=== PATIENT | female | born 1975 | race African-American/Black ===

== ENCOUNTER → 2019-06-11 | Outpatient (CLI) | payer MEDICARE, MEDICAID ==
--- NOTE | 2019-06-11 13:08 | RADIOLOGY REPORT (SQ) ---
EXAM DESCRIPTION: L SPINE 2 VIEWS COMPLETED DATE/TIME: 06/11/2019 12:59 pm REASON FOR STUDY: M54.31 SCIATICA, RIGHT SIDE COMPARISON: None. NUMBER OF VIEWS: Two views. TECHNIQUE: AP and lateral radiographic images acquired of the lumbar spine. LIMITATIONS: None. FINDINGS: MINERALIZATION: Normal. SEGMENTATION: Normal. No transitional anatomy. ALIGNMENT: Normal. VERTEBRAE: Maintained height. No fracture or worrisome bone lesion. DISCS: Preserved height. No significant osteophytes or end plate irregularity. POSTERIOR ELEMENTS: Pedicles and facets are intact. No pars defect or posterior arch defects. HARDWARE: Peritoneal dialysis catheter in the left pelvis PARASPINAL SOFT TISSUES: Normal. PELVIS: SI joints unremarkable OTHER: No other significant finding. IMPRESSION: NORMAL 2 VIEW LUMBAR SPINE. TECHNICAL DOCUMENTATION: JOB ID: [id number] [employer]- All Rights Reserved Reading location - IP/workstation name: [email or web address]
--- NOTE | 2019-06-11 13:09 | RADIOLOGY REPORT (SQ) ---
EXAM DESCRIPTION: HIP RIGHT AP/LATERAL COMPLETED DATE/TIME: 06/11/2019 12:59 pm REASON FOR STUDY: M25.551 PAIN IN RIGHT HIP COMPARISON: Lumbar spine films same date NUMBER OF VIEWS: Two views. TECHNIQUE: AP pelvis and additional frog-leg view of the right hip. LIMITATIONS: None. FINDINGS: MINERALIZATION: Normal. RIGHT HIP: No fracture or dislocation. No worrisome bone lesions. No significant joint space narrow ing LEFT HIP: No fracture or dislocation. No worrisome bone lesions. No significant joint space narrowi ng PUBIS AND ISCHIUM: No fracture. PELVIS: No fracture. SACRUM: No fracture or dislocation. No worrisome bone lesions. LOWER LUMBAR SPINE: No fracture or dislocation. No worrisome bone lesions. No significant disc disea se. SOFT TISSUES: No findings. OTHER: No other significant finding. IMPRESSION: No plain film findings to explain history of pain TECHNICAL DOCUMENTATION: JOB ID: [id number] [employer]- All Rights Reserved Reading location - IP/workstation name: [email or web address]
== END ==
LOC: RAD 12:17
PROVIDERS: ATTEND Internal Medicine
DX: M54.31 Sciatica, right side (principal); M25.551 Pain in right hip
CPT/HCPCS: 72100

== ENCOUNTER 2019-06-23 08:59 | Emergency (ER) | payer MEDICARE, MEDICAID ==
[2019-06-23] MEDS ORDERED: METHYLPREDNISOLONE INJ 125 MG/2 ML SDV IM ONE (09:50)
--- NOTE | 2019-06-23 09:52 | ER Document Report ---
ED Medical Screen (RME) - General Chief Complaint: General Weakness Stated Complaint: WEAKNESS Time Seen by Provider: 06/23/19 09:47 Primary Care Provider: MARYELLEN SHIRLEY MD [Primary Care Provider] - Follow up as needed TRAVEL OUTSIDE OF THE [place] IN LAST 30 DAYS: Yes - HPI Notes: 06/23/19 09:51 Patient is a 43-year-old female with a history of fibromyalgia and end-stage r enal disease performing peritoneal dialysis daily presents complaining of feeling generalized pain that could be related to her fibromyalgia, but having some generalized weakness as well. She has not had any complications with her dialysis at home. She is able to eat and drink without difficulty. She does still produce urine. She is having normal bowel movements. No fever, chest pain, shortness of breath, abdominal pain, nausea/vomiting/diarrhea. I have treated and performed a rapid initial assessment of this patient. A comprehensive ED assessment and evaluation of the patient, analysis of test results and completion of medical decision making process will be conducted by additional ED providers. PHYSICAL EXAMINATION: GENERAL: Well-appearing, well-nourished and in no acute distress. A&Ox4. Answers questions appropriately. Lungs: CTAB - Related Data Allergies/Adverse Reactions: iodine Allergy (Verified 06/23/19 09:46) seafood Allergy (Uncoded 06/23/19 09:46) Physical Exam - Vital signs Vitals: Temp Pulse Resp BP Pulse Ox 97.7 F 92 20 154/100 H 100 06/23/19 09:04 06/23/19 09:04 06/23/19 09:04 06/23/19 09:04 06/23/19 09:04 Course - Vital Signs Vital signs: Temp Pulse Resp BP Pulse Ox 97.7 F 92 20 154/100 H 100 06/23/19 09:04 06/23/19 09:04 06/23/19 09:04 06/23/19 09:04 06/23/19 09:04 Doctor's Discharge - Discharge Referrals: MARYELLEN SHIRLEY MD [Primary Care Provider] - Follow up as needed
[2019-06-23 10:41] LABS: ALBUMIN 3.8 g/dL (3.5-5.0); ALKALINE PHOSPHATASE 68 U/L (38-126); ANION GAP 17 (5-19); ASPARTATE AMINO TRANSFERASE 38 U/L (14-36); BILIRUBIN,DIRECT 1.2 mg/dL (0.0-0.4); BILIRUBIN,TOTAL 1.2 mg/dL (0.2-1.3); BLOOD UREA NITROGEN 82 mg/dL (7-20); CALCIUM 8.9 mg/dL (8.4-10.2); CARBON DIOXIDE 21 mmol/L (22-30); CHLORIDE 100 mmol/L (98-107); GLUCOSE 81 mg/dL (75-110); POTASSIUM 4.9 mmol/L (3.6-5.0); TOTAL PROTEIN 6.9 g/dL (6.3-8.2)
[2019-06-23 10:46] LABS: ABSOLUTE BASOPHILS # (AUTO) 0.1 10^3/uL (0.0-0.2); ABSOLUTE EOSINOPHILS # (AUTO) 0.4 10^3/uL (0.0-0.6); ABSOLUTE LYMPHOCYTES (AUTO) 1.6 10^3/uL (0.5-4.7); ABSOLUTE MONOCYTES (AUTO) 0.9 10^3/uL (0.1-1.4); ABSOLUTE NEUT (AUTO) 7.3 10^3/uL (1.7-8.2); BASOPHILS % (AUTO) 0.7 % (0-2); EOSINOPHILS % (AUTO) 3.5 % (0-6); HEMATOCRIT 25.9 % (36.0-47.0); HEMOGLOBIN 8.9 g/dL (12.0-15.5); LYMPHOCYTES % (AUTO) 15.4 % (13-45); MEAN CORPUSCULAR HEMOGLOBIN 31.1 pg (27.0-33.4); MEAN CORPUSCULAR HGB CONC 34.4 g/dL (32.0-36.0); MEAN CORPUSCULAR VOLUME 91 fl (80-97); MONOCYTES % (AUTO) 8.8 % (3-13); PLATELET COUNT 303 10^3/uL (150-450); RED BLOOD COUNT 2.86 10^6/uL (3.72-5.28); RED CELL DISTRIBUTION WIDTH 15.6 % (11.5-14.0); SEGMENTED NEUTROPHILS % (AUTO) 71.6 % (42-78); TOTAL CELLS COUNTED % (AUTO) 100 %; WHITE BLOOD COUNT 10.2 10^3/uL (4.0-10.5)
[2019-06-23 11:00] LABS: APPEARANCE,URINE CLEAR; BILIRUBIN,URINE NEGATIVE (NEGATIVE); COLOR,URINE STRAW; GLUCOSE, URINE 50 mg/dL (NEGATIVE); KETONES,URINE NEGATIVE (NEGATIVE); PROTEIN,URINE 100 mg/dL (NEGATIVE); URINE SPECIFIC GRAVITY 1.009; UROBILINOGEN,URINE NEGATIVE mg/dL (<2.0)
[2019-06-23] MEDS ORDERED: MORPHINE SULFATE 10 MG/ML INJ IM ONE ×2 (13:17→15:42)
--- NOTE | 2019-06-23 13:56 | ER Document Report ---
ED General - General Chief Complaint: Pain All Over Stated Complaint: WEAKNESS Time Seen by Provider: 06/23/19 09:47 Primary Care Provider: MARYELLEN SHIRLEY MD [Primary Care Provider] - 06/25/19 Sherie RAYGOZA MD [ACTIVE STAFF] - Follow up in 3-5 days Mode of Arrival: Ambulatory Information source: Patient Notes: Patient presents complaining of generalized pain from her head to her feet. Patient states she feels as though she is having a fibromyalgia flareup. Patient reports weakness but states that this is really only due to the fact that she hurts all over. Patient reports normal strength otherwise. Patient denies any fever cough or cold symptoms. No nausea or vomiting. Patient states this feels typical of flareups that she has with her fibromyalgia. TRAVEL OUTSIDE OF THE [place] IN LAST 30 DAYS: Yes - HPI Onset: This morning Onset/Duration: Gradual Quality of pain: Achy Pain Level: 5 Associated symptoms: Leg swelling. denies: Chest pain, Nonproductive cough, Productive cough, Fever, Headache, Nausea, Vomiting, Weakness Exacerbated by: Denies Relieved by: Denies Similar symptoms previously: Yes Recently seen / treated by doctor: No - Related Data Allergies/Adverse Reactions: iodine Allergy (Verified 06/23/19 09:46) seafood Allergy (Uncoded 06/23/19 09:46) Past Medical History - General Information source: Patient - Social History Smoking Status: Never Smoker Chew tobacco use (# tins/day): No Frequency of alcohol use: None Drug Abuse: None Occupation: None Lives with: Family Family History: Reviewed & Not Pertinent Patient has suicidal ideation: No Patient has homicidal ideation: No - Medical History Medical History: Other - Lupus - Past Medical History Cardiac Medical History: Reports: Hx Hypertension Neurological Medical History: Reports: Hx Migraine. Denies: Hx Seizures Renal/ Medical History: Reports: Hx End Stage Renal Disease, Hx Peritoneal Dialysis. Denies: Hx Kidney Stones GI Medical History: Denies: Hx Gastroesophageal Reflux Disease, Hx Hiatal Hernia, Hx Ulcer Musculoskeletal Medical History: Reports Hx Arthritis, Reports Hx Fibromyalgia Psychiatric Medical History: Reports: Hx Depression Past Surgical History: Reports: Hx Kidney (Renal Surgery) - 2019, Hx T onsillectomy - childhood Review of Systems - Review of Systems Constitutional: No symptoms reported. denies: Fever, Recent illness EENT: No symptoms reported Cardiovascular: No symptoms reported. denies: Chest pain Respiratory: No symptoms reported. denies: Cough, Short of breath Gastrointestinal: No symptoms reported. denies: Abdominal pain, Nausea, Vomiting Genitourinary: No symptoms reported Female Genitourinary: No symptoms reported Musculoskeletal: Muscle pain, Leg swelling Skin: No symptoms reported. denies: Rash Hematologic/Lymphatic: No symptoms reported Neurological/Psychological: No symptoms reported Physical Exam - Vital signs Vitals: Temp Pulse Resp BP Pulse Ox 97.7 F 92 20 154/100 H 100 06/23/19 09:04 06/23/19 09:04 06/23/19 09:04 06/23/19 09:04 06/23/19 09:04 - General General appearance: Appears well, Alert In distress: None - HEENT Head: Normocephalic, Atraumatic Eyes: Normal Conjunctiva: Normal Nasal: Normal Pharynx: Normal. No: Erythema Neck: Normal, Supple. No: Lymphadenopathy - Respiratory Respiratory status: No respiratory distress Chest status: Nontender Breath sounds: Normal. No: Rales, Rhonchi, Stridor, Wheezing Chest palpation: Normal - Cardiovascular Rhythm: Regular Heart sounds: S1 appreciated, S2 appreciated Murmur: No - Abdominal Inspection: Other - Peritoneal dialysis catheter, no erythema drainage or tenderness around site Bowel sounds: Normal Tenderness: Nontender Organomegaly: No organomegaly - Back Back: Tender - Generalized musculoskeletal tenderness. No: Vertebra tenderness - Extremities General upper extremity: Normal inspection, Normal ROM General lower extremity: Edema - 1+ bilateral lower extremities, Normal ROM - Neurological Neuro grossly intact: Yes Cognition: Normal Orientation: AAOx4 [place] Coma Scale Eye Opening: Spontaneous [place] Coma Scale Verbal: Oriented [place] Coma Scale Motor: Obeys Commands Teo Coma Scale Total: 15 - Psychological Associated symptoms: Normal affect, Normal mood - Skin Skin Temperature: Warm Skin Color: Normal Course - Re-evaluation Re-evalutation: 06/23/19 13:[address] Tavares regarding patient presentation and diagnostic evaluation. Patient has known history of renal failure and currently performs daily peritoneal dialysis. Patient with normal potassium at this time although BUN and creatinine both are elevated. We have nothing to compare patient's labs to them patient is uncertain when her baseline renal function test has been running. Dr. tavares advises treating for likely fibromyalgia flare at this time and recommends outpatient follow-up with her primary doctor and nephrology. 06/23/19 15:[address] Gee who is on-call for patient's primary doctor discussed patient's renal function test results and presentation. Recommends outpatient follow-up with nephrology and her primary doctor. Also recommends giving daniela ent steroid Dosepak to help manage her pain symptoms from her fibromyalgia. - Vital Signs Vital signs: Temp Pulse Resp BP Pulse Ox 97.6 F 88 18 121/86 H 95 06/23/19 17:03 06/23/19 17:03 06/23/19 17:03 06/23/19 17:03 06/23/19 17:03 - Laboratory Result Diagrams: 06/23/19 09:54 06/23/19 09:54 Laboratory results interpreted by me: 06/23/19 06/23/19 06/23/19 09:54 09:54 09:54 RBC 2.86 L Hgb 8.9 L Hct 25.9 L RDW 15.6 H Carbon Dioxide 21 L BUN 82 H Creatinine 16.62 H Est GFR ( Amer) 3 L Est GFR (MDRD) Non-Af 2 L Magnesium 2.7 H Direct Bilirubin 1.2 H AST 38 H Urine Protein 100 H Urine Glucose (UA) 50 H Urine Blood SMALL H 06/23/19 15:55 Labs- Entire Visit 06/23/19 06/23/19 06/23/19 09:54 09:54 09:54 WBC 10.2 RBC 2.86 L Hgb 8.9 L Hct 25.9 L MCV 91 MCH 31.1 MCHC 34.4 RDW 15.6 H Plt Count 303 Lymph % (Auto) 15.4 [place] % (Auto) 8.8 Eos % (Auto) 3.5 Baso % (Auto) 0.7 Absolute Neuts (auto) 7.3 Absolute Lymphs (auto) 1.6 Absolute Monos (auto) 0.9 Absolute Eos (auto) 0.4 Absolute Basos (auto) 0.1 Seg Neutrophils % 71.6 Sodium 138.2 Potassium 4.9 Chloride 100 Carbon Dioxide 21 L Anion Gap 17 BUN 82 H Creatinine 16.62 H Est GFR ( Amer) 3 L Est GFR (MDRD) Non-Af 2 L Glucose 81 Calcium 8.9 Magnesium 2.7 H Total Bilirubin 1.2 Direct Bilirubin 1.2 H Neonat Total Bilirubin Not Reportable Neonat Direct Bilirubin Not Reportable Neonat Indirect Bili Not Reportable AST 38 H ALT 54 Alkaline Phosphatase 68 Total Protein 6.9 Albumin 3.8 Urine Color STRAW Urine Appearance CLEAR Urine pH 8.0 Ur Specific [place] 1.009 Urine Protein 100 H Urine Glucose (UA) 50 H Urine Ketones NEGATIVE Urine Blood SMALL H Urine Nitrite (Reflex) NEGATIVE Urine Bilirubin NEGATIVE Urine Urobilinogen NEGATIVE Leukocyte Esterase Rfl NEGATIVE Urine RBC (Auto) 0 Urine WBC (Reflex) 2 Squamous Epi Cells Auto 1 Urine Mucus (Auto) RARE Urine Ascorbic Acid NEGATIVE Discharge - Discharge Clinical Impression: ESRD (end stage renal disease), Fibromyalgia Condition: Stable Disposition: HOME, SELF-CARE Instructions: Fibromyalgia ([facility]), Steroid Medication Additional Instructions: Return immediately for any new or worsening symptoms Followup with your primary care provider, call tomorrow to make a followup appointment Follow-up with [facility], call Tuesday to make a follow-up appointment Prescriptions: Prednisone [Deltasone 10 mg Tablet] 10 mg PO ASDIR PRN #21 tablet PRN Reason: Referrals: Sherie RAYGOZA MD [ACTIVE STAFF] - Follow up in 3-5 days MARYELLEN SHIRLEY MD [Primary Care Provider] - 06/25/19
[2019-06-23 17:04] VITALS: BP 121/86
== END 2019-06-23 17:04 | disposition home or self-care (01) ==
LOC: ER 08:59
DX: I12.0 Hypertensive chronic kidney disease with stage 5 chronic kidney disease or end stage renal disease (principal); N18.6 End stage renal disease; M79.7 Fibromyalgia; R53.1 Weakness
CPT/HCPCS: 99284; 96372; 36415; 83735; 85025; 80053; 81001; J2270

== ENCOUNTER 2019-06-27 13:12 | Inpatient (IN) | payer MEDICARE, MEDICAID ==
--- NOTE | 2019-06-27 14:49 | ER Document Report ---
ED Medical Screen (RME) - General Chief Complaint: Chest Pain Stated Complaint: CHEST PAIN Time Seen by Provider: 06/27/19 14:43 Primary Care Provider: MARYELLEN SHIRLEY MD [Primary Care Provider] - Follow up as needed Mode of Arrival: Wheelchair Information source: Patient Notes: 43-year-old female with history of fibromyalgia and peritoneal dialysis presents emergency department with complaints of back pain and chest pain. Denies fever vomiting diarrhea. Respiratory rate even unlabored speaking in clear sentences. Reports that she has been living with her father who keeps air-conditioning very low even when it is cold out and she is worried that she may be hurting more because when she does her dialysis is cold in the house. Denies history of cardiac disease. She was offered Motrin for pain but declined. Reports she usually receives morphine for her pain. I have greeted and performed a rapid initial assessment of this patient. A comprehensive ED assessment and evaluation of the patient, analysis of test results and completion of the medical decision making process will be conducted by additional ED providers. TRAVEL OUTSIDE OF THE [place] IN LAST 30 DAYS: Yes - Related Data Allergies/Adverse Reactions: iodine Allergy (Verified 06/27/19 14:43) seafood Allergy (Uncoded 06/27/19 14:43) Past Medical History - Past Medical History Cardiac Medical History: Reports: Hx Hypertension Denies: Hx Atrial Fibrillation, Hx Congestive Heart Failure, Hx Heart Attack, Hx Hypercholesterolemia Pulmonary Medical History: Denies: Hx Asthma, Hx Bronchitis, Hx COPD, Hx Pneumonia, Hx Tuberculosis Neurological Medical History: Reports: Hx Migraine. Denies: Hx Seizures Endocrine Medical History: Denies: Hx Diabetes Mellitus Type 1, Hx Diabetes Mellitus Type 2 Renal/ Medical History: Reports: Hx End Stage Renal Disease, Hx Peritoneal Dialysis. Denies: Hx Kidney Stones GI Medical History: Denies: Hx Gastroesophageal Reflux Disease, Hx Hiatal Hernia, Hx Ulcer Musculoskeltal Medical History: Reports Hx Arthritis, Reports Hx Fibromyalgia Psychiatric Medical History: Reports: Hx Depression Denies: Hx Attention Deficit Hyperactivity Disorder, Hx Bipolar Disorder, Hx Schizophrenia Past Surgical History: Reports: Hx Kidney (Renal Surgery) - 2019, Hx Tonsillectomy - childhood Physical Exam - Vital signs Vitals: Temp Pulse Resp BP Pulse Ox 97.6 F 56 L 16 156/105 H 99 06/27/19 13:48 06/27/19 13:48 06/27/19 13:48 06/27/19 13:48 06/27/19 13:48 Course - Vital Signs Vital signs: Temp Pulse Resp BP Pulse Ox 97.6 F 56 L 16 156/105 H 99 06/27/19 13:48 06/27/19 13:48 06/27/19 13:48 06/27/19 13:48 06/27/19 13:48 Doctor's Discharge - Discharge Referrals: MARYELLEN SHIRLEY MD [Primary Care Provider] - Follow up as needed
--- NOTE | 2019-06-27 15:06 | RADIOLOGY REPORT (SQ) ---
EXAM DESCRIPTION: CHEST 2 VIEWS COMPLETED DATE/TIME: 06/27/2019 2:57 pm REASON FOR STUDY: cp COMPARISON: None. EXAM PARAMETERS: NUMBER OF VIEWS: two views TECHNIQUE: PA and lateral views of the chest were obtained. RADIATION DOSE: NA LIMITATIONS: none FINDINGS: LUNGS AND PLEURA: The costophrenic sulci are blunted. The curvilinear opacities in the le ft base could represent atelectasis. There is no pneumothorax or focal consolidation. MEDIASTINUM AND HILAR STRUCTURES: No mediastinal hilar contour abnormality. HEART AND VASCULAR STRUCTURES: The cardiac silhouette is enlarged. BONES: No acute findings. HARDWARE: None in the chest. OTHER: No other finding. IMPRESSION: Cardiomegaly and small bilateral pleural effusions without pulmonary edema. TECHNICAL DOCUMENTATION: JOB ID: [id number] [employer]- All Rights Reserved Reading location - IP/workstation name: [email or web address]
[2019-06-27 16:03] LABS: HEMATOCRIT 26.6 % (36.0-47.0); MEAN CORPUSCULAR HEMOGLOBIN 30.6 pg (27.0-33.4); MEAN CORPUSCULAR VOLUME 90 fl (80-97); PLATELET COUNT 404 10^3/uL (150-450); RED BLOOD COUNT 2.96 10^6/uL (3.72-5.28); RED CELL DISTRIBUTION WIDTH 16.2 % (11.5-14.0); WHITE BLOOD COUNT 16.1 10^3/uL (4.0-10.5)
[2019-06-27 16:16] LABS: ALBUMIN 3.7 g/dL (3.5-5.0); ALKALINE PHOSPHATASE 81 U/L (38-126); ASPARTATE AMINO TRANSFERASE 41 U/L (14-36); BILIRUBIN,DIRECT 1.4 mg/dL (0.0-0.4); BILIRUBIN,TOTAL 1.4 mg/dL (0.2-1.3); BLOOD UREA NITROGEN 92 mg/dL (7-20); CALCIUM 7.8 mg/dL (8.4-10.2); GLUCOSE 164 mg/dL (75-110); POTASSIUM 4.6 mmol/L (3.6-5.0); TOTAL PROTEIN 6.7 g/dL (6.3-8.2)
[2019-06-27 16:23] LABS: CARBON DIOXIDE 21 mmol/L (22-30); CHLORIDE 97 mmol/L (98-107)
[2019-06-27 16:28] LABS: ANION GAP 20 (5-19)
[2019-06-27 16:38] LABS: ABSOLUTE LYMPHOCYTES# (MANUAL) 1.3 10^3/uL (0.5-4.7); ABSOLUTE MONOCYTES # (MANUAL) 1.3 10^3/uL (0.1-1.4); BASOPHILS % (MANUAL) 0 % (0-2); EOSINOPHILS % (MANUAL) 0 % (0-6); LYMPHOCYTES % (MANUAL) 8 % (13-45); MONOCYTES % (MANUAL) 8 % (3-13); SEGMENTED NEUTROPHILS % (MAN) 84 % (42-78); TOTAL CELLS COUNTED 100
[2019-06-27 16:39] LABS: ANISOCYTOSIS 1+
[2019-06-27 16:40] LABS: PLATELET COMMENT ADEQUATE
[2019-06-27] MEDS ORDERED: MORPHINE SULFATE 10 MG/ML INJ IV ONE ×2 (19:23→20:58)
--- NOTE | 2019-06-27 19:30 | ER Document Report ---
ED Cardiac - General Chief Complaint: Chest Pain > 30 Stated Complaint: CHEST PAIN Time Seen by Provider: 06/27/19 14:43 Mode of Arrival: Wheelchair Notes: Patient is a 43-year-old female with a history of fibromyalgia, peritoneal dialysis with chronic kidney failure, lupus who presents emergency department with a chief complaint of chest pain. Patient reports she began to have upper chest pain earlier today. Patient reports she was seen at her primary care physician's office and was sent here for evaluation. Patient reports the pain is also in her upper back. Patient reports that she feels like she is having a fibromyalgia flare but that this is not typical to have chest pain this severe. Patient denies recent fever or cough. Patient reports that she was seen the other day for body pain but was not having chest pain at that time. Patient reports she is having some swelling in her bilateral lower extremities but that this occurs when she sits for long periods of time which she has today. TRAVEL OUTSIDE OF THE [place] IN LAST 30 DAYS: Yes - Related Data Allergies/Adverse Reactions: iodine Allergy (Verified 06/27/19 14:43) seafood Allergy (Uncoded 06/27/19 14:43) Past Medical History - General Information source: Patient - Social History Smoking Status: Former Smoker Lives with: Family, Spouse/Significant other Family History: Reviewed & Not Pertinent Patient has suicidal ideation: No Patient has homicidal ideation: No - Past Medical History Cardiac Medical History: Reports: Hx Hypertension Denies: Hx Atrial Fibrillation, Hx Congestive Heart Failure, Hx Heart Attack, Hx Hypercholesterolemia Pulmonary Medical History: Reports: None Denies: Hx Asthma, Hx Bronchitis, Hx COPD, Hx Pneumonia, Hx Tuberculosis EENT Medical History: Reports: None Neurological Medical History: Reports: Hx Migraine. Denies: Hx Seizures Endocrine Medical History: Reports: None. Denies: Hx Diabetes Mellitus Type 1, Hx Diabetes Mellitus Type 2 Renal/ Medical History: Reports: Hx End Stage Renal Disease, Hx Peritoneal Dialysis. Denies: Hx Kidney Stones Malignancy Medical History: Reports: None GI Medical History: Reports: None. Denies: Hx Gastroesophageal Reflux Disease, Hx Hiatal Hernia, Hx Ulcer Musculoskeletal Medical History: Reports Hx Arthritis, Reports Hx Fibromyalgia, Reports Hx Systemic Lupus Erythematosus Skin Medical History: Reports None Psychiatric Medical History: Reports: Hx Depression Denies: Hx Attention Deficit Hyperactivity Disorder, Hx Bipolar Disorder, Hx Schizophrenia Traumatic Medical History: Reports: None Infectious Medical History: Reports: None Past Surgical History: Reports: Hx Kidney (Renal Surgery) - 2019, Hx Tonsillect elva - childhood Review of Systems - Review of Systems Constitutional: No symptoms reported EENT: No symptoms reported Cardiovascular: See HPI Respiratory: No symptoms reported Gastrointestinal: No symptoms reported Genitourinary: No symptoms reported Female Genitourinary: No symptoms reported Musculoskeletal: No symptoms reported Skin: No symptoms reported Hematologic/Lymphatic: No symptoms reported Neurological/Psychological: No symptoms reported Physical Exam - Vital signs Vitals: Temp Pulse Resp BP Pulse Ox 97.6 F 56 L 16 156/105 H 99 06/27/19 13:48 06/27/19 13:48 06/27/19 13:48 06/27/19 13:48 06/27/19 13:48 Interpretation: Hypertensive - Notes Notes: GENERAL: Well-appearing, well-nourished and in no acute distress. HEAD: Atraumatic, normocephalic. EYES: Pupils equal round and reactive to light, extraocular movements intact, sclera anicteric, conjunctiva are normal. ENT: Nares patent, oropharynx clear without exudates. Moist mucous membranes. NECK: Normal range of motion, supple without lymphadenopathy or JVD. LUNGS: Breath sounds clear to auscultation bilaterally and equal. No wheezes rales or rhonchi. HEART: Tachycardiac rate and rhythm without murmurs, rubs or gallops. ABDOMEN: Soft, nontender, normoactive bowel sounds, peritoneal dialysis site noted with dressing, no drainage. No guarding, no rebound. No masses appreciated. BACK: No cervical, thoracic, lumbar midline tenderness. No saddle anesthesia, normal distal neurovascular exam. GENITOURINARY: Deferred. EXTREMITIES: Normal range of motion, + 2 pitting edema bilaterally. No clubbing or cyanosis. NEUROLOGICAL: Cranial nerves II through XII grossly intact. Normal speech, normal gait. PSYCH: Normal mood, normal affect. SKIN: Warm, Dry, normal turgor, no rashes or lesions noted. Course - Re-evaluation Re-evalutation: 06/27/19 19:29 Upon initial exam patient is resting on her right lateral side and complains of 5 out of 5 chest and back pain. Patient reports that she does have a history of fibromyalgia but she typically does not have chest pain with this or pain that is so severe. Patient has not received anything for her discomfort. We will repeat a troponin and consult with her primary care physician Dr. Kinsey. 06/27/19 22:15 Patient's repeat troponin remains negative but did increase. Patient reports that the morphine is helping with her discomfort. Will contact Dr. Kinsey for consult and possible admission. 06/27/19 22:40 I did speak with Dr. Kinsey who will admit to the hospital. I also consulted with nephrology who will manage her peritoneal dialysis. This was Dr. Magana. She does agree to consult on the patient and put in orders for dialysis. - Vital Signs Vital signs: Temp Pulse Resp BP Pulse Ox 97.6 F 56 L 24 H 154/101 H 99 06/27/19 13:48 06/27/19 13:48 06/27/19 23:00 06/27/19 23:00 06/27/19 13:48 - Laboratory Result Diagrams: 06/27/19 15:11 06/27/19 15:11 Laboratory results interpreted by me: 06/27/19 06/27/19 15:11 15:11 WBC 16.1 H RBC 2.96 L Hgb 9.0 L Hct 26.6 L RDW 16.2 H Seg Neuts % (Manual) 84 H Lymphocytes % (Manual) 8 L Abs Neuts (Manual) 13.5 H Chloride 97 L Carbon Dioxide 21 L Anion Gap 20 H BUN 92 H Creatinine 15.18 H Est GFR ( Amer) 3 L Est GFR (MDRD) Non-Af 3 L Glucose 164 H Calcium 7.8 L Total Bilirubin 1.4 H Direct Bilirubin 1.4 H AST 41 H 06/27/19 19:28 Patient has a leukocytosis of 16.1. Patient does have hemoglobin of 9 with a hematocrit of 26.6. Patient's BUN and creatinine are elevated as to be expected as she is a end-stage renal patient on hemodialysis. - Diagnostic Test Radiology reviewed: Reports reviewed Radiology results interpreted by me: 06/27/19 19:28 Chest X-Ray 06/27/19 14:47 IMPRESSION: Cardiomegaly and small bilateral pleural effusions without pulmonary edema. Discharge - Discharge Clinical Impression: End stage renal disease, Fibromyalgia Chest pain Qualifiers: Chest pain type: unspecified Qualified Code(s): R07.9 - Chest pain, unspecified Condition: Stable Disposition: ADMITTED INPATIENT Admitting Provider: Amelie Unit Admitted: [facility]
[2019-06-27 21:08] LABS: A TYPE INFLUENZA AG NEGATIVE (NEGATIVE); B INFLUENZA AG NEGATIVE (NEGATIVE)
[2019-06-27] MEDS ORDERED: HEPARIN SOD (PORCINE) 5,000 UNIT/ML 1 ML VIAL SUBCUT ONE (23:00)
[2019-06-27] MEDS ORDERED: CEFTRIAXONE 1 GM/D5W RTU 1 GM/50 ML RTUPB IV ONE (23:00)
[2019-06-27 23:37] LABS: PHOSPHORUS 9.8 mg/dL (2.5-4.5)
[2019-06-27 23:52] LABS: INTERNATIONAL RATION (INR) 1.11; PROTHROMBIN TIME 14.4 SEC (11.4-15.4)
[2019-06-27 23:53] LABS: PARTIAL THROMBOPLASTIN TIME 34.5 SEC (23.5-35.8)
[2019-06-27 23:54] LABS: FREE T4 (FREE THYROXINE) 1.45 ng/dL (0.78-2.19)
[2019-06-28 00:08] LABS: THYROID STIMULATING HORMONE 1.11 uIU/mL (0.47-4.68)
[2019-06-28 00:14] LABS: CREATINE KINASE MB 1.94 ng/mL (<4.55); TROPONIN I 0.023 ng/mL
[2019-06-28] MEDS: HYDROMORPHONE HCL INJ/PF 2 MG/ML AMPULE IV PRN ×3 (00:42→19:11)
[2019-06-28] MEDS ORDERED: AMLODIPINE BESYLATE 5 MG TABLET PO ONE (04:30)
[2019-06-28] MEDS ORDERED: CLONIDINE HCL 0.1 MG TABLET PO ONE (04:30)
[2019-06-28 04:33] LABS: ARTERIAL BLOOD BASE EXCESS -3.3 mmol/L; ARTERIAL BLOOD H2CO3 1.11 mmol/L (1.05-1.35); ARTERIAL BLOOD HCO3 21.4 mmol/L (20-24); ARTERIAL BLOOD PCO2 36.8 mmHg (35-45); ARTERIAL BLOOD PH 7.38 (7.35-7.45); ARTERIAL BLOOD TOTAL CO2 22.6 mmol/L (21-25)
[2019-06-28 04:34] LABS: ARTERIAL BLOOD FIO2 ROOM AIR
[2019-06-28] MEDS: HEPARIN SOD (PORCINE) 5,000 UNIT/ML 1 ML VIAL SUBCUT SCH ×3 (06:11→23:14)
[2019-06-28 07:49] LABS: INTERNATIONAL RATION (INR) 1.15; PROTHROMBIN TIME 14.8 SEC (11.4-15.4)
[2019-06-28 07:51] LABS: ABSOLUTE EOSINOPHILS # (AUTO) 0.1 10^3/uL (0.0-0.6); ABSOLUTE LYMPHOCYTES (AUTO) 1.5 10^3/uL (0.5-4.7); ABSOLUTE MONOCYTES (AUTO) 1.1 10^3/uL (0.1-1.4); ABSOLUTE NEUT (AUTO) 8.7 10^3/uL (1.7-8.2); BASOPHILS % (AUTO) 0.4 % (0-2); EOSINOPHILS % (AUTO) 1.1 % (0-6); HEMATOCRIT 19.8 % (36.0-47.0); LYMPHOCYTES % (AUTO) 13.2 % (13-45); MEAN CORPUSCULAR HEMOGLOBIN 30.5 pg (27.0-33.4); MEAN CORPUSCULAR VOLUME 90 fl (80-97); MONOCYTES % (AUTO) 9.7 % (3-13); PLATELET COUNT 304 10^3/uL (150-450); RED BLOOD COUNT 2.21 10^6/uL (3.72-5.28); RED CELL DISTRIBUTION WIDTH 16.1 % (11.5-14.0); SEGMENTED NEUTROPHILS % (AUTO) 75.6 % (42-78); TOTAL CELLS COUNTED % (AUTO) 100 %; WHITE BLOOD COUNT 11.5 10^3/uL (4.0-10.5)
[2019-06-28 07:58] LABS: HEMOGLOBIN 6.7 g/dL (12.0-15.5)
[2019-06-28 08:11] LABS: ALBUMIN 2.7 g/dL (3.5-5.0); ALKALINE PHOSPHATASE 72 U/L (38-126); ASPARTATE AMINO TRANSFERASE 62 U/L (14-36); CREATINE KINASE 146 U/L (30-135); TOTAL PROTEIN 5.1 g/dL (6.3-8.2); TRIGLYCERIDES 50 mg/dL (<150)
[2019-06-28 08:19] LABS: CREATINE KINASE MB 1.43 ng/mL (<4.55); TROPONIN I 0.022 ng/mL
[2019-06-28 08:22] LABS: DIRECT LDL 49 mg/dL (<100)
[2019-06-28 08:50] LABS: ABSOLUTE RETICS # 0.044 10^6/uL (0.028-0.122); RETICULOCYTE COUNT (AUTO) 1.93 % (0.66-2.85)
[2019-06-28 09:00] LABS: IRON(TIBC) 35.4 ug/dL (37-170)
[2019-06-28] MEDS ORDERED: GENTAMICIN SULFATE 0.1% CREAM 15 GM TP SCH (10:00)
[2019-06-28 10:08] LABS: FOLATE 5.44 ng/mL (>2.76)
[2019-06-28 10:49] LABS: HEMATOCRIT 22.1 % (36.0-47.0); MEAN CORPUSCULAR HEMOGLOBIN 29.7 pg (27.0-33.4); MEAN CORPUSCULAR HGB CONC 33.5 g/dL (32.0-36.0); MEAN CORPUSCULAR VOLUME 89 fl (80-97); PLATELET COUNT 336 10^3/uL (150-450); RED CELL DISTRIBUTION WIDTH 16.2 % (11.5-14.0); WHITE BLOOD COUNT 11.5 10^3/uL (4.0-10.5)
[2019-06-28 10:50] LABS: HEMOGLOBIN 7.4 g/dL (12.0-15.5)
[2019-06-28] MEDS ORDERED: EPOETIN ALFA-EPBX 10,000 UNIT/ML VIAL (RENAL) SUBCUT ONE (11:00)
--- NOTE | 2019-06-28 11:00 | PDOC CONSULTATION ---
Consultation Consult Date: 06/28/19 Provider Consulted: DARREL COLE Consult reason:: I was asked to see the patient to supervise peritoneal dialysis in a patient with ESRD while here in the hospital. History of Present Illness Admission Date/PCP: 06/27/19 22:58 MARYELLEN SHIRLEY MD History of Present Illness: CARLOS LEVINE is a 43 year old female with history of end-stage renal disease reportedly secondary to lupus nephritis on peritoneal dialysis, fibromyalgia, and hypertension who presented to the emergency room yesterday because of chest pain. Patient actually went to Dr. Shirley's office complaining of chest pain. She said an EKG was done in the office and then she was sent to the emergency room. Patient states that she is started having pain for the last 3 days felt on her upper back around her neck and a localized part of her upper chest area. She feels like this is 1 of her fibromyalgia flares. Cardiac enzymes with troponin were obtained in the emergency room and so far has been negative. Upon presentation in the emergency room the patient was also found to be very hypertensive with a blood pressure as high as 172/120. Patient admits that she ran out of her clonidine for the past 2 days. Patient just moved from [place] to here in [place] and has been living with her father along with her 6/7 children about 2-1/2 weeks ago. Patient also was presented with leukocytosis of 16.1. Patient was given a dose of ceftriaxone 1 g in the emergency room. Today her white count was 11.5. Her hemoglobin when she came in last night was 9.0 and today surprisingly it is 6.7. She said she has some mild epistaxis prior to going to the emergency room yesterday but nothing massive. She denies any blood in the stool no urine. The patient has end-stage renal disease as mentioned above due to lupus nephritis and was started on peritoneal dialysis 8 to 9 months ago. She was following up with 1 of our nephrology partners in [place] but she could not tell me which one. She does peritoneal dialysis to the cycler at night. She does 1500 mL fill volume with a dwell time of 2 hours using alternating 1.5 and 2.5% solution on the cycler machine. She denies any cloudy bags, abdominal pain or problem with her exit site. She still makes urine. She thinks her dry weight is 118 kg. She is supposed to transfer to [facility] in [place] for her peritoneal dialysis care. She said she has been trying to call here at the [facility] unit here to make an appointment but was not successful. Past Medical History Cardiac Medical History: Reports: Hypertension-primary Neurological Medical History: Reports: Migraine Renal/ Medical History: Reports: 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, Hyperphosphatemia, Renal Osteodystropy Musculoskeltal Medical History: Reports: Arthritis, Fibromyalgia, Systemic Lupus Erythematosus Psychiatric Medical History: Reports: Depression Hematology Medical History: Reports Anemia of Chronic Kidney Disease Past Surgical History Past Surgical History: Reports: Dialysis Access Surgery PD, Tonsillectomy - childhood Social History Information Source: Patient Lives with: Family - Currently lives with father and her 6 children Smoking Status: Current Some Day Smoker - She was smoking 2 packs/day for 14 years and has cut down to just 1 cigarette every 3 days maybe Cigarettes Packs Per Day: 0.2 Electronic Cigarette use?: No Number of Years Smokin Last Time Smoked: 06/27/2019 Frequency of Alcohol Use: None Hx Recreational Drug Use: No Drugs: None Hx Prescription Drug Abuse: No Past Social History Note: She uses CBD for anxiety. - Advance Directive Resuscitation Status: Full Code Family History Family History: Chronic Kidney Disease - On her cousin with SLE as well, Hypertension - On her mother side., Other - Asthma on her father Parental Family History Reviewed: Yes Children Family History Reviewed: Yes Sibling(s) Family History Reviewed.: Yes Medication/Allergy Home Medications: Amlodipine Besylate [Norvasc 5 mg Tablet] 5 mg PO DAILY 06/23/19 Clonidine HCl [Catapres 0.3 mg Tablet] 0.3 mg PO DAILY 06/23/19 Prednisone [Deltasone 10 mg Tablet] 10 mg PO ASDIR PRN #21 tablet 06/23/19 Allergies/Adverse Reactions: iodine Allergy (Verified 06/27/19 14:43) seafood Allergy (Uncoded 06/27/19 14:43) Review of Systems All systems: reviewed and no additional remarkable complaints except as stated Review of Systems: Constitutional: ABSENT: chills, fatigue, fever(s), headache(s), weight gain, weight loss Eyes: ABSENT: visual disturbances Ears: ABSENT: hearing changes Cardiovascular: ABSENT: Dyspnea on exertion, orthropnea, palpitations; reports upper chest pain and edema Respiratory: ABSENT: cough, dyspnea, hemoptysis Gastrointestinal: ABSENT: abdominal pain, constipation, diarrhea, hematemesis, hematochezia, nausea, vomiting Genitourinary: ABSENT: dysuria, hematuria Musculoskeletal: ABSENT: joint swelling; reports upper back pain Integumentary: ABSENT: rash, wounds Neurological: ABSENT: abnormal gait, abnormal speech, confusion, dizziness, focal weakness, numbness, syncope Psychiatric: ABSENT: anxiety, depression Endocrine: ABSENT: cold intolerance, heat intolerance, polydipsia, polyuria Hematologic/Lymphatic: ABSENT: easy bleeding, easy bruising, lymphadenopathy Physical Exam Vital Signs: Temp Pulse Resp BP Pulse Ox 98.4 F 99 16 118/79 99 06/28/19 08:13 06/28/19 08:13 06/28/19 08:13 06/28/19 08:13 06/28/19 08:13 Intake & Output 06/27/19 06/28/19 06/29/19 06:59 06:59 06:59 Intake Total 1100 Output Total 700 Balance 400 Weight 54 kg Exam: General appearance: No acute distress, cooperative, well-developed, well- nourished Head exam: PRESENT: atraumatic, normocephalic Eye exam: PRESENT: Conjunctiva pale, EOMI, PERRLA. ABSENT: conjunctival injection, scleral icterus Mouth exam: PRESENT: moist, neck supple, tongue midline Neck exam: PRESENT: full ROM. ABSENT: carotid bruit, JVD, lymphadenopathy, thyromegaly Respiratory exam: PRESENT: clear to auscultation bilaterally. ABSENT: rales, rhonchi, stridor, wheezes Cardiovascular exam: PRESENT: RRR, +S1, +S2. Reproducible tenderness on her up per chest on palpation ABSENT: systolic murmur Pulses: PRESENT: normal radial pulses, normal dorsalis pedis pulses GI/Abdominal exam: PRESENT: normal bowel sounds, soft. Slightly distended but she has PD fluid in her. PD catheter in place in the left lower quadrant with excellent exit site without any drainage or erythema. ABSENT: guarding, mass, tenderness Rectal exam: Deferred Extremities exam: PRESENT: full ROM. Positive tenderness in her upper back and around the neck on palpation, grade 1 bilateral pitting edema ABSENT: calf tenderness Musculoskeletal: PRESENT: full ROM. ABSENT: deformity Neurological exam: PRESENT: alert, Awake, Oriented to person, Oriented to place, Oriented to time, reflexes normal, CN II-XII grossly intact. ABSENT: motor sensory deficit Psychiatric exam: PRESENT: appropriate affect, normal mood. ABSENT: homicidal ideation, suicidal ideation Skin exam: PRESENT: intact, dry, warm. ABSENT: rash Results Laboratory Results: 06/28/19 06:20 06/27/19 15:11 06/27/19 06/27/19 06/27/19 15:11 15:11 15:11 WBC 16.1 H RBC 2.96 L Hgb 9.0 L Hct 26.6 L MCV 90 MCH 30.6 MCHC 34.0 RDW 16.2 H Plt Count 404 Seg Neutrophils % Not Reportable Retic Count (auto) Carbonic Acid HCO3/H2CO3 Ratio ABG pH ABG pCO2 ABG pO2 ABG HCO3 ABG O2 Saturation ABG Base Excess FiO2 Sodium 138.1 Cancelled Potassium 4.6 Cancelled Chloride 97 L Cancelled Carbon Dioxide 21 L Cancelled Anion Gap 20 H Cancelled BUN 92 H Cancelled Creatinine 15.18 H Cancelled Est GFR ( Amer) 3 L Cancelled Est GFR (Non-Af Amer) Cancelled Glucose 164 H Cancelled Calcium 7.8 L Cancelled Phosphorus 9.8 H Magnesium 2.4 H Total Bilirubin 1.4 H AST 41 H Alkaline Phosphatase 81 Ammonia Total Protein 6.7 Albumin 3.7 Triglycerides Cholesterol LDL Cholesterol Direct VLDL Cholesterol HDL Cholesterol Amylase 152 H Lipase 295.9 TSH Free T4 06/27/19 06/27/19 06/28/19 15:11 23:33 04:00 WBC RBC Hgb Hct MCV MCH MCHC RDW Plt Count Seg Neutrophils % Retic Count (auto) Carbonic Acid 1.11 HCO3/H2CO3 Ratio 19:1 ABG pH 7.38 ABG pCO2 36.8 ABG pO2 70.0 L ABG HCO3 21.4 ABG O2 Saturation 94.0 ABG Base Excess -3.3 FiO2 ROOM AIR Sodium Potassium Chloride Carbon Dioxide Anion Gap BUN Creatinine Est GFR ( Amer) Est GFR (Non-Af Amer) Glucose Calcium Phosphorus Magnesium Total Bilirubin AST Alkaline Phosphatase Ammonia < 8.7 L Total Protein Albumin Triglycerides Cholesterol LDL Cholesterol Direct VLDL Cholesterol HDL Cholesterol Amylase Lipase TSH 1.11 Free T4 1.45 06/28/19 06/28/19 06/28/19 06:20 06:20 06:20 WBC 11.5 H RBC 2.21 L Hgb 6.7 L D Hct 19.8 L MCV 90 MCH 30.5 MCHC 34.0 RDW 16.1 H Plt Count 304 Seg Neutrophils % 75.6 Retic Count (auto) 1.93 Carbonic Acid HCO3/H2CO3 Ratio ABG pH ABG pCO2 ABG pO2 ABG HCO3 ABG O2 Saturation ABG Base Excess FiO2 Sodium Potassium Chloride Carbon Dioxide Anion Gap BUN Creatinine Est GFR ( Amer) Est GFR (Non-Af Amer) Glucose Calcium Phosphorus Magnesium Total Bilirubin 1.0 AST 62 H Alkaline Phosphatase 72 Ammonia Total Protein 5.1 L Albumin 2.7 L Triglycerides 50 Cholesterol 159.70 LDL Cholesterol Direct 49 VLDL Cholesterol 10.0 HDL Cholesterol 62 Amylase Lipase TSH Free T4 06/27/19 06/27/19 06/27/19 15:11 15:11 21:17 Creatine Kinase 277 H CK-MB (CK-2) Troponin I 0.017 0.020 06/27/19 06/28/19 06/28/19 23:33 06:20 06:20 Creatine Kinase 146 H CK-MB (CK-2) 1.94 1.43 Troponin I 0.023 0.022 Impressions: Chest X-Ray 06/27/19 14:47 IMPRESSION: Cardiomegaly and small bilateral pleural effusions without pulmonary edema. Assessment & Plan - Diagnosis (1) Chest pain Qualifiers: Chest pain type: unspecified Qualified Code(s): R07.9 - Chest pain, unspecified Is this a current diagnosis for this admission?: Yes Plan: Patient has no reported history of coronary artery disease. Her troponin so far has been negative. I think the patient is right and assuming that this could be part of her fibromyalgia flare. (2) Fibromyalgia Is this a current diagnosis for this admission?: Yes (3) ESRD (end stage renal disease) Is this a current diagnosis for this admission?: Yes Plan: Secondary to lupus nephritis per patient. Patient on CCPD at home. We will continue peritoneal dialysis here but since we do not have the cycler in the hospital we will do the manual exchanges. We will continue her on 4 exchanges every 6 hours using 1500 mL fill volume with alternating 1.5% and 2.5% dialysis solution. We will do daily exercise care with gentamicin cream. Discussed PD orders with her treating nurse today. I called [facility] PD unit at [place] and spoke to our PD nurse, Kenzie and she states that they have been trying to get up with the patient for the last 3 weeks and was unable to. If the patient gets discharged the patient is to go there on Tuesday at 9 AM. I communicated this to the patient today. (4) Leukocytosis Is this a current diagnosis for this admission?: Yes Plan: Her white count went down from 16 to 11 today. Clinically she does not appear to have acute peritonitis. Her PD effluent fluid is clear. However to be on the safe side we will send fluid cell count and culture as ordered initially by Dr. Shirley last night. (5) Anemia in chronic kidney disease, on chronic dialysis Is this a current diagnosis for this admission?: Yes Plan: Patient's last Procrit shot apparently was 3 weeks ago. There was no obvious signs of acute bleeding. Will check for occult blood. Will give Retacrit 20,000 units subcutaneously today. If blood count goes on any further below 7 or if she has any evidence of any bleeding then she might need blood transfusion or any other work-up. Her iron studies are pending. (6) Hypertension Is this a current diagnosis for this admission?: Yes Plan: Initially uncontrolled but that is because she ran out of her clonidine couple of days ago prior to admission. Resume all her blood pressure medications. (7) Chronic kidney disease-mineral and bone disorder Is this a current diagnosis for this admission?: Yes Plan: She has elevated phosphorus of 9.8 with mildly low calcium of 7.8. We will check her PTH. Patient admits that she has run out of calcium acetate 3 weeks ago when she moved down here in [place]. We will restart calcium acetate 667 mg 3 capsules with meals . (8) Hypermagnesemia Is this a current diagnosis for this admission?: Yes Plan: Due to ESRD. No magnesium supplements in this patient. (9) History of systemic lupus erythematosus (SLE) Is this a current diagnosis for this admission?: Yes Plan: Patient was previously given treatment at [place], [place] presumably at [place]. She said she follows up with a material inspector in [place]. - Notes Notes: Thank you very much for this consultation. We will follow the patient with you. - Time Time Spent: Greater than 70 Minutes
[2019-06-28] MEDS: GENTAMICIN SULFATE 0.1% OINTMENT 15 GM TP SCH (11:43)
[2019-06-28] MEDS: CALCIUM ACETATE 667 MG CAPSULE PO SCH ×2 (11:43→17:51)
[2019-06-28 12:14] LABS: FLUID APPEARANCE CLEAR; FLUID COLOR STRAW; FLUID SOURCE ABDOMEN; FLUID TYPE PERITONEAL; FLUID VISCOSITY LIQUID
[2019-06-28] MEDS ORDERED: EPOETIN ALFA-EPBX 20,000 UNITS (NON-ESRD) in SYRINGE SUBCUT ONE (12:15)
--- NOTE | 2019-06-28 14:17 | RADIOLOGY REPORT (SQ) ---
EXAM DESCRIPTION: U/S ABDOMEN LIMITED W/O DOP COMPLETED DATE/TIME: 06/28/2019 1:56 pm REASON FOR STUDY: ? spontaneous bacteria peritonitis N18.6 END STAGE RENAL DISEASE D50.0 IRON DEF ICIENCY ANEMIA SECONDARY TO BLOOD LOSS (CHRONI D63.1 ANEMIA IN CHRONIC KIDNEY DISEASE COMPARISON: None. TECHNIQUE: Limited Static and real time paiz scale imaging performed of the 4 abdominal quadrants an d the midline. LIMITATIONS: None. FINDINGS: ASCITES: Small amount of ascites. Insufficient volume for safe paracentesis. OTHER: No other significant finding. IMPRESSION: Small amount of ascites. TECHNICAL DOCUMENTATION: JOB ID: [id number] [employer]- All Rights Reserved Reading location - IP/workstation name: [email or web address]
--- NOTE | 2019-06-28 14:22 | RADIOLOGY REPORT (SQ) ---
EXAM DESCRIPTION: CT CHEST WITHOUT COMPLETED DATE/TIME: 06/28/2019 1:19 pm REASON FOR STUDY: copd ,chest pain N18.6 END STAGE RENAL DISEASE D50.0 IRON DEFICIENCY ANEMIA SEC ONDARY TO BLOOD LOSS (CHRONI D63.1 ANEMIA IN CHRONIC KIDNEY DISEASE COMPARISON: None. TECHNIQUE: CT scan performed of the chest without intravenous contrast. Images reviewed with lung, soft tissue and bone windows. Reconstructed coronal and sagittal MPR images reviewed. All images st ored on PACS. All CT scanners at this facility use dose modulation, iterative reconstruction, and/or weight based d osing when appropriate to reduce radiation dose to as low as reasonably achievable (ALARA). [facility]: Dose Right [facility]: CareDose [facility]: Dose Right [facility]: Teradose 4D [facility]: Smart Fannect RADIATION DOSE: CT Rad equipment meets quality standard of care and radiation dose reduction techniq ues were employed. CTDIvol: 3.2 mGy. DLP: 133 mGy-cm. mGy. LIMITATIONS: No technical limitations. FINDINGS: LUNGS AND PLEURA: Bilateral pleural effusions, left slightly more than right. Associated airspace disease in each lower lobe. No mass is appreciated. HILAR AND MEDIASTINAL STRUCTURES: No identified masses or abnormal nodes. No obvious aneurysm. HEART AND VASCULAR STRUCTURES: No aneurysm. There is a pericardial effusion with a maximum anterior depth of 15 mm on image 42. UPPER ABDOMEN: There is some ascites. There appears to be a 3 cm cystic lesion in the spleen. THYROID AND OTHER SOFT TISSUES: No masses. No adenopathy. BONES: No significant finding. HARDWARE: None in the chest. OTHER: Subcutaneous edema. IMPRESSION: Bilateral pleural effusions with associated airspace disease in the lower lobes, atelect asis versus pneumonia. Pericardial effusion. Ascites. Mild subcutaneous edema. 3 cm cystic lesion in the spleen. TECHNICAL DOCUMENTATION: JOB ID: [id number] Quality ID # [id number]: Final reports with documentation of one or more dose reduction techniques (e.g., Au tomated exposure control, adjustment of the mA and/or kV according to patient size, use of iterative reconstruction technique) 2010 [employer]- All Rights Reserved Reading location - IP/workstation name: [email or web address]
[2019-06-28 15:05] LABS: CREATINE KINASE MB 1.37 ng/mL (<4.55); TROPONIN I 0.022 ng/mL
[2019-06-28 18:32] LABS: CREATINE KINASE MB 1.24 ng/mL (<4.55); TROPONIN I 0.025 ng/mL
--- NOTE | 2019-06-28 20:14 | PDOC H&P ---
History of Present Illness Admission Date/PCP: 06/27/19 22:58 MARYELLEN SHIRLEY MD History of Present Illness: CARLOS LEVINE is a 43 year old female, She has history of systemic lupus erythe matosus complicated with end-stage renal disease on maintenance peritoneal dialysis. She came to the office for evaluation of chest pain, abdominal pain, she said the chest pain radiated to the shoulders. A 12-lead EKG was done in the office, It showed normal sinus rhythm, there was no acute ST-T wave deviation but because she has end-stage renal disease which increases risk of ischemic heart disease I felt patient needed to be further evaluated, she was referred to the emergency room for further evaluation. In the emergency room she was evaluated she was found to have severely elevated blood pressure, the initial serum troponin was indeterminate she was also found to have leukocytosis with white cell count of 16,000 with a left shift there was no definite source of infection that was identified but because she is on peritoneal dialysis I suspected that patient could have spontaneous bacterial peritonitis also suspect that she could have pneumonia because she is a smoker and she has some cough and a little bit of fever.The initial chest x-ray that was done in the emergency room did not demonstrate focal pneumonia, patient unfortunately continues to smoke cigarettes. The chest x-ray showed cardiomegaly and small bilateral pleural effusion without pulmonary edema. I continue to suspect pneumonia, CT chest without contrast was obtained, it demonstrated bilateral pleural effusion left slightly more than right there was associated airspace disease initial lower lobe there was no mass appreciated. Also found incidentally was a 3 cm cystic lesion in the spleen.She also underwent abdominal paracentesis, the peritoneal fluid analysis showed polymorphonuclear cell count of 23, less than 250 essentially rule out but peritonitis. The arterial blood gas demonstrated pH 7.38 PO2 70 PCO2 36.8, bicarbonate 21.4.. 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 Malignancy Medical History: Reports: None GI Medical History: Reports: None Musculoskeltal Medical History: Reports: Arthritis, Fibromyalgia Skin Medical History: Reports: None Psychiatric Medical History: Reports: Depression Traumatic Medical History: Reports: None Hematology: Reports: Anemia Infectious Medical History: Reports: None Past Surgical History Past Surgical History: Reports: Tonsillectomy - childhood Social History Lives with: Family - Currently lives with father and her 6 children Smoking Status: Current Every Day Smoker - She was smoking 2 packs/day for 14 years and has cut down to just 1 cigarette every 3 days maybe Cigarettes Packs Per Day: 0.2 Electronic Cigarette use?: No Number of Years Smokin Last Time Smoked: 06/27/2019 Frequency of Alcohol Use: None Hx Recreational Drug Use: No Drugs: None Hx Prescription Drug Abuse: No - Advance Directive Resuscitation Status: Full Code Family History Family History: Reviewed & Not Pertinent Parental Family History Reviewed: Yes Children Family History Reviewed: Yes Sibling(s) Family History Reviewed.: Yes Medication/Allergy Home Medications: Amlodipine Besylate [Norvasc 5 mg Tablet] 5 mg PO DAILY 06/23/19 Clonidine HCl [Catapres 0.3 mg Tablet] 0.3 mg PO DAILY 06/23/19 Prednisone [Deltasone 10 mg Tablet] 10 mg PO ASDIR PRN #21 tablet 06/23/19 Allergies/Adverse Reactions: iodine Allergy (Verified 06/27/19 14:43) seafood Allergy (Uncoded 06/27/19 14:43) Review of Systems Constitutional: PRESENT: chills, fatigue, headache(s) Eyes: ABSENT: visual disturbances Ears: ABSENT: hearing changes Cardiovascular: PRESENT: chest pain. ABSENT: dyspnea on exertion, edema, orthropnea, palpitations Respiratory: PRESENT: cough, sputum Gastrointestinal: PRESENT: abdominal pain Musculoskeletal: ABSENT: joint swelling Integumentary: ABSENT: rash, wounds Neurological: PRESENT: abnormal gait Psychiatric: ABSENT: anxiety, depression, homidical ideation, suicidal ideation Endocrine: PRESENT: flushing Physical Exam Vital Signs: Temp Pulse Resp BP Pulse Ox 97.8 F 87 16 151/101 H 96 06/28/19 17:07 06/28/19 14:53 06/28/19 17:07 06/28/19 17:07 06/28/19 12:40 Intake & Output 06/27/19 06/28/19 06/29/19 06:59 06:59 06:59 Intake Total 1100 4050 Output Total 700 2650 Balance 400 1400 Weight 54 kg 56.1 kg General appearance: PRESENT: no acute distress Eye exam: PRESENT: conjunctiva pink, EOMI, PERRLA Ear exam: PRESENT: normal external ear exam Mouth exam: PRESENT: moist, tongue midline Neck exam: PRESENT: full ROM Respiratory exam: PRESENT: rhonchi Cardiovascular exam: PRESENT: RRR, +S1, +S2 Pulses: PRESENT: normal dorsalis pedis pul, +2 pedal pulses bilateral Vascular exam: PRESENT: normal capillary refill GI/Abdominal exam: PRESENT: normal bowel sounds, soft Rectal exam: PRESENT: deferred Neurological exam: PRESENT: alert, CN II-XII grossly intact Psychiatric exam: PRESENT: appropriate affect, normal mood Skin exam: PRESENT: dry, intact, warm Results Laboratory Results: 06/28/19 10:34 06/27/19 15:11 06/27/19 06/27/19 06/27/19 15:11 15:11 23:33 WBC RBC Hgb Hct MCV MCH MCHC RDW Plt Count Seg Neutrophils % Retic Count (auto) Carbonic Acid HCO3/H2CO3 Ratio ABG pH ABG pCO2 ABG pO2 ABG HCO3 ABG O2 Saturation ABG Base Excess FiO2 Sodium Cancelled Potassium Cancelled Chloride Cancelled Carbon Dioxide Cancelled Anion Gap Cancelled BUN Cancelled Creatinine Cancelled Est GFR ( Amer) Cancelled Est GFR (Non-Af Amer) Cancelled Glucose Cancelled Calcium Cancelled Phosphorus 9.8 H Magnesium 2.4 H Iron TIBC % Saturation Ferritin Total Bilirubin AST Alkaline Phosphatase Ammonia < 8.7 L Total Protein Albumin Triglycerides Cholesterol LDL Cholesterol Direct VLDL Cholesterol HDL Cholesterol Amylase 152 H Lipase 295.9 Vitamin B12 Folate TSH 1.11 Free T4 1.45 PTH Intact Fluid Type Fluid Source Fluid Color Fluid Appearance Fluid Viscosity Fluid WBC Fluid RBC 06/28/19 06/28/19 06/28/19 04:00 06:20 06:20 WBC 11.5 H RBC 2.21 L Hgb 6.7 L D Hct 19.8 L MCV 90 MCH 30.5 MCHC 34.0 RDW 16.1 H Plt Count 304 Seg Neutrophils % 75.6 Retic Count (auto) Carbonic Acid 1.11 HCO3/H2CO3 Ratio 19:1 ABG pH 7.38 ABG pCO2 36.8 ABG pO2 70.0 L ABG HCO3 21.4 ABG O2 Saturation 94.0 ABG Base Excess -3.3 FiO2 ROOM AIR Sodium Potassium Chloride Carbon Dioxide Anion Gap BUN Creatinine Est GFR ( Amer) Est GFR (Non-Af Amer) Glucose Calcium Phosphorus Magnesium Iron TIBC % Saturation Ferritin Total Bilirubin 1.0 AST 62 H Alkaline Phosphatase 72 Ammonia Total Protein 5.1 L Albumin 2.7 L Triglycerides 50 Cholesterol 159.70 LDL Cholesterol Direct 49 VLDL Cholesterol 10.0 HDL Cholesterol 62 Amylase Lipase Vitamin B12 Folate TSH Free T4 PTH Intact Fluid Type Fluid Source Fluid Color Fluid Appearance Fluid Viscosity Fluid WBC Fluid RBC 06/28/19 06/28/19 06/28/19 06:20 06:20 10:20 WBC RBC Hgb Hct MCV MCH MCHC RDW Plt Count Seg Neutrophils % Retic Count (auto) 1.93 Carbonic Acid HCO3/H2CO3 Ratio ABG pH ABG pCO2 ABG pO2 ABG HCO3 ABG O2 Saturation ABG Base Excess FiO2 Sodium Potassium Chloride Carbon Dioxide Anion Gap BUN Creatinine Est GFR ( Amer) Est GFR (Non-Af Amer) Glucose Calcium Phosphorus Magnesium Iron 35.4 L TIBC 213 L % Saturation 17 Ferritin 455.00 H Total Bilirubin AST Alkaline Phosphatase Ammonia Total Protein Albumin Triglycerides Cholesterol LDL Cholesterol Direct VLDL Cholesterol HDL Cholesterol Amylase Lipase Vitamin B12 687.0 Folate 5.44 TSH Free T4 PTH Intact Fluid Type PERITONEAL Fluid Source ABDOMEN Fluid Color STRAW Fluid Appearance CLEAR Fluid Viscosity LIQUID Fluid WBC 18 Fluid RBC 8 06/28/19 06/28/19 10:34 10:34 WBC 11.5 H RBC 2.50 L Hgb 7.4 L Hct 22.1 L MCV 89 MCH 29.7 MCHC 33.5 RDW 16.2 H Plt Count 336 Seg Neutrophils % Retic Count (auto) Carbonic Acid HCO3/H2CO3 Ratio ABG pH ABG pCO2 ABG pO2 ABG HCO3 ABG O2 Saturation ABG Base Excess FiO2 Sodium Potassium Chloride Carbon Dioxide Anion Gap BUN Creatinine Est GFR ( Amer) Est GFR (Non-Af Amer) Glucose Calcium Phosphorus Magnesium Iron TIBC % Saturation Ferritin Total Bilirubin AST Alkaline Phosphatase Ammonia Total Protein Albumin Triglycerides Cholesterol LDL Cholesterol Direct VLDL Cholesterol HDL Cholesterol Amylase Lipase Vitamin B12 Folate TSH Free T4 PTH Intact 1118.0 H Fluid Type Fluid Source Fluid Color Fluid Appearance Fluid Viscosity Fluid WBC Fluid RBC 06/27/19 06/27/19 06/27/19 15:11 15:11 21:17 Creatine Kinase 277 H CK-MB (CK-2) Troponin I 0.017 0.020 06/27/19 06/28/19 06/28/19 23:33 06:20 06:20 Creatine Kinase 146 H CK-MB (CK-2) 1.94 1.43 Troponin I 0.023 0.022 06/28/19 06/28/19 06/28/19 13:46 13:46 17:25 Creatine Kinase 136 H CK-MB (CK-2) 1.37 1.24 Troponin I 0.022 0.025 06/28/19 17:25 Creatine Kinase 132 CK-MB (CK-2) Troponin I Impressions: Chest X-Ray 06/27/19 14:47 IMPRESSION: Cardiomegaly and small bilateral pleural effusions without pulmonary edema. Chest CT 06/28/19 13:15 IMPRESSION: Bilateral pleural effusions with associated airspace disease in the lower lobes, atelectasis versus pneumonia. Pericardial effusion. Ascites. Mild subcutaneous edema. 3 cm cystic lesion in the spleen. Abdomen Ultrasound 06/28/19 22:51 IMPRESSION: Small amount of ascites. 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
[2019-06-28] MEDS: ONDANSETRON HCL INJ/PF 4 MG/2 ML SDV IV PRN (20:23)
[2019-06-28] MEDS: LEVOFLOXACIN 500 MG/D5W RTU 500 MG/100 ML RTUPB IV SCH (21:32)
[2019-06-28] MEDS: CEFTRIAXONE 1 GM/D5W RTU 1 GM/50 ML RTUPB IV SCH (21:33)
--- NOTE | 2019-06-28 22:04 | EKG REPORT ---
SEVERITY:- BORDERLINE ECG - SINUS RHYTHM BORDERLINE T ABNORMALITIES, LATERAL LEADS BORDERLINE PROLONGED QT INTERVAL : Confirmed by: Karin vAilez 28-Jun-2019 22:02:56
--- NOTE | 2019-06-28 22:04 | EKG REPORT ---
SEVERITY:- ABNORMAL ECG - SINUS RHYTHM PROBABLE LEFT ATRIAL ABNORMALITY NONSPECIFIC T ABNORMALITIES, LATERAL LEADS BORDERLINE PROLONGED QT INTERVAL : Confirmed by: Karin Avilez 28-Jun-2019 22:02:51
[2019-06-29] MEDS: HYDROMORPHONE HCL INJ/PF 2 MG/ML AMPULE IV PRN ×2 (02:04→21:30)
[2019-06-29 06:03] LABS: ABSOLUTE EOSINOPHILS # (AUTO) 0.3 10^3/uL (0.0-0.6); ABSOLUTE LYMPHOCYTES (AUTO) 1.3 10^3/uL (0.5-4.7); ABSOLUTE NEUT (AUTO) 7.6 10^3/uL (1.7-8.2); BASOPHILS % (AUTO) 0.4 % (0-2); EOSINOPHILS % (AUTO) 2.7 % (0-6); HEMOGLOBIN 8.2 g/dL (12.0-15.5); LYMPHOCYTES % (AUTO) 12.7 % (13-45); MEAN CORPUSCULAR HEMOGLOBIN 30.4 pg (27.0-33.4); MEAN CORPUSCULAR HGB CONC 34.3 g/dL (32.0-36.0); MEAN CORPUSCULAR VOLUME 88 fl (80-97); MONOCYTES % (AUTO) 10.1 % (3-13); PLATELET COUNT 350 10^3/uL (150-450); RED BLOOD COUNT 2.72 10^6/uL (3.72-5.28); RED CELL DISTRIBUTION WIDTH 16.2 % (11.5-14.0); SEGMENTED NEUTROPHILS % (AUTO) 74.1 % (42-78); TOTAL CELLS COUNTED % (AUTO) 100 %; WHITE BLOOD COUNT 10.3 10^3/uL (4.0-10.5)
[2019-06-29] MEDS ORDERED: POLYETHYLENE GLYCOL 3350 POWDER 17 GM/1 PACKET PO ONE (06:30)
[2019-06-29 06:32] LABS: ALBUMIN 3.2 g/dL (3.5-5.0); ALKALINE PHOSPHATASE 89 U/L (38-126); ASPARTATE AMINO TRANSFERASE 42 U/L (14-36)
[2019-06-29] MEDS: HEPARIN SOD (PORCINE) 5,000 UNIT/ML 1 ML VIAL SUBCUT SCH ×3 (06:35→21:12)
--- NOTE | 2019-06-29 08:33 | RADIOLOGY REPORT (SQ) ---
EXAM DESCRIPTION: KUB/ABDOMEN (SINGLE VIEW) COMPLETED DATE/TIME: 06/29/2019 8:13 am REASON FOR STUDY: PD Not draining Properly N18.6 END STAGE RENAL DISEASE D50.0 IRON DEFICIENCY ANE LA SECONDARY TO BLOOD LOSS (CHRONI D63.1 ANEMIA IN CHRONIC KIDNEY DISEASE COMPARISON: None. NUMBER OF VIEWS: One view. TECHNIQUE: Supine radiographic image of the abdomen acquired. LIMITATIONS: None. FINDINGS: BOWEL GAS PATTERN: Evaluation for differential air-fluid levels is limited due to supine t echnique. There are no dilated loops of bowel. CALCIFICATIONS: Pelvic phleboliths. SOFT TISSUES: No abnormality. HARDWARE: Left lower quadrant peritoneal dialysis catheter. BONES: No acute abnormality. OTHER: No other finding. IMPRESSION: Nonobstructive bowel gas pattern. TECHNICAL DOCUMENTATION: JOB ID: [id number] [employer]- All Rights Reserved Reading location - IP/workstation name: [email or web address]
[2019-06-29] MEDS: CALCIUM ACETATE 667 MG CAPSULE PO SCH ×3 (08:46→17:34)
[2019-06-29] MEDS ORDERED: AMLODIPINE BESYLATE 5 MG TABLET PO SCH ×2 (10:00→16:00)
[2019-06-29] MEDS ORDERED: CLONIDINE HCL 0.1 MG TABLET PO SCH ×2 (10:00→17:00)
[2019-06-29] MEDS ORDERED: HEPARIN SOD (PORCINE) 1,000 UNIT/ML 1 ML VIAL IV PRN (10:15)
[2019-06-29] MEDS: LEVOFLOXACIN 500 MG/D5W RTU 500 MG/100 ML RTUPB IV SCH (10:28)
[2019-06-29] MEDS: GENTAMICIN SULFATE 0.1% OINTMENT 15 GM TP SCH (10:30)
[2019-06-29] MEDS: ONDANSETRON HCL INJ/PF 4 MG/2 ML SDV IV PRN ×2 (10:33→21:12)
[2019-06-29] MEDS: LACTULOSE SYRUP 20 GM/30 ML UDCUP PO PRN ×2 (10:50→19:57)
[2019-06-29 13:49] LABS: BLOOD UREA NITROGEN 91 mg/dL (7-20); CALCIUM 9.2 mg/dL (8.4-10.2); GLUCOSE 85 mg/dL (75-110); POTASSIUM 4.1 mmol/L (3.6-5.0)
[2019-06-29 13:55] LABS: CARBON DIOXIDE 18 mmol/L (22-30); CHLORIDE 94 mmol/L (98-107)
[2019-06-29 13:56] LABS: ANION GAP 23 (5-19)
[2019-06-29] MEDS ORDERED: BISACODYL 10 MG SUPP.RECT PR ONE (15:00)
--- NOTE | 2019-06-29 15:40 | PDOC PROGRESS REPORT ---
Subjective Progress Note for:: 06/29/19 Subjective:: Patient feels fine. Her pain seems to be subsiding. She states that her pain is only around the left side of her neck but her chest pain and the rest of the right side of her neck and upper back seems to have resolved. Her peritoneal dialysis went fine yesterday however joint special operations today she started not being able to drain her PD fluid. Her KUB showed that some still distended but there is no obstructive pattern, the deep of her peritoneal dialysis catheter is still in the pelvis but more on the left upper pelvis. There is no kinks along the catheter. Patient has not had a bowel movement since she came in here. She states that her last bowel movement was 2 days ago. Patient continues to make some urine output. She denies any shortness of breath and actually feeling fine otherwise. Her blood pressure is also elevated today. Reason For Visit: CHEST PAIN,LEUKOCYTOSIS ? CAUSE ESRD ON PD Physical Exam Vital Signs: Temp Pulse Resp BP Pulse Ox 97.7 F 100 18 166/119 H 99 06/29/19 11:29 06/29/19 12:00 06/29/19 11:29 06/29/19 12:00 06/29/19 11:29 Intake & Output 06/28/19 06/29/19 06/30/19 06:59 06:59 06:59 Intake Total 1100 5700 1600 Output Total 700 4550 250 Balance 400 1150 1350 Weight 54 kg 55.8 kg Exam: General appearance: PRESENT: no acute distress, cooperative, well-developed, well-nourished Head exam: PRESENT: atraumatic, normocephalic Eye exam: PRESENT: conjunctiva slightly pale, PERRLA. ABSENT: scleral icterus Neck exam: ABSENT: JVD Respiratory exam: PRESENT: Normal breath sounds. ABSENT: crackles, rales, rhonchi, unlabored, wheezes Cardiovascular exam: PRESENT: Regular rate rhythm -+S1, +S2. ABSENT: diastolic murmur, systolic murmur GI/Abdominal exam: PRESENT: normal bowel sounds, soft. PD catheter in place ABSENT: guarding, mass, tenderness Extremities exam: ABSENT: No edema Neurological exam: PRESENT: alert, awake, oriented to person, place and time. Skin exam: PRESENT: dry, warm, Results Laboratory Results: 06/29/19 05:53 06/29/19 05:53 06/29/19 06/29/19 06/29/19 05:53 05:53 05:53 WBC 10.3 RBC 2.72 L Hgb 8.2 L Hct 24.0 L MCV 88 MCH 30.4 MCHC 34.3 RDW 16.2 H Plt Count 350 Seg Neutrophils % 74.1 Sodium 135.4 L Potassium 4.1 Chloride 94 L Carbon Dioxide 18 L Anion Gap 23 H BUN 91 H Creatinine 14.64 H Est GFR ( Amer) 3 L Glucose 85 Calcium 9.2 Total Bilirubin 1.0 AST 42 H Alkaline Phosphatase 89 Total Protein 6.0 L Albumin 3.2 L 06/27/19 06/27/19 06/27/19 15:11 15:11 21:17 Creatine Kinase 277 H CK-MB (CK-2) Troponin I 0.017 0.020 06/27/19 06/28/19 06/28/19 23:33 06:20 06:20 Creatine Kinase 146 H CK-MB (CK-2) 1.94 1.43 Troponin I 0.023 0.022 06/28/19 06/28/19 06/28/19 13:46 13:46 17:25 Creatine Kinase 136 H CK-MB (CK-2) 1.37 1.24 Troponin I 0.022 0.025 06/28/19 17:25 Creatine Kinase 132 CK-MB (CK-2) Troponin I Impressions: Chest X-Ray 06/27/19 14:47 IMPRESSION: Cardiomegaly and small bilateral pleural effusions without pulmonary edema. Chest CT 06/28/19 13:15 IMPRESSION: Bilateral pleural effusions with associated airspace disease in the lower lobes, atelectasis versus pneumonia. Pericardial effusion. Ascites. Mild subcutaneous edema. 3 cm cystic lesion in the spleen. Abdomen Ultrasound 06/28/19 22:51 IMPRESSION: Small amount of ascites. KUB X-Ray 06/29/19 00:00 IMPRESSION: Nonobstructive bowel gas pattern. Assessment & Plan - Diagnosis (1) Chest pain Qualifiers: Chest pain type: unspecified Qualified Code(s): R07.9 - Chest pain, unspecified Is this a current diagnosis for this admission?: Yes Plan: Her cardiac enzymes and troponin has been negative. Most likely noncardiac secondary to fibromyalgia flare. Currently pain is almost resolved completely. (2) Fibromyalgia Is this a current diagnosis for this admission?: Yes Plan: Overall her pain on her chest upper back and around the neck has improved with the remaining left neck pain. (3) ESRD (end stage renal disease) Is this a current diagnosis for this admission?: Yes Plan: Patient has issue with a draining to her PD catheter. I did a KUB as indicated above. Patient might be partly constipated. We have given her MiraLAX and lactulose and so far has not no bowel movement. I will give her a Dulcolax suppository and will give other medication if it does not work. Today I flushed her PD catheter using a 50 cc syringe with 10 units of heparin. I was able to aspirate some fibrin tissue. Otherwise so was able to flush the catheter and again aspirate without any problems. We are going to try and see if she will drain. For the next bag we are going to institute heparin 500 units/L of dialysate solution. I am also consulting Dr. Johnson her vascular surgeon to take a look at her PD catheter. Continue the same PD orders otherwise (4) Leukocytosis Is this a current diagnosis for this admission?: Yes Plan: White count is now within normal limits. No evidence of acute peritonitis. (5) Anemia in chronic kidney disease, on chronic dialysis Is this a current diagnosis for this admission?: Yes Plan: Retacrit was given yesterday. Her T sat is low at 17. I will give her a dose of IV Injectafer. (6) Hypertension Is this a current diagnosis for this admission?: Yes Plan: Uncontrolled. Increase amlodipine to 10 mg q. at bedtime. Increase clonidine to 0.3 mg every 12 hours. (7) Chronic kidney disease-mineral and bone disorder Is this a current diagnosis for this admission?: Yes Plan: Her phosphorus is 9.8 and PTH is 1118. Calcium acetate was started yesterday. I would not start her on calcitriol 0.25 mcg daily. (8) Hypermagnesemia Is this a current diagnosis for this admission?: Yes (9) History of systemic lupus erythematosus (SLE) Is this a current diagnosis for this admission?: Yes - Notes Notes: There is nobody flooring salesperson for nephrology over the weekend but I can be contacted for this patient for peritoneal dialysis issues. - Time Time with patient: 15-25 minutes
[2019-06-29] MEDS ORDERED: FERRIC CARBOXYMALTOSE 750 MG in NORMAL SALINE 100 ML IV ONE (17:00)
[2019-06-29] MEDS: CALCITRIOL 0.25 MCG CAPSULE PO SCH (17:34)
--- NOTE | 2019-06-29 20:51 | PDOC PROGRESS REPORT ---
Subjective Progress Note for:: 06/29/19 Subjective:: She was seen by the bedside, she has problem with the peritoneal dialysis catheter, nephrology is following patient, she has some improvement she has less pain today Reason For Visit: CHEST PAIN,LEUKOCYTOSIS ? CAUSE ESRD ON PD Physical Exam Vital Signs: Temp Pulse Resp BP Pulse Ox 97.7 F 82 18 128/84 H 100 06/29/19 15:45 06/29/19 15:45 06/29/19 15:45 06/29/19 15:45 06/29/19 15:45 Intake & Output 06/28/19 06/29/19 06/30/19 06:59 06:59 06:59 Intake Total 1100 5700 2280 Output Total 700 4550 350 Balance 400 1150 1930 Weight 54 kg 55.8 kg General appearance: PRESENT: no acute distress Eye exam: PRESENT: PERRLA Respiratory exam: PRESENT: crackles Cardiovascular exam: PRESENT: +S1, +S2 GI/Abdominal exam: PRESENT: soft Neurological exam: PRESENT: alert Results Laboratory Results: 06/29/19 05:53 06/29/19 05:53 06/29/19 06/29/19 06/29/19 05:53 05:53 05:53 WBC 10.3 RBC 2.72 L Hgb 8.2 L Hct 24.0 L MCV 88 MCH 30.4 MCHC 34.3 RDW 16.2 H Plt Count 350 Seg Neutrophils % 74.1 Sodium 135.4 L Potassium 4.1 Chloride 94 L Carbon Dioxide 18 L Anion Gap 23 H BUN 91 H Creatinine 14.64 H Est GFR ( Amer) 3 L Glucose 85 Calcium 9.2 Total Bilirubin 1.0 AST 42 H Alkaline Phosphatase 89 Total Protein 6.0 L Albumin 3.2 L 06/27/19 06/27/19 06/27/19 15:11 15:11 21:17 Creatine Kinase 277 H CK-MB (CK-2) Troponin I 0.017 0.020 06/27/19 06/28/19 06/28/19 23:33 06:20 06:20 Creatine Kinase 146 H CK-MB (CK-2) 1.94 1.43 Troponin I 0.023 0.022 06/28/19 06/28/19 06/28/19 13:46 13:46 17:25 Creatine Kinase 136 H CK-MB (CK-2) 1.37 1.24 Troponin I 0.022 0.025 06/28/19 17:25 Creatine Kinase 132 CK-MB (CK-2) Troponin I Impressions: Chest X-Ray 06/27/19 14:47 IMPRESSION: Cardiomegaly and small bilateral pleural effusions without pulmonary edema. Chest CT 06/28/19 13:15 IMPRESSION: Bilateral pleural effusions with associated airspace disease in the lower lobes, atelectasis versus pneumonia. Pericardial effusion. Ascites. Mild subcutaneous edema. 3 cm cystic lesion in the spleen. Abdomen Ultrasound 06/28/19 22:51 IMPRESSION: Small amount of ascites. KUB X-Ray 06/29/19 00:00 IMPRESSION: Nonobstructive bowel gas pattern. 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
[2019-06-29] MEDS: CLONIDINE HCL 0.1 MG TABLET PO SCH (21:12)
[2019-06-29] MEDS: CEFTRIAXONE 1 GM/D5W RTU 1 GM/50 ML RTUPB IV SCH (21:12)
[2019-06-30] MEDS: ONDANSETRON HCL INJ/PF 4 MG/2 ML SDV IV PRN ×2 (03:58→22:18)
[2019-06-30] MEDS: HYDROMORPHONE HCL INJ/PF 2 MG/ML AMPULE IV PRN ×4 (04:03→23:42)
[2019-06-30] MEDS: HEPARIN SOD (PORCINE) 5,000 UNIT/ML 1 ML VIAL SUBCUT SCH ×3 (05:47→22:07)
[2019-06-30 06:01] LABS: HEMATOCRIT 20.2 % (36.0-47.0); MEAN CORPUSCULAR HEMOGLOBIN 30.7 pg (27.0-33.4); MEAN CORPUSCULAR HGB CONC 34.9 g/dL (32.0-36.0); MEAN CORPUSCULAR VOLUME 88 fl (80-97); PLATELET COUNT 331 10^3/uL (150-450); RED CELL DISTRIBUTION WIDTH 15.5 % (11.5-14.0); WHITE BLOOD COUNT 8.8 10^3/uL (4.0-10.5)
[2019-06-30 06:29] LABS: ALBUMIN 2.8 g/dL (3.5-5.0); ALKALINE PHOSPHATASE 75 U/L (38-126); ASPARTATE AMINO TRANSFERASE 22 U/L (14-36); TOTAL PROTEIN 5.2 g/dL (6.3-8.2)
[2019-06-30 06:46] LABS: ABSOLUTE LYMPHOCYTES# (MANUAL) 1.5 10^3/uL (0.5-4.7); ABSOLUTE MONOCYTES # (MANUAL) 0.5 10^3/uL (0.1-1.4); BASOPHILS % (MANUAL) 0 % (0-2); EOSINOPHILS % (MANUAL) 4 % (0-6); LYMPHOCYTES % (MANUAL) 17 % (13-45); MONOCYTES % (MANUAL) 6 % (3-13); SEGMENTED NEUTROPHILS % (MAN) 73 % (42-78); TOTAL CELLS COUNTED 100
[2019-06-30 06:48] LABS: ANISOCYTOSIS SLIGHT; BURR CELLS SLIGHT; OVALOCYTES SLIGHT; PLATELET COMMENT ADEQUATE; POIKILOCYTOSIS SLIGHT; SCHISTOCYTES SLIGHT; TOXIC GRANULATION SLIGHT
[2019-06-30 06:50] LABS: HEMOGLOBIN 7.1 g/dL (12.0-15.5)
[2019-06-30] MEDS: AMLODIPINE BESYLATE 5 MG TABLET PO SCH ×2 (09:24→11:50)
[2019-06-30] MEDS: CALCIUM ACETATE 667 MG CAPSULE PO SCH ×3 (09:24→17:15)
[2019-06-30] MEDS: CALCITRIOL 0.25 MCG CAPSULE PO SCH ×2 (09:46→11:50)
[2019-06-30 10:57] LABS: BLOOD UREA NITROGEN 90 mg/dL (7-20); CARBON DIOXIDE 21 mmol/L (22-30); CHLORIDE 92 mmol/L (98-107); GLUCOSE 83 mg/dL (75-110)
[2019-06-30 11:10] LABS: ANION GAP 20 (5-19)
[2019-06-30] MEDS: GENTAMICIN SULFATE 0.1% OINTMENT 15 GM TP SCH (11:53)
[2019-06-30] MEDS ORDERED: EPOETIN ALFA-EPBX 20,000 UNITS (NON-ESRD) in SYRINGE SUBCUT ONE (12:00)
[2019-06-30 14:19] LABS: APPEARANCE,URINE SLIGHTLY-CLOUDY; BILIRUBIN,URINE NEGATIVE (NEGATIVE); COLOR,URINE STRAW; GLUCOSE, URINE NEGATIVE (NEGATIVE); KETONES,URINE NEGATIVE (NEGATIVE); PROTEIN,URINE 100 mg/dL (NEGATIVE); URINE SPECIFIC GRAVITY 1.009; UROBILINOGEN,URINE NEGATIVE mg/dL (<2.0)
--- NOTE | 2019-06-30 14:43 | PDOC PROGRESS REPORT ---
Subjective Progress Note for:: 06/30/19 Subjective:: Patient had episode of vomiting earlier today she was given Zofran, the PD is now working effectively Reason For Visit: CHEST PAIN,LEUKOCYTOSIS ? CAUSE ESRD ON PD Physical Exam Vital Signs: Temp Pulse Resp BP Pulse Ox 97.6 F 94 16 174/111 H 93 06/30/19 11:51 06/30/19 11:51 06/30/19 11:51 06/30/19 11:51 06/30/19 11:51 Intake & Output 06/29/19 06/30/19 07/01/19 06:59 06:59 06:59 Intake Total 5700 2430 Output Total 4550 550 Balance 1150 1880 Weight 55.8 kg 55.2 kg General appearance: PRESENT: no acute distress Eye exam: PRESENT: PERRLA Respiratory exam: PRESENT: clear to auscultation coco Cardiovascular exam: PRESENT: +S1, +S2 GI/Abdominal exam: PRESENT: soft Neurological exam: PRESENT: alert Results Laboratory Results: 06/30/19 04:48 06/30/19 04:48 06/30/19 06/30/19 06/30/19 04:05 04:48 04:48 WBC 8.8 RBC 2.30 L Hgb 7.1 L Hct 20.2 L MCV 88 MCH 30.7 MCHC 34.9 RDW 15.5 H Plt Count 331 Seg Neutrophils % Not Reportable Sodium Potassium Chloride Carbon Dioxide Anion Gap BUN Creatinine Est GFR ( Amer) Glucose Calcium Total Bilirubin 1.0 AST 22 Alkaline Phosphatase 75 Total Protein 5.2 L Albumin 2.8 L Urine Color Urine Appearance Urine pH Ur Specific [place] Urine Protein Urine Glucose (UA) Urine Ketones Urine Blood Urine RBC (Auto) Stool Occult Blood NEGATIVE 06/30/19 06/30/19 04:48 12:50 WBC RBC Hgb Hct MCV MCH MCHC RDW Plt Count Seg Neutrophils % Sodium 132.9 L Potassium 5.0 Chloride 92 L Carbon Dioxide 21 L Anion Gap 20 H BUN 90 H Creatinine 14.92 H Est GFR ( Amer) 3 L Glucose 83 Calcium 9.0 Total Bilirubin AST Alkaline Phosphatase Total Protein Albumin Urine Color STRAW Urine Appearance SLIGHTLY-CLOUDY Urine pH 7.0 Ur Specific [place] 1.009 Urine Protein 100 H Urine Glucose (UA) NEGATIVE Urine Ketones NEGATIVE Urine Blood NEGATIVE Urine RBC (Auto) 0 Stool Occult Blood 06/27/19 06/27/19 06/27/19 15:11 15:11 21:17 Creatine Kinase 277 H CK-MB (CK-2) Troponin I 0.017 0.020 06/27/19 06/28/19 06/28/19 23:33 06:20 06:20 Creatine Kinase 146 H CK-MB (CK-2) 1.94 1.43 Troponin I 0.023 0.022 06/28/19 06/28/19 06/28/19 13:46 13:46 17:25 Creatine Kinase 136 H CK-MB (CK-2) 1.37 1.24 Troponin I 0.022 0.025 06/28/19 17:25 Creatine Kinase 132 CK-MB (CK-2) Troponin I Impressions: Chest X-Ray 06/27/19 14:47 IMPRESSION: Cardiomegaly and small bilateral pleural effusions without pulmonary edema. Chest CT 06/28/19 13:15 IMPRESSION: Bilateral pleural effusions with associated airspace disease in the lower lobes, atelectasis versus pneumonia. Pericardial effusion. Ascites. Mild subcutaneous edema. 3 cm cystic lesion in the spleen. Abdomen Ultrasound 06/28/19 22:51 IMPRESSION: Small amount of ascites. KUB X-Ray 06/29/19 00:00 IMPRESSION: Nonobstructive bowel gas pattern. 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
[2019-06-30] MEDS: CLONIDINE HCL 0.1 MG TABLET PO SCH (22:15)
[2019-06-30] MEDS: CEFTRIAXONE 1 GM/D5W RTU 1 GM/50 ML RTUPB IV SCH (22:16)
[2019-07-01] MEDS: HEPARIN SOD (PORCINE) 5,000 UNIT/ML 1 ML VIAL SUBCUT SCH ×3 (05:20→21:55)
[2019-07-01] MEDS: CALCIUM ACETATE 667 MG CAPSULE PO SCH ×3 (08:46→17:06)
[2019-07-01] MEDS: AMLODIPINE BESYLATE 5 MG TABLET PO SCH (11:05)
[2019-07-01] MEDS: CALCITRIOL 0.25 MCG CAPSULE PO SCH (11:06)
[2019-07-01] MEDS: ENALAPRILAT DIHYDRATE INJ/PF 2.5 MG/2 ML SDV IV SCH ×2 (11:16→18:06)
[2019-07-01] MEDS: ONDANSETRON HCL INJ/PF 4 MG/2 ML SDV IV PRN (11:19)
[2019-07-01] MEDS: GENTAMICIN SULFATE 0.1% OINTMENT 15 GM TP SCH (11:22)
--- NOTE | 2019-07-01 11:57 | RADIOLOGY REPORT (SQ) ---
EXAM DESCRIPTION: KUB/ABDOMEN (SINGLE VIEW) COMPLETED DATE/TIME: 07/01/2019 11:38 am REASON FOR STUDY: Vomiting N18.6 END STAGE RENAL DISEASE D50.0 IRON DEFICIENCY ANEMIA SECONDARY TO BLOOD LOSS (CHRONI D63.1 ANEMIA IN CHRONIC KIDNEY DISEASE COMPARISON: None. NUMBER OF VIEWS: One view. TECHNIQUE: Supine radiographic image of the abdomen acquired. LIMITATIONS: None. FINDINGS: BOWEL GAS PATTERN: Normal bowel gas pattern. No dilated loops. CALCIFICATIONS: Phleboliths in the left hemipelvis suspected. SOFT TISSUES: No gross mass or suggestion of organomegaly. HARDWARE: Peritoneal dialysis catheter in the left pelvis. External monitor lead artifacts otherwise . BONES: No acute fracture. No worrisome bone lesions. OTHER: No other significant finding. IMPRESSION: NO RADIOGRAPHIC EVIDENCE FOR ACUTE ABDOMINAL DISEASE. TECHNICAL DOCUMENTATION: JOB ID: [id number] [employer]- All Rights Reserved Reading location - IP/workstation name: [email or web address]
[2019-07-01 13:05] LABS: HEMATOCRIT 21.7 % (36.0-47.0); MEAN CORPUSCULAR HEMOGLOBIN 30.9 pg (27.0-33.4); MEAN CORPUSCULAR HGB CONC 35.4 g/dL (32.0-36.0); MEAN CORPUSCULAR VOLUME 87 fl (80-97); PLATELET COUNT 379 10^3/uL (150-450); RED BLOOD COUNT 2.48 10^6/uL (3.72-5.28); RED CELL DISTRIBUTION WIDTH 15.9 % (11.5-14.0); WHITE BLOOD COUNT 9.7 10^3/uL (4.0-10.5)
[2019-07-01 13:18] LABS: ALBUMIN 2.8 g/dL (3.5-5.0); ALKALINE PHOSPHATASE 75 U/L (38-126); ANION GAP 15 (5-19); ASPARTATE AMINO TRANSFERASE 17 U/L (14-36); BILIRUBIN,DIRECT 0.8 mg/dL (0.0-0.4); BILIRUBIN,TOTAL 0.8 mg/dL (0.2-1.3); BLOOD UREA NITROGEN 73 mg/dL (7-20); CALCIUM 8.3 mg/dL (8.4-10.2); CARBON DIOXIDE 23 mmol/L (22-30); CHLORIDE 96 mmol/L (98-107); GLUCOSE 81 mg/dL (75-110); POTASSIUM 4.5 mmol/L (3.6-5.0); TOTAL PROTEIN 5.4 g/dL (6.3-8.2)
[2019-07-01 13:37] LABS: ABSOLUTE MONOCYTES # (MANUAL) 0.8 10^3/uL (0.1-1.4); BAND NEUTROPHILS % (MANUAL) 1 % (3-5); BASOPHILS % (MANUAL) 0 % (0-2); EOSINOPHILS % (MANUAL) 3 % (0-6); LYMPHOCYTES % (MANUAL) 10 % (13-45); MONOCYTES % (MANUAL) 8 % (3-13); SEGMENTED NEUTROPHILS % (MAN) 78 % (42-78); TOTAL CELLS COUNTED 100
[2019-07-01 13:38] LABS: ANISOCYTOSIS SLIGHT; PLATELET COMMENT ADEQUATE
[2019-07-01 13:39] LABS: HEMOGLOBIN 7.7 g/dL (12.0-15.5)
[2019-07-01] MEDS ORDERED: HYDROCORTISONE SOD SUCCINATE INJ/PF 100 MG/2 ML SDV IV PRN (13:45)
[2019-07-01] MEDS ORDERED: DIPHENHYDRAMINE HCL 50 MG/ML VIAL IV PRN (13:46)
[2019-07-01] MEDS ORDERED: FAMOTIDINE INJ/PF 20 MG/2 ML SDV IV PRN (13:46)
[2019-07-01] MEDS ORDERED: METHYLPREDNISOLONE INJ 125 MG/2 ML SDV IV PRN (14:20)
--- NOTE | 2019-07-01 15:13 | PDOC PROGRESS REPORT ---
Subjective Progress Note for:: 07/01/19 Subjective:: Patient was supposed to be discharged home today, she continues to vomit with or without nausea, CT scan of the abdomen and pelvis with contrast was obtained it demonstrated bibasilar infiltrate there was no acute intra-abdominal pathology demonstrated on the CAT scan. She stated that she feels something in her throat, on inspection of the pharynx there was nothing that ago appreciated she may need EGD Reason For Visit: CHEST PAIN,LEUKOCYTOSIS ? CAUSE ESRD ON PD Physical Exam Vital Signs: Temp Pulse Resp BP Pulse Ox 98.4 F 111 H 16 134/91 H 100 07/01/19 12:27 07/01/19 12:27 07/01/19 12:27 07/01/19 12:27 07/01/19 12:27 Intake & Output 06/30/19 07/01/19 07/02/19 06:59 06:59 06:59 Intake Total 2430 490 Output Total 550 560 Balance 1880 -70 Weight 55.2 kg 54.9 kg General appearance: PRESENT: no acute distress Head exam: PRESENT: atraumatic, normocephalic Eye exam: PRESENT: PERRLA Ear exam: PRESENT: normal external ear exam Mouth exam: PRESENT: moist, tongue midline Neck exam: PRESENT: full ROM Cardiovascular exam: PRESENT: +S1, +S2 Pulses: PRESENT: normal dorsalis pedis pul, +2 pedal pulses bilateral Vascular exam: PRESENT: normal capillary refill GI/Abdominal exam: PRESENT: normal bowel sounds, soft Rectal exam: PRESENT: deferred Neurological exam: PRESENT: alert, awake, oriented to person, oriented to place, oriented to time, oriented to situation, CN II-XII grossly intact Psychiatric exam: PRESENT: appropriate affect, normal mood Skin exam: PRESENT: dry, intact, warm. ABSENT: cyanosis, rash Results Laboratory Results: 07/01/19 12:50 07/01/19 12:50 07/01/19 07/01/19 12:50 12:50 WBC 9.7 RBC 2.48 L Hgb 7.7 L Hct 21.7 L MCV 87 MCH 30.9 MCHC 35.4 RDW 15.9 H Plt Count 379 Seg Neutrophils % Not Reportable Sodium 134.3 L Potassium 4.5 Chloride 96 L Carbon Dioxide 23 Anion Gap 15 BUN 73 H Creatinine 14.87 H Est GFR ( Amer) 3 L Glucose 81 Calcium 8.3 L Total Bilirubin 0.8 AST 17 Alkaline Phosphatase 75 Total Protein 5.4 L Albumin 2.8 L 06/27/19 06/27/19 06/27/19 15:11 15:11 21:17 Creatine Kinase 277 H CK-MB (CK-2) Troponin I 0.017 0.020 06/27/19 06/28/19 06/28/19 23:33 06:20 06:20 Creatine Kinase 146 H CK-MB (CK-2) 1.94 1.43 Troponin I 0.023 0.022 06/28/19 06/28/19 06/28/19 13:46 13:46 17:25 Creatine Kinase 136 H CK-MB (CK-2) 1.37 1.24 Troponin I 0.022 0.025 06/28/19 17:25 Creatine Kinase 132 CK-MB (CK-2) Troponin I Impressions: Chest X-Ray 06/27/19 14:47 IMPRESSION: Cardiomegaly and small bilateral pleural effusions without pulmonary edema. Chest CT 06/28/19 13:15 IMPRESSION: Bilateral pleural effusions with associated airspace disease in the lower lobes, atelectasis versus pneumonia. Pericardial effusion. Ascites. Mild subcutaneous edema. 3 cm cystic lesion in the spleen. Abdomen Ultrasound 06/28/19 22:51 IMPRESSION: Small amount of ascites. KUB X-Ray 07/01/19 00:00 IMPRESSION: NO RADIOGRAPHIC EVIDENCE FOR ACUTE ABDOMINAL DISEASE. 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 Is this a current diagnosis for this admission?: Yes (4) ESRD (end stage renal disease) Is this a current diagnosis for this admission?: Yes (5) Anemia in chronic kidney disease, on chronic dialysis Is this a current diagnosis for this admission?: Yes (6) Fibromyalgia Is this a current diagnosis for this admission?: Yes (7) Vomiting Qualifiers: Vomiting type: unspecified Vomiting Intractability: non-intractable Nausea presence: without nausea Qualified Code(s): R11.11 - Vomiting without nausea Is this a current diagnosis for this admission?: Yes Plan: Consult GI for EGD - Time Time Spent with patient: 25-34 minutes
--- NOTE | 2019-07-01 15:46 | RADIOLOGY REPORT (SQ) ---
EXAM DESCRIPTION: CT ABD/PELVIS WITH IV ONLY COMPLETED DATE/TIME: 07/01/2019 3:15 pm REASON FOR STUDY: small bowel obstruction N18.6 END STAGE RENAL DISEASE D50.0 IRON DEFICIENCY ANEM IA SECONDARY TO BLOOD LOSS (CHRONI D63.1 ANEMIA IN CHRONIC KIDNEY DISEASE COMPARISON: Radiographs from earlier. CT chest from 06/28/2019 TECHNIQUE: CT scan of the abdomen and pelvis performed using helical scanning technique with dynamic intravenous contrast injection. No oral contrast. Images reviewed with lung, soft tissue, and bone windows. Reconstructed coronal and sagittal MPR images reviewed. Delayed images for evaluation of the urinary system also acquired. All images stored on PACS. All CT scanners at this facility use dose modulation, iterative reconstruction, and/or weight based d osing when appropriate to reduce radiation dose to as low as reasonably achievable (ALARA). [facility]: Dose Right [facility]: CareDose [facility]: Dose Right [facility]: Teradose 4D [facility]: Playsino CONTRAST TYPE AND DOSE: contrast/concentration: Isovue 300.00 mg/ml; Total Contrast Delivered: 73.0 ml; Total Saline Delivered: 66.0 ml RENAL FUNCTION: Creatinine 14.9, end stage renal disease. RADIATION DOSE: CT Rad equipment meets quality standard of care and radiation dose reduction techniq ues were employed. CTDIvol: 4.8 mGy. DLP: 543 mGy-cm.. LIMITATIONS: None. FINDINGS: LOWER CHEST: Basilar changes as before. Bilateral lower lobe consolidation and volume los s with small effusions. Cardiomegaly with pericardial effusion. LIVER: Normal size. No masses. No dilated ducts. SPLEEN: 3 cm inferior splenic cyst. PANCREAS: No masses. No significant calcifications. No adjacent inflammation or peripancreatic fluid collections. Pancreatic duct not dilated. GALLBLADDER: No identified stones by CT criteria. No inflammatory changes to suggest cholecystitis. ADRENAL GLANDS: No significant masses or asymmetry. RIGHT KIDNEY AND URETER: No solid masses. No significant calcification. No hydronephrosis or hydroure ter. LEFT KIDNEY AND URETER: Enhancement without excretion. No stones or mass. AORTA AND VESSELS: Similar findings to the right kidney. RETROPERITONEUM: No retroperitoneal adenopathy, hemorrhage or masses. BOWEL AND PERITONEAL CAVITY: Mild ascites. Peritoneal dialysis catheter to the left hemipelvis. No abnormal gas collections. No evidence of mechanical bowel obstruction. APPENDIX: Normal. PELVIS: No mass. No free fluid. Normal bladder. ABDOMINAL WALL: No masses. No hernias. BONES: No significant or acute findings. OTHER: No other significant finding. IMPRESSION: 1. Basilar lung changes are similar. There is bilateral lower lobe volume loss and consolidation wit h effusions. There is also cardiomegaly with pericardial effusion. 2. Abdominal findings as described. Mild ascites is likely related to peritoneal dialysis. Incident al splenic cyst. No acute findings. TECHNICAL DOCUMENTATION: JOB ID: [id number] Quality ID # [id number]: Final reports with documentation of one or more dose reduction techniques (e.g., Au tomated exposure control, adjustment of the mA and/or kV according to patient size, use of iterative reconstruction technique) 2010 [employer]- All Rights Reserved Reading location - IP/workstation name: [email or web address]
[2019-07-01] MEDS: LEVOFLOXACIN 250 MG TABLET PO SCH (18:06)
[2019-07-01] MEDS: BENZOCAINE/MENTHOL SORE THROAT LOZENGE BUCCAL PRN ×2 (18:12→22:17)
--- NOTE | 2019-07-01 18:12 | PDOC CONSULTATION ---
Consultation Consult Date: 07/01/19 Attending physician:: MAREYLLEN SHIRLEY Provider Consulted: JUANIS MAI Consult reason:: odynophagia History of Present Illness Admission Date/PCP: 06/27/19 22:58 MARYELLEN SHIRLEY MD History of Present Illness: CARLOS LEVINE is a 43 year old female Presented to hospital with lupus nephritis who is on peritoneal dialysis was admitted to the hospital approximately 4 days ago with pneumonia. In addition to that because she has had some malfunction with her peritoneal dialysis she has been unable to undergo peritoneal dialysis for the last 4 days. She has become more nauseated and has had multiple episodes of vomiting a CT scan today was obtained by Dr. Shirley did not show any intra-abdominal pathology. Subsequent to her nausea and vomiting she has developed increasing odynophagia and feels that there is something lodged in the back of her throat. However she is able to tolerate soft foods and liquids and feels that there might be something caught when she swallows causing some mild amount of pain. She states she also feels some swelling in the back of her throat. A oral pharyngeal exam done externally did not reveal any type of foreign body or pathology. Surgical consult was obtained for upper endoscopy. Past Medical History Cardiac Medical History: Reports: Hypertension Denies: Atrial Fibrillation, Congestive Heart Failure, Myocardial Infarction, Hyperlipidema Pulmonary Medical History: Reports: None Denies: Asthma, Bronchitis, Chronic Obstructive Pulmonary Disease (COPD), Pneumonia, Tuberculosis EENT Medical History: Reports: None Neurological Medical History: Reports: Migraine Denies: Seizures Endocrine Medical History: Reports: None Denies: Diabetes Mellitus Type 1, Diabetes Mellitus Type 2 Renal/ Medical History: Reports: 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 Malignancy Medical History: Reports: None GI Medical History: Reports: None Denies: Gastroesophageal Reflux Disease, Hiatal Hernia Musculoskeltal Medical History: Reports: Arthritis, Fibromyalgia Skin Medical History: Reports: None Psychiatric Medical History: Reports: Depression Denies: Attention Deficit Hyperactivity Disorder, Bipolar Disorder Traumatic Medical History: Reports: None Hematology: Reports: Anemia Denies: Sickle Cell Disease Infectious Medical History: Reports: None Past Surgical History Past Surgical History: Reports: Tonsillectomy - childhood Social History Lives with: Family - Currently lives with father and her 6 children Smoking Status: Current Every Day Smoker - She was smoking 2 packs/day for 14 years and has cut down to just 1 cigarette every 3 days maybe Cigarettes Packs Per Day: 0.2 Electronic Cigarette use?: No Number of Years Smokin Last Time Smoked: 06/27/2019 Frequency of Alcohol Use: None Hx Recreational Drug Use: No Drugs: None Hx Prescription Drug Abuse: No - Advance Directive Resuscitation Status: Full Code Family History Family History: Reviewed & Not Pertinent Parental Family History Reviewed: No Children Family History Reviewed: NA Sibling(s) Family History Reviewed.: NA Medication/Allergy Home Medications: Amlodipine Besylate [Norvasc 5 mg Tablet] 5 mg PO DAILY 06/23/19 Clonidine HCl [Catapres 0.3 mg Tablet] 0.3 mg PO DAILY 06/23/19 Prednisone [Deltasone 10 mg Tablet] 10 mg PO ASDIR PRN #21 tablet 06/23/19 Allergies/Adverse Reactions: iodine Allergy (Verified 06/27/19 14:43) seafood Allergy (Uncoded 06/27/19 14:43) Review of Systems Constitutional: PRESENT: as per HPI Eyes: ABSENT: as per HPI, visual disturbances, other Ears: ABSENT: as per HPI, hearing changes, other Nose, Mouth, and Throat: PRESENT: as per HPI Breasts: ABSENT: as per HPI, other Cardiovascular: ABSENT: as per HPI, chest pain, dyspnea on exertion, edema, orthropnea, palpitations, other Respiratory: ABSENT: as per HPI, cough, dyspnea, hemoptysis, sputum, other Gastrointestinal: ABSENT: as per HPI, abdominal pain, bloating, coffee ground emesis, constipation, diarrhea, dysphagia, heartburn, hematemesis, hematochezia, melena, nausea, vomiting, other Musculoskeletal: ABSENT: as per HPI, back pain, deformity, joint swelling, muscle weakness, other Integumentary: ABSENT: as per HPI, diaphoresis, erythema, lesions, pruritus, rash, wounds, other Neurological: ABSENT: as per HPI, abnormal gait, abnormal movements, abnormal speech, confusion, convulsions, dizziness, focal weakness, frequent falls, lack of coordination, memory loss, numbness, paresthesias, restless legs, syncope, tingling, tremor(s), vertigo, weakness, other Endocrine: ABSENT: cold intolerance, heat intolerance, polydipsia, polyuria Hematologic/Lymphatic: ABSENT: easy bleeding, easy bruising Physical Exam Vital Signs: Temp Pulse Resp BP Pulse Ox 98.5 F 84 16 125/79 95 07/01/19 16:28 07/01/19 16:28 07/01/19 16:28 07/01/19 16:28 07/01/19 16:28 Intake & Output 06/30/19 07/01/19 07/02/19 06:59 06:59 06:59 Intake Total 2430 490 Output Total 550 560 Balance 1880 -70 Weight 55.2 kg 54.9 kg General appearance: PRESENT: no acute distress Head exam: PRESENT: normocephalic Eye exam: PRESENT: EOMI Ear exam: PRESENT: normal external ear exam Mouth exam: PRESENT: moist, neck supple, tongue midline, other - No masses in the neck nontender Neck exam: PRESENT: full ROM Respiratory exam: PRESENT: clear to auscultation coco Cardiovascular exam: PRESENT: RRR Pulses: PRESENT: normal radial pulses, normal femoral pulses Breast: PRESENT: Normal GI/Abdominal exam: PRESENT: soft Rectal exam: PRESENT: deferred Extremities exam: PRESENT: full ROM Musculoskeletal exam: PRESENT: full ROM Neurological exam: PRESENT: alert, awake, oriented to person, oriented to place Psychiatric exam: PRESENT: appropriate affect Skin exam: PRESENT: dry Results Laboratory Results: 07/01/19 12:50 07/01/19 12:50 07/01/19 07/01/19 12:50 12:50 WBC 9.7 RBC 2.48 L Hgb 7.7 L Hct 21.7 L MCV 87 MCH 30.9 MCHC 35.4 RDW 15.9 H Plt Count 379 Seg Neutrophils % Not Reportable Sodium 134.3 L Potassium 4.5 Chloride 96 L Carbon Dioxide 23 Anion Gap 15 BUN 73 H Creatinine 14.87 H Est GFR ( Amer) 3 L Glucose 81 Calcium 8.3 L Total Bilirubin 0.8 AST 17 Alkaline Phosphatase 75 Total Protein 5.4 L Albumin 2.8 L 06/27/19 06/27/19 06/27/19 15:11 15:11 21:17 Creatine Kinase 277 H CK-MB (CK-2) Troponin I 0.017 0.020 06/27/19 06/28/19 06/28/19 23:33 06:20 06:20 Creatine Kinase 146 H CK-MB (CK-2) 1.94 1.43 Troponin I 0.023 0.022 06/28/19 06/28/19 06/28/19 13:46 13:46 17:25 Creatine Kinase 136 H CK-MB (CK-2) 1.37 1.24 Troponin I 0.022 0.025 06/28/19 17:25 Creatine Kinase 132 CK-MB (CK-2) Troponin I Impressions: Chest X-Ray 06/27/19 14:47 IMPRESSION: Cardiomegaly and small bilateral pleural effusions without pulmonary edema. Chest CT 06/28/19 13:15 IMPRESSION: Bilateral pleural effusions with associated airspace disease in the lower lobes, atelectasis versus pneumonia. Pericardial effusion. Ascites. Mil d subcutaneous edema. 3 cm cystic lesion in the spleen. Abdomen Ultrasound 06/28/19 22:51 IMPRESSION: Small amount of ascites. Abdomen/Pelvis CT 07/01/19 00:00 IMPRESSION: 1. Basilar lung changes are similar. There is bilateral lower lobe volume loss and consolidation with effusions. There is also cardiomegaly with pericardial effusion. 2. Abdominal findings as described. Mild ascites is likely related to peritoneal dialysis. Incidental splenic cyst. No acute findings. KUB X-Ray 07/01/19 00:00 IMPRESSION: NO RADIOGRAPHIC EVIDENCE FOR ACUTE ABDOMINAL DISEASE. Assessment & Plan - Plan Summary Plan Summary: Impression odynophagia. This occurred after subsequent vomiting because of nausea secondary to inability to undergo her peritoneal dialysis. On resting the patient in physical examination feels that when she swallows may be something catching in the back of her throat which could be a result of foreign body versus irritation from the chronic vomiting. Currently she is able to eat soft foods. Recommendation is the upper GI. Also start her on some Cepacol throat lozenges recommend proton pump inhibitors for her chronic reflux The upper GI suggest any kind of obstruction or foreign body then will consider upper endoscopy
[2019-07-01] MEDS: CLONIDINE HCL 0.1 MG TABLET PO SCH (22:15)
[2019-07-01] MEDS: CEFTRIAXONE 1 GM/D5W RTU 1 GM/50 ML RTUPB IV SCH (22:17)
[2019-07-01] MEDS: HYDROMORPHONE HCL INJ/PF 2 MG/ML AMPULE IV PRN (22:17)
[2019-07-02] MEDS: ENALAPRILAT DIHYDRATE INJ/PF 2.5 MG/2 ML SDV IV SCH ×4 (00:15→17:42)
[2019-07-02] MEDS: HEPARIN SOD (PORCINE) 5,000 UNIT/ML 1 ML VIAL SUBCUT SCH ×3 (05:37→22:02)
[2019-07-02] MEDS: ONDANSETRON HCL INJ/PF 4 MG/2 ML SDV IV PRN (05:49)
[2019-07-02] MEDS: BENZOCAINE/MENTHOL SORE THROAT LOZENGE BUCCAL PRN ×2 (05:49→20:06)
[2019-07-02] MEDS: HYDROMORPHONE HCL INJ/PF 2 MG/ML AMPULE IV PRN ×3 (05:49→22:53)
[2019-07-02] MEDS: CALCITRIOL 0.25 MCG CAPSULE PO SCH (11:40)
[2019-07-02] MEDS: AMLODIPINE BESYLATE 5 MG TABLET PO SCH (11:40)
--- NOTE | 2019-07-02 11:40 | PDOC PROGRESS REPORT ---
Subjective Progress Note for:: 07/02/19 Subjective:: Patient says she feels better sucking on lozenges and having regular groceries this morning. Reason For Visit: CHEST PAIN,LEUKOCYTOSIS ? CAUSE ESRD ON PD Physical Exam Vital Signs: Temp Pulse Resp BP Pulse Ox 98.2 F 101 H 16 129/104 H 100 07/02/19 08:23 07/02/19 08:23 07/02/19 08:23 07/02/19 08:23 07/02/19 08:23 Intake & Output 07/01/19 07/02/19 07/03/19 06:59 06:59 06:59 Intake Total 490 550 Output Total 560 450 Balance -70 100 Weight 54.9 kg 54.7 kg General appearance: PRESENT: no acute distress GI/Abdominal exam: PRESENT: other - Abdomen benign. Results Laboratory Results: 07/01/19 12:50 07/01/19 12:50 07/01/19 07/01/19 12:50 12:50 WBC 9.7 RBC 2.48 L Hgb 7.7 L Hct 21.7 L MCV 87 MCH 30.9 MCHC 35.4 RDW 15.9 H Plt Count 379 Seg Neutrophils % Not Reportable Sodium 134.3 L Potassium 4.5 Chloride 96 L Carbon Dioxide 23 Anion Gap 15 BUN 73 H Creatinine 14.87 H Est GFR ( Amer) 3 L Glucose 81 Calcium 8.3 L Total Bilirubin 0.8 AST 17 Alkaline Phosphatase 75 Total Protein 5.4 L Albumin 2.8 L 06/28/19 10:20 Pleural Fluid Gram Stain - Final 06/28/19 10:20 Pleural Fluid Body Fluid Culture - Final NO AEROBIC OR ANAEROBIC ORGANISMS RECOVERED 06/28/19 11:29 Pleural Fluid AFB Smear Concentration - Final 06/28/19 11:29 Pleural Fluid Acid Fast Bacilli Smear - Final 06/28/19 10:20 Pleural Fluid Fungal Smear - Final 06/28/19 10:20 Pleural Fluid Fungal Smear - Final 06/27/19 06/27/19 06/27/19 15:11 15:11 21:17 Creatine Kinase 277 H CK-MB (CK-2) Troponin I 0.017 0.020 06/27/19 06/28/19 06/28/19 23:33 06:20 06:20 Creatine Kinase 146 H CK-MB (CK-2) 1.94 1.43 Troponin I 0.023 0.022 06/28/19 06/28/19 06/28/19 13:46 13:46 17:25 Creatine Kinase 136 H CK-MB (CK-2) 1.37 1.24 Troponin I 0.022 0.025 06/28/19 17:25 Creatine Kinase 132 CK-MB (CK-2) Troponin I Impressions: Chest X-Ray 06/27/19 14:47 IMPRESSION: Cardiomegaly and small bilateral pleural effusions without pulmonary edema. Chest CT 06/28/19 13:15 IMPRESSION: Bilateral pleural effusions with associated airspace disease in the lower lobes, atelectasis versus pneumonia. Pericardial effusion. Ascites. Mild subcutaneous edema. 3 cm cystic lesion in the spleen. Abdomen Ultrasound 06/28/19 22:51 IMPRESSION: Small amount of ascites. Abdomen/Pelvis CT 07/01/19 00:00 IMPRESSION: 1. Basilar lung changes are similar. There is bilateral lower lobe volume loss and consolidation with effusions. There is also cardiomegaly with pericardial effusion. 2. Abdominal findings as described. Mild ascites is likely related to peritoneal dialysis. Incidental splenic cyst. No acute findings. KUB X-Ray 07/01/19 00:00 IMPRESSION: NO RADIOGRAPHIC EVIDENCE FOR ACUTE ABDOMINAL DISEASE. Assessment & Plan - Diagnosis (1) Throat pain Is this a current diagnosis for this admission?: Yes Plan: Impression: Clinically improved throat pain; tolerating p.o. well. Recommendations: 1. Patient had upper GI swallow today. Formal interpretation not on record; no obvious pathology 2. Will sign off from a surgical standpoint; reconsult if clinically indicated. - Time Time Spent with patient: 15-24 minutes Medications reviewed and adjusted accordingly: Yes Anticipated discharge: Home
--- NOTE | 2019-07-02 11:46 | PDOC PROGRESS REPORT ---
Subjective Progress Note for:: 07/02/19 Reason For Visit: Patient seen today. Chart review was done. She is an ESRD patient in the background of lupus nephritis/hypertension. She just moved from [place] to [place]. She has got issues with compliance during the transfer. She looks much comfortable. Her nausea vomiting is improved. She still has some lower left chest pain with pain also of around left shoulder. It is pleuritic in nature. Overall she feels a whole lot better. She denies any history of fever or chills. She is undergoing PD on the cycler without any issues. Labs and medications were reviewed. Hemoglobin is improving after having given IV iron as well as started on erythropoietin. She has been noncompliant during her move from [place] to [place] and therefore her renal osteodystrophy numbers are off tomorrow. She has not been taking all her medications faithfully inclu ding her binders as well as antihypertensives. Physical Exam Vital Signs: Temp Pulse Resp BP Pulse Ox 98.2 F 101 H 16 129/104 H 100 07/02/19 08:23 07/02/19 08:23 07/02/19 08:23 07/02/19 08:23 07/02/19 08:23 Intake & Output 07/01/19 07/02/19 07/03/19 06:59 06:59 06:59 Intake Total 490 550 Output Total 560 450 Balance -70 100 Weight 54.9 kg 54.7 kg General appearance: PRESENT: no acute distress Respiratory exam: PRESENT: clear to auscultation coco, decreased breath sounds, rhonchi - Scattered rhonchi especially in the left lower lung base. Cardiovascular exam: PRESENT: +S1, +S2 GI/Abdominal exam: PRESENT: normal bowel sounds, soft. ABSENT: organomegaly, tenderness Extremities exam: ABSENT: pedal edema Neurological exam: PRESENT: alert, awake, oriented to person, oriented to place Psychiatric exam: PRESENT: appropriate affect Results Laboratory Results: 07/01/19 12:50 07/01/19 12:50 07/01/19 07/01/19 12:50 12:50 WBC 9.7 RBC 2.48 L Hgb 7.7 L Hct 21.7 L MCV 87 MCH 30.9 MCHC 35.4 RDW 15.9 H Plt Count 379 Seg Neutrophils % Not Reportable Sodium 134.3 L Potassium 4.5 Chloride 96 L Carbon Dioxide 23 Anion Gap 15 BUN 73 H Creatinine 14.87 H Est GFR ( Amer) 3 L Glucose 81 Calcium 8.3 L Total Bilirubin 0.8 AST 17 Alkaline Phosphatase 75 Total Protein 5.4 L Albumin 2.8 L 06/28/19 10:20 Pleural Fluid Gram Stain - Final 06/28/19 10:20 Pleural Fluid Body Fluid Culture - Final NO AEROBIC OR ANAEROBIC ORGANISMS RECOVERED 06/28/19 11:29 Pleural Fluid AFB Smear Concentration - Final 06/28/19 11:29 Pleural Fluid Acid Fast Bacilli Smear - Final 06/28/19 10:20 Pleural Fluid Fungal Smear - Final 06/28/19 10:20 Pleural Fluid Fungal Smear - Final 06/27/19 06/27/19 06/27/19 15:11 15:11 21:17 Creatine Kinase 277 H CK-MB (CK-2) Troponin I 0.017 0.020 06/27/19 06/28/19 06/28/19 23:33 06:20 06:20 Creatine Kinase 146 H CK-MB (CK-2) 1.94 1.43 Troponin I 0.023 0.022 06/28/19 06/28/19 06/28/19 13:46 13:46 17:25 Creatine Kinase 136 H CK-MB (CK-2) 1.37 1.24 Troponin I 0.022 0.025 06/28/19 17:25 Creatine Kinase 132 CK-MB (CK-2) Troponin I Impressions: Chest X-Ray 06/27/19 14:47 IMPRESSION: Cardiomegaly and small bilateral pleural effusions without pulmonar y edema. Chest CT 06/28/19 13:15 IMPRESSION: Bilateral pleural effusions with associated airspace disease in the lower lobes, atelectasis versus pneumonia. Pericardial effusion. Ascites. Mild subcutaneous edema. 3 cm cystic lesion in the spleen. Abdomen Ultrasound 06/28/19 22:51 IMPRESSION: Small amount of ascites. Abdomen/Pelvis CT 07/01/19 00:00 IMPRESSION: 1. Basilar lung changes are similar. There is bilateral lower lobe volume loss and consolidation with effusions. There is also cardiomegaly with pericardial effusion. 2. Abdominal findings as described. Mild ascites is likely related to pe ritoneal dialysis. Incidental splenic cyst. No acute findings. KUB X-Ray 07/01/19 00:00 IMPRESSION: NO RADIOGRAPHIC EVIDENCE FOR ACUTE ABDOMINAL DISEASE. Assessment & Plan - Diagnosis (1) Bilateral pneumonia Qualifiers: Pneumonia type: due to unspecified organism Lung location: lower lobe of lung Qualified Code(s): J18.9 - Pneumonia, unspecified organism Is this a current diagnosis for this admission?: Yes Plan: On IV antibiotics and improving. Her left-sided pleuritic chest pain is also much better. Further management as per Dr. Kinsey. (2) ESRD (end stage renal disease) Is this a current diagnosis for this admission?: Yes Plan: Currently on cycler peritoneal dialysis. Had some issues with CAPD and once she was converted to the cycler she is doing very well. Continue on current re gimen. (3) Anemia in chronic kidney disease, on chronic dialysis Is this a current diagnosis for this admission?: Yes Plan: Improving hemoglobin with administration of IV iron/erythropoietin. She has been missing her erythropoietin because she has been moving from [place] to [place]. She has to get established with [facility] here in [place] so that she can get back on track with anemia management as well as other labs which are not doing well especially renal osteodystrophy numbers. Advised on compliance. (4) Hypertension Is this a current diagnosis for this admission?: Yes Plan: Much better controlled since being on appropriate medications which she has not been taking during this move from [place] to [place]. (5) Renal osteodystrophy Plan: She is on appropriate medications and I advised on compliance with these medications lest she has major issues because of those.
[2019-07-02] MEDS: GENTAMICIN SULFATE 0.1% OINTMENT 15 GM TP SCH (11:47)
[2019-07-02] MEDS: CALCIUM ACETATE 667 MG CAPSULE PO SCH ×3 (11:47→17:43)
--- NOTE | 2019-07-02 15:31 | RADIOLOGY REPORT (SQ) ---
EXAM DESCRIPTION: BARIUM SWALLOW ESOPHAGUS COMPLETED DATE/TIME: 07/02/2019 10:38 am REASON FOR STUDY: Vomiting N18.6 END STAGE RENAL DISEASE D50.0 IRON DEFICIENCY ANEMIA SECONDARY TO BLOOD LOSS (CHRONI D63.1 ANEMIA IN CHRONIC KIDNEY DISEASE COMPARISON: None. TECHNIQUE: Under fluoroscopic guidance, patient ingested effervescent granules followed by thick and thin barium. Fluoroscopic spot images and routine radiographic images acquired and stored on PACS. 12 MM BARIUM TABLET GIVEN: Barium tablet initially stuck in the upper esophagus about the level of th e clavicles for approximately 8 minutes before passing to the distal esophagus. The tablet then stuc k in the distal esophagus for approximately 35 minutes before passing into the stomach. LIMITATIONS: None. FLUOROSCOPY TIME: FLUORO TIME: 7.07 minutes 11 images saved to PACS. FINDINGS: NEUROMUSCULAR COORDINATION OF SWALLOW: Normal. No aspiration. ESOPHAGEAL MOTILITY: Normal peristalsis. No esophageal spasm. ESOPHAGEAL MUCOSA: Normal mucosa without masses or ulceration. GASTRO-ESOPHAGEAL JUNCTION: No hiatal hernia or reflux. Mild smooth tapered narrowing of the distal esophagus which impeded passage of 12 mm tablet. NON-GI TRACT STRUCTURES: No significant finding. OTHER: No other significant finding. IMPRESSION: MILD NARROWING OF THE DISTAL ESOPHAGUS WHICH IMPEDED PASSAGE OF 12 MM BARIUM TABLET FOR APPROXIMATELY 35 MINUTES. TABLET ALSO STUCK IN UPPER ESOPHAGUS FOR APPROXIMATELY 8 MINUTES. NO FOCA L STRICTURES IDENTIFIED IN EITHER AREA. OTHERWISE UNREMARKABLE STUDY. RECOMMENDATION: NONE COMMENT: None Quality ID [id number]: Final reports for procedures using fluoroscopy that document radiation exposure william frederick, or exposure time and number of fluorographic images (if radiation exposure indices are not avail able) TECHNICAL DOCUMENTATION: JOB ID: [id number] [employer]- All Rights Reserved Reading location - IP/workstation name: [email or web address] [id number]
--- NOTE | 2019-07-02 20:17 | PDOC PROGRESS REPORT ---
Subjective Progress Note for:: 07/02/19 Subjective:: Patient was seen by the bedside, she had a barium swallow, barium swallow demonstrated narrowing at the distal end of the esophagus with delayed passage of the tablet that was used for the study. I discussed the findings with the surgeon Dr. [place] the patient may need EGD he is agreeable for the patient to have EGD in the morning. Reason For Visit: CHEST PAIN,LEUKOCYTOSIS ? CAUSE ESRD ON PD Physical Exam Vital Signs: Temp Pulse Resp BP Pulse Ox 98.1 F 101 H 16 132/87 H 99 07/02/19 15:55 07/02/19 15:55 07/02/19 15:55 07/02/19 15:55 07/02/19 15:55 Intake & Output 07/01/19 07/02/19 07/03/19 06:59 06:59 06:59 Intake Total 490 550 462 Output Total 560 450 100 Balance -70 100 362 Weight 54.9 kg 54.7 kg General appearance: PRESENT: no acute distress Eye exam: PRESENT: PERRLA Respiratory exam: PRESENT: clear to auscultation coco Cardiovascular exam: PRESENT: +S1, +S2 GI/Abdominal exam: PRESENT: soft Neurological exam: PRESENT: alert Results Laboratory Results: 07/01/19 12:50 07/01/19 12:50 06/28/19 10:20 Pleural Fluid Gram Stain - Final 06/28/19 10:20 Pleural Fluid Body Fluid Culture - Final NO AEROBIC OR ANAEROBIC ORGANISMS RECOVERED 06/28/19 11:29 Pleural Fluid AFB Smear Concentration - Final 06/28/19 11:29 Pleural Fluid Acid Fast Bacilli Smear - Final 06/28/19 10:20 Pleural Fluid Fungal Smear - Final 06/28/19 10:20 Pleural Fluid Fungal Smear - Final 06/27/19 06/27/19 06/27/19 15:11 15:11 21:17 Creatine Kinase 277 H CK-MB (CK-2) Troponin I 0.017 0.020 06/27/19 06/28/19 06/28/19 23:33 06:20 06:20 Creatine Kinase 146 H CK-MB (CK-2) 1.94 1.43 Troponin I 0.023 0.022 06/28/19 06/28/19 06/28/19 13:46 13:46 17:25 Creatine Kinase 136 H CK-MB (CK-2) 1.37 1.24 Troponin I 0.022 0.025 06/28/19 17:25 Creatine Kinase 132 CK-MB (CK-2) Troponin I Impressions: Chest X-Ray 06/27/19 14:47 IMPRESSION: Cardiomegaly and small bilateral pleural effusions without pulmonary edema. Chest CT 06/28/19 13:15 IMPRESSION: Bilateral pleural effusions with associated airspace disease in the lower lobes, atelectasis versus pneumonia. Pericardial effusion. Ascites. Mild subcutaneous edema. 3 cm cystic lesion in the spleen. Abdomen Ultrasound 06/28/19 22:51 IMPRESSION: Small amount of ascites. Abdomen/Pelvis CT 07/01/19 00:00 IMPRESSION: 1. Basilar lung changes are similar. There is bilateral lower lobe volume loss and consolidation with effusions. There is also cardiomegaly with pericardial effusion. 2. Abdominal findings as described. Mild ascites is likely related to peritoneal dialysis. Incidental splenic cyst. No acute findings. KUB X-Ray 07/01/19 00:00 IMPRESSION: NO RADIOGRAPHIC EVIDENCE FOR ACUTE ABDOMINAL DISEASE. Esophagus X-Ray 07/02/19 00:00 IMPRESSION: MILD NARROWING OF THE DISTAL ESOPHAGUS WHICH IMPEDED PASSAGE OF 12 MM BARIUM TABLET FOR APPROXIMATELY 35 MINUTES. TABLET ALSO STUCK IN UPPER ESOPHAGUS FOR APPROXIMATELY 8 MINUTES. NO FOCAL STRICTURES IDENTIFIED IN EITHER AREA. OTHERWISE UNREMARKABLE STUDY. 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
[2019-07-02] MEDS ORDERED: AMLODIPINE BESYLATE 5 MG TABLET PO SCH (20:45)
[2019-07-02] MEDS ORDERED: (PENDING PHARMACY ID) (Clonidine Hcl [Catapres 0.3 Mg Tablet] 0.3 MG) PO SCH (20:45)
[2019-07-02] MEDS: CLONIDINE HCL 0.1 MG TABLET PO SCH (22:02)
[2019-07-02] MEDS: CEFTRIAXONE 1 GM/D5W RTU 1 GM/50 ML RTUPB IV SCH (22:04)
[2019-07-03] MEDS: ONDANSETRON HCL INJ/PF 4 MG/2 ML SDV IV PRN ×3 (01:06→21:22)
[2019-07-03] MEDS: HEPARIN SOD (PORCINE) 5,000 UNIT/ML 1 ML VIAL SUBCUT SCH ×3 (05:26→21:43)
[2019-07-03] MEDS: HYDROMORPHONE HCL INJ/PF 2 MG/ML AMPULE IV PRN ×2 (06:08→22:03)
--- NOTE | 2019-07-03 12:36 | PDOC PROGRESS REPORT ---
Subjective Progress Note for:: 07/03/19 Subjective:: This is a 43-year-old female with complaints of nausea, vomiting, reflux, and dysphagia. The patient underwent esophagram yesterday, showing delayed passage of a barium tablet. This could represent esophageal dysmotility, severe reflux, or less likely stricture. The patient had several episodes of vomiting this morning. She denies chest pain, shortness of breath, fevers, chills, orthostasis, blurry vision. She does report abdominal pain, malaise, and fatigue. Reason For Visit: CHEST PAIN,LEUKOCYTOSIS ? CAUSE ESRD ON PD Physical Exam Vital Signs: Temp Pulse Resp BP Pulse Ox 98.3 F 72 16 129/75 H 99 07/03/19 11:56 07/03/19 11:56 07/03/19 11:56 07/03/19 11:56 07/03/19 04:00 Intake & Output 07/02/19 07/03/19 07/04/19 06:59 06:59 06:59 Intake Total 550 512 Output Total 450 100 Balance 100 412 Weight 54.7 kg 53.4 kg General appearance: PRESENT: no acute distress, cooperative Head exam: PRESENT: atraumatic, normocephalic Eye exam: PRESENT: EOMI, PERRLA. ABSENT: scleral icterus Mouth exam: PRESENT: moist, neck supple Neck exam: ABSENT: meningismus, tenderness, thyromegaly, tracheal deviation Respiratory exam: PRESENT: clear to auscultation coco. ABSENT: chest wall tenderness Cardiovascular exam: PRESENT: RRR Pulses: PRESENT: normal radial pulses Vascular exam: PRESENT: normal capillary refill GI/Abdominal exam: PRESENT: soft. ABSENT: firm, guarding, rebound, tenderness Rectal exam: PRESENT: deferred Extremities exam: ABSENT: clubbing Musculoskeletal exam: ABSENT: deformity Neurological exam: PRESENT: alert, awake, oriented to person, oriented to place, oriented to time, oriented to situation. ABSENT: CN II-XII grossly intact Psychiatric exam: ABSENT: agitated, anxious, depressed Focused psych exam: ABSENT: delusional Skin exam: ABSENT: cyanosis, erythema, jaundice Results Laboratory Results: 07/01/19 12:50 07/01/19 12:50 06/28/19 00:42 Blood Blood Culture - Final NO GROWTH IN 5 DAYS 06/27/19 23:33 Blood Blood Culture - Final NO GROWTH IN 5 DAYS 06/28/19 10:20 Pleural Fluid Gram Stain - Final 06/28/19 10:20 Pleural Fluid Body Fluid Culture - Final NO AEROBIC OR ANAEROBIC ORGANISMS RECOVERED 06/27/19 06/27/19 06/27/19 15:11 15:11 21:17 Creatine Kinase 277 H CK-MB (CK-2) Troponin I 0.017 0.020 06/27/19 06/28/19 06/28/19 23:33 06:20 06:20 Creatine Kinase 146 H CK-MB (CK-2) 1.94 1.43 Troponin I 0.023 0.022 06/28/19 06/28/19 06/28/19 13:46 13:46 17:25 Creatine Kinase 136 H CK-MB (CK-2) 1.37 1.24 Troponin I 0.022 0.025 06/28/19 17:25 Creatine Kinase 132 CK-MB (CK-2) Troponin I Impressions: Chest X-Ray 06/27/19 14:47 IMPRESSION: Cardiomegaly and small bilateral pleural effusions without pulmonary edema. Chest CT 06/28/19 13:15 IMPRESSION: Bilateral pleural effusions with associated airspace disease in the lower lobes, atelectasis versus pneumonia. Pericardial effusion. Ascites. Mild subcutaneous edema. 3 cm cystic lesion in the spleen. Abdomen Ultrasound 06/28/19 22:51 IMPRESSION: Small amount of ascites. Abdomen/Pelvis CT 07/01/19 00:00 IMPRESSION: 1. Basilar lung changes are similar. There is bilateral lower lobe volume loss and consolidation with effusions. There is also cardiomegaly with pericardial effusion. 2. Abdominal findings as described. Mild ascites is likely related to peritoneal dialysis. Incidental splenic cyst. No acute findings. KUB X-Ray 07/01/19 00:00 IMPRESSION: NO RADIOGRAPHIC EVIDENCE FOR ACUTE ABDOMINAL DISEASE. Esophagus X-Ray 07/02/19 00:00 IMPRESSION: MILD NARROWING OF THE DISTAL ESOPHAGUS WHICH IMPEDED PASSAGE OF 12 MM BARIUM TABLET FOR APPROXIMATELY 35 MINUTES. TABLET ALSO STUCK IN UPPER ESOPH HIRO FOR APPROXIMATELY 8 MINUTES. NO FOCAL STRICTURES IDENTIFIED IN EITHER AREA. OTHERWISE UNREMARKABLE STUDY. Assessment & Plan - Diagnosis (1) Nausea and vomiting Qualifiers: Vomiting type: bilious vomiting Qualified Code(s): R11.14 - Bilious vomiting Is this a current diagnosis for this admission?: Yes (2) Dysphagia Qualifiers: Dysphagia type: unspecified Qualified Code(s): R13.10 - Dysphagia, unspecified Is this a current diagnosis for this admission?: Yes (3) Gastroesophageal reflux Qualifiers: Esophagitis presence: esophagitis presence not specified Qualified Code(s): K21.9 - Gastro-esophageal reflux disease without esophagitis Is this a current diagnosis for this admission?: Yes - Time Time Spent with patient: Less than 15 minutes - Plan Summary Plan Summary: This is a 43-year-old female with complaints of abdominal pain, reflux, nausea and vomiting, and dysphasia. I will investigate her complaints with a EGD later today. This has been discussed with the patient, and she is in agreement. Risks/benefits discussed, informed consent obtained, and all questions answered.
[2019-07-03] MEDS ORDERED: PROPOFOL INJ 200 MG/20 ML VIAL IV ONE (13:24)
[2019-07-03] MEDS ORDERED: MIDAZOLAM 2 MG/2 ML INJ ONE (13:24)
--- NOTE | 2019-07-03 14:29 | Operative Report ---
Nonrecallable Operative Report DATE OF SURGERY: 07/03/19 PREOPERATIVE DIAGNOSIS: 1. Dysphasia. 2. Nausea and vomiting. 3. Abnormal esophagram. POSTOPERATIVE DIAGNOSIS: 1. Gastritis, mild. 2. Muscular narrowing of the distal esophagus, which may be consistent with achalasia. 3. No mucosal lesions, masses, or areas of scarring/stricture in the esophagus. OPERATION: EGD with biopsy. SURGEON: ISMAEL WEINER ANESTHESIA: LMAC TISSUE REMOVED OR ALTERED: Antrum COMPLICATIONS: None apparent ESTIMATED BLOOD LOSS: Minimal PROCEDURE: Procedure in detail: After informed consent was obtained, the patient was brought to the operating room and laid in the left lateral decubitus position. The endoscope was passed down the oropharynx, down the esophagus, to the distal esophagus/GE junction. There was what appeared to be a muscular narrowing of the distal esophagus. With some manipulation, the scope passed through the GE junction easily. The scope was withdrawn back into the distal esophagus, and the distal esophagus was examined. There was no evidence of reflux or mucosal stricturing. The narrowing appeared to be muscular in origin, possibly consistent with achalasia. I recommend an outpatient manometry to evaluate this. The scope was passed into the stomach. The stomach was insufflated with air. There was found to be small amount of old blood and petechiae within the body and antrum of the stomach. A biopsy was taken in the antrum to rule out H. pylori. The scope was passed through the pylorus, and into the first and second portions of the duodenum. The duodenum appeared normal. The scope was withdrawn back into the gastric body. A retroflexion maneuver was performed noting a small, sliding-type hiatal hernia. The scope was then withdrawn up the remainder of the esophagus. The remainder of the esophagus was smooth in contour without masses, lesions, or other significant abnormalities. Once the scope was removed, the procedure was concluded. All sponge, instrument, and needle counts were correct. Condition: Stable. Recommendation: 1. soft mechanical diet. 2. Outpatient esophageal manometry to evaluate for hypertrophic muscular contractions of the esophagus and/or achalasia.
[2019-07-03] MEDS: CALCIUM ACETATE 667 MG CAPSULE PO SCH (18:46)
[2019-07-03] MEDS: AMLODIPINE BESYLATE 10 MG TABLET PO SCH (18:46)
[2019-07-03] MEDS: CALCITRIOL 0.25 MCG CAPSULE PO SCH (18:47)
[2019-07-03] MEDS: GENTAMICIN SULFATE 0.1% OINTMENT 15 GM TP SCH (18:47)
--- NOTE | 2019-07-03 19:01 | Progress Note ---
Provider Note Provider Note: Patient with mild gastritis. Continue Carafate and Pepcid. The patient will require outpatient esophageal manometry. Follow-up with surgery clinic after discharge. Surgery will sign off at this time. Please renotify with any questions or concerns.
[2019-07-03] MEDS: LEVOFLOXACIN 250 MG TABLET PO SCH (19:56)
[2019-07-03] MEDS: BENZOCAINE/MENTHOL SORE THROAT LOZENGE BUCCAL PRN (21:15)
--- NOTE | 2019-07-03 21:38 | PDOC PROGRESS REPORT ---
Subjective Progress Note for:: 07/03/19 Subjective:: Patient had EGD done today, was found to have narrowing of the distal esophagus, achalasia suspected Reason For Visit: CHEST PAIN,LEUKOCYTOSIS ? CAUSE ESRD ON PD Physical Exam Vital Signs: Temp Pulse Resp BP Pulse Ox 97.4 F 86 17 139/86 H 87 L 07/03/19 16:05 07/03/19 19:00 07/03/19 16:05 07/03/19 16:05 07/03/19 16:05 Intake & Output 07/02/19 07/03/19 07/04/19 06:59 06:59 06:59 Intake Total 550 512 200 Output Total 450 100 0 Balance 100 412 200 Weight 54.7 kg 53.4 kg 53.4 kg General appearance: PRESENT: no acute distress Eye exam: PRESENT: PERRLA Respiratory exam: PRESENT: clear to auscultation coco Cardiovascular exam: PRESENT: +S1, +S2 GI/Abdominal exam: PRESENT: soft Results Laboratory Results: 07/01/19 12:50 07/01/19 12:50 06/28/19 00:42 Blood Blood Culture - Final NO GROWTH IN 5 DAYS 06/27/19 23:33 Blood Blood Culture - Final NO GROWTH IN 5 DAYS 06/27/19 06/27/19 06/27/19 15:11 15:11 21:17 Creatine Kinase 277 H CK-MB (CK-2) Troponin I 0.017 0.020 06/27/19 06/28/19 06/28/19 23:33 06:20 06:20 Creatine Kinase 146 H CK-MB (CK-2) 1.94 1.43 Troponin I 0.023 0.022 06/28/19 06/28/19 06/28/19 13:46 13:46 17:25 Creatine Kinase 136 H CK-MB (CK-2) 1.37 1.24 Troponin I 0.022 0.025 06/28/19 17:25 Creatine Kinase 132 CK-MB (CK-2) Troponin I Impressions: Chest X-Ray 06/27/19 14:47 IMPRESSION: Cardiomegaly and small bilateral pleural effusions without pulmonary edema. Chest CT 06/28/19 13:15 IMPRESSION: Bilateral pleural effusions with associated airspace disease in the lower lobes, atelectasis versus pneumonia. Pericardial effusion. Ascites. Mild subcutaneous edema. 3 cm cystic lesion in the spleen. Abdomen Ultrasound 06/28/19 22:51 IMPRESSION: Small amount of ascites. Abdomen/Pelvis CT 07/01/19 00:00 IMPRESSION: 1. Basilar lung changes are similar. There is bilateral lower lobe volume loss and consolidation with effusions. There is also cardiomegaly with pericardial effusion. 2. Abdominal findings as described. Mild ascites is likely related to peritoneal dialysis. Incidental splenic cyst. No acute findings. KUB X-Ray 07/01/19 00:00 IMPRESSION: NO RADIOGRAPHIC EVIDENCE FOR ACUTE ABDOMINAL DISEASE. Esophagus X-Ray 07/02/19 00:00 IMPRESSION: MILD NARROWING OF THE DISTAL ESOPHAGUS WHICH IMPEDED PASSAGE OF 12 MM BARIUM TABLET FOR APPROXIMATELY 35 MINUTES. TABLET ALSO STUCK IN UPPER ESOPHAGUS FOR APPROXIMATELY 8 MINUTES. NO FOCAL STRICTURES IDENTIFIED IN EITHER AREA. OTHERWISE UNREMARKABLE STUDY. 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
[2019-07-03] MEDS: CEFTRIAXONE 1 GM/D5W RTU 1 GM/50 ML RTUPB IV SCH (21:44)
[2019-07-03] MEDS: CLONIDINE HCL 0.1 MG TABLET PO SCH (21:44)
[2019-07-03] MEDS: FAMOTIDINE 20 MG TABLET PO SCH (21:44)
[2019-07-03] MEDS: SUCRALFATE 1 GM TABLET PO SCH (21:44)
[2019-07-04] MEDS: HEPARIN SOD (PORCINE) 5,000 UNIT/ML 1 ML VIAL SUBCUT SCH ×2 (05:35→13:44)
[2019-07-04] MEDS: ONDANSETRON HCL INJ/PF 4 MG/2 ML SDV IV PRN (06:37)
[2019-07-04] MEDS: AMLODIPINE BESYLATE 10 MG TABLET PO SCH (08:29)
[2019-07-04] MEDS: SUCRALFATE 1 GM TABLET PO SCH ×3 (08:29→17:26)
[2019-07-04] MEDS: CALCIUM ACETATE 667 MG CAPSULE PO SCH ×3 (08:31→17:23)
[2019-07-04] MEDS: GENTAMICIN SULFATE 0.1% OINTMENT 15 GM TP SCH (10:47)
[2019-07-04] MEDS: CALCITRIOL 0.25 MCG CAPSULE PO SCH (10:48)
[2019-07-04] MEDS: FAMOTIDINE 20 MG TABLET PO SCH (10:49)
--- NOTE | 2019-07-04 16:01 | PDOC DISCHARGE SUMMARY ---
Impression - Admit/DC Date/PCP Admission Date/Primary Care Provider: 06/27/19 22:58 MARYELLEN SHIRLEY MD Discharge Date: 07/04/19 - Discharge Diagnosis (1) Bilateral pneumonia Is this a current diagnosis for this admission?: Yes (2) Acute hypoxemic respiratory failure Is this a current diagnosis for this admission?: Yes (3) Systemic lupus Is this a current diagnosis for this admission?: Yes (4) ESRD (end stage renal disease) Is this a current diagnosis for this admission?: Yes (5) Anemia in chronic kidney disease, on chronic dialysis Is this a current diagnosis for this admission?: Yes (6) Fibromyalgia Is this a current diagnosis for this admission?: Yes (7) Vomiting Is this a current diagnosis for this admission?: Yes (8) Esophageal abnormality Is this a current diagnosis for this admission?: Yes (9) History of systemic lupus erythematosus (SLE) Is this a current diagnosis for this admission?: Yes - Additional Information Resuscitation Status: Full Code Referrals: MARYELLEN SHIRLEY MD [Primary Care Provider] - 07/12/19 10:15 am Prescriptions: Clonidine HCl [Catapres 0.1 mg Tablet] 0.3 mg PO QHS #90 tablet Clonidine HCl [Catapres 0.3 mg Tablet] 0.3 mg PO QHS #90 Amlodipine Besylate [Norvasc 10 mg Tablet] 10 mg PO QAM #90 tablet Calcium Acetate [Phoslo 667 mg Capsule] 2,668 mg PO AC #360 capsule Hydroxychloroquine Sulfate [Plaquenil 200 mg Tablet] 200 mg PO DAILY #30 tab Calcitriol [Rocaltrol 0.25 mcg Capsule] 0.25 mcg PO DAILY #90 capsule Home Medications: Amlodipine Besylate [Norvasc 5 mg Tablet] 5 mg PO DAILY 06/23/19 Amlodipine Besylate [Norvasc 10 mg Tablet] 10 mg PO QAM #90 tablet 07/04/19 Calcitriol [Rocaltrol 0.25 mcg Capsule] 0.25 mcg PO DAILY #90 capsule 07/04/19 Calcium Acetate [Phoslo 667 mg Capsule] 2,668 mg PO AC #360 capsule 07/04/19 Clonidine HCl [Catapres 0.1 mg Tablet] 0.3 mg PO QHS #90 tablet 07/04/19 Clonidine HCl [Catapres 0.3 mg Tablet] 0.3 mg PO QHS #90 07/04/19 Hydroxychloroquine Sulfate [Plaquenil 200 mg Tablet] 200 mg PO DAILY #30 tab 07/04/19 History of Present Illiness History of Present Illness: CARLOS LEVINE is a 43 year old female, She has history of systemic lupus erythematosus complicated with end-stage renal disease on maintenance peritoneal dialysis. She came to the office for evaluation of chest pain, abdominal pain, she said the chest pain radiated to the shoulders. A 12-lead EKG was done in the office, It showed normal sinus rhythm, there was no acute ST-T wave deviation but because she has end-stage renal disease which increases risk of ischemic heart disease I felt patient needed to be further evaluated, she was referred to the emergency room for further evaluation. In the emergency room she was evaluated she was found to have severely elevated blood pressure, the initial serum troponin was indeterminate she was also found to have leukocytosis with white cell count of 16,000 with a left shift there was no definite source of infection that was identified but because she is on peritoneal dialysis I suspected that patient could have spontaneous bacterial peritonitis also suspect that she could have pneumonia because she is a smoker and she has some cough and a little bit of fever.The initial chest x-ray that was done in the emergency room did not demonstrate focal pneumonia, patient unfortunately continues to smoke cigarettes. The chest x-ray showed cardiomegaly and small bilateral pleural effusion without pulmonary edema. I continue to suspect pneumonia, CT chest without contrast was obtained, it demonstrated bilateral pleural effusion left slightly more than right there was associated airspace disease initial lower lobe there was no mass appreciated. Also found incidentally was a 3 cm cystic lesion in the spleen.She also underwent abdominal paracentesis, the peritoneal fluid analysis showed polymorphonuclear cell count of 23, less than 250 essentially rule out but peritonitis. The arterial blood gas demonstrated pH 7.38 PO2 70 PCO2 36.8, bicarbonate 21.4.. Patient just moved from [facility] to [facility] she told me that she has a history of lupus erythematosus, fibromyalgia, Hospital Course Hospital Course: Patient was admitted for the management of pneumonia, vomiting, end-stage renal disease on peritoneal dialysis. She was treated with IV antibiotic Levaquin and ceftriaxone she was seen in consultation by nephrology because she has end-stage renal disease on peritoneal dialysis, the dialysis was supervised by the sales ledger clerk. She just relocated from [place], [place] to [place]. She had protracted episode of vomiting, a CAT scan of the abdomen and pelvis with IV contrast was obtained, there was no intra-abdominal pathology demonstrated on the CAT scan, consultation was requested from surgery for upper endoscopy, the surgeon requested a barium swallow which was done. The barium swallow showed narrowing of the distal esophagus there was no proximal dilatation of esophagus that would suggest achalasia, the surgeons were reconsulted for EGD. She underwent upper endoscopy yesterday the upper endoscopy showed a muscular narrowing of the distal esophagus, there was no evidence of reflux or mucosal stricturing, the narrowing appeared to be muscular in origin said to be consistent with achalasia outpatient manometry recommended. She also had anemia, she was not transfused with red blood cells she was given Procrit. Prednisone was listed as one of the outpatient medication she uses, she stated that she uses the prednisone for maintenance therapy for lupus which is not typically the standard of care for lupus management, the standard of care follow-up as management for maintenance therapy is Plaquenil unless if contraindicated, patient did not indicate to me of any contraindication for the use of Plaquenil so patient is discharged home on Plaquenil for maintenance therapy 20 mg p.o. daily and she is taken of the prednisone. Physical Exam Vital Signs: Temp Pulse Resp BP Pulse Ox 98.6 F 77 18 121/80 100 07/04/19 07:24 07/04/19 07:24 07/04/19 07:24 07/04/19 07:24 07/04/19 07:24 Intake & Output 07/03/19 07/04/19 07/05/19 06:59 06:59 06:59 Intake Total 512 250 Output Total 100 0 Balance 412 250 Weight 53.4 kg 51.4 kg General appearance: PRESENT: no acute distress Eye exam: PRESENT: PERRLA Cardiovascular exam: PRESENT: +S1, +S2 GI/Abdominal exam: PRESENT: soft Neurological exam: PRESENT: alert Results Laboratory Results: WBC 9.7 10^3/uL (4.0-10.5) 07/01/19 12:50 RBC 2.48 10^6/uL (3.72-5.28) L 07/01/19 12:50 Hgb 7.7 g/dL (12.0-15.5) L 07/01/19 12:50 Hct 21.7 % (36.0-47.0) L 07/01/19 12:50 MCV 87 fl (80-97) 07/01/19 12:50 MCH 30.9 pg (27.0-33.4) 07/01/19 12:50 MCHC 35.4 g/dL (32.0-36.0) 07/01/19 12:50 RDW 15.9 % (11.5-14.0) H 07/01/19 12:50 Plt Count 379 10^3/uL (150-450) 07/01/19 12:50 Lymph % (Auto) Not Reportable 07/01/19 12:50 [place] % (Auto) Not Reportable 07/01/19 12:50 Eos % (Auto) Not Reportable 07/01/19 12:50 Baso % (Auto) Not Reportable 07/01/19 12:50 Reticulocyte # 0.044 10^6/uL (0.028-0.122) 06/28/19 06:20 Absolute Neuts (auto) Not Reportable 07/01/19 12:50 Absolute Lymphs (auto) Not Reportable 07/01/19 12:50 Absolute Monos (auto) Not Reportable 07/01/19 12:50 Absolute Eos (auto) Not Reportable 07/01/19 12:50 Absolute Basos (auto) Not Reportable 07/01/19 12:50 Total Counted 100 07/01/19 12:50 Seg Neutrophils % Not Reportable 07/01/19 12:50 Seg Neuts % (Manual) 78 % (42-78) 07/01/19 12:50 Band Neutrophils % 1 % (3-5) L 07/01/19 12:50 Lymphocytes % (Manual) 10 % (13-45) L 07/01/19 12:50 Monocytes % (Manual) 8 % (3-13) 07/01/19 12:50 Eosinophils % (Manual) 3 % (0-6) 07/01/19 12:50 Basophils % (Manual) 0 % (0-2) 07/01/19 12:50 Abs Neuts (Manual) 7.7 10^3/uL (1.7-8.2) 07/01/19 12:50 Abs Lymphs (Manual) 1.0 10^3/uL (0.5-4.7) 07/01/19 12:50 Abs Monocytes (Manual) 0.8 10^3/uL (0.1-1.4) 07/01/19 12:50 Absolute Eos (Manual) 0.3 10^3/uL (0.0-0.6) 07/01/19 12:50 Abs Basophils (Manual) 0.0 10^3/uL (0.0-0.2) 07/01/19 12:50 Toxic Granulation SLIGHT 06/30/19 04:48 Platelet Comment ADEQUATE 07/01/19 12:50 Poikilocytosis SLIGHT 06/30/19 04:48 Anisocytosis SLIGHT 07/01/19 12:50 Ovalocytes SLIGHT 06/30/19 04:48 [place] Cells SLIGHT 06/30/19 04:48 Schistocytes SLIGHT 06/30/19 04:48 Retic Count (auto) 1.93 % (0.66-2.85) 06/28/19 06:20 PT 14.8 SEC (11.4-15.4) 06/28/19 06:20 INR 1.15 06/28/19 06:20 APTT 34.5 SEC (23.5-35.8) 06/27/19 23:33 Carbonic Acid 1.11 mmol/L (1.05-1.35) 06/28/19 04:00 HCO3/H2CO3 Ratio 19:1 06/28/19 04:00 ABG pH 7.38 (7.35-7.45) 06/28/19 04:00 ABG pCO2 36.8 mmHg (35-45) 06/28/19 04:00 ABG pO2 70.0 mmHg (80-100) L 06/28/19 04:00 ABG HCO3 21.4 mmol/L (20-24) 06/28/19 04:00 ABG Total CO2 22.6 mmol/L (21-25) 06/28/19 04:00 ABG O2 Saturation 94.0 % (94-98) 06/28/19 04:00 ABG Base Excess -3.3 mmol/L 06/28/19 04:00 FiO2 ROOM AIR 06/28/19 04:00 Sodium 134.3 mmol/L (137-145) L 07/01/19 12:50 Potassium 4.5 mmol/L (3.6-5.0) 07/01/19 12:50 Chloride 96 mmol/L (98-107) L 07/01/19 12:50 Carbon Dioxide 23 mmol/L (22-30) 07/01/19 12:50 Anion Gap 15 (5-19) 07/01/19 12:50 BUN 73 mg/dL (7-20) H 07/01/19 12:50 Creatinine 14.87 mg/dL (0.52-1.25) H 07/01/19 12:50 Est GFR ( Amer) 3 (>60) L 07/01/19 12:50 Est GFR (Non-Af Amer) Cancelled 06/27/19 15:11 Est GFR (MDRD) Non-Af 3 (>60) L 07/01/19 12:50 Glucose 81 mg/dL (75-110) 07/01/19 12:50 Hemoglobin A1c % 5.6 % (4.7-6.0) 06/28/19 06:20 Calcium 8.3 mg/dL (8.4-10.2) L 07/01/19 12:50 Phosphorus 9.8 mg/dL (2.5-4.5) H 06/27/19 15:11 Magnesium 2.4 mg/dL (1.6-2.3) H 06/27/19 15:11 Iron 35.4 ug/dL (37-170) L 06/28/19 06:20 TIBC 213 ug/dL (250-450) L 06/28/19 06:20 % Saturation 17 % 06/28/19 06:20 Ferritin 455.00 ng/mL (6.2-137.0) H 06/28/19 06:20 Total Bilirubin 0.8 mg/dL (0.2-1.3) 07/01/19 12:50 Direct Bilirubin 0.8 mg/dL (0.0-0.4) H 07/01/19 12:50 Neonat Total Bilirubin Not Reportable 07/01/19 12:50 Neonat Direct Bilirubin Not Reportable 07/01/19 12:50 Neonat Indirect Bili Not Reportable 07/01/19 12:50 AST 17 U/L (14-36) 07/01/19 12:50 ALT 46 U/L (<35) 07/01/19 12:50 Alkaline Phosphatase 75 U/L (38-126) 07/01/19 12:50 Ammonia < 8.7 umol/L (9-33) L 06/27/19 23:33 Creatine Kinase 132 U/L (30-135) 06/28/19 17:25 CK-MB (CK-2) 1.24 ng/mL (<4.55) 06/28/19 17:25 Troponin I 0.025 ng/mL 06/28/19 17:25 Total Protein 5.4 g/dL (6.3-8.2) L 07/01/19 12:50 Albumin 2.8 g/dL (3.5-5.0) L 07/01/19 12:50 Triglycerides 50 mg/dL (<150) 06/28/19 06:20 Cholesterol 159.70 mg/dL (0-200) 06/28/19 06:20 LDL Cholesterol Direct 49 mg/dL (<100) 06/28/19 06:20 VLDL Cholesterol 10.0 mg/dL (10-31) 06/28/19 06:20 HDL Cholesterol 62 mg/dL (>40) 06/28/19 06:20 Amylase 152 U/L (30-110) H 06/27/19 15:11 Lipase 295.9 U/L (23-300) 06/27/19 15:11 EGFR Cancelled 06/27/19 15:11 Vitamin B12 687.0 pg/mL (239-931) 06/28/19 06:20 Folate 5.44 ng/mL (>2.76) 06/28/19 06:20 TSH 1.11 uIU/mL (0.47-4.68) 06/27/19 15:11 Free T4 1.45 ng/dL (0.78-2.19) 06/27/19 15:11 PTH Intact 1118.0 pg/mL (10.0-65.0) H 06/28/19 10:34 Urine Color STRAW 06/30/19 12:50 Urine Appearance SLIGHTLY-CLOUDY 06/30/19 12:50 Urine pH 7.0 (5.0-9.0) 06/30/19 12:50 Ur Specific [place]lin 1.009 06/30/19 12:50 Urine Protein 100 mg/dL (NEGATIVE) H 06/30/19 12:50 Urine Glucose (UA) NEGATIVE mg/dL (NEGATIVE) 06/30/19 12:50 Urine Ketones NEGATIVE mg/dL (NEGATIVE) 06/30/19 12:50 Urine Blood NEGATIVE (NEGATIVE) 06/30/19 12:50 Urine Nitrite (Reflex) NEGATIVE (NEGATIVE) 06/30/19 12:50 Urine Bilirubin NEGATIVE (NEGATIVE) 06/30/19 12:50 Urine Urobilinogen NEGATIVE mg/dL (<2.0) 06/30/19 12:50 Leukocyte Esterase Rfl NEGATIVE (NEGATIVE) 06/30/19 12:50 Urine RBC (Auto) 0 /HPF 06/30/19 12:50 Urine Bacteria (Auto) TRACE /HPF 06/30/19 12:50 Urine WBC (Reflex) < 1 /HPF 06/30/19 12:50 Squamous Epi Cells Auto 8 /HPF 06/30/19 12:50 Urine Mucus (Auto) RARE /LPF 06/30/19 12:50 Urine Ascorbic Acid NEGATIVE (NEGATIVE) 06/30/19 12:50 Fluid Type PERITONEAL 06/28/19 10:20 Fluid Source ABDOMEN 06/28/19 10:20 Fluid Color STRAW 06/28/19 10:20 Fluid Appearance CLEAR 06/28/19 10:20 Fluid Viscosity LIQUID 06/28/19 10:20 Fluid WBC 18 /uL 06/28/19 10:20 Fluid RBC 8 /uL 06/28/19 10:20 Fluid Seg Neutrophils 23 % 06/28/19 10:20 Fluid Lymphocytes 68 % 06/28/19 10:20 Fluid Monocytes 9 % 06/28/19 10:20 Fluid Eosinophils 0 % 06/28/19 10:20 Fluid Basophils 0 % 06/28/19 10:20 Stool Occult Blood NEGATIVE (NEGATIVE) 06/30/19 04:05 JONG (Multiplex) Positive (Negative) H 06/28/19 19:22 Influenza A (Rapid) NEGATIVE (NEGATIVE) 06/27/19 20:12 Influenza B (Rapid) NEGATIVE (NEGATIVE) 06/27/19 20:12 AFB Smear NO ACID FAST BACILLI (NO AFB SEEN) 06/28/19 10:20 06/27/19 06/27/19 06/27/19 15:11 21:17 23:33 CK-MB (CK-2) 1.94 Troponin I 0.017 0.020 0.023 06/28/19 06/28/19 06/28/19 06:20 13:46 17:25 CK-MB (CK-2) 1.43 1.37 1.24 Troponin I 0.022 0.022 0.025 Impressions: Chest X-Ray 06/27/19 14:47 IMPRESSION: Cardiomegaly and small bilateral pleural effusions without pulmonary edema. Chest CT 06/28/19 13:15 IMPRESSION: Bilateral pleural effusions with associated airspace disease in the lower lobes, atelectasis versus pneumonia. Pericardial effusion. Ascites. Mild subcutaneous edema. 3 cm cystic lesion in the spleen. Abdomen Ultrasound 06/28/19 22:51 IMPRESSION: Small amount of ascites. KUB X-Ray 06/29/19 00:00 IMPRESSION: Nonobstructive bowel gas pattern. Abdomen/Pelvis CT 07/01/19 00:00 IMPRESSION: 1. Basilar lung changes are similar. There is bilateral lower lobe volume loss and consolidation with effusions. There is also cardiomegaly with pericardial effusion. 2. Abdominal findings as described. Mild ascites is likely related to peritoneal dialysis. Incidental splenic cyst. No acute findings. KUB X-Ray 07/01/19 00:00 IMPRESSION: NO RADIOGRAPHIC EVIDENCE FOR ACUTE ABDOMINAL DISEASE. Esophagus X-Ray 07/02/19 00:00 IMPRESSION: MILD NARROWING OF THE DISTAL ESOPHAGUS WHICH IMPEDED PASSAGE OF 12 MM BARIUM TABLET FOR APPROXIMATELY 35 MINUTES. TABLET ALSO STUCK IN UPPER ESOPHAGUS FOR APPROXIMATELY 8 MINUTES. NO FOCAL STRICTURES IDENTIFIED IN EITHER AREA. OTHERWISE UNREMARKABLE STUDY. Stroke Is this a Stroke Patient?: No Acute Heart Failure - Is this a Heart Failure Patient?: No
[2019-07-04 17:29] VITALS: BP 156/105
[2019-07-04] MEDS ORDERED: FAMOTIDINE 20 MG TABLET PO SCH (22:00)
== END 2019-07-04 18:31 | disposition home or self-care (01) | DRG 193 ==
LOC: ER 13:12 → EH 22:58 → OBSVTOIN 22:58 → EH 23:24 → 3N 06-28 04:35
PROVIDERS: ADMIT Internal Medicine; ATTEND Internal Medicine
PROC: 0DB78ZX Excision of Stomach, Pylorus, Via Natural or Artificial Opening Endoscopic, Diagnostic (ICD-10-PCS; principal; 2019-07-03 13:45)
DX: J18.9 Pneumonia, unspecified organism (principal); N18.6 End stage renal disease; J96.01 Acute respiratory failure with hypoxia; I12.0 Hypertensive chronic kidney disease with stage 5 chronic kidney disease or end stage renal disease; D63.1 Anemia in chronic kidney disease; M79.7 Fibromyalgia; F17.210 Nicotine dependence, cigarettes, uncomplicated; D73.4 Cyst of spleen; F32.9 Major depressive disorder, single episode, unspecified; E83.41 Hypermagnesemia; K29.70 Gastritis, unspecified, without bleeding; K22.0 Achalasia of cardia; K44.9 Diaphragmatic hernia without obstruction or gangrene; R07.89 Other chest pain; M32.15 Tubulo-interstitial nephropathy in systemic lupus erythematosus; N25.0 Renal osteodystrophy; R11.14 Bilious vomiting; K21.9 Gastro-esophageal reflux disease without esophagitis; Z99.2 Dependence on renal dialysis; Z79.899 Other long term (current) drug therapy; Z88.8 Allergy status to other drugs, medicaments and biological substances; Z91.013 Allergy to seafood
CPT/HCPCS: 36415; 43239; 71046; 71250; 731; 74018; 74177; 74220; 76705; 80048; 80053; 80061; 80076; 81001; 82140; 82150; 82272; 82550; 82553; 82607; 82728; 82746; 82803; 83036; 83540; 83550; 83690; 83735; 83970; 84100; 84439; 84443; 84484; 85025; 85045; 85610; 85730; 86038; 87015; 87040; 87070; 87075; 87101; 87116; 87205; 87206; 87252; 87804; 88305; 88342; 89050; 90945; 90947; 93005; 93010; 96365; 96366; 96372; 96375; 96376; 99285; J0696; J1170; J1200; J1439; J1642; J1644; J1956; J2250; J2270; J2405; J2704; J2930; J3490; J7050; Q5106; S0028

== ENCOUNTER 2020-02-18 14:59 | Observation (INO) | payer MEDICARE, MEDICAID ==
[2020-02-18] MEDS ORDERED: NORMAL SALINE 1000 ML 1,000 ML IV PRN (15:42)
[2020-02-18 16:57] LABS: ABSOLUTE BASOPHILS # (AUTO) 0.1 10^3/uL (0.0-0.2); ABSOLUTE EOSINOPHILS # (AUTO) 0.2 10^3/uL (0.0-0.6); ABSOLUTE LYMPHOCYTES (AUTO) 1.7 10^3/uL (0.5-4.7); ABSOLUTE MONOCYTES (AUTO) 0.8 10^3/uL (0.1-1.4); ABSOLUTE NEUT (AUTO) 2.9 10^3/uL (1.7-8.2); BASOPHILS % (AUTO) 1.3 % (0-2); EOSINOPHILS % (AUTO) 3.2 % (0-6); HEMATOCRIT 36.6 % (36.0-47.0); HEMOGLOBIN 12.3 g/dL (12.0-15.5); LYMPHOCYTES % (AUTO) 30.8 % (13-45); MEAN CORPUSCULAR HEMOGLOBIN 29.3 pg (27.0-33.4); MEAN CORPUSCULAR HGB CONC 33.6 g/dL (32.0-36.0); MEAN CORPUSCULAR VOLUME 87 fl (80-97); MONOCYTES % (AUTO) 13.3 % (3-13); PLATELET COUNT 221 10^3/uL (150-450); RED BLOOD COUNT 4.19 10^6/uL (3.72-5.28); RED CELL DISTRIBUTION WIDTH 16.8 % (11.5-14.0); SEGMENTED NEUTROPHILS % (AUTO) 51.4 % (42-78); TOTAL CELLS COUNTED % (AUTO) 100 %; WHITE BLOOD COUNT 5.6 10^3/uL (4.0-10.5)
[2020-02-18 17:27] LABS: ALBUMIN 3.6 g/dL (3.5-5.0); ALKALINE PHOSPHATASE 54 U/L (38-126); ANION GAP 13 (5-19); ASPARTATE AMINO TRANSFERASE 14 U/L (14-36); BILIRUBIN,DIRECT 0.6 mg/dL (0.0-0.4); BILIRUBIN,TOTAL 0.6 mg/dL (0.2-1.3); BLOOD UREA NITROGEN 58 mg/dL (7-20); CALCIUM 10.1 mg/dL (8.4-10.2); CARBON DIOXIDE 28 mmol/L (22-30); CHLORIDE 98 mmol/L (98-107); GLUCOSE 80 mg/dL (75-110); POTASSIUM 3.8 mmol/L (3.6-5.0); TOTAL PROTEIN 6.2 g/dL (6.3-8.2)
[2020-02-18] MEDS ORDERED: MUPIROCIN CALCIUM 2% CREAM 15 GM TP PRN (17:29)
[2020-02-18 17:41] LABS: FREE T4 (FREE THYROXINE) 0.82 ng/dL (0.78-2.19)
[2020-02-18 17:45] LABS: ERYTHROCYTE SEDIMENTATION RATE 31 mm/hr (0-20)
[2020-02-18 17:55] LABS: THYROID STIMULATING HORMONE 2.79 uIU/mL (0.47-4.68)
[2020-02-18 18:10] LABS: C-REACTIVE PROTEIN < 5.0 mg/L (<10.0)
--- NOTE | 2020-02-18 18:23 | EKG REPORT ---
SEVERITY:- ABNORMAL ECG - SINUS RHYTHM LEFT ATRIAL ABNORMALITY NONSPECIFIC T ABNORMALITIES, LATERAL LEADS BORDERLINE PROLONGED QT INTERVAL : Confirmed by: Sam Rosado MD 18-Feb-2020 18:22:29
--- NOTE | 2020-02-18 19:53 | RADIOLOGY REPORT (SQ) ---
EXAM DESCRIPTION: CT ABD/PELVIS ORAL ONLY IMAGES COMPLETED DATE/TIME: 02/18/2020 7:28 pm REASON FOR STUDY: unexplained weight loss, Hypotension COMPARISON: None. TECHNIQUE: CT scan of the abdomen and pelvis performed without intravenous contrast. Oral contrast was given. Images reviewed with lung, soft tissue, and bone windows. Reconstructed coronal and sagitt al MPR images reviewed. All images stored on PACS. All CT scanners at this facility use dose modulation, iterative reconstruction, and/or weight based d osing when appropriate to reduce radiation dose to as low as reasonably achievable (ALARA). [facility]: Dose Right [facility]: CareDose [facility]: Dose Right [facility]: Teradose 4D [facility]: Pink Rebel Shoes RADIATION DOSE: CT Rad equipment meets quality standard of care and radiation dose reduction techniq ues were employed. CTDIvol: 4.8 mGy. DLP: 248 mGy-cm.mGy. LIMITATIONS: None. FINDINGS: LOWER CHEST: No significant findings. No nodules or infiltrates. LIVER, SPLEEN, AND ADRENALS. The liver is normal. There is a 4 cm splenic cyst. There is thickenin g of the adrenal glands. PANCREAS: No masses. No peripancreatic inflammatory changes. GALLBLADDER: Contracted. No stones. RIGHT KIDNEY AND URETER: No suspicious masses. Assessment limited by lack of IV contrast. No signif icant calcifications. No hydronephrosis or hydroureter. LEFT KIDNEY AND URETER: No suspicious masses. Assessment limited by lack of IV contrast. Small laina l vascular calcifications. No hydronephrosis or hydroureter. AORTA AND RETROPERITONEUM: No aneurysm. No retroperitoneal masses or adenopathy. BOWEL AND PERITONEAL CAVITY: No obvious masses or inflammatory changes. No free fluid. APPENDIX: Normal. PELVIS, BLADDER, AND ABDOMINAL WALL:No abnormal masses. No free fluid. Bladder normal. BONES: No significant findings. OTHER: No other significant finding. IMPRESSION: Splenic cyst. Thickening of the adrenal glands. Small renal vascular calcifications on the left. No acute findings in the abdomen or pelvis. COMMENT: Quality ID # [id number]: Final reports with documentation of one or more dose reduction techniques (e.g., Automated exposure control, adjustment of the mA and/or kV according to patient size, use of iterative reconstruction technique) TECHNICAL DOCUMENTATION: JOB ID: [id number] 2010 [employer]- All Rights Reserved Reading location - IP/workstation name: [email or web address]
--- NOTE | 2020-02-18 20:00 | PDOC H&P ---
History of Present Illness Admission Date/PCP: 02/18/20 14:59 MARYELLEN SHIRLEY MD History of Present Illness: CARLOS LEVINE is a 44 year old female, She has a history of end-stage renal disease on peritoneal dialysis, systemic lupus dermatosis hypertension, fibromyalgia, she came to the office for evaluation of "lupus flare", she was asking for prednisone, in the office she was evaluated she has lost 20 pounds since last evaluation in the office which was roughly about 6 to 8 weeks ago, she has good appetite, the blood pressure recorded was also 70/40. I was very concerned about her condition I felt patient needed to be admitted For further evaluation.CAT scan of the abdomen pelvis and chest did not demonstrate any mass lesion, there is no findings on the CT scan that would explain the severe weight loss she may need to have GI endoscopy, EGD and colonoscopy to rule out any l esion that could cause profound weight loss in a very short period of time.The blood pressure is usually very elevated, the blood pressure recorded today in the office was extremely low that got very concerned there was no evidence of sepsis clinically she is awake she is alert she is oriented she is ambulatory Past Medical History Cardiac Medical History: Reports: Hypertension Neurological Medical History: Reports: Migraine Renal/ Medical History: Reports: End Stage Renal Disease - Reportedly due to l upus nephritis. Musculoskeltal Medical History: Reports: Arthritis, Fibromyalgia Psychiatric Medical History: Reports: Depression Hematology: Reports: Anemia Past Surgical History Past Surgical History: Reports: Tonsillectomy - childhood Social History Smoking Status: Former Smoker Last Time Smoked: 2014 Frequency of Alcohol Use: Rare Hx Recreational Drug Use: No Drugs: None Hx Prescription Drug Abuse: No Family History Family History: Reviewed & Not Pertinent Parental Family History Reviewed: Yes Children Family History Reviewed: Yes Sibling(s) Family History Reviewed.: Yes Medication/Allergy Home Medications: Amlodipine Besylate [Norvasc 5 mg Tablet] 5 mg PO DAILY 06/23/19 Clonidine HCl [Catapres 0.1 mg Tablet] 0.3 mg PO QHS #90 tablet 07/04/19 Hydroxychloroquine Sulfate [Plaquenil 200 mg Tablet] 200 mg PO DAILY #30 tab 07/04/19 Ferric Citrate [Auryxia] 420 mg PO TID 02/18/20 Metoprolol Tartrate [Lopressor 50 mg Tablet] 50 mg PO Q12H 02/18/20 Ondansetron HCl 4 mg PO TIDP PRN 02/18/20 Allergies/Adverse Reactions: iodine Allergy (Verified 06/27/19 14:43) seafood Allergy (Uncoded 06/27/19 14:43) Review of Systems Constitutional: PRESENT: weight loss. ABSENT: chills, fever(s), headache(s), weight gain Eyes: ABSENT: visual disturbances Ears: ABSENT: hearing changes Cardiovascular: ABSENT: chest pain, dyspnea on exertion, edema, orthropnea, palpitations Respiratory: ABSENT: cough, hemoptysis Gastrointestinal: ABSENT: abdominal pain, constipation, diarrhea, hematemesis, hematochezia, nausea, vomiting Genitourinary: ABSENT: dysuria, hematuria Musculoskeletal: PRESENT: back pain. ABSENT: joint swelling Integumentary: ABSENT: rash, wounds Neurological: ABSENT: abnormal gait, abnormal speech, confusion, dizziness, focal weakness, syncope Psychiatric: ABSENT: anxiety, depression, homidical ideation, suicidal ideation Endocrine: ABSENT: cold intolerance, heat intolerance, menstrual abnormalities, polydipsia, polyuria Hematologic/Lymphatic: ABSENT: easy bleeding, easy bruising, lymphadenopathy Physical Exam Vital Signs: Temp Pulse Resp BP Pulse Ox 97.9 F 68 13 80/64 L 100 02/18/20 15:14 02/18/20 17:55 02/18/20 15:32 02/18/20 15:14 02/18/20 15:32 Intake & Output 02/17/20 02/18/20 02/19/20 06:59 06:59 06:59 Weight 39.916 kg General appearance: PRESENT: thin Head exam: PRESENT: atraumatic, normocephalic Eye exam: PRESENT: PERRLA Neck exam: PRESENT: full ROM Respiratory exam: PRESENT: clear to auscultation coco Cardiovascular exam: PRESENT: RRR, +S1, +S2 Pulses: PRESENT: normal dorsalis pedis pul, +2 pedal pulses bilateral Vascular exam: PRESENT: normal capillary refill GI/Abdominal exam: PRESENT: normal bowel sounds, soft Rectal exam: PRESENT: deferred Neurological exam: PRESENT: alert, CN II-XII grossly intact Psychiatric exam: PRESENT: appropriate affect, normal mood Skin exam: PRESENT: dry, intact, warm Results Laboratory Results: 02/18/20 16:40 02/18/20 16:40 02/18/20 02/18/20 02/18/20 16:40 16:40 16:40 WBC 5.6 RBC 4.19 Hgb 12.3 Hct 36.6 MCV 87 MCH 29.3 MCHC 33.6 RDW 16.8 H Plt Count 221 Seg Neutrophils % 51.4 Sodium 139.4 Potassium 3.8 Chloride 98 Carbon Dioxide 28 Anion Gap 13 BUN 58 H Creatinine 16.04 H Est GFR ( Amer) 3 L Glucose 80 Calcium 10.1 Total Bilirubin 0.6 AST 14 Alkaline Phosphatase 54 C-Reactive Protein < 5.0 Total Protein 6.2 L Albumin 3.6 TSH 2.79 Free T4 0.82 Impressions: Abdomen/Pelvis CT 02/18/20 15:57 IMPRESSION: Splenic cyst. Thickening of the adrenal glands. Small renal vascular calcifications on the left. No acute findings in the abdomen or pelvis. Assessment & Plan - Diagnosis (1) Weight loss, abnormal Is this a current diagnosis for this admission?: Yes Plan: The etiology of the weight loss is not clear, consultation will be requested from surgery for colonoscopy and EGD (2) Undernutrition Is this a current diagnosis for this admission?: Yes (3) ESRD (end-stage renal disease) due to SLE Is this a current diagnosis for this admission?: Yes Plan: Patient on peritoneal dialysis (4) Hypotension Qualifiers: Hypotension type: unspecified hypotension type Qualified Code(s): I95.9 - Hypotension, unspecified Is this a current diagnosis for this admission?: Yes Plan: The etiology of the blood pressure is not clear, this could be related to medication - Time Time Spent: Greater than 70 Minutes Medications reviewed and adjusted accordingly: Yes Anticipated Discharge Disposition: Home, Self Care Anticipated Discharge Timeframe: within 72 hours
--- NOTE | 2020-02-18 22:31 | PDOC CONSULTATION ---
Consultation Consult Date: 02/18/20 Provider Consulted: DARREL COLE Consult reason:: ESRD on PD History of Present Illness Admission Date/PCP: 02/18/20 14:59 MARYELLEN SHIRLEY MD History of Present Illness: CARLOS LEVINE is a 44 year old -Spanish lady known to me with history of end-stage renal disease on peritoneal dialysis secondary to lupus nephritis, hypertension and fibromyalgia who was directly admitted by Dr. Shirley from his office due to profound unexplained weight loss recently. Patient states that she has lost about 20 pounds for the past 3 weeks but claims that she has good appetite and has been eating. She however describe that her appetite has been variable depending on her lupus activity. She denies any other symptoms including nausea, vomiting, diarrhea, cough, fever, shortness of breath nor dizziness. Her blood pressure upon admission was very low at 80/60. She is usually moderately hypertensive.Dr. Shirley admitted her for work-up of the unexplained weight loss. She denies any problems with her peritoneal dialysis regimen. She relates that her blood pressure has been low since yesterday at home around 70/40. She said her usual blood pressures around 128/90. Past Medical History Cardiac Medical History: Reports: Hypertension-primary Neurological Medical History: Reports: Migraine Renal/ Medical History: Reports: 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, Hyperphosphatemia, Other - History of lupus nephritis Musculoskeltal Medical History: Reports: Arthritis, Fibromyalgia, Systemic Lupus Erythematosus Psychiatric Medical History: Reports: Depression Hematology Medical History: Reports Anemia of Chronic Kidney Disease Past Surgical History Past Surgical History: Reports: Dialysis Access Surgery PD, Tonsillectomy - childhood Social History Information Source: Patient Lives with: Family Smoking Status: Former Smoker Last Time Smoked: 2014 Frequency of Alcohol Use: Rare Hx Recreational Drug Use: No Drugs: None Hx Prescription Drug Abuse: No Family History Family History: Reviewed & Not Pertinent Parental Family History Reviewed: Yes Children Family History Reviewed: Yes Sibling(s) Family History Reviewed.: Yes Medication/Allergy Home Medications: Amlodipine Besylate [Norvasc 5 mg Tablet] 5 mg PO DAILY 06/23/19 Clonidine HCl [Catapres 0.1 mg Tablet] 0.3 mg PO QHS #90 tablet 07/04/19 Hydroxychloroquine Sulfate [Plaquenil 200 mg Tablet] 200 mg PO DAILY #30 tab 07/04/19 Ferric Citrate [Auryxia] 420 mg PO TID 02/18/20 Metoprolol Tartrate [Lopressor 50 mg Tablet] 50 mg PO Q12H 02/18/20 Ondansetron HCl 4 mg PO TIDP PRN 02/18/20 Allergies/Adverse Reactions: iodine Allergy (Verified 06/27/19 14:43) seafood Allergy (Uncoded 06/27/19 14:43) Review of Systems All systems: reviewed and no additional remarkable complaints except as stated Review of Systems: Constitutional: ABSENT: chills, fatigue, fever(s), headache(s), weight gain; admits weight loss Eyes: ABSENT: visual disturbances Ears: ABSENT: hearing changes Cardiovascular: ABSENT: chest pain, dyspnea on exertion, edema, orthropnea, palpitations Respiratory: ABSENT: cough, dyspnea, hemoptysis Gastrointestinal: ABSENT: abdominal pain, constipation, diarrhea, hematemesis, hematochezia, nausea, vomiting Genitourinary: ABSENT: dysuria, hematuria Musculoskeletal: ABSENT: joint swelling Integumentary: ABSENT: rash, wounds Neurological: ABSENT: abnormal gait, abnormal speech, confusion, dizziness, focal weakness, numbness, syncope Psychiatric: ABSENT: anxiety, depression Endocrine: ABSENT: cold intolerance, heat intolerance, polydipsia, polyuria Hematologic/Lymphatic: ABSENT: easy bleeding, easy bruising, lymphadenopathy Physical Exam Vital Signs: Temp Pulse Resp BP Pulse Ox 13 100 02/18/20 15:32 02/18/20 15:32 Intake & Output 02/17/20 02/18/20 02/19/20 06:59 06:59 06:59 Weight 39.916 kg Exam: General appearance: No acute distress, cooperative, small frame and very thin Head exam: PRESENT: atraumatic, normocephalic Eye exam: PRESENT: Conjunctiva Loop, EOMI, PERRLA. ABSENT: conjunctival injection, scleral icterus Mouth exam: PRESENT: moist, neck supple, tongue midline Neck exam: PRESENT: full ROM. ABSENT: carotid bruit, JVD, lymphadenopathy, thyromegaly Respiratory exam: PRESENT: clear to auscultation bilaterally. ABSENT: rales, rhonchi, stridor, wheezes Cardiovascular exam: PRESENT: RRR, +S1, +S2. ABSENT: systolic murmur Pulses: PRESENT: normal radial pulses, normal dorsalis pedis pulses GI/Abdominal exam: PRESENT: normal bowel sounds, soft. PD catheter in place in the left lower quadrant area with good exit site without any drainage ABSENT: guarding, mass, tenderness Rectal exam: Deferred Extremities exam: PRESENT: full ROM. ABSENT: calf tenderness, pedal edema Musculoskeletal: PRESENT: full ROM. ABSENT: deformity Neurological exam: PRESENT: alert, Awake, Oriented to person, Oriented to place, Oriented to time, reflexes normal, CN II-XII grossly intact. ABSENT: motor sensory deficit Psychiatric exam: PRESENT: appropriate affect, normal mood. ABSENT: homicidal ideation, suicidal ideation Skin exam: PRESENT: intact, dry, warm. ABSENT: rash Results Laboratory Results: 02/18/20 16:40 02/18/20 16:40 WBC 5.6 RBC 4.19 Hgb 12.3 Hct 36.6 MCV 87 MCH 29.3 MCHC 33.6 RDW 16.8 H Plt Count 221 Seg Neutrophils % 51.4 Assessment & Plan - Diagnosis (1) Weight loss, abnormal Is this a current diagnosis for this admission?: Yes Plan: Work-up per Dr. Shirley (2) ESRD (end stage renal disease) Is this a current diagnosis for this admission?: Yes Plan: Since we do not have a cycler machine available in the hospital we will switch her to CAPD doing manual exchanges. She will have 4 exchanges every 6 hours with 1500 mL fill volume using 1.5% dianeal solution in view of her hypotension. Daily weights. Daily exercise care using Bactroban. (3) Hypertension Is this a current diagnosis for this admission?: Yes Plan: Patient is currently hypotensive. Hold blood pressure medications. - Notes Notes: Thank you very much for this consultation.
[2020-02-19] MEDS: OXYCODONE-ACETAMINOPHEN 5-325 MG TABLET PO PRN ×3 (00:11→22:12)
[2020-02-19] MEDS ORDERED: (PENDING PHARMACY ID) (Ondansetron Hcl [Ondansetron Hcl] 4 MG) PO PRN (08:00)
[2020-02-19] MEDS ORDERED: ONDANSETRON 4 MG TAB.RAPDIS PO PRN (08:21)
--- NOTE | 2020-02-19 09:38 | PDOC PROGRESS REPORT ---
Subjective Progress Note for:: 02/19/20 Subjective:: Patient feels better. Although she still has some joint pains due to her lupus. Her blood pressure is improved. She is undergoing her peritoneal dialysis manually and just had her second exchange this morning. No ultrafiltration using 1.5% as expected in her goal due to her hypotension. So far her work-up for the weight loss showed normal thyroid functions, negative HIV and abdominal CT does not show any findings explaining the weight loss. She has no other new complaints. Reason For Visit: PERITANEL DIALYSIS,ESRP,HYPOTENSIO,UNEXPLAINED Physical Exam Vital Signs: Temp Pulse Resp BP Pulse Ox 98.2 F 59 L 18 119/89 H 100 02/19/20 03:42 02/19/20 07:00 02/19/20 03:42 02/19/20 03:42 02/19/20 03:42 Intake & Output 02/18/20 02/19/20 02/20/20 06:59 06:59 06:59 Intake Total 2222 Output Total 200 Balance 2021 Weight 44 kg Exam: General appearance: PRESENT: no acute distress, cooperative, well-developed, well-nourished Head exam: PRESENT: atraumatic, normocephalic Eye exam: PRESENT: conjunctiva pink, PERRLA. ABSENT: scleral icterus Neck exam: ABSENT: JVD Respiratory exam: PRESENT: Normal breath sounds. ABSENT: crackles, rales, rhonchi, unlabored, wheezes Cardiovascular exam: PRESENT: Regular rate rhythm -+S1, +S2. ABSENT: diastolic murmur, systolic murmur GI/Abdominal exam: PRESENT: normal bowel sounds, soft. PD catheter in the left lower quadrant with good exit site. ABSENT: guarding, mass, tenderness Extremities exam: ABSENT: No edema Neurological exam: PRESENT: alert, awake, oriented to person, place and time. Skin exam: PRESENT: dry, warm, Results Laboratory Results: 02/18/20 16:40 02/18/20 16:40 02/18/20 02/18/20 02/18/20 16:40 16:40 16:40 WBC 5.6 RBC 4.19 Hgb 12.3 Hct 36.6 MCV 87 MCH 29.3 MCHC 33.6 RDW 16.8 H Plt Count 221 Seg Neutrophils % 51.4 Sodium 139.4 Potassium 3.8 Chloride 98 Carbon Dioxide 28 Anion Gap 13 BUN 58 H Creatinine 16.04 H Est GFR ( Amer) 3 L Glucose 80 Calcium 10.1 Total Bilirubin 0.6 AST 14 Alkaline Phosphatase 54 C-Reactive Protein < 5.0 Total Protein 6.2 L Albumin 3.6 TSH 2.79 Free T4 0.82 Impressions: Abdomen/Pelvis CT 02/18/20 15:57 IMPRESSION: Splenic cyst. Thickening of the adrenal glands. Small renal vascular calcifications on the left. No acute findings in the abdomen or pel vis. Assessment & Plan - Diagnosis (1) Weight loss, abnormal Is this a current diagnosis for this admission?: Yes Plan: Work-up per Dr. Kinsey. So far thyroid function is normal and HIV is negative. Abdominal CT is also negative for any findings that would explain weight loss. Her JONG is pending. Blood cultures pending. Daughter possibility of this weight loss could be due to excessive ultrafiltration so I explained to the patient that if he noticed that her blood pressure is getting lower than usual that she should use only the 1.5% solution because this can dehydrate her if she has over ultrafiltration. (2) ESRD (end stage renal disease) Is this a current diagnosis for this admission?: Yes Plan: Continue the same regimen with 4 exchanges, fill volume of 1500 mL every 6 hours using 1.5% dianeal solution. (3) Hypertension Is this a current diagnosis for this admission?: Yes Plan: Improved blood pressure currently within acceptable normal limits. - Time Time with patient: 15-25 minutes
[2020-02-19] MEDS: HYDROXYCHLOROQUINE SULFATE 200 MG TABLET PO SCH (10:10)
--- NOTE | 2020-02-19 11:14 | RADIOLOGY REPORT (SQ) ---
EXAM DESCRIPTION: CT CHEST WITHOUT IMAGES COMPLETED DATE/TIME: 02/19/2020 10:53 am REASON FOR STUDY: copd /weight loss COMPARISON: 06/28/2019. TECHNIQUE: CT scan performed of the chest without intravenous contrast. Images reviewed with lung, soft tissue and bone windows. Reconstructed coronal and sagittal MPR images reviewed. All images st ored on PACS. All CT scanners at this facility use dose modulation, iterative reconstruction, and/or weight based d osing when appropriate to reduce radiation dose to as low as reasonably achievable (ALARA). [facility]: Dose Right [facility]: CareDose [facility]: Dose Right [facility]: Teradose 4D [facility]: Cramster RADIATION DOSE: CT Rad equipment meets quality standard of care and radiation dose reduction techniq ues were employed. CTDIvol: 2.8 mGy. DLP: 100 mGy-cm. mGy. LIMITATIONS: No technical limitations. FINDINGS: LUNGS AND PLEURA: No masses, infiltrates, or pneumothorax. No pleural effusions or pleura l calcifications. HILAR AND MEDIASTINAL STRUCTURES: No identified masses or abnormal nodes. No obvious aneurysm. HEART AND VASCULAR STRUCTURES: No aneurysm. No pericardial effusion. UPPER ABDOMEN: Free fluid and scattered free air in the upper abdomen. THYROID AND OTHER SOFT TISSUES: No masses. No adenopathy. BONES: No significant finding. HARDWARE: None in the chest. OTHER: No other significant findings. IMPRESSION: 1. NO SIGNIFICANT FINDING ON NON-CONTRASTED CHEST CT. 2. FREE FLUID AND SCATTERED FREE AIR IN THE UPPER ABDOMEN. PRESUMABLY THIS IS DUE TO PERITONEAL DIAL YSIS. CORRELATE WITH ANY ABDOMINAL SYMPTOMS. TECHNICAL DOCUMENTATION: JOB ID: [id number] Quality ID # [id number]: Final reports with documentation of one or more dose reduction techniques (e.g., Au tomated exposure control, adjustment of the mA and/or kV according to patient size, use of iterative reconstruction technique) 2010 [employer]- All Rights Reserved Reading location - IP/workstation name: [email or web address]
--- NOTE | 2020-02-19 18:07 | PDOC CONSULTATION ---
Consultation Consult Date: 02/19/20 Provider Consulted: RACHNA OGDEN Consult reason:: For upper and lower endoscopy History of Present Illness Admission Date/PCP: 02/18/20 14:59 MARYELLEN SHIRLEY MD History of Present Illness: CARLOS LEVINE is a 44 year old female with known history of lupus on PD dialysis for the past 9months and noted to have dramatic weight loss of about 20 pounds in the past 2months. Dr. Shirley requests upper and lower endoscopy to rule out malignancy. Past Medical History Cardiac Medical History: Reports: Hypertension Denies: Atrial Fibrillation, Congestive Heart Failure, Myocardial Infarction, Hyperlipidema Pulmonary Medical History: Denies: Asthma, Bronchitis, Chronic Obstructive Pulmonary Disease (COPD), Pneumonia, Tuberculosis Neurological Medical History: Reports: Migraine Denies: Seizures Endocrine Medical History: Denies: Diabetes Mellitus Type 1, Diabetes Mellitus Type 2 Renal/ Medical History: Reports: 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, Other - History of lupus nephritis GI Medical History: Denies: Gastroesophageal Reflux Disease, Hiatal Hernia Musculoskeltal Medical History: Reports: Arthritis, Fibromyalgia Psychiatric Medical History: Reports: Depression Denies: Attention Deficit Hyperactivity Disorder, Bipolar Disorder Hematology: Reports: Anemia Denies: Sickle Cell Disease Past Surgical History Past Surgical History: Reports: Tonsillectomy - childhood Social History Lives with: Family Smoking Status: Former Smoker Last Time Smoked: 2014 Frequency of Alcohol Use: Rare Hx Recreational Drug Use: No Drugs: None Hx Prescription Drug Abuse: No Family History Family History: Reviewed & Not Pertinent Parental Family History Reviewed: Yes Children Family History Reviewed: No Sibling(s) Family History Reviewed.: No Medication/Allergy Home Medications: Amlodipine Besylate [Norvasc 5 mg Tablet] 5 mg PO DAILY 06/23/19 Clonidine HCl [Catapres 0.1 mg Tablet] 0.3 mg PO QHS #90 tablet 07/04/19 Hydroxychloroquine Sulfate [Plaquenil 200 mg Tablet] 200 mg PO DAILY #30 tab 07/04/19 Ferric Citrate [Auryxia] 420 mg PO TID 02/18/20 Metoprolol Tartrate [Lopressor 50 mg Tablet] 50 mg PO Q12H 02/18/20 Ondansetron HCl 4 mg PO TIDP PRN 02/18/20 Allergies/Adverse Reactions: iodine Allergy (Verified 06/27/19 14:43) seafood Allergy (Uncoded 06/27/19 14:43) Review of Systems Constitutional: PRESENT: weight loss Cardiovascular: PRESENT: other - No chest pains nor cough Gastrointestinal: PRESENT: other - Abdominal pain Physical Exam Vital Signs: Temp Pulse Resp BP Pulse Ox 98.0 F 81 16 152/97 H 100 02/19/20 12:43 02/19/20 15:38 02/19/20 12:43 02/19/20 15:38 02/19/20 12:43 Intake & Output 02/18/20 02/19/20 02/20/20 06:59 06:59 06:59 Intake Total 2222 3000 Output Total 200 3000 Balance 2021 0 Weight 44 kg 4302 kg General appearance: PRESENT: cooperative Head exam: PRESENT: atraumatic Eye exam: PRESENT: conjunctiva pink Mouth exam: PRESENT: moist Neck exam: PRESENT: full ROM Respiratory exam: PRESENT: clear to auscultation coco Cardiovascular exam: PRESENT: RRR Pulses: PRESENT: normal radial pulses Vascular exam: PRESENT: normal capillary refill GI/Abdominal exam: PRESENT: soft Rectal exam: PRESENT: deferred Neurological exam: PRESENT: alert, oriented to person, oriented to place, oriented to time, oriented to situation Psychiatric exam: PRESENT: appropriate affect Skin exam: PRESENT: normal color, warm Results Laboratory Results: 02/18/20 16:40 02/18/20 16:40 02/18/20 02/18/20 16:40 16:40 Sodium 139.4 Potassium 3.8 Chloride 98 Carbon Dioxide 28 Anion Gap 13 BUN 58 H Creatinine 16.04 H Est GFR ( Amer) 3 L Glucose 80 Calcium 10.1 Total Bilirubin 0.6 AST 14 Alkaline Phosphatase 54 C-Reactive Protein < 5.0 Total Protein 6.2 L Albumin 3.6 TSH 2.79 Free T4 0.82 Impressions: Abdomen/Pelvis CT 02/18/20 15:57 IMPRESSION: Splenic cyst. Thickening of the adrenal glands. Small renal vascular calcifications on the left. No acute findings in the abdomen or pelvis. Chest CT 02/19/20 09:45 IMPRESSION: 1. NO SIGNIFICANT FINDING ON NON-CONTRASTED CHEST CT. 2. FREE FLUID AND SCATTERED FREE AIR IN THE UPPER ABDOMEN. PRESUMABLY THIS IS DUE TO PERITONEAL DIALYSIS. CORRELATE WITH ANY ABDOMINAL SYMPTOMS. Assessment & Plan - Diagnosis (1) Weight loss, abnormal Is this a current diagnosis for this admission?: Yes (2) ESRD (end stage renal disease) Is this a current diagnosis for this admission?: Yes (3) History of systemic lupus erythematosus (SLE) Is this a current diagnosis for this admission?: Yes - Time Time Spent: 30 to 50 Minutes - Inpatient Certification Medical Necessity: Need Close Monitoring Due to Risk of Patient Decompensation - Plan Summary Plan Summary: 44-year-old female with no lupus on steroids and antihypertensive medication and end-stage renal disease on PD dialysis noted to have a rapid weight loss about 20 pounds in the past 2 months. Patient denies any dieting. Surgery is being requested by Dr. Shirley for upper and lower endoscopy to rule out malignancy. Place patient on GoLYTELY bowel prep Scheduled for upper and lower endoscopy tomorrow by Dr. Paul.
[2020-02-19] MEDS ORDERED: PEG 3350/NA SULF,BICARB,CL/KCL 4000 ML PO ONE (19:00)
[2020-02-20] MEDS ORDERED: METOPROLOL TARTRATE 50 MG TABLET PO SCH (09:00)
[2020-02-20] MEDS: OXYCODONE-ACETAMINOPHEN 5-325 MG TABLET PO PRN (09:07)
[2020-02-20] MEDS: HYDROXYCHLOROQUINE SULFATE 200 MG TABLET PO SCH (09:07)
--- NOTE | 2020-02-20 09:42 | PDOC PROGRESS REPORT ---
Subjective Progress Note for:: 02/20/20 Subjective:: 44-year-old female with unexplained weight loss. She has no complaints today, aside from unexplained weight loss and weakness. She denies chest pain, shortness of breath, fevers, chills, nausea, vomiting. She is currently receiving peritoneal dialysis. Reason For Visit: PERITONEAL DIALYSIS, HYPOTENSION Physical Exam Vital Signs: Temp Pulse Resp BP Pulse Ox 98.7 F 75 17 164/100 H 99 02/20/20 08:34 02/20/20 08:34 02/20/20 08:34 02/20/20 08:34 02/20/20 08:34 Intake & Output 02/19/20 02/20/20 02/21/20 06:59 06:59 06:59 Intake Total 1722 6680 Output Total 200 6050 Balance 1522 630 Weight 44 kg 42.7 kg General appearance: PRESENT: no acute distress, cooperative Head exam: PRESENT: atraumatic, normocephalic Eye exam: PRESENT: EOMI, PERRLA. ABSENT: scleral icterus Neck exam: ABSENT: meningismus, tenderness, thyromegaly Respiratory exam: PRESENT: unlabored. ABSENT: tachypnea, wheezes Cardiovascular exam: ABSENT: tachycardia GI/Abdominal exam: PRESENT: soft. ABSENT: rigid, tenderness Rectal exam: PRESENT: deferred Extremities exam: ABSENT: clubbing Musculoskeletal exam: ABSENT: deformity Neurological exam: PRESENT: alert, awake, oriented to person, oriented to place, oriented to time, oriented to situation Psychiatric exam: ABSENT: agitated, anxious, depressed Focused psych exam: ABSENT: delusional Skin exam: ABSENT: cyanosis, erythema, jaundice Results Laboratory Results: 02/18/20 16:40 02/18/20 16:40 Impressions: Abdomen/Pelvis CT 02/18/20 15:57 IMPRESSION: Splenic cyst. Thickening of the adrenal glands. Small renal vascular calcifications on the left. No acute findings in the abdomen or pelvis. Chest CT 02/19/20 09:45 IMPRESSION: 1. NO SIGNIFICANT FINDING ON NON-CONTRASTED CHEST CT. 2. FREE FLUID AND SCATTERED FREE AIR IN THE UPPER ABDOMEN. PRESUMABLY THIS IS DUE TO PERITONEAL DIALYSIS. CORRELATE WITH ANY ABDOMINAL SYMPTOMS. Assessment & Plan - Diagnosis (1) Weight loss, abnormal Is this a current diagnosis for this admission?: Yes - Time Anticipated Discharge Disposition: Unknown Anticipated Discharge Timeframe: Unknown - Plan Summary Plan Summary: 44-year-old male with unexplained weight loss, of a large degree. Consultation has been requested for endoscopy, in order to exclude malignancy. Plan for EGD and colonoscopy today. Patient has finished her bowel prep.
[2020-02-20] MEDS ORDERED: PROPOFOL INJ 200 MG/20 ML VIAL IV ONE (10:32)
[2020-02-20] MEDS ORDERED: LIDOCAINE 2% INJ-PF (20 MG/ML) 10 ML AMPUL ONE (10:33)
[2020-02-20] MEDS ORDERED: PHENYLEPHRINE HCL INJ/PF 10 MG/1 ML SDV ONE (10:53)
[2020-02-20] MEDS ORDERED: EPHEDRINE SULFATE INJ 50 MG/1 ML AMPULE ONE (10:53)
--- NOTE | 2020-02-20 11:35 | Operative Report ---
Nonrecallable Operative Report DATE OF SURGERY: 02/20/20 PREOPERATIVE DIAGNOSIS: Abnormal weight loss POSTOPERATIVE DIAGNOSIS: 1. Very mild gastritis. 2. Inadequate bowel prep, however no sign of constricting lesion, lower GI bleeding, ulceration, or large colon mass OPERATION: 1. EGD with biopsy. 2. Colonoscopy to the cecum (inadequate bowel prep) SURGEON: ISMAEL WEINER ANESTHESIA: LMAC TISSUE REMOVED OR ALTERED: Antral biopsy to rule out H. pylori COMPLICATIONS: Inadequate bowel prep, obscuring visualization of a large portion of the colonic mucosa ESTIMATED BLOOD LOSS: Minimal PROCEDURE: Procedure in detail: After informed consent was obtained, the patient was brought into the endoscopy suite and laid in the left lateral decubitus position. The endoscope was passed down the oropharynx, down the esophagus, and into the stomach. The stomach was insufflated with air. Immediately there was noted to be a small amount of gastritis throughout the cardia, body, and antrum of the stomach. There were scattered petechiae throughout. Biopsy was taken in the antrum to rule out H. pylori infection. The scope was pushed through the pylorus, and into the first and second portions of the duodenum. The duodenum appeared normal. The scope was withdrawn into the gastric body. A retroflexion maneuver was performed. There is no evidence of large hiatal hernia. The scope was withdrawn into the distal esophagus. No ulcerations consistent with reflux esophagitis could be identified. The scope was then withdrawn up the remainder of the esophagus. The remainder the esophagus appeared smooth in contour without masses, lesions, or other abnormalities. The scope was then removed from the oropharynx, and this portion of the procedure was concluded. Attention was then turned to the colonoscopic examination. The scope was inserted into the rectum. It was passed up the rectum, sigmoid colon, descending colon, across the transverse colon, down the ascending colon, and into the cecum. The ileocecal valve and appendiceal orifice were identified. The scope was then withdrawn. The prep was very poor. There was inadequate clearance of stool, obscuring approximately 50 to 60% of the colonic mucosa. This examination is not adequate for screening purposes. It is very likely that small masses or lesions could have been missed (if they are present). The scope was withdrawn past the ascending colon, transverse colon, down the descending colon, sigmoid colon, and into the rectum. No large colonic masses could be identified, no concentric lesions were seen, no bleeding or ulcerations were identified throughout the examination. At this time, there was no evidence for continued weight loss within her stomach or colon. If concern remains, repeat colonoscopy can be performed after an adequate bowel prep has been administered. Recommendation: Repeat colonoscopy at age 46 for screening purposes. May need colonoscopy sooner, if symptoms persist. Condition: Stable.
--- NOTE | 2020-02-20 11:36 | Progress Note ---
Provider Note Provider Note: No obvious evidence for continued weight loss was found in this patient. Bowel prep was inadequate. There is no indication for further surgical intervention at this time. Surgery will sign off. Please renotify with any questions or concerns.
--- NOTE | 2020-02-20 12:50 | PDOC PROGRESS REPORT ---
Subjective Progress Note for:: 02/20/20 Subjective:: Patient just got back from the EGD by Dr. Paul. Findings include mild gastritis but no other significant lesions that can explain weight loss. Her blood pressure started to go up yesterday and now it is 196/108. However she feels fine when I saw her and has no new complaints. She obviously has a good appetite when I am seeing her. She is also being prepared to have her peritoneal dialysis exchange to be filled with 2.5% dianeal solution today. She went to her EGD without any fluid in. Reason For Visit: PERITONEAL DIALYSIS, HYPOTENSION Physical Exam Vital Signs: Temp Pulse Resp BP Pulse Ox 97.4 F 68 18 196/108 H 100 02/20/20 12:19 02/20/20 12:19 02/20/20 12:19 02/20/20 12:19 02/20/20 12:19 Intake & Output 02/19/20 02/20/20 02/21/20 06:59 06:59 06:59 Intake Total 1722 6680 100 Output Total 200 6050 1000 Balance 1522 630 -900 Weight 44 kg 42.7 kg Exam: General appearance: PRESENT: no acute distress, cooperative, well-developed, well-nourished Head exam: PRESENT: atraumatic, normocephalic Eye exam: PRESENT: conjunctiva pink, PERRLA. ABSENT: scleral icterus Neck exam: ABSENT: JVD Respiratory exam: PRESENT: Normal breath sounds. ABSENT: crackles, rales, rhonchi, unlabored, wheezes Cardiovascular exam: PRESENT: Regular rate rhythm -+S1, +S2. ABSENT: diastolic murmur, systolic murmur GI/Abdominal exam: PRESENT: normal bowel sounds, soft. PD catheter exit site without any drainage and looks good. ABSENT: guarding, mass, tenderness Extremities exam: ABSENT: No edema Neurological exam: PRESENT: alert, awake, oriented to person, place and time. Skin exam: PRESENT: dry, warm, Results Laboratory Results: 02/18/20 16:40 02/18/20 16:40 Impressions: Abdomen/Pelvis CT 02/18/20 15:57 IMPRESSION: Splenic cyst. Thickening of the adrenal glands. Small renal vascular calcifications on the left. No acute findings in the abdomen or pelvis. Chest CT 02/19/20 09:45 IMPRESSION: 1. NO SIGNIFICANT FINDING ON NON-CONTRASTED CHEST CT. 2. FREE FLUID AND SCATTERED FREE AIR IN THE UPPER ABDOMEN. PRESUMABLY THIS IS DUE TO PERITONEAL DIALYSIS. CORRELATE WITH ANY ABDOMINAL SYMPTOMS. Assessment & Plan - Diagnosis (1) Weight loss, abnormal Is this a current diagnosis for this admission?: Yes Plan: Work-up per Dr. Kinsey. So far thyroid function is normal, HIV is negative, and COVID negative. Abdominal CT is also negative for any findings that would explain weight loss. Her JONG is pending. Blood cultures negative. Consider possibility of this weight loss due to excessive ultrafiltration so I explained to the patient that if she noticed that her blood pressure is getting lower than usual that she should use only the 1.5% solution because this can dehydrate her if she has over ultrafiltration. (2) ESRD (end stage renal disease) Is this a current diagnosis for this admission?: Yes Plan: Change CAPD regimen with 4 exchanges, fill volume of 1500 mL every 6 hours using alternating 2.5% and 1.5% solution today. Discussed with her nurse today. (3) Hypertension Is this a current diagnosis for this admission?: Yes Plan: Continue metoprolol. Resume her amlodipine and clonidine 0.2 mg twice daily. - Notes Notes: From nephrology standpoint patient can be discharged home anytime after work-up. - Time Time with patient: 15-25 minutes
[2020-02-20] MEDS ORDERED: CLONIDINE HCL 0.2 MG TABLET PO SCH (13:00)
[2020-02-20] MEDS ORDERED: AMLODIPINE BESYLATE 5 MG TABLET PO SCH (13:00)
--- NOTE | 2020-02-20 15:54 | PDOC DISCHARGE SUMMARY ---
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 Is this a current diagnosis for this admission?: Yes (4) Hypotension Is this a current diagnosis for this admission?: Yes - Additional Information Resuscitation Status: Full Code Discharge Diet: Other (Comments) Discharge Activity: Activity As Tolerated Referrals: MARYELLEN SHIRLEY MD [Primary Care Provider] - 02/28/20 10:15 am Home Medications: Amlodipine Besylate [Norvasc 5 mg Tablet] 5 mg PO DAILY 06/23/19 Clonidine HCl [Catapres 0.1 mg Tablet] 0.3 mg PO QHS #90 tablet 07/04/19 Hydroxychloroquine Sulfate [Plaquenil 200 mg Tablet] 200 mg PO DAILY #30 tab 07/04/19 Ferric Citrate [Auryxia] 420 mg PO TID 02/18/20 Metoprolol Tartrate [Lopressor 50 mg Tablet] 50 mg PO Q12H 02/18/20 Ondansetron HCl 4 mg PO TIDP PRN 02/18/20 History of Present Illiness History of Present Illness: CARLOS LEVINE is a 44 year old female, She has a history of end-stage renal disease on peritoneal dialysis, systemic lupus dermatosis hypertension, fibromyalgia, she came to the office for evaluation of "lupus flare", she was asking for prednisone, in the office she was evaluated she has lost 20 pounds since last evaluation in the office which was roughly about 6 to 8 weeks ago, she has good appetite, the blood pressure recorded was also 70/40. I was very concerned about her condition I felt patient needed to be admitted For further evaluation.CAT scan of the abdomen pelvis and chest did not demonstrate any mass lesion, there is no findings on the CT scan that would explain the severe weight loss she may need to have GI endoscopy, EGD and colonoscopy to rule out any lesion that could cause profound weight loss in a very short period of time.The blood pressure is usually very elevated, the blood pressure recorded today in the office was extremely low that got very concerned there was no evidence of sepsis clinically she is awake she is alert she is oriented she is ambulatory Hospital Course Hospital Course: Patient was admitted for the management of hypotension, unexplained weight loss, in the setting of 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 The low blood pressure was treated with saline infusion, she has a history of hypertension,the blood pressure medications was held and blood pressure recovered.. The weight loss was profound ,felt to be due to multiple factors including end-stage renal disease, systemic lupus, inadequate intake.she is on peritoneal dialysis ,she was seen by nephrology Physical Exam Vital Signs: Temp Pulse Resp BP Pulse Ox 97.4 F 68 18 204/121 H 100 02/20/20 13:27 02/20/20 13:27 02/20/20 13:27 02/20/20 13:27 02/20/20 13:27 Intake & Output 02/19/20 02/20/20 02/21/20 06:59 06:59 06:59 Intake Total 1722 6680 372 Output Total 200 6050 1000 Balance 1522 630 -628 Weight 44 kg 42.7 kg 42.7 kg General appearance: PRESENT: no acute distress Eye exam: PRESENT: PERRLA Respiratory exam: PRESENT: clear to auscultation coco Cardiovascular exam: PRESENT: +S1, +S2 GI/Abdominal exam: PRESENT: soft Neurological exam: PRESENT: alert Results Laboratory Results: WBC 5.6 10^3/uL (4.0-10.5) 02/18/20 16:40 RBC 4.19 10^6/uL (3.72-5.28) 02/18/20 16:40 Hgb 12.3 g/dL (12.0-15.5) 02/18/20 16:40 Hct 36.6 % (36.0-47.0) 02/18/20 16:40 MCV 87 fl (80-97) 02/18/20 16:40 MCH 29.3 pg (27.0-33.4) 02/18/20 16:40 MCHC 33.6 g/dL (32.0-36.0) 02/18/20 16:40 RDW 16.8 % (11.5-14.0) H 02/18/20 16:40 Plt Count 221 10^3/uL (150-450) 02/18/20 16:40 Lymph % (Auto) 30.8 % (13-45) 02/18/20 16:40 [place] % (Auto) 13.3 % (3-13) H 02/18/20 16:40 Eos % (Auto) 3.2 % (0-6) 02/18/20 16:40 Baso % (Auto) 1.3 % (0-2) 02/18/20 16:40 Absolute Neuts (auto) 2.9 10^3/uL (1.7-8.2) 02/18/20 16:40 Absolute Lymphs (auto) 1.7 10^3/uL (0.5-4.7) 02/18/20 16:40 Absolute Monos (auto) 0.8 10^3/uL (0.1-1.4) 02/18/20 16:40 Absolute Eos (auto) 0.2 10^3/uL (0.0-0.6) 02/18/20 16:40 Absolute Basos (auto) 0.1 10^3/uL (0.0-0.2) 02/18/20 16:40 Seg Neutrophils % 51.4 % (42-78) 02/18/20 16:40 ESR 31 mm/hr (0-20) H 02/18/20 16:40 Sodium 139.4 mmol/L (137-145) 02/18/20 16:40 Potassium 3.8 mmol/L (3.6-5.0) 02/18/20 16:40 Chloride 98 mmol/L (98-107) 02/18/20 16:40 Carbon Dioxide 28 mmol/L (22-30) 02/18/20 16:40 Anion Gap 13 (5-19) 02/18/20 16:40 BUN 58 mg/dL (7-20) H 02/18/20 16:40 Creatinine 16.04 mg/dL (0.52-1.25) H 02/18/20 16:40 Est GFR ( Amer) 3 (>60) L 02/18/20 16:40 Est GFR (MDRD) Non-Af 2 (>60) L 02/18/20 16:40 Glucose 80 mg/dL (75-110) 02/18/20 16:40 Calcium 10.1 mg/dL (8.4-10.2) 02/18/20 16:40 Total Bilirubin 0.6 mg/dL (0.2-1.3) 02/18/20 16:40 Direct Bilirubin 0.6 mg/dL (0.0-0.4) H 02/18/20 16:40 Neonat Total Bilirubin Not Reportable 02/18/20 16:40 Neonat Direct Bilirubin Not Reportable 02/18/20 16:40 Neonat Indirect Bili Not Reportable 02/18/20 16:40 AST 14 U/L (14-36) 02/18/20 16:40 ALT 10 U/L (<35) 02/18/20 16:40 Alkaline Phosphatase 54 U/L (38-126) 02/18/20 16:40 C-Reactive Protein < 5.0 mg/L (<10.0) 02/18/20 16:40 Total Protein 6.2 g/dL (6.3-8.2) L 02/18/20 16:40 Albumin 3.6 g/dL (3.5-5.0) 02/18/20 16:40 TSH 2.79 uIU/mL (0.47-4.68) 02/18/20 16:40 Free T4 0.82 ng/dL (0.78-2.19) 02/18/20 16:40 JONG (Multiplex) Positive (Negative) A 02/18/20 16:40 HIV 1&2 Antibody NEGATIVE (NEGATIVE) 02/18/20 16:40 SARS-CoV-2 (PCR) NEGATIVE (NEGATIVE) 02/19/20 19:20 Impressions: Abdomen/Pelvis CT 02/18/20 15:57 IMPRESSION: Splenic cyst. Thickening of the adrenal glands. Small renal vascular calcifications on the left. No acute findings in the abdomen or pelvis. Chest CT 02/19/20 09:45 IMPRESSION: 1. NO SIGNIFICANT FINDING ON NON-CONTRASTED CHEST CT. 2. FREE FLUID AND SCATTERED FREE AIR IN THE UPPER ABDOMEN. PRESUMABLY THIS IS DUE TO PERITONEAL DIALYSIS. CORRELATE WITH ANY ABDOMINAL SYMPTOMS. Stroke Is this a Stroke Patient?: No Acute Heart Failure - Is this a Heart Failure Patient?: No
[2020-02-20 16:21] VITALS: BP 201/134
== END 2020-02-20 16:28 | disposition home or self-care (01) ==
LOC: 3W 14:59 → INTOOBSV 14:59
PROVIDERS: ADMIT Internal Medicine; ATTEND Internal Medicine
DX: R63.4 Abnormal weight loss (principal); E46 Unspecified protein-calorie malnutrition; K29.50 Unspecified chronic gastritis without bleeding; I95.9 Hypotension, unspecified; M32.14 Glomerular disease in systemic lupus erythematosus; I12.0 Hypertensive chronic kidney disease with stage 5 chronic kidney disease or end stage renal disease; N18.6 End stage renal disease; R10.9 Unspecified abdominal pain; M54.9 Dorsalgia, unspecified; M19.90 Unspecified osteoarthritis, unspecified site; Z99.2 Dependence on renal dialysis; Z79.899 Other long term (current) drug therapy; Z87.891 Personal history of nicotine dependence; Z82.49 Family history of ischemic heart disease and other diseases of the circulatory system; Z03.818 Encounter for observation for suspected exposure to other biological agents ruled out
CPT/HCPCS: 43239; 45378; 36415; 87040; 84439; 84443; 85025; 85652; 86038; 86140; 80076; 80048; 86701; 88305 ×2; 71250; 74176; 93005; 93010; 00813; 90945 ×3; G0378 ×2; U0003; A9270 ×9; J3490 ×2; J2370; J7030; J2704; C9803; 813; 87635

== ENCOUNTER 2020-04-03 23:31 | Emergency (ER) | payer MEDICARE, MEDICAID ==
[2020-04-04] MEDS ORDERED: CLONIDINE HCL 0.2 MG TABLET PO ONE (01:15)
--- NOTE | 2020-04-04 01:22 | ER Document Report ---
ED General - General Chief Complaint: Abdominal Pain Stated Complaint: BLOOD IN DIALYSIS BAG/PAIN FROM LUPUS Time Seen by Provider: 04/04/20 00:56 Primary Care Provider: MARYELLEN SHIRLEY MD [Primary Care Provider] - Follow up as needed TRAVEL OUTSIDE OF THE [place] IN LAST 30 DAYS: No - HPI Notes: Patient is a 44-year-old female with a history of lupus nephritis, SLE, on perit nevarez dialysis, who presents the emergency department for evaluation of pain all over, abdominal pain, blood in her dialysate, and elevated blood pressure. The patient states she feels like she is having a lupus flare. She states it feels "like the flu without a fever." She complains of pain all over. She was in pain management in [place], she is waiting for referral to pain management here. Patient states also that when she went to dialyze on Tuesday night, she drained her dialysate and it seemed bloody. She states when she was hooked up to the dialysis machine it was painful. She states that she continued to dialyze as normal until 6 AM. She states that the dialysate appeared to be less bloody. She denies any trauma to the area. Normal bowel movements. She denies any associated abdominal pain at this time. Patient also notes that she has run out of her clonidine and her blood pressure has become more elevated. She denies any headache. No difficulty speaking or swallowing. Moving her arms and legs without difficulty. - Related Data Allergies/Adverse Reactions: iodine Allergy (Verified 06/27/19 14:43) seafood Allergy (Uncoded 06/27/19 14:43) Home Medications: List reviewed with patient Past Medical History - General Information source: Patient - Social History Smoking Status: Never Smoker Family History: Reviewed & Not Pertinent - Past Medical History Cardiac Medical History: Reports: Hx Hypertension Denies: Hx Atrial Fibrillation, Hx Congestive Heart Failure, Hx Heart Attack, Hx Hypercholesterolemia Pulmonary Medical History: Denies: Hx Asthma, Hx Bronchitis, Hx COPD, Hx Pneumonia, Hx Tuberculosis Neurological Medical History: Reports: Hx Migraine. Denies: Hx Seizures Endocrine Medical History: Denies: Hx Diabetes Mellitus Type 1, Hx Diabetes Mellitus Type 2 Renal/ Medical History: Reports: Hx 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, Hx Peritoneal Dialysis. Denies: Hx Kidney Stones GI Medical History: Denies: Hx Gastroesophageal Reflux Disease, Hx Hiatal Hernia, Hx Ulcer Musculoskeletal Medical History: Reports Hx Arthritis, Reports Hx Fibromyalgia, Reports Hx Systemic Lupus Erythematosus Psychiatric Medical History: Reports: Hx Depression Denies: Hx Attention Deficit Hyperactivity Disorder, Hx Bipolar Disorder, Hx Schizophrenia Past Surgical History: Reports: Hx Kidney (Renal Surgery) - 2019, Hx Tonsillectomy - childhood Review of Systems - Review of Systems Constitutional: See HPI EENT: No symptoms reported Cardiovascular: No symptoms reported Respiratory: No symptoms reported Gastrointestinal: See HPI Genitourinary: No symptoms reported Musculoskeletal: See HPI Skin: No symptoms reported Neurological/Psychological: No symptoms reported Physical Exam - Vital signs Vitals: BP Pulse Ox 190/125 H 100 04/04/20 00:30 04/04/20 00:30 - Notes Notes: This is a frail-appearing 44-year-old female who appears her stated age, no acute distress. Vital signs reviewed, please refer to chart. Head is normocephalic, atraumatic. Pupils equal round, reactive to light. Neck is supple without meningismus. Heart is regular rate and rhythm. Lungs are clear to auscultation bilaterally. Abdomen is soft, diffusely tender without rebound or guarding, normoactive bowel sounds throughout. There is a peritoneal dialysis catheter in place in the left side of the abdomen. No surrounding erythema. I do not appreciate any blood in the tubing. Extremities without cyanosis, clubbing. Posterior calves are nontender. Peripheral pulses are equal. Skin is warm and dry. Patient is awake, alert, neurological exam is nonfocal. Course - Re-evaluation Re-evalutation: 04/04/20 01:21 Patient presents emergency department for evaluation. Laboratory investigations and medication are ordered. I did order her to have her dose of clonidine, as her blood pressure is currently 177 or 120. I do not see any evidence that her peritoneal dialysis catheter is out of place, and currently her abdomen is distended her but not surgical. I did order a noncontrast CT scan of her abdomen to be ordered to evaluate for PD catheter placement. Checking basic blood work. She is currently stable, we will continue to monitor. 04/04/20 05:27 Patient is feeling significantly improved. Her serial abdominal exams are unremarkable. Her hemoglobin is 10, her electrolytes are fine. I will contact nephrology to discuss this abnormally colored dialysate. Otherwise I do not see any acute findings and she remains stable. 04/04/20 05:41 Patient's case was discussed with Dr. Magana, on-call knife machine operator. She states sometimes traumatic issues can cause this, sometimes ruptured ovarian cyst, ruptured ectopic, or retrograde menstruation can cause this. I went back in and evaluated the patient. She had no abdominal tenderness. She states that she has had retrograde menstruation in the past. I did see that a test had not been ordered earlier, this was added. If test is negative, it is discussed that the patient should also have cell count, culture, and Gram stain stain of dialysate at [facility]. The patient is notified of this. She is to have this done today. 04/04/20 06:04 is negative, patient is discharged. - Vital Signs Vital signs: Temp Pulse Resp BP Pulse Ox 15 141/104 H 100 04/04/20 04:54 04/04/20 04:54 04/04/20 04:54 - Laboratory Result Diagrams: 04/04/20 01:30 04/04/20 01:30 Laboratory results interpreted by me: 04/04/20 04/04/20 01:30 01:30 RBC 3.52 L Hgb 10.2 L Hct 29.6 L RDW 15.9 H Sodium 136.2 L BUN 74 H Creatinine 13.18 H Est GFR ( Amer) 4 L Est GFR (MDRD) Non-Af 3 L Glucose 74 L Direct Bilirubin 0.5 H Total Protein 5.5 L Albumin 3.0 L - Diagnostic Test Radiology reviewed: Image reviewed, Reports reviewed Radiology results interpreted by me: 04/04/20 05:43 Abdomen/Pelvis CT 04/04/20 01:14 IMPRESSION: 1. Small amount of free fluid in the abdomen and pelvis not unexpected with the patient's peritoneal dialysis catheter with no definite complication noted or evidence of hemoperitoneum. 2. Otherwise essentially unremarkable unenhanced exam. Discharge - Discharge Clinical Impression: Systemic lupus, Bloody dialysate Condition: Stable Disposition: HOME, SELF-CARE Additional Instructions: Given the abnormal look of your dialysate, you should have a Gram stain, cell count, and culture performed of your dialysate. Please do that at [facility] today. Cliff as needed for severe pain. Follow-up with primary care and nephrology next week. If you develop fevers, increased pain, or any other new or concerning symptoms, please return immediately to the emergency department for evaluation. Referrals: MARYELLEN SHIRLEY MD [Primary Care Provider] - Follow up as needed
[2020-04-04 01:49] LABS: PROTHROMBIN TIME 12.4 SEC (11.4-15.4)
[2020-04-04 01:50] LABS: PARTIAL THROMBOPLASTIN TIME 31.5 SEC (23.5-35.8)
[2020-04-04 01:51] LABS: ABSOLUTE BASOPHILS # (AUTO) 0.1 10^3/uL (0.0-0.2); ABSOLUTE EOSINOPHILS # (AUTO) 0.3 10^3/uL (0.0-0.6); ABSOLUTE LYMPHOCYTES (AUTO) 1.8 10^3/uL (0.5-4.7); ABSOLUTE MONOCYTES (AUTO) 1.1 10^3/uL (0.1-1.4); ABSOLUTE NEUT (AUTO) 5.6 10^3/uL (1.7-8.2); EOSINOPHILS % (AUTO) 3.1 % (0-6); HEMATOCRIT 29.6 % (36.0-47.0); HEMOGLOBIN 10.2 g/dL (12.0-15.5); LYMPHOCYTES % (AUTO) 20.5 % (13-45); MEAN CORPUSCULAR HGB CONC 34.4 g/dL (32.0-36.0); MEAN CORPUSCULAR VOLUME 84 fl (80-97); MONOCYTES % (AUTO) 12.7 % (3-13); PLATELET COUNT 411 10^3/uL (150-450); RED BLOOD COUNT 3.52 10^6/uL (3.72-5.28); RED CELL DISTRIBUTION WIDTH 15.9 % (11.5-14.0); SEGMENTED NEUTROPHILS % (AUTO) 62.7 % (42-78); TOTAL CELLS COUNTED % (AUTO) 100 %; WHITE BLOOD COUNT 8.9 10^3/uL (4.0-10.5)
[2020-04-04 02:00] LABS: ALKALINE PHOSPHATASE 82 U/L (38-126); ANION GAP 13 (5-19); ASPARTATE AMINO TRANSFERASE 21 U/L (14-36); BILIRUBIN,DIRECT 0.5 mg/dL (0.0-0.4); BILIRUBIN,TOTAL 0.5 mg/dL (0.2-1.3); BLOOD UREA NITROGEN 74 mg/dL (7-20); CARBON DIOXIDE 25 mmol/L (22-30); CHLORIDE 98 mmol/L (98-107); GLUCOSE 74 mg/dL (75-110); TOTAL PROTEIN 5.5 g/dL (6.3-8.2)
[2020-04-04] MEDS: HYDROMORPHONE HCL INJ/PF 2 MG/ML AMPULE IV PRN ×2 (02:05→05:25)
--- NOTE | 2020-04-04 05:01 | RADIOLOGY REPORT (SQ) ---
CT abdomen and pelvis without contrast on 04/04/2020 at 4:30 AM CLINICAL INDICATION: Generalized abdominal pain, blood in peritoneal dialysis catheter TECHNIQUE: Multiple axial images are obtained throughout the abdomen and pelvis without the administration of contrast. This exam was performed according to our departmental dose-optimization program, which includes automated exposure control, adjustment of the mA and/or kV according to patient size and/or use of iterative reconstruction technique. Total DLP is 238.14 mGy*cm. COMPARISON: 02/18/2020 FINDINGS: Abdomen: There is minimal right basilar atelectasis or scarring. Stable low-density splenic lesion likely represents a cyst, hemangioma or hamartoma. Bilateral renal atrophy is again noted. The unenhanced solid abdominal organs are otherwise unremarkable. There is no abdominal adenopathy. There is no free air in the abdomen. Small amount of free fluid is noted in the abdomen. The abdominal portion of the GI tract is unremarkable. Pelvis: Peritoneal dialysis catheter is noted in the left pelvis. Small amount of free fluid is noted in the pelvis. Pelvic organs appear unremarkable by CT. There is no pelvic adenopathy. Pelvic portion of the GI tract including the appendix is unremarkable. The free fluid in the pelvis including adjacent to the peritoneal dialysis catheter appears simple and low-density without evidence of hemoperitoneum. No acute bony abnormality is noted. IMPRESSION: 1. Small amount of free fluid in the abdomen and pelvis not unexpected with the patient's peritoneal dialysis catheter with no definite complication noted or evidence of hemoperitoneum. 2. Otherwise essentially unremarkable unenhanced exam.
[2020-04-04] MEDS ORDERED: HYDROCODONE/ACETAMINOPHEN 5-325 MG (6 TAB/ER DISP) PO PRN (05:43)
[2020-04-04 06:14] VITALS: BP 128/86
== END 2020-04-04 08:14 | disposition home or self-care (01) ==
LOC: ER 23:31
DX: M32.14 Glomerular disease in systemic lupus erythematosus (principal); N18.6 End stage renal disease; Z99.2 Dependence on renal dialysis; R18.8 Other ascites; R10.9 Unspecified abdominal pain; R10.817 Generalized abdominal tenderness; I10 Essential (primary) hypertension; Z91.013 Allergy to seafood
CPT/HCPCS: 99285; 96374; 36415; 84703; 85025; 85610; 85730; 80053; 74176; A9270 ×2; J1170

== ENCOUNTER 2020-04-17 22:51 | Emergency (ER) | payer MEDICARE, MEDICAID ==
[2020-04-17 23:30] LABS: ABSOLUTE BASOPHILS # (AUTO) 0.1 10^3/uL (0.0-0.2); ABSOLUTE EOSINOPHILS # (AUTO) 0.2 10^3/uL (0.0-0.6); ABSOLUTE LYMPHOCYTES (AUTO) 1.5 10^3/uL (0.5-4.7); ABSOLUTE MONOCYTES (AUTO) 0.7 10^3/uL (0.1-1.4); ABSOLUTE NEUT (AUTO) 3.3 10^3/uL (1.7-8.2); BASOPHILS % (AUTO) 1.5 % (0-2); EOSINOPHILS % (AUTO) 3.2 % (0-6); HEMATOCRIT 30.3 % (36.0-47.0); HEMOGLOBIN 10.1 g/dL (12.0-15.5); LYMPHOCYTES % (AUTO) 25.8 % (13-45); MEAN CORPUSCULAR HEMOGLOBIN 28.4 pg (27.0-33.4); MEAN CORPUSCULAR HGB CONC 33.4 g/dL (32.0-36.0); MEAN CORPUSCULAR VOLUME 85 fl (80-97); MONOCYTES % (AUTO) 12.1 % (3-13); PLATELET COUNT 332 10^3/uL (150-450); RED BLOOD COUNT 3.56 10^6/uL (3.72-5.28); RED CELL DISTRIBUTION WIDTH 15.9 % (11.5-14.0); SEGMENTED NEUTROPHILS % (AUTO) 57.4 % (42-78); TOTAL CELLS COUNTED % (AUTO) 100 %; WHITE BLOOD COUNT 5.7 10^3/uL (4.0-10.5)
[2020-04-17 23:34] LABS: VENOUS BLOOD BASE EXCESS 5.4 mmol/L; VENOUS BLOOD HCO3 31.1 mmol/L (20-32); VENOUS BLOOD PCO2 48.9 mmHg (35-63); VENOUS BLOOD PH 7.42 (7.30-7.42)
[2020-04-17 23:39] LABS: PROTHROMBIN TIME 12.4 SEC (11.4-15.4)
[2020-04-17 23:46] LABS: ALKALINE PHOSPHATASE 47 U/L (38-126); ANION GAP 9 (5-19); ASPARTATE AMINO TRANSFERASE 19 U/L (14-36); BILIRUBIN,DIRECT 0.4 mg/dL (0.0-0.4); BILIRUBIN,TOTAL 0.5 mg/dL (0.2-1.3); BLOOD UREA NITROGEN 51 mg/dL (7-20); CALCIUM 9.4 mg/dL (8.4-10.2); CARBON DIOXIDE 29 mmol/L (22-30); CHLORIDE 97 mmol/L (98-107); GLUCOSE 78 mg/dL (75-110); POTASSIUM 3.2 mmol/L (3.6-5.0); TOTAL PROTEIN 5.5 g/dL (6.3-8.2)
--- NOTE | 2020-04-18 | ER Document Report ---
ED General - General Chief Complaint: Pain All Over Stated Complaint: WEAKNESS Time Seen by Provider: 04/17/20 23:49 Primary Care Provider: MARYELLEN SHIRLEY MD [Primary Care Provider] - Follow up as needed Notes: Patient is a 44-year-old female that comes emergency department for chief complaint of feeling body aches and generally drained since last night, today she developed vomiting, she vomited 6-7 times, she had a couple of loose stools (nonbloody). She denies fever, shortness of breath, chest pain, or particular abdominal pain. She does report that she developed a bad headache at the top and back of her head. She states that she vomited up her blood pressure medications today as well. Past medical history includes lupus nephritis, SLE, hypertension, and she is on peritoneal dialysis last session was earlier today. TRAVEL OUTSIDE OF THE [place] IN LAST 30 DAYS: No - Related Data Allergies/Adverse Reactions: iodine Allergy (Verified 06/27/19 14:43) seafood Allergy (Uncoded 06/27/19 14:43) Past Medical History - General Information source: Patient - Social History Smoking Status: Never Smoker Frequency of alcohol use: None Drug Abuse: None Lives with: Family Family History: Reviewed & Not Pertinent Patient has homicidal ideation: No - Past Medical History Cardiac Medical History: Reports: Hx Hypertension Denies: Hx Atrial Fibrillation, Hx Congestive Heart Failure, Hx Heart Attack, Hx Hypercholesterolemia Pulmonary Medical History: Denies: Hx Asthma, Hx Bronchitis, Hx COPD, Hx Pneumonia, Hx Tuberculosis Neurological Medical History: Reports: Hx Migraine. Denies: Hx Seizures Endocrine Medical History: Denies: Hx Diabetes Mellitus Type 1, Hx Diabetes Mellitus Type 2 Renal/ Medical History: Reports: Hx 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, Hx Peritoneal Dialysis. Denies: Hx Kidney Stones GI Medical History: Denies: Hx Gastroesophageal Reflux Disease, Hx Hiatal Hernia, Hx Ulcer Musculoskeletal Medical History: Reports Hx Arthritis, Reports Hx Fibromyalgia, Reports Hx Systemic Lupus Erythematosus Psychiatric Medical History: Reports: Hx Depression Denies: Hx Attention Deficit Hyperactivity Disorder, Hx Bipolar Disorder, Hx Schizophrenia Past Surgical History: Reports: Hx Kidney (Renal Surgery) - 2019, Hx Tonsillectomy - childhood Review of Systems - Review of Systems Constitutional: No symptoms reported EENT: No symptoms reported Cardiovascular: No symptoms reported Respiratory: No symptoms reported Gastrointestinal: No symptoms reported Genitourinary: No symptoms reported Female Genitourinary: No symptoms reported Musculoskeletal: No symptoms reported Skin: No symptoms reported Hematologic/Lymphatic: No symptoms reported Neurological/Psychological: No symptoms reported Physical Exam - Vital signs Vitals: Pulse Ox 96 04/17/20 22:51 - Notes Notes: GENERAL: Alert, interacts well. No acute distress. HEAD: Normocephalic, atraumatic. EYES: Pupils equal, round, and reactive to light. Extraocular movements intact. ENT: Oral mucosa moist, tongue midline. Oropharynx unremarkable. Airway patent. NECK: Full range of motion. Supple. Trachea midline. No lymphadenopathy. LUNGS: Clear to auscultation bilaterally, no wheezes, rales, or rhonchi. No respiratory distress. Non-tender chest wall. HEART: Regular rate and rhythm. No murmur ABDOMEN: Soft and nontender, no rigidity or distention. Patient has peritoneal dialysis port which is unremarkable. GENITOURINARY: Deferred EXTREMITIES: Moves all 4 extremities spontaneously. No edema, normal radial and dorsalis pedis pulses bilaterally. No cyanosis. BACK: no cervical, thoracic, lumbar midline tenderness. No saddle anesthesia, normal distal neurovascular exam. Moves all extremities in full range of motion. NEUROLOGICAL: Alert and oriented x3. Normal speech. Cranial nerves II through XII grossly intact. Strength 5/5 in all extremities. PSYCH: Normal affect, normal mood. SKIN: Warm, dry, normal turgor. No rashes or lesions noted. Course - Re-evaluation Re-evalutation: On initial exam patient is very hypertensive, she was unable to take her medications because she vomited them up, however her abdomen is actually quite benign. She has no chest pain. Lungs clear. Patient was medicated, we will perform a CAT scan of the head because of her headache, hypertension, vomiting. CAT scan of the head unremarkable. CBC shows anemia but this is unchanged from prior, no leukocytosis. No fever. No tachycardia. Patient does not really make urine reportedly. Chemistry nonspecific with borderline potassium, no significant changes from prior. After medications patient then took her blood pressure medications and tolerated p.o. On my reevaluation patient is sitting on the side of the bed, smiling, states she feels great. She has clear looking peritoneal fluid, no leukocytosis, no fever, I do not suspect a concerning abdominal infection. Low suspicion of acute abdomen. Patient is asking to be tested for COVID-19, she states she has not been tested in a long time and she is immunocompromised, she is requesting specifically. This was provided. However she has no additional complaints and is requesting discharge nausea medication, this was also provided. Discussed return precautions, follow-up, quarantine. Patient states appreciation and agreement. Blood pressure significantly improved, headache resolved, stable and well-appearing at time of discharge. - Vital Signs Vital signs: Temp Pulse Resp BP Pulse Ox 99.1 F 18 163/111 H 99 04/17/20 22:53 04/18/20 02:20 04/18/20 02:20 04/18/20 02:20 - Laboratory Result Diagrams: 04/17/20 23:10 04/17/20 23:10 Laboratory results interpreted by me: 04/17/20 04/17/20 04/18/20 23:10 23:10 02:30 RBC 3.56 L Hgb 10.1 L Hct 30.3 L RDW 15.9 H Sodium 135.4 L Potassium 3.2 L Chloride 97 L BUN 51 H Creatinine 13.59 H Est GFR ( Amer) 4 L Est GFR (MDRD) Non-Af 3 L Lactic Acid 0.6 L Total Protein 5.5 L Albumin 3.0 L Discharge - Discharge Clinical Impression: Body aches, Myalgia, Person under investigation for COVID-19 Headache Qualifiers: Headache type: unspecified Headache chronicity pattern: acute headache Intractability: not intractable Qualified Code(s): R51.9 - Headache, unspecified Vomiting Qualifiers: Vomiting type: unspecified Vomiting Intractability: non-intractable Nausea presence: with nausea Qualified Code(s): R11.2 - Nausea with vomiting, unspecified Condition: Stable Disposition: HOME, SELF-CARE Additional Instructions: Your evaluation does not show any new or concerning findings at this time. Take Phenergan for nausea, rest. You have been tested for COVID-19, please quarantine, we will contact you with the results. See additional instructions below. Return if you worsen including abdominal pain, returned/uncontrolled vomiting, fever, difficulty breathing, severe headache, or any other concerning or worsening symptoms. As a person under investigation for COVID-19, the [place] Department of Health and Human Services (division on public health) advises you to adhere to the following guidance until your test results are reported to you. If your test result is positive, you will receive additional information from your provider and your local health department at that time. Remain at home until you are cleared by the health provider or public health authorities. Keep a log of visitors to your home, notify any visitors to your home of your isolation status. If you plan to move to a new address or leave the [facility], notify the local health department in your County. Call your Doctor or seek care if you have an urgent medical need. Before seeking medical care, call him to get instructions from the provider before arriving at the medical office, clinic, or hospital. Notify them that you are being tested for the virus (COVID-19) so that arrangements can be made, as necessary, to prevent transmission to others in the healthcare setting. Next, notify the local health department in your county. If a medical emergency arises and you need to call 911, inform the first responders that you are being tested for the virus that causes COVID-19. Next, notify the local health department in your county. Prescriptions: Promethazine HCl [Phenergan 25 mg Tablet] 25 mg PO Q6H PRN #20 tablet PRN Reason: Referrals: MARYELLEN SHIRLEY MD [Primary Care Provider] - Follow up as needed
[2020-04-18] MEDS ORDERED: MORPHINE SULFATE 10 MG/ML INJ IV ONE (00:03)
[2020-04-18] MEDS ORDERED: ONDANSETRON HCL INJ/PF 4 MG/2 ML SDV IV ONE (00:04)
[2020-04-18] MEDS ORDERED: CLONIDINE HCL 0.2 MG TABLET PO ONE (00:07)
[2020-04-18] MEDS ORDERED: AMLODIPINE BESYLATE 5 MG TABLET PO ONE (00:07)
[2020-04-18] MEDS ORDERED: METOPROLOL TARTRATE 50 MG TABLET PO ONE (00:08)
--- NOTE | 2020-04-18 00:58 | RADIOLOGY REPORT (SQ) ---
EXAM DESCRIPTION: CT HEAD WITHOUT IV CONTRAST COMPLETED DATE/TME: 04/18/2020 00:01 CLINICAL HISTORY: headache, vomiting, hypertension COMPARISON: None available TECHNIQUE: Axial CT of the head obtained from the skull apex to the skull base without contrast. FINDINGS: No acute intracranial hemorrhage identified. No mass, mass effect, shift of the midline, abnormal extra-axial fluid collection or CT evidence of acute ischemic change identified. The ventricular system and sulcal spaces are nonenlarged. Scattered areas of hypodensity throughout the supratentorial white matter are nonspecific and may be related to chronic small vessel ischemic change. 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 The visualized paranasal sinuses and mastoid air cells are well aerated. No skull fracture identified. Visualized orbits and globes are unremarkable. Atherosclerotic calcification of the intracranial internal carotid arteries. IMPRESSION: 1. No acute intracranial abnormality by CT criteria. This exam was performed according to our departmental dose-optimization program, which includes automated exposure control, adjustment of the mA and/or kV according to patient size and/or use of iterative reconstruction technique.
[2020-04-18 03:41] VITALS: BP 163/111
--- NOTE | 2020-04-18 12:45 | EKG REPORT ---
SEVERITY:- ABNORMAL ECG - SINUS RHYTHM LEFT ATRIAL ABNORMALITY PROLONGED QT INTERVAL : Confirmed by: Sam Rosado MD 18-Apr-2020 12:44:07
== END 2020-04-18 03:41 | disposition home or self-care (01) ==
LOC: ER 22:51
DX: R53.1 Weakness (principal); M79.10 Myalgia, unspecified site; R51.9 Headache, unspecified; R11.2 Nausea with vomiting, unspecified; Z20.828 Contact with and (suspected) exposure to other viral communicable diseases
CPT/HCPCS: 93005; 99285; 96374; 96375; 36415; 87040; 83605; 85025; 85610; 87077; 80053; 87186; 82803; 87150 ×26; 70450; 93010; U0003; A9270 ×3; J2270; J2405; C9803; 87635

== ENCOUNTER 2020-05-05 06:39 | Inpatient (IN) | payer MEDICARE, MEDICAID ==
[2020-05-05] MEDS ORDERED: CLONIDINE HCL 0.2 MG TABLET PO ONE (09:22)
[2020-05-05 10:10] LABS: ABSOLUTE BASOPHILS # (AUTO) 0.1 10^3/uL (0.0-0.2); ABSOLUTE EOSINOPHILS # (AUTO) 0.2 10^3/uL (0.0-0.6); ABSOLUTE LYMPHOCYTES (AUTO) 1.4 10^3/uL (0.5-4.7); ABSOLUTE NEUT (AUTO) 5.9 10^3/uL (1.7-8.2); BASOPHILS % (AUTO) 1.2 % (0-2); EOSINOPHILS % (AUTO) 2.3 % (0-6); HEMATOCRIT 23.9 % (36.0-47.0); HEMOGLOBIN 8.1 g/dL (12.0-15.5); LYMPHOCYTES % (AUTO) 16.2 % (13-45); MEAN CORPUSCULAR HEMOGLOBIN 29.6 pg (27.0-33.4); MEAN CORPUSCULAR HGB CONC 33.9 g/dL (32.0-36.0); MEAN CORPUSCULAR VOLUME 87 fl (80-97); MONOCYTES % (AUTO) 11.8 % (3-13); PLATELET COUNT 288 10^3/uL (150-450); RED BLOOD COUNT 2.73 10^6/uL (3.72-5.28); RED CELL DISTRIBUTION WIDTH 18.2 % (11.5-14.0); SEGMENTED NEUTROPHILS % (AUTO) 68.5 % (42-78); TOTAL CELLS COUNTED % (AUTO) 100 %; WHITE BLOOD COUNT 8.7 10^3/uL (4.0-10.5)
[2020-05-05 10:30] LABS: ALKALINE PHOSPHATASE 60 U/L (38-126); ANION GAP 12 (5-19); ASPARTATE AMINO TRANSFERASE 21 U/L (14-36); BILIRUBIN,DIRECT 0.3 mg/dL (0.0-0.4); BILIRUBIN,TOTAL 0.5 mg/dL (0.2-1.3); BLOOD UREA NITROGEN 86 mg/dL (7-20); CALCIUM 9.2 mg/dL (8.4-10.2); CARBON DIOXIDE 22 mmol/L (22-30); CHLORIDE 100 mmol/L (98-107); POTASSIUM 5.9 mmol/L (3.6-5.0); TOTAL PROTEIN 5.4 g/dL (6.3-8.2)
[2020-05-05 10:41] LABS: GLUCOSE 59 mg/dL (75-110)
--- NOTE | 2020-05-05 10:43 | RADIOLOGY REPORT (SQ) ---
EXAM DESCRIPTION: ACUTE ABDOMEN SERIES IMAGES COMPLETED DATE/TIME: 05/05/2020 10:19 am REASON FOR STUDY: diarrhea/abd pain/peritoneal dialysis COMPARISON: None. NUMBER OF VIEWS: Three views. TECHNIQUE: AP view of the chest and AP supine and upright views of the abdomen were obtained LIMITATIONS: None. FINDINGS: CHEST: The cardiac silhouette is enlarged. The costophrenic sulci are blunted. The inter stitium is prominent. There is no consolidation or pneumothorax. FREE AIR: None. BOWEL GAS PATTERN: No dilated loops of bowel or differential air-fluid levels. CALCIFICATIONS: Pelvic phleboliths. HARDWARE: Peritoneal hemodialysis catheter in the left lower quadrant. SOFT TISSUES: No acute gross abnormality. BONES: No acute fracture. OTHER: No other findings. IMPRESSION: 1. Cardiomegaly, small bilateral pleural effusions and prominence of the interstitium. Correlation with clinical findings for signs and symptoms of volume overload is recommended. 2. Nonobstructive bowel gas pattern. 3. Peritoneal dialysis catheter in the left lower quadrant. TECHNICAL DOCUMENTATION: JOB ID: [id number] 2010 [employer]- All Rights Reserved Reading location - IP/workstation name: [email or web address]
[2020-05-05] MEDS ORDERED: DEXTROSE 50%-WATER 25 GM/50 ML DISP.SYRIN IV ONE ×2 (10:45→10:51)
[2020-05-05] MEDS ORDERED: INSULIN REG, HUMAN 100 UNIT/ML 3 ML VIAL (PYX) IV ONE (10:51)
[2020-05-05] MEDS ORDERED: CALCIUM GLUCONATE 1000 MG/10 ML INJ IV ONE (10:53)
[2020-05-05] MEDS ORDERED: SODIUM POLYSTYRENE SULFONATE 15 GM/60 ML NG ONE (10:53)
[2020-05-05] MEDS ORDERED: SODIUM BICARBONATE 8.4% INJ 50 MEQ/50 ML DISP.SYRIN IV ONE (11:58)
--- NOTE | 2020-05-05 15:53 | EKG REPORT ---
SEVERITY:- ABNORMAL ECG - SINUS RHYTHM PROBABLE LEFT ATRIAL ABNORMALITY PROLONGED QT INTERVAL : Confirmed by: Ana Alvarez MD 05-May-2020 15:52:51
[2020-05-05 16:27] LABS: ANION GAP 12 (5-19); BLOOD UREA NITROGEN 91 mg/dL (7-20); CALCIUM 9.3 mg/dL (8.4-10.2); CARBON DIOXIDE 25 mmol/L (22-30); CHLORIDE 100 mmol/L (98-107)
[2020-05-05] MEDS ORDERED: MORPHINE SULFATE 10 MG/ML INJ IV ONE (16:34)
[2020-05-05] MEDS ORDERED: ONDANSETRON HCL INJ/PF 4 MG/2 ML SDV IV ONE (16:35)
[2020-05-05 16:53] LABS: GLUCOSE 55 mg/dL (75-110)
--- NOTE | 2020-05-05 17:14 | ER Document Report ---
Entered by RONY CARBALLO SCRIBE 05/05/20 0924 Acting as scribe for:JOHN PERSON MD ED General - General Chief Complaint: Flu Symptoms Stated Complaint: COUGH,BODY ACHES,DIARRHEA Primary Care Provider: MARYELLEN SHIRLEY MD [Primary Care Provider] - Follow up as needed Information source: Patient Notes: This 44 year old female patient presents to the emergency department today with complaints of diarrhea, abdominal pain, and body aches. Patient states her diarrhea is yellow and denies blood in her stool. Patient states she ran out of clonidine for her HTN and has a headache from her high blood pressure. Patient reports history of lupus and ESRD with PD, her last dialysis this morning. Denies any fever or history of infection with her PD. TRAVEL OUTSIDE OF THE [place] IN LAST 30 DAYS: No - Related Data Allergies/Adverse Reactions: iodine Allergy (Verified 05/05/20 13:35) seafood Allergy (Uncoded 05/05/20 13:35) Past Medical History - General Information source: Patient - Social History Smoking Status: Never Smoker Cigarette use (# per day): No Chew tobacco use (# tins/day): No Frequency of alcohol use: None Drug Abuse: None Family History: Reviewed & Not Pertinent Patient has homicidal ideation: No - Past Medical History Cardiac Medical History: Reports: Hx Hypertension Neurological Medical History: Reports: Hx Migraine Renal/ Medical History: Reports: Hx 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, Hx Peritoneal Dialysis Musculoskeletal Medical History: Reports Hx Arthritis, Reports Hx Fibromyalgia, Reports Hx Systemic Lupus Erythematosus Psychiatric Medical History: Reports: Hx Depression Past Surgical History: Reports: Hx Kidney (Renal Surgery) - 2019, Hx Tonsillectomy - childhood Review of Systems - Review of Systems Constitutional: See HPI. denies: Fever EENT: No symptoms reported Cardiovascular: No symptoms reported Respiratory: No symptoms reported Gastrointestinal: See HPI, Abdominal pain, Diarrhea. denies: Blood streaked bowels Genitourinary: No symptoms reported Female Genitourinary: No symptoms reported Musculoskeletal: See HPI Skin: No symptoms reported Hematologic/Lymphatic: No symptoms reported Neurological/Psychological: See HPI, Headaches -: Yes All other systems reviewed and negative Physical Exam - Vital signs Vitals: Temp Pulse Resp BP Pulse Ox 98.2 F 108 H 16 187/124 H 100 05/05/20 06:48 05/05/20 06:48 05/05/20 06:48 05/05/20 06:48 05/05/20 06:48 - General General appearance: Alert - HEENT Head: Normocephalic, Atraumatic Eyes: Normal Pupils: PERRL - Respiratory Respiratory status: No respiratory distress Chest status: Nontender Breath sounds: Normal Chest palpation: Normal - Cardiovascular Rhythm: Tachycardia - mild Heart sounds: Normal auscultation, S1 appreciated, S2 appreciated Murmur: No - Abdominal Distension: No distension Bowel sounds: Normal Tenderness: Nontender Notes: Peritoneal dialysis port in the LLQ. - Extremities General upper extremity: Normal inspection, Normal ROM General lower extremity: Normal inspection, Normal ROM. No: Edema - Neurological Neuro grossly intact: Yes Cognition: Normal Orientation: AAOx4 Teo Coma Scale Eye Opening: Spontaneous Teo Coma Scale Verbal: Oriented Teo Coma Scale Motor: Obeys Commands Teo Coma Scale Total: 15 Speech: Normal Motor strength normal: LUE, RUE, LLE, RLE Sensory: Normal - Psychological Associated symptoms: Normal affect, Normal mood - Skin Skin Temperature: Warm Skin Moisture: Dry Skin Color: Normal Course - Re-evaluation Re-evalutation: 05/05/20 15:47 Patient states she feels better at this time. Patient has eaten food today as well as had treatment for her hyperkalemia despite her daily 12 of peritoneal dialysate on a nightly basis. Patient reports that she has been manipulating her concentrations and responded to her and indicated that her potassium is too elevated for her to be manipulate and then changing her concentrations schedule. Patient is aware and plans to go back to the stronger concentration in order to avoid problems of hyperkalemia. - Vital Signs Vital signs: Temp Pulse Resp BP Pulse Ox 98.2 F 108 H 14 140/101 H 96 05/05/20 06:52 05/05/20 06:48 05/05/20 15:01 05/05/20 15:01 05/05/20 15:01 05/05/20 15:48 Vital signs stable except for pulse of 108 and blood pressure 140/101 both of these parameters are improved over earlier vital signs. - Laboratory Result Diagrams: 05/05/20 09:47 05/05/20 15:08 Laboratory results interpreted by me: 05/05/20 05/05/20 05/05/20 09:47 09:47 13:02 RBC 2.73 L Hgb 8.1 L Hct 23.9 L RDW 18.2 H Sodium 134.1 L Potassium 5.9 H BUN 86 H Creatinine 14.54 H Est GFR ( Amer) 3 L Est GFR (MDRD) Non-Af 3 L Glucose 59 L POC Glucose 178 H Total Protein 5.4 L Albumin 3.0 L 05/05/20 15:08 RBC Hgb Hct RDW Sodium 136.5 L Potassium BUN 91 H Creatinine 14.19 H Est GFR ( Amer) 3 L Est GFR (MDRD) Non-Af 3 L Glucose 55 L POC Glucose Total Protein Albumin No significant is patient has potassium of 5.9 she has a hemoglobin 8 and hematocrit 24. Patient has lupus and hypertension and chronic renal failure on peritoneal dialysis. Patient was treated today for her hyperkalemia with the u sual medications of calcium by sodium bicarb D50 and insulin regular and calcium gluconate. Also was added Kayexalate. 05/05/20 15:50 Pending basic metabolic panel at this time to determine if patient is potassium has lowered. - EKG Interpretation by Me Additional EKG results interpreted by me: 05/05/20 15:51 Twelve-lead EKG shows normal sinus rhythm rate of 81 probable left atrial abnormality with a prolonged QT interval. Patient has a normal axis, and normal intervals of MT interval QRS. Patient has a prolonged QT interval as stated. No evidence for an acute STEMI. Discharge - Discharge Clinical Impression: Chronic renal failure, Hyperkalemia, Hypoglycemia, ESRD (end stage renal disease), Fibromyalgia, Anemia in chronic kidney disease, on chronic dialysis, History of systemic lupus erythematosus (SLE), Hypertension Condition: Fair Disposition: ADMITTED INPATIENT Admitting Provider: Amelie Unit Admitted: [facility] Referrals: MARYELLEN SHIRLEY MD [Primary Care Provider] - Follow up as needed I personally performed the services described in the documentation, reviewed and edited the documentation which was dictated to the scribe in my presence, and it accurately records my words and actions.
--- NOTE | 2020-05-05 21:39 | PDOC H&P ---
History of Present Illness Admission Date/PCP: 05/05/20 17:56 MARYELLEN SHIRLEY MD History of Present Illness: CARLOS LEVINE is a 44 year old female, She has systemic lupus erythematosus com plicated with end-stage renal disease on maintenance hemodialysis, she came to the emergency room for evaluation of myriad of symptoms Including severe fatigue, Diarrhea, abdominal pain ,generalized body aches and pain, she was evaluated in the emergency room, the initial comprehensive metabolic profile demonstrated serum glucose 55. The diarrhea was yellow and loose, the blood pressure recorded was elevated.Patient symptoms was suspicious for SARS-CoV-2 infection, she will be admitted to the hospital as a PUI for SARS-CoV-2 infection, she will be treated empirically with intravenous dexamethasone until final results is obtained Past Medical History Cardiac Medical History: Reports: Hypertension Neurological Medical History: Reports: Migraine Renal/ Medical History: Reports: 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 Musculoskeltal Medical History: Reports: Arthritis, Fibromyalgia Psychiatric Medical History: Reports: Depression Denies: Attention Deficit Hyperactivity Disorder, Bipolar Disorder Hematology: Reports: Anemia Past Surgical History Past Surgical History: Reports: Tonsillectomy - childhood Social History Smoking Status: Never Smoker Electronic Cigarette use?: No Frequency of Alcohol Use: Rare Hx Recreational Drug Use: No Drugs: None Hx Prescription Drug Abuse: No Family History Family History: Reviewed & Not Pertinent Parental Family History Reviewed: Yes Children Family History Reviewed: Yes Sibling(s) Family History Reviewed.: Yes Medication/Allergy Home Medications: Amlodipine Besylate [Norvasc 5 mg Tablet] 5 mg PO DAILY 06/23/19 Hydroxychloroquine Sulfate [Plaquenil 200 mg Tablet] 200 mg PO DAILY #30 tab 07/04/19 Metoprolol Tartrate [Lopressor 50 mg Tablet] 50 mg PO Q12 02/18/20 Clonidine HCl [Catapres 0.1 mg Tablet] 0.3 mg PO BID 05/05/20 Allergies/Adverse Reactions: iodine Allergy (Verified 05/05/20 13:35) seafood Allergy (Uncoded 05/05/20 13:35) Review of Systems Constitutional: PRESENT: fatigue, headache(s). ABSENT: chills, fever(s), weight gain, weight loss Eyes: ABSENT: visual disturbances Ears: ABSENT: hearing changes Cardiovascular: PRESENT: palpitations. ABSENT: chest pain, dyspnea on exertion, edema, orthropnea Respiratory: PRESENT: cough. ABSENT: hemoptysis Gastrointestinal: PRESENT: diarrhea. ABSENT: abdominal pain, constipation, hematemesis, hematochezia, nausea, vomiting Genitourinary: ABSENT: dysuria, hematuria Musculoskeletal: PRESENT: back pain. ABSENT: joint swelling Integumentary: ABSENT: rash, wounds Neurological: ABSENT: abnormal gait, abnormal speech, confusion, dizziness, focal weakness, syncope Psychiatric: ABSENT: anxiety, depression, homidical ideation, suicidal ideation Endocrine: ABSENT: cold intolerance, heat intolerance, menstrual abnormalities, polydipsia, polyuria Hematologic/Lymphatic: ABSENT: easy bleeding, easy bruising, lymphadenopathy Physical Exam Vital Signs: Temp Pulse Resp BP Pulse Ox 98.2 F 82 16 147/100 H 98 05/05/20 06:52 05/05/20 19:13 05/05/20 21:01 05/05/20 21:00 05/05/20 19:13 Intake & Output 05/04/20 05/05/20 05/06/20 06:59 06:59 06:59 Weight 46.221 kg General appearance: PRESENT: thin Head exam: PRESENT: atraumatic, normocephalic Eye exam: PRESENT: conjunctiva pink, EOMI, PERRLA Ear exam: PRESENT: normal external ear exam Mouth exam: PRESENT: moist, tongue midline Neck exam: PRESENT: full ROM Respiratory exam: PRESENT: clear to auscultation coco Cardiovascular exam: PRESENT: RRR Pulses: PRESENT: normal dorsalis pedis pul, +2 pedal pulses bilateral Vascular exam: PRESENT: normal capillary refill GI/Abdominal exam: PRESENT: normal bowel sounds, soft Rectal exam: PRESENT: deferred Neurological exam: PRESENT: alert, awake, oriented to person, oriented to place, oriented to time, oriented to situation, CN II-XII grossly intact Psychiatric exam: PRESENT: appropriate affect, normal mood Skin exam: PRESENT: dry, intact, warm. ABSENT: cyanosis, rash Results Laboratory Results: 05/05/20 09:47 05/05/20 15:08 05/05/20 05/05/20 05/05/20 09:47 09:47 15:08 WBC 8.7 RBC 2.73 L Hgb 8.1 L Hct 23.9 L MCV 87 MCH 29.6 MCHC 33.9 RDW 18.2 H Plt Count 288 Seg Neutrophils % 68.5 Sodium 134.1 L 136.5 L Potassium 5.9 H 5.0 Chloride 100 100 Carbon Dioxide 22 25 Anion Gap 12 12 BUN 86 H 91 H Creatinine 14.54 H 14.19 H Est GFR ( Amer) 3 L 3 L Glucose 59 L 55 L Calcium 9.2 9.3 Total Bilirubin 0.5 AST 21 Alkaline Phosphatase 60 Total Protein 5.4 L Albumin 3.0 L Impressions: Acute Abdomen Series 05/05/20 09:20 IMPRESSION: 1. Cardiomegaly, small bilateral pleural effusions and prominence of the interstitium. Correlation with clinical findings for signs and symptoms of volume overload is recommended. 2. Nonobstructive bowel gas pattern. 3. Peritoneal dialysis catheter in the left lower quadrant. Assessment & Plan - Diagnosis (1) Hypoglycemia Is this a current diagnosis for this admission?: Yes Plan: She has hypoglycemia, she has no history of diabetes corrected multiple times in the ER without success (2) Person under investigation for COVID-19 Is this a current diagnosis for this admission?: Yes Plan: Cannot completely rule out SARS-CoV-2 infection, treat with empirically IV dexamethasone, await final results of nasal swab (3) Systemic lupus Qualifiers: Systemic lupus erythematosus type: unspecified Systemic lupus erythematosus organ involvement: unspecified Qualified Code(s): M32.9 - Systemic lupus erythematosus, unspecified Is this a current diagnosis for this admission?: Yes Plan: Continue Plaquenil (4) ESRD (end-stage renal disease) due to SLE Is this a current diagnosis for this admission?: Yes Plan: Patient is on peritoneal dialysis, consult nephrology for guidance - Time Time Spent: Greater than 70 Minutes Anticipated Discharge Disposition: Home, Self Care Anticipated Discharge Timeframe: within 72 hours
[2020-05-05 22:18] LABS: A TYPE INFLUENZA AG NEGATIVE (NEGATIVE); B INFLUENZA AG NEGATIVE (NEGATIVE)
[2020-05-05] MEDS ORDERED: ACETAMINOPHEN 325 MG TABLET PO ONE (22:32)
[2020-05-05 22:46] LABS: ABSOLUTE BASOPHILS # (AUTO) 0.1 10^3/uL (0.0-0.2); ABSOLUTE EOSINOPHILS # (AUTO) 0.4 10^3/uL (0.0-0.6); ABSOLUTE LYMPHOCYTES (AUTO) 1.5 10^3/uL (0.5-4.7); ABSOLUTE MONOCYTES (AUTO) 0.9 10^3/uL (0.1-1.4); ABSOLUTE NEUT (AUTO) 4.5 10^3/uL (1.7-8.2); BASOPHILS % (AUTO) 0.9 % (0-2); EOSINOPHILS % (AUTO) 4.8 % (0-6); FIBRINOGEN 698 mg/dL (209-497); HEMATOCRIT 22.6 % (36.0-47.0); INTERNATIONAL RATION (INR) 0.91; LYMPHOCYTES % (AUTO) 20.4 % (13-45); MEAN CORPUSCULAR HEMOGLOBIN 29.4 pg (27.0-33.4); MEAN CORPUSCULAR HGB CONC 33.4 g/dL (32.0-36.0); MEAN CORPUSCULAR VOLUME 88 fl (80-97); MONOCYTES % (AUTO) 11.9 % (3-13); PLATELET COUNT 300 10^3/uL (150-450); PROTHROMBIN TIME 12.5 SEC (11.4-15.4); RED BLOOD COUNT 2.57 10^6/uL (3.72-5.28); RED CELL DISTRIBUTION WIDTH 18.3 % (11.5-14.0); TOTAL CELLS COUNTED % (AUTO) 100 %; WHITE BLOOD COUNT 7.2 10^3/uL (4.0-10.5)
[2020-05-05 22:48] LABS: HEMOGLOBIN 7.6 g/dL (12.0-15.5)
[2020-05-05 22:49] LABS: D-DIMER 2.01 ug/mL (0.00-0.50)
[2020-05-05] MEDS: CLONIDINE HCL 0.1 MG TABLET PO SCH (22:55)
[2020-05-05] MEDS: METOPROLOL TARTRATE 50 MG TABLET PO SCH (22:56)
[2020-05-05] MEDS: AMLODIPINE BESYLATE 5 MG TABLET PO SCH (22:56)
[2020-05-05] MEDS: DEXAMETHASONE SOD PHOSPHATE INJ 4 MG/1 ML VIAL IV SCH (22:57)
[2020-05-05] MEDS: HEPARIN SOD (PORCINE) 5,000 UNIT/ML 1 ML VIAL SUBCUT SCH (22:58)
[2020-05-05] MEDS: AZITHROMYCIN 250 MG TABLET PO SCH (22:58)
[2020-05-05] MEDS ORDERED: HYDROXYCHLOROQUINE SULFATE 200 MG TABLET ONE (23:01)
[2020-05-05 23:04] LABS: ALBUMIN 2.8 g/dL (3.5-5.0); ALKALINE PHOSPHATASE 57 U/L (38-126); ANION GAP 10 (5-19); ASPARTATE AMINO TRANSFERASE 23 U/L (14-36); BILIRUBIN,DIRECT 0.3 mg/dL (0.0-0.4); BILIRUBIN,TOTAL 0.4 mg/dL (0.2-1.3); BLOOD UREA NITROGEN 88 mg/dL (7-20); C-REACTIVE PROTEIN 52.1 mg/L (<10.0); CARBON DIOXIDE 28 mmol/L (22-30); CHLORIDE 96 mmol/L (98-107); CREATINE KINASE 124 U/L (30-135); GLUCOSE 92 mg/dL (75-110); POTASSIUM 5.4 mmol/L (3.6-5.0); TOTAL PROTEIN 5.1 g/dL (6.3-8.2)
[2020-05-05] MEDS: HYDROXYCHLOROQUINE SULFATE 200 MG TABLET PO SCH (23:08)
[2020-05-06] MEDS ORDERED: ACETAMINOPHEN 325 MG TABLET ONE (07:03)
[2020-05-06] MEDS: HEPARIN SOD (PORCINE) 5,000 UNIT/ML 1 ML VIAL SUBCUT SCH ×3 (07:07→23:55)
[2020-05-06] MEDS: CLONIDINE HCL 0.1 MG TABLET PO SCH ×2 (11:17→18:30)
[2020-05-06] MEDS: HYDROXYCHLOROQUINE SULFATE 200 MG TABLET PO SCH (11:17)
[2020-05-06] MEDS: AZITHROMYCIN 250 MG TABLET PO SCH (11:18)
[2020-05-06] MEDS: METOPROLOL TARTRATE 50 MG TABLET PO SCH ×2 (11:18→22:59)
[2020-05-06] MEDS: AMLODIPINE BESYLATE 5 MG TABLET PO SCH (11:18)
--- NOTE | 2020-05-06 21:59 | PDOC PROGRESS REPORT ---
Subjective Date:: 05/06/20 Subjective:: Patient was admitted yesterday, she said she feels better today, not completely out of the cruz yet Reason For Visit: CHRONIC RENAL FAILURE, HYPERKALEMIA,HYPOGLYCEMIA, Physical Exam Vital Signs: Temp Pulse Resp BP Pulse Ox 97.9 F 84 43 H 130/95 H 95 05/06/20 18:00 05/06/20 10:38 05/06/20 16:00 05/06/20 19:00 05/06/20 19:01 Intake & Output 05/05/20 05/06/20 05/07/20 06:59 06:59 06:59 Intake Total 1500 1500 Output Total 900 3500 Balance 600 -2000 Weight 46.221 kg General appearance: PRESENT: no acute distress Eye exam: PRESENT: PERRLA Respiratory exam: PRESENT: clear to auscultation coco Cardiovascular exam: PRESENT: +S1, +S2 GI/Abdominal exam: PRESENT: soft Extremities exam: PRESENT: other Neurological exam: PRESENT: alert Results Laboratory Results: 05/05/20 22:20 05/05/20 22:20 05/05/20 05/05/20 22:20 22:20 WBC 7.2 RBC 2.57 L Hgb 7.6 L Hct 22.6 L MCV 88 MCH 29.4 MCHC 33.4 RDW 18.3 H Plt Count 300 Seg Neutrophils % 62.0 Sodium 134.3 L Potassium 5.4 H Chloride 96 L Carbon Dioxide 28 Anion Gap 10 BUN 88 H Creatinine 14.64 H Est GFR ( Amer) 3 L Glucose 92 Calcium 9.0 Ferritin 780.00 H Total Bilirubin 0.4 AST 23 Alkaline Phosphatase 57 C-Reactive Protein 52.1 H Total Protein 5.1 L Albumin 2.8 L 05/05/20 05/05/20 22:20 22:20 Creatine Kinase 124 Troponin I 0.037 Impressions: Acute Abdomen Series 05/05/20 09:20 IMPRESSION: 1. Cardiomegaly, small bilateral pleural effusions and prominence of the interstitium. Correlation with clinical findings for signs and symptoms of volume overload is recommended. 2. Nonobstructive bowel gas pattern. 3. Peritoneal dialysis catheter in the left lower quadrant. Assessment & Plan - Diagnosis (1) Hypoglycemia Is this a current diagnosis for this admission?: Yes Plan: This is improved (2) Person under investigation for COVID-19 Is this a current diagnosis for this admission?: Yes Plan: Continue present plan of treatment (3) Systemic lupus Qualifiers: Systemic lupus erythematosus type: unspecified Systemic lupus erythematosus organ involvement: unspecified Qualified Code(s): M32.9 - Systemic lupus erythematosus, unspecified Is this a current diagnosis for this admission?: Yes Plan: Continue Plaquenil (4) ESRD (end-stage renal disease) due to SLE Is this a current diagnosis for this admission?: Yes Plan: Management per nephrology - Time Time Spent with patient: 15-24 minutes Level of Care: IMCU Medications reviewed and adjusted accordingly: Yes Anticipated discharge: Home Anticipated DC Timeframe: within 72 hours
[2020-05-06] MEDS: DEXAMETHASONE SOD PHOSPHATE INJ 4 MG/1 ML VIAL IV SCH (22:59)
[2020-05-06 23:26] LABS: ABSOLUTE EOSINOPHILS # (AUTO) 0.2 10^3/uL (0.0-0.6); ABSOLUTE LYMPHOCYTES (AUTO) 1.6 10^3/uL (0.5-4.7); ABSOLUTE NEUT (AUTO) 4.2 10^3/uL (1.7-8.2); BASOPHILS % (AUTO) 0.6 % (0-2); EOSINOPHILS % (AUTO) 2.2 % (0-6); HEMATOCRIT 21.6 % (36.0-47.0); LYMPHOCYTES % (AUTO) 22.6 % (13-45); MEAN CORPUSCULAR HEMOGLOBIN 29.3 pg (27.0-33.4); MEAN CORPUSCULAR HGB CONC 33.7 g/dL (32.0-36.0); MEAN CORPUSCULAR VOLUME 87 fl (80-97); MONOCYTES % (AUTO) 14.2 % (3-13); PLATELET COUNT 277 10^3/uL (150-450); RED BLOOD COUNT 2.48 10^6/uL (3.72-5.28); RED CELL DISTRIBUTION WIDTH 17.9 % (11.5-14.0); SEGMENTED NEUTROPHILS % (AUTO) 60.4 % (42-78); TOTAL CELLS COUNTED % (AUTO) 100 %
[2020-05-06 23:38] LABS: ALBUMIN 2.6 g/dL (3.5-5.0); ALKALINE PHOSPHATASE 52 U/L (38-126); ANION GAP 13 (5-19); ASPARTATE AMINO TRANSFERASE 19 U/L (14-36); BILIRUBIN,DIRECT 0.2 mg/dL (0.0-0.4); BILIRUBIN,TOTAL 0.3 mg/dL (0.2-1.3); BLOOD UREA NITROGEN 82 mg/dL (7-20); CALCIUM 8.4 mg/dL (8.4-10.2); CARBON DIOXIDE 22 mmol/L (22-30); CHLORIDE 93 mmol/L (98-107); GLUCOSE 113 mg/dL (75-110); POTASSIUM 4.9 mmol/L (3.6-5.0); TOTAL PROTEIN 4.9 g/dL (6.3-8.2)
[2020-05-07 00:07] LABS: HEMOGLOBIN 7.3 g/dL (12.0-15.5)
[2020-05-07] MEDS: ACETAMINOPHEN 325 MG TABLET PO PRN ×2 (01:45→07:40)
[2020-05-07] MEDS: HEPARIN SOD (PORCINE) 5,000 UNIT/ML 1 ML VIAL SUBCUT SCH ×3 (05:20→22:06)
--- NOTE | 2020-05-07 10:34 | PDOC CONSULTATION ---
Consultation Consult Date: 05/07/20 Provider Consulted: Sherie RAYGOZA Consult reason:: ESRD on PD. History of Present Illness Admission Date/PCP: 05/05/20 17:56 MARYELLEN SHIRLEY MD History of Present Illness: CARLOS LEVINE is a 44 year old female with end-stage renal disease on maintenance hemodialysis,in the background of SLE came to the emergency room with c/o non productive cough ,generalized body aches and pain, diarrhea, abdominal pains. She denies any history of fever or chills. She recalls that this is similar to the infrequent relapses of her lupus and she goes through this every now and then and she mentions/recalls being put on steroids for relief. She has been admitted as suspicious for Covid and has been begun on intravenous dexamethasone by Dr. Shirley. She says now that since admission her diarrhea is better. Her cough is also much improved. However generalized body aches persist. Labs and medications were reviewed. Her peritoneal dialysis is going well without any complaints of changes in color. Her Covid serology today has come back as negative. 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, Hyperphosphatemia, Secondary Hyperparathyroidism GI Medical History: Denies: Gastroesophageal Reflux Disease, Hiatal Hernia Musculoskeltal Medical History: Reports: Arthritis, Fibromyalgia, Systemic Lupus Erythematosus Psychiatric Medical History: Reports: Depression Denies: Attention Deficit Hyperactivity Disorder, Bipolar Disorder Hematology Medical History: Reports Anemia of Chronic Kidney Disease Past Surgical History Past Surgical History: Reports: Dialysis Access Surgery PD, Tonsillectomy - childhood Social History Smoking Status: Never Smoker Electronic Cigarette use?: No Frequency of Alcohol Use: Rare Hx Recreational Drug Use: No Drugs: None Hx Prescription Drug Abuse: No Family History Parental Family History Reviewed: Yes - Negative for ESRD Children Family History Reviewed: No Sibling(s) Family History Reviewed.: No Medication/Allergy Home Medications: Amlodipine Besylate [Norvasc 5 mg Tablet] 5 mg PO DAILY 01/04/20 Hydroxychloroquine Sulfate [Plaquenil 200 mg Tablet] 200 mg PO DAILY #30 tab 07/04/19 Metoprolol Tartrate [Lopressor 50 mg Tablet] 50 mg PO Q12 02/18/20 Clonidine HCl [Catapres 0.1 mg Tablet] 0.3 mg PO BID 05/05/20 Allergies/Adverse Reactions: iodine Allergy (Verified 05/05/20 13:35) seafood Allergy (Uncoded 05/05/20 13:35) Review of Systems Constitutional: PRESENT: anorexia, fatigue, weakness. ABSENT: chills, fever(s), headache(s), night sweats Nose, Mouth, and Throat: ABSENT: mouth pain, sore throat Cardiovascular: ABSENT: dyspnea on exertion, edema, orthropnea, palpitations Respiratory: PRESENT: cough. ABSENT: dyspnea, hemoptysis Gastrointestinal: PRESENT: abdominal pain, diarrhea. ABSENT: coffee ground emesis, dysphagia, heartburn, hematemesis Genitourinary: ABSENT: dysuria, hematuria Musculoskeletal: PRESENT: back pain. ABSENT: deformity, joint swelling Integumentary: ABSENT: lesions, pruritus, rash Neurological: ABSENT: abnormal speech, confusion, convulsions, focal weakness, frequent falls Hematologic/Lymphatic: ABSENT: easy bleeding, easy bruising, lymphadenopathy Physical Exam Vital Signs: Temp Pulse Resp BP Pulse Ox 97.5 F 65 18 157/91 H 99 05/07/20 08:45 05/07/20 08:45 05/07/20 08:45 05/07/20 08:45 05/07/20 08:45 Intake & Output 05/06/20 05/07/20 05/08/20 06:59 06:59 06:59 Intake Total 1500 3000 1500 Output Total 900 5500 Balance 600 -2500 1500 Weight 52.1 kg 51.1 kg General appearance: PRESENT: no acute distress Eye exam: PRESENT: EOMI, PERRLA. ABSENT: scleral icterus Ear exam: PRESENT: normal external ear exam Mouth exam: PRESENT: moist Neck exam: ABSENT: lymphadenopathy, meningismus, tenderness, thyromegaly, tracheal deviation Respiratory exam: PRESENT: clear to auscultation coco, decreased breath sounds. ABSENT: crackles Cardiovascular exam: PRESENT: +S1, +S2 GI/Abdominal exam: PRESENT: ascites - From her PD fluid., normal bowel sounds, soft. ABSENT: organomegaly, tenderness Extremities exam: ABSENT: pedal edema Neurological exam: PRESENT: alert, awake, oriented to person, oriented to place Psychiatric exam: PRESENT: appropriate affect Skin exam: ABSENT: erythema, mottled, rash Results Laboratory Results: 05/06/20 22:55 05/06/20 22:55 05/06/20 05/06/20 22:55 22:55 WBC 7.0 RBC 2.48 L Hgb 7.3 L Hct 21.6 L MCV 87 MCH 29.3 MCHC 33.7 RDW 17.9 H Plt Count 277 Seg Neutrophils % 60.4 Sodium 128.3 L Potassium 4.9 Chloride 93 L Carbon Dioxide 22 Anion Gap 13 BUN 82 H Creatinine 12.85 H Est GFR ( Amer) 4 L Glucose 113 H Calcium 8.4 Total Bilirubin 0.3 AST 19 Alkaline Phosphatase 52 Total Protein 4.9 L Albumin 2.6 L 05/05/20 21:55 Throat Throat Culture - Final NORMAL SHITAL 05/05/20 05/05/20 22:20 22:20 Creatine Kinase 124 Troponin I 0.037 Impressions: Acute Abdomen Series 05/05/20 09:20 IMPRESSION: 1. Cardiomegaly, small bilateral pleural effusions and prominence of the interstitium. Correlation with clinical findings for signs and symptoms of volume overload is recommended. 2. Nonobstructive bowel gas pattern. 3. Peritoneal dialysis catheter in the left lower quadrant. Assessment & Plan - Diagnosis (1) Person under investigation for COVID-19 Is this a current diagnosis for this admission?: Yes Plan: Serologies negative for Covid. Being managed currently by Dr. Shirley. (2) Systemic lupus Qualifiers: Systemic lupus erythematosus type: unspecified Systemic lupus erythematosus organ involvement: unspecified Qualified Code(s): M32.9 - Systemic lupus erythematosus, unspecified Is this a current diagnosis for this admission?: Yes Plan: Looks like she has an acute relapse of her lupus. She is currently on IV dexamethasone which should help. Symptomatic and supportive treatment. (3) ESRD (end stage renal disease) Plan: She is on PD. PD orders have been placed on CAPD is going very well. No evidences to indicate peritonitis. (4) Hypertension Plan: Uncontrolled. Some of this could be from her myalgia. Monitor. (5) Renal osteodystrophy Plan: Will monitor. (6) Anemia in chronic kidney disease, on chronic dialysis Plan: Will put her on erythropoietin while she is here.
[2020-05-07] MEDS: CLONIDINE HCL 0.1 MG TABLET PO SCH ×2 (11:00→17:15)
[2020-05-07] MEDS: HYDROXYCHLOROQUINE SULFATE 200 MG TABLET PO SCH (11:00)
[2020-05-07] MEDS: AMLODIPINE BESYLATE 5 MG TABLET PO SCH (11:01)
[2020-05-07] MEDS: AZITHROMYCIN 250 MG TABLET PO SCH (11:01)
[2020-05-07] MEDS: METOPROLOL TARTRATE 50 MG TABLET PO SCH ×2 (11:01→22:07)
[2020-05-07] MEDS ORDERED: EPOETIN ALFA-EPBX 10,000 UNIT/ML VIAL (RENAL) SUBCUT ONE (11:30)
--- NOTE | 2020-05-07 16:10 | PDOC PROGRESS REPORT ---
Subjective Date:: 05/07/20 Subjective:: Patient seen by the bedside, she is negative for SARS-CoV-2 infection, is possib le this could be lupus flare, she respond to the dexamethasone she feels much better today Reason For Visit: CHRONIC RENAL FAILURE, HYPERKALEMIA,HYPOGLYCEMIA, Physical Exam Vital Signs: Temp Pulse Resp BP Pulse Ox 97.7 F 66 18 150/99 H 100 05/07/20 12:10 05/07/20 14:15 05/07/20 12:10 05/07/20 14:15 05/07/20 12:10 Intake & Output 05/06/20 05/07/20 05/08/20 06:59 06:59 06:59 Intake Total 1500 3000 3260 Output Total 900 5500 1400 Balance 600 -2500 1860 Weight 52.1 kg 51.3 kg General appearance: PRESENT: no acute distress Eye exam: PRESENT: PERRLA Respiratory exam: PRESENT: clear to auscultation coco Cardiovascular exam: PRESENT: +S1, +S2 GI/Abdominal exam: PRESENT: soft Neurological exam: PRESENT: alert Results Laboratory Results: 05/06/20 22:55 05/06/20 22:55 05/06/20 05/06/20 22:55 22:55 WBC 7.0 RBC 2.48 L Hgb 7.3 L Hct 21.6 L MCV 87 MCH 29.3 MCHC 33.7 RDW 17.9 H Plt Count 277 Seg Neutrophils % 60.4 Sodium 128.3 L Potassium 4.9 Chloride 93 L Carbon Dioxide 22 Anion Gap 13 BUN 82 H Creatinine 12.85 H Est GFR ( Amer) 4 L Glucose 113 H Calcium 8.4 Total Bilirubin 0.3 AST 19 Alkaline Phosphatase 52 Total Protein 4.9 L Albumin 2.6 L 05/05/20 21:55 Throat Throat Culture - Final NORMAL SHITAL 05/05/20 05/05/20 22:20 22:20 Creatine Kinase 124 Troponin I 0.037 Impressions: Acute Abdomen Series 05/05/20 09:20 IMPRESSION: 1. Cardiomegaly, small bilateral pleural effusions and prominence of the interstitium. Correlation with clinical findings for signs and symptoms of volume overload is recommended. 2. Nonobstructive bowel gas pattern. 3. Peritoneal dialysis catheter in the left lower quadrant. Assessment & Plan - Diagnosis (1) Hypoglycemia Is this a current diagnosis for this admission?: Yes Plan: This is improved (2) Person under investigation for COVID-19 Is this a current diagnosis for this admission?: Yes (3) Systemic lupus Qualifiers: Systemic lupus erythematosus type: unspecified Systemic lupus erythematosus organ involvement: unspecified Qualified Code(s): M32.9 - Systemic lupus erythematosus, unspecified Is this a current diagnosis for this admission?: Yes Plan: She probably has acute lupus flare, continue IV dexamethasone for few more days (4) ESRD (end-stage renal disease) due to SLE Is this a current diagnosis for this admission?: Yes Plan: Management per nephrology - Time Time Spent with patient: 25-34 minutes Level of Care: IMCU Medications reviewed and adjusted accordingly: Yes Anticipated discharge: Home Anticipated DC Timeframe: within 72 hours - Inpatient Certification Based on my medical assessment, after consideration of the patient's comorbidities, presenting symptoms, or acuity I expect that the services needed warrant INPATIENT care.: Yes I certify that my determination is in accordance with my understanding of Medicare's requirements for reasonable and necessary INPATIENT services [42 CFR 412.3e].: Yes
[2020-05-07] MEDS: DEXAMETHASONE SOD PHOSPHATE INJ 4 MG/1 ML VIAL IV SCH (22:06)
[2020-05-07] MEDS: OXYCODONE-ACETAMINOPHEN 5-325 MG TABLET PO PRN (22:07)
[2020-05-08] MEDS: HEPARIN SOD (PORCINE) 5,000 UNIT/ML 1 ML VIAL SUBCUT SCH ×3 (05:28→21:25)
[2020-05-08] MEDS: HYDROXYCHLOROQUINE SULFATE 200 MG TABLET PO SCH (09:38)
[2020-05-08] MEDS: CLONIDINE HCL 0.1 MG TABLET PO SCH ×2 (09:38→17:24)
[2020-05-08] MEDS: AZITHROMYCIN 250 MG TABLET PO SCH (09:39)
[2020-05-08] MEDS: AMLODIPINE BESYLATE 5 MG TABLET PO SCH (09:39)
[2020-05-08] MEDS: METOPROLOL TARTRATE 50 MG TABLET PO SCH ×2 (09:40→21:26)
[2020-05-08] MEDS: OXYCODONE-ACETAMINOPHEN 5-325 MG TABLET PO PRN ×2 (11:19→18:28)
[2020-05-08] MEDS: GENTAMICIN SULFATE 0.1% OINTMENT 15 GM TP SCH (18:30)
[2020-05-08] MEDS: DEXAMETHASONE SOD PHOSPHATE INJ 4 MG/1 ML VIAL IV SCH (21:25)
--- NOTE | 2020-05-08 21:27 | PDOC PROGRESS REPORT ---
Subjective Date:: 05/08/20 Subjective:: Patient seen by the bedside, she is negative for SARS-CoV-2 infection, is possib le this could be lupus flare, she respond to the dexamethasone she feels much better Reason For Visit: CHRONIC RENAL FAILURE, HYPERKALEMIA,HYPOGLYCEMIA, Physical Exam Vital Signs: Temp Pulse Resp BP Pulse Ox 97.8 F 74 18 145/90 H 100 05/08/20 10:00 05/08/20 19:00 05/08/20 08:36 05/08/20 17:50 05/08/20 08:36 Intake & Output 05/07/20 05/08/20 05/09/20 06:59 06:59 06:59 Intake Total 3000 6640 3862 Output Total 5500 4900 3800 Balance -2500 1740 62 Weight 52.1 kg 54.159 kg 52.4 kg General appearance: PRESENT: no acute distress Eye exam: PRESENT: PERRLA Respiratory exam: PRESENT: clear to auscultation coco Cardiovascular exam: PRESENT: +S1, +S2 GI/Abdominal exam: PRESENT: soft Neurological exam: PRESENT: alert, CN II-XII grossly intact Results Laboratory Results: 05/06/20 22:55 05/06/20 22:55 05/05/20 05/05/20 22:20 22:20 Creatine Kinase 124 Troponin I 0.037 Impressions: Acute Abdomen Series 05/05/20 09:20 IMPRESSION: 1. Cardiomegaly, small bilateral pleural effusions and prominence of the interstitium. Correlation with clinical findings for signs and symptoms of volume overload is recommended. 2. Nonobstructive bowel gas pattern. 3. Peritoneal dialysis catheter in the left lower quadrant. Assessment & Plan - Diagnosis (1) Hypoglycemia Is this a current diagnosis for this admission?: Yes Plan: This is improved (2) Person under investigation for COVID-19 Is this a current diagnosis for this admission?: Yes (3) Systemic lupus Qualifiers: Systemic lupus erythematosus type: unspecified Systemic lupus erythematosus organ involvement: unspecified Qualified Code(s): M32.9 - Systemic lupus erythematosus, unspecified Is this a current diagnosis for this admission?: Yes Plan: She probably has acute lupus flare, continue IV dexamethasone for few more days (4) ESRD (end-stage renal disease) due to SLE Is this a current diagnosis for this admission?: Yes Plan: Management per nephrology - Time Time Spent with patient: 15-24 minutes Level of Care: IMCU Medications reviewed and adjusted accordingly: Yes Anticipated discharge: Home - Inpatient Certification Based on my medical assessment, after consideration of the patient's comorbidities, presenting symptoms, or acuity I expect that the services needed warrant INPATIENT care.: Yes I certify that my determination is in accordance with my understanding of Medicare's requirements for reasonable and necessary INPATIENT services [42 CFR 412.3e].: Yes
--- NOTE | 2020-05-08 21:31 | PDOC DISCHARGE SUMMARY ---
Impression - Admit/DC Date/PCP Admission Date/Primary Care Provider: 05/05/20 17:56 MARYELLEN SHIRLEY MD Discharge Date: 05/09/20 - Discharge Diagnosis (1) Hypoglycemia Is this a current diagnosis for this admission?: Yes (2) Systemic lupus Is this a current diagnosis for this admission?: Yes (3) ESRD (end-stage renal disease) due to SLE Is this a current diagnosis for this admission?: Yes - Additional Information Referrals: MARYELLEN SHIRLEY MD [Primary Care Provider] - 05/20/20 10:15 am Home Medications: Amlodipine Besylate [Norvasc 5 mg Tablet] 5 mg PO DAILY 06/23/19 Hydroxychloroquine Sulfate [Plaquenil 200 mg Tablet] 200 mg PO DAILY #30 tab 07/04/19 Metoprolol Tartrate [Lopressor 50 mg Tablet] 50 mg PO Q12 02/18/20 Clonidine HCl [Catapres 0.1 mg Tablet] 0.3 mg PO BID 05/05/20 History of Present Illiness History of Present Illness: CARLOS LEVINE is a 44 year old female, She has systemic lupus erythematosus complicated with end-stage renal disease on maintenance hemodialysis, she came to the emergency room for evaluation of myriad of symptoms Including severe fatigue, Diarrhea, abdominal pain ,generalized body aches and pain, she was evaluated in the emergency room, the initial comprehensive metabolic profile demonstrated serum glucose 55. The diarrhea was yellow and loose, the blood pressure recorded was elevated.Patient symptoms was suspicious for SARS-CoV-2 infection, she will be admitted to the hospital as a PUI for SARS-CoV-2 infection, she will be treated empirically with intravenous dexamethasone until final results is obtained Hospital Course Hospital Course: Patient was admitted for the management of myriad of Signs and Symptoms of COVID-19 (e.g., fever, dry cough, and/or SOB),She has underlying systemic lupus erythematosus complicated with end-stage renal disease on peritoneal dialysis. She was admitted as Person under investigation for SARS-CoV-2 infection. She was treated empirically with intravenous dexamethasone. She improved 24 hours after initiation of dexamethasone, the SARS-CoV-2 infection test was negative. She also had hypoglycemia when she presented in the emergency room for evaluation of her symptoms. The hypoglycemia could not be corrected in the ER.She was seen in consultation by nephrology, she is on peritoneal dialysis. She also stated that her symptoms that she is manifesting typically represent flare of her lupus,She is probably having exacerbation of her lupus disease, Patient improved significantly with intravenous dexamethasone, She also was continued on hydroxychloroquine Physical Exam Vital Signs: Temp Pulse Resp BP Pulse Ox 97.8 F 74 18 145/90 H 100 05/08/20 10:00 05/08/20 19:00 05/08/20 08:36 05/08/20 17:50 05/08/20 08:36 Intake & Output 05/07/20 05/08/20 05/09/20 06:59 06:59 06:59 Intake Total 3000 6640 3862 Output Total 5500 4900 3800 Balance -2500 1740 62 Weight 52.1 kg 54.159 kg 52.4 kg General appearance: PRESENT: no acute distress Eye exam: PRESENT: PERRLA Respiratory exam: PRESENT: clear to auscultation coco Cardiovascular exam: PRESENT: +S1, +S2 GI/Abdominal exam: PRESENT: soft Neurological exam: PRESENT: alert, CN II-XII grossly intact Results Laboratory Results: WBC 7.0 10^3/uL (4.0-10.5) 05/06/20 22:55 RBC 2.48 10^6/uL (3.72-5.28) L 05/06/20 22:55 Hgb 7.3 g/dL (12.0-15.5) L 05/06/20 22:55 Hct 21.6 % (36.0-47.0) L 05/06/20 22:55 MCV 87 fl (80-97) 05/06/20 22:55 MCH 29.3 pg (27.0-33.4) 05/06/20 22:55 MCHC 33.7 g/dL (32.0-36.0) 05/06/20 22:55 RDW 17.9 % (11.5-14.0) H 05/06/20 22:55 Plt Count 277 10^3/uL (150-450) 05/06/20 22:55 Lymph % (Auto) 22.6 % (13-45) 05/06/20 22:55 [place] % (Auto) 14.2 % (3-13) H 05/06/20 22:55 Eos % (Auto) 2.2 % (0-6) 05/06/20 22:55 Baso % (Auto) 0.6 % (0-2) 05/06/20 22:55 Absolute Neuts (auto) 4.2 10^3/uL (1.7-8.2) 05/06/20 22:55 Absolute Lymphs (auto) 1.6 10^3/uL (0.5-4.7) 05/06/20 22:55 Absolute Monos (auto) 1.0 10^3/uL (0.1-1.4) 05/06/20 22:55 Absolute Eos (auto) 0.2 10^3/uL (0.0-0.6) 05/06/20 22:55 Absolute Basos (auto) 0.0 10^3/uL (0.0-0.2) 05/06/20 22:55 Seg Neutrophils % 60.4 % (42-78) 05/06/20 22:55 PT 12.5 SEC (11.4-15.4) 05/05/20 22:20 INR 0.91 05/05/20 22:20 APTT 40.0 SEC (23.5-35.8) H 05/05/20 22:20 Fibrinogen 698 mg/dL (209-497) H 05/05/20 22:20 D-Dimer 2.01 ug/mL (0.00-0.50) H 05/05/20 22:20 Sodium 128.3 mmol/L (137-145) L 05/06/20 22:55 Potassium 4.9 mmol/L (3.6-5.0) 05/06/20 22:55 Chloride 93 mmol/L (98-107) L 05/06/20 22:55 Carbon Dioxide 22 mmol/L (22-30) 05/06/20 22:55 Anion Gap 13 (5-19) 05/06/20 22:55 BUN 82 mg/dL (7-20) H 05/06/20 22:55 Creatinine 12.85 mg/dL (0.52-1.25) H 05/06/20 22:55 Est GFR ( Amer) 4 (>60) L 05/06/20 22:55 Est GFR (MDRD) Non-Af 3 (>60) L 05/06/20 22:55 Glucose 113 mg/dL (75-110) H 05/06/20 22:55 POC Glucose 188 mg/dL (70-110) H 05/06/20 13:32 Calcium 8.4 mg/dL (8.4-10.2) 05/06/20 22:55 Ferritin 780.00 ng/mL (6.2-137.0) H 05/05/20 22:20 Total Bilirubin 0.3 mg/dL (0.2-1.3) 05/06/20 22:55 Direct Bilirubin 0.2 mg/dL (0.0-0.4) 05/06/20 22:55 Neonat Total Bilirubin Not Reportable 05/06/20 22:55 Neonat Direct Bilirubin Not Reportable 05/06/20 22:55 Neonat Indirect Bili Not Reportable 05/06/20 22:55 AST 19 U/L (14-36) 05/06/20 22:55 ALT 15 U/L (<35) 05/06/20 22:55 Alkaline Phosphatase 52 U/L (38-126) 05/06/20 22:55 Lactate Dehydrogenase 238 U/L (120-246) 05/05/20 22:20 Creatine Kinase 124 U/L (30-135) 05/05/20 22:20 Troponin I 0.037 ng/mL 05/05/20 22:20 C-Reactive Protein 52.1 mg/L (<10.0) H 05/05/20 22:20 Total Protein 4.9 g/dL (6.3-8.2) L 05/06/20 22:55 Albumin 2.6 g/dL (3.5-5.0) L 05/06/20 22:55 COVID-19 Source See comment 05/05/20 18:56 COVID-19 (CARISSA) Not Detected (Not Detect) 05/05/20 18:56 Influenza A (Rapid) NEGATIVE (NEGATIVE) 05/05/20 21:55 Influenza B (Rapid) NEGATIVE (NEGATIVE) 05/05/20 21:55 Group A Strep Rapid NEGATIVE (NEGATIVE) 05/05/20 21:55 05/05/20 22:20 Troponin I 0.037 Impressions: Acute Abdomen Series 05/05/20 09:20 IMPRESSION: 1. Cardiomegaly, small bilateral pleural effusions and prominence of the interstitium. Correlation with clinical findings for signs and symptoms of volume overload is recommended. 2. Nonobstructive bowel gas pattern. 3. Peritoneal dialysis catheter in the left lower quadrant. Stroke Is this a Stroke Patient?: No Acute Heart Failure Is this a Heart Failure Patient?: No
[2020-05-09] MEDS: OXYCODONE-ACETAMINOPHEN 5-325 MG TABLET PO PRN ×2 (01:20→09:33)
[2020-05-09] MEDS: HEPARIN SOD (PORCINE) 5,000 UNIT/ML 1 ML VIAL SUBCUT SCH (05:05)
[2020-05-09] MEDS: METOPROLOL TARTRATE 50 MG TABLET PO SCH (09:32)
[2020-05-09] MEDS: AZITHROMYCIN 250 MG TABLET PO SCH (09:33)
[2020-05-09] MEDS: AMLODIPINE BESYLATE 5 MG TABLET PO SCH (09:33)
[2020-05-09] MEDS: CLONIDINE HCL 0.1 MG TABLET PO SCH (09:33)
[2020-05-09] MEDS: HYDROXYCHLOROQUINE SULFATE 200 MG TABLET PO SCH (09:33)
[2020-05-09] MEDS: GENTAMICIN SULFATE 0.1% OINTMENT 15 GM TP SCH (09:34)
[2020-05-09] MEDS ORDERED: EPOETIN ALFA-EPBX 2,000 UNIT/ML VIAL (RENAL) SUBCUT ONE (10:30)
[2020-05-09 11:39] LABS: HEMATOCRIT 27.7 % (36.0-47.0); HEMOGLOBIN 9.3 g/dL (12.0-15.5); MEAN CORPUSCULAR HEMOGLOBIN 29.2 pg (27.0-33.4); MEAN CORPUSCULAR HGB CONC 33.7 g/dL (32.0-36.0); MEAN CORPUSCULAR VOLUME 87 fl (80-97); PLATELET COUNT 431 10^3/uL (150-450); RED CELL DISTRIBUTION WIDTH 17.5 % (11.5-14.0)
[2020-05-09 12:21] LABS: ABSOLUTE LYMPHOCYTES# (MANUAL) 2.7 10^3/uL (0.5-4.7); ABSOLUTE MONOCYTES # (MANUAL) 0.8 10^3/uL (0.1-1.4); BAND NEUTROPHILS % (MANUAL) 3 % (3-5); BASOPHILS % (MANUAL) 0 % (0-2); EOSINOPHILS % (MANUAL) 1 % (0-6); LYMPHOCYTES % (MANUAL) 30 % (13-45); MONOCYTES % (MANUAL) 9 % (3-13); SEGMENTED NEUTROPHILS % (MAN) 57 % (42-78); TOTAL CELLS COUNTED 100
[2020-05-09 12:24] LABS: ANISOCYTOSIS 1+; PLATELET COMMENT ADEQUATE
[2020-05-09 13:10] VITALS: BP 121/67
== END 2020-05-09 13:50 | disposition home or self-care (01) | DRG 545 ==
LOC: ER 06:39 → EH 17:56 → 3W 05-06 23:09 → 3S 05-07 16:03
PROVIDERS: ADMIT Internal Medicine; ATTEND Internal Medicine
DX: M32.9 Systemic lupus erythematosus, unspecified (principal); N18.6 End stage renal disease; E87.5 Hyperkalemia; M19.90 Unspecified osteoarthritis, unspecified site; M79.7 Fibromyalgia; E16.1 Other hypoglycemia; D63.1 Anemia in chronic kidney disease; I10 Essential (primary) hypertension; Z99.2 Dependence on renal dialysis; Z20.828 Contact with and (suspected) exposure to other viral communicable diseases; Z91.013 Allergy to seafood; Z91.048 Other nonmedicinal substance allergy status; N25.0 Renal osteodystrophy
CPT/HCPCS: 36415; 74022; 80053; 82550; 82728; 82962; 83615; 84484; 85025; 85379; 85384; 85610; 85730; 86140; 87070; 87635; 87804; 87880; 90945; 90947; 93005; 93010; 96374; 96375; 99285; C9803; J0610; J1100; J1644; J1815; J2270; J2405; J3490; Q5105

== ENCOUNTER 2020-06-11 11:29 | Inpatient (IN) | payer MEDICARE, MEDICAID ==
--- NOTE | 2020-06-11 14:12 | RADIOLOGY REPORT (SQ) ---
EXAM DESCRIPTION: CHEST SINGLE VIEW IMAGES COMPLETED DATE/TIME: 06/11/2020 1:57 pm REASON FOR STUDY: CHF COMPARISON: 06/27/2019 EXAM PARAMETERS: NUMBER OF VIEWS: One view. TECHNIQUE: Single frontal radiographic view of the chest acquired. RADIATION DOSE: NA LIMITATIONS: None. FINDINGS: LUNGS AND PLEURA: There are bilateral pleural effusions and bibasilar infiltrates possibly atelectasis or edema. No pneumothorax. MEDIASTINUM AND HILAR STRUCTURES: No masses. Contour normal. HEART AND VASCULAR STRUCTURES: Mild cardiomegaly with central vascular prominence. BONES: No acute findings. HARDWARE: None in the chest. OTHER: No other significant finding. IMPRESSION: Bilateral pleural effusions with basilar airspace disease either atelectasis or edema. Mild cardiomegaly. No pneumothorax. TECHNICAL DOCUMENTATION: JOB ID: [id number] 2010 [employer]- All Rights Reserved Reading location - IP/workstation name: [email or web address]
[2020-06-11 14:59] LABS: ABSOLUTE BASOPHILS # (AUTO) 0.1 10^3/uL (0.0-0.2); ABSOLUTE EOSINOPHILS # (AUTO) 0.5 10^3/uL (0.0-0.6); ABSOLUTE LYMPHOCYTES (AUTO) 1.8 10^3/uL (0.5-4.7); ABSOLUTE MONOCYTES (AUTO) 0.9 10^3/uL (0.1-1.4); ABSOLUTE NEUT (AUTO) 6.6 10^3/uL (1.7-8.2); BASOPHILS % (AUTO) 0.7 % (0-2); EOSINOPHILS % (AUTO) 4.6 % (0-6); HEMATOCRIT 22.3 % (36.0-47.0); LYMPHOCYTES % (AUTO) 18.4 % (13-45); MEAN CORPUSCULAR HEMOGLOBIN 30.5 pg (27.0-33.4); MEAN CORPUSCULAR HGB CONC 33.6 g/dL (32.0-36.0); MEAN CORPUSCULAR VOLUME 91 fl (80-97); MONOCYTES % (AUTO) 9.2 % (3-13); PLATELET COUNT 303 10^3/uL (150-450); RED BLOOD COUNT 2.46 10^6/uL (3.72-5.28); RED CELL DISTRIBUTION WIDTH 15.6 % (11.5-14.0); SEGMENTED NEUTROPHILS % (AUTO) 67.1 % (42-78); TOTAL CELLS COUNTED % (AUTO) 100 %; WHITE BLOOD COUNT 9.9 10^3/uL (4.0-10.5)
[2020-06-11 15:08] LABS: HEMOGLOBIN 7.5 g/dL (12.0-15.5)
--- NOTE | 2020-06-11 15:24 | EKG REPORT ---
SEVERITY:- BORDERLINE ECG - SINUS TACHYCARDIA PROBABLE LEFT ATRIAL ABNORMALITY NONSPECIFIC ST-T CHANGES- INFERIOR LEADS : Confirmed by: Sam Rosado MD 11-Jun-2020 15:24:08
[2020-06-11 15:27] LABS: ALBUMIN 3.5 g/dL (3.5-5.0); ALKALINE PHOSPHATASE 127 U/L (38-126); ANION GAP 16 (5-19); ASPARTATE AMINO TRANSFERASE 85 U/L (14-36); BILIRUBIN,DIRECT 0.5 mg/dL (0.0-0.4); BILIRUBIN,TOTAL 0.5 mg/dL (0.2-1.3); BLOOD UREA NITROGEN 91 mg/dL (7-20); C-REACTIVE PROTEIN 23.6 mg/L (<10.0); CALCIUM 9.4 mg/dL (8.4-10.2); CARBON DIOXIDE 23 mmol/L (22-30); CHLORIDE 99 mmol/L (98-107); GLUCOSE 100 mg/dL (75-110); IRON(TIBC) 33.9 ug/dL (37-170); TOTAL PROTEIN 6.3 g/dL (6.3-8.2)
[2020-06-11 15:41] LABS: FREE T4 (FREE THYROXINE) 1.25 ng/dL (0.78-2.19)
[2020-06-11 15:55] LABS: THYROID STIMULATING HORMONE 2.17 uIU/mL (0.47-4.68)
[2020-06-11] MEDS ORDERED: HYDROXYCHLOROQUINE SULFATE 200 MG TABLET PO SCH ×2 (17:00→20:30)
[2020-06-11] MEDS: CLONIDINE HCL 0.1 MG TABLET PO SCH (17:33)
[2020-06-11] MEDS: AMLODIPINE BESYLATE 5 MG TABLET PO SCH (17:33)
[2020-06-11] MEDS ORDERED: CALCIUM GLUCONATE 1000 MG/10 ML INJ IV ONE (17:40)
[2020-06-11] MEDS ORDERED: DEXTROSE 50%-WATER 25 GM/50 ML DISP.SYRIN IV ONE (17:41)
[2020-06-11] MEDS ORDERED: INSULIN REG, HUMAN 100 UNIT/ML 3 ML VIAL (PYX) IV ONE (17:41)
--- NOTE | 2020-06-11 17:56 | XCELERA REPORT ---
[address] [address] Transthoracic Echocardiogram Report Name: CARLOS LEVINE Age: 44 yrs Gender: Female : 1975 Patient Status: Inpatient Patient Location: [address] [place], [place] [address] Study Date: 06/11/2020 01:23 PM Height: 64 in Weight: 127 lb BSA: 1.6 m2 Procedure: A two-dimensional transthoracic echocardiogram with color flow and Doppler was performed. Images were not obtained from all of the standard acoustic windows due to the limited scope of the study. Study Quality: Fair. Reason For Study: CHF History: CHF. Ordering Physician: MARYELLEN SHIRLEY Performed By: Miroslava Alansi Interpretation Summary The left ventricle is normal in size. There is moderate concentric left ventricular hypertrophy. LV EF is 50% Left ventricular systolic function is mildly reduced. LV diastolic function could not be adequately assessed. There is mild global hypokinesis of the left ventricle. There is no thrombus. Cannot assess ASD,VSD ,or PFO The right ventricle is mildly dilated. The right ventricular systolic function is mildly reduced. The right atrium is mildly dilated. The left atrium is mildly dilated. There is no evidence of mitral valve prolapse. There is no vegetation seen on the mitral valve. There is no mitral valve stenosis. Severe posteriorly directed mitral valve jet. There is no aortic valvular vegetation. There is no aortic valve stenosis There is aortic sclerosis without aortic stenosis. There is no LVOT obstruction. There is a mild amount of aortic regurgitation There is no tricuspid stenosis. There is a moderate to severe amount of tricuspid regurgitation There is servere pulmonary hypertension by echo RVSP is 91 to 96 mm of Hg, with RA mean of 10 to 15. There is no pulmonic valvular stenosis. There is a moderate amount of pulmonic regurgitation The aortic root is normal size. The inferior vena cava appeared normal and decreased < 50% with respiration (RAP 10-15 mmHg) There is no pericardial effusion. MMode/2D Measurements & Calculations RVDd: 2.5 cm LVIDd: 4.5 cm FS: 24.5 % Ao root diam: 2.6 cm IVSd: 1.4 cm LVIDs: 3.4 cm EDV(Teich): Ao root area: LVPWd: 1.5 cm 90.8 ml 5.5 cm2 ESV(Teich): 46.5 ml EF(Teich): 48.8 % EDV(MOD-sp4): SV(MOD-sp4): 96.5 ml 48.4 ml ESV(MOD-sp4): 48.1 ml EF(MOD-sp4): 50.2 % Doppler Measurements & Calculations MV E max krissy: MV dec slope: Ao V2 max: AI max krissy: 192.8 cm/sec 161.2 cm/sec 521.4 cm/sec MV A max krissy: 1466 cm/sec2 Ao max PG: AI max P.0 cm/sec MV dec time: 10.4 mmHg 108.7 mmHg MV E/A: 2.0 0.13 sec AI dec slope: 551.9 cm/sec2 AI P1/2t: 276.7 msec LV V1 max PG: MR max krissy: PA V2 max: PI end-d krissy: 5.0 mmHg 744.5 cm/sec 95.9 cm/sec 169.2 cm/sec LV V1 max: MR max PG: PA max P.0 cm/sec 221.7 mmHg 3.7 mmHg TR max krissy: 447.6 cm/sec TR max P.8 mmHg Left Ventricle The left ventricle is normal in size. There is moderate concentric left ventricular hypertrophy. LV EF is 50%. Left ventricular systolic function is mildly reduced. LV diastolic function could not be adequately assessed. There is mild global hypokinesis of the left ventricle. There is no thrombus. Cannot assess ASD,VSD ,or PFO. Right Ventricle The right ventricle is mildly dilated. The right ventricular systolic function is mildly reduced. Atria The right atrium is mildly dilated. The left atrium is mildly dilated. Mitral Valve There is no evidence of mitral valve prolapse. There is no vegetation seen on the mitral valve. There is no mitral valve stenosis. Severe posteriorly directed mitral valve jet. Aortic Valve There is no aortic valvular vegetation. There is no aortic valve stenosis. There is aortic sclerosis without aortic stenosis. There is no LVOT obstruction. There is a mild amount of aortic regurgitation. Tricuspid Valve There is no tricuspid stenosis. There is a moderate to severe amount of tricuspid regurgitation. There is servere pulmonary hypertension by echo. RVSP is 91 to 96 mm of Hg, with RA mean of 10 to 15. Pulmonic Valve There is no pulmonic valvular stenosis. There is a moderate amount of pulmonic regurgitation. Great Vessels The aortic root is normal size. The inferior vena cava appeared normal and decreased < 50% with respiration (RAP 10-15 mmHg). Effusions There is no pericardial effusion. : MARYELLEN SHIRLEY Lakshmi
[2020-06-11] MEDS ORDERED: SODIUM POLYSTYRENE SULFONATE 15 GM/60 ML PO SCH (18:00)
[2020-06-11] MEDS: OXYCODONE-ACETAMINOPHEN 5-325 MG TABLET PO PRN (18:53)
[2020-06-11] MEDS ORDERED: CLONIDINE HCL 0.1 MG TABLET PO SCH (20:30)
[2020-06-11] MEDS ORDERED: AMLODIPINE BESYLATE 5 MG TABLET PO SCH (20:30)
--- NOTE | 2020-06-11 20:44 | PDOC H&P ---
History of Present Illness Admission Date/PCP: 06/11/20 11:29 MARYELLEN SHIRLEY MD History of Present Illness: CARLOS LEVINE is a 44 year old female, She has a history of systemic lupus eryt hematosus complicated with end-stage renal disease on peritoneal dialysis, she came to the office today for evaluation of bilateral lower extremity edema. In the office she has huge swelling affecting both legs ,on examination in the office there was engorgement of the neck veins, I felt patient needed to be admitted for management,She was admitted directly from the office to the hospital.Transthoracic echocardiogram was done, it demonstrated moderate concentric left ventricular hypertrophy, the estimated ejection fraction of left ventricle is 50% moderate dilatation of the right ventricle right atrium left atrium is severe pulmonary hypertension, severe mitral valve regurgitation Past Medical History Cardiac Medical History: Reports: Congestive Heart Failure, Hypertension Neurological Medical History: Reports: Migraine Renal/ Medical History: Reports: 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 GI Medical History: Denies: Gastroesophageal Reflux Disease, Hiatal Hernia Musculoskeltal Medical History: Reports: Arthritis, Fibromyalgia, Other - Systemic lupus erythematosus Psychiatric Medical History: Reports: Depression Hematology: Reports: Anemia Past Surgical History Past Surgical History: Reports: Tonsillectomy - childhood Social History Smoking Status: Current Some Day Smoker Frequency of Alcohol Use: Rare Hx Recreational Drug Use: No Drugs: None Hx Prescription Drug Abuse: No Family History Family History: Reviewed & Not Pertinent Parental Family History Reviewed: Yes Children Family History Reviewed: Yes Sibling(s) Family History Reviewed.: Yes Medication/Allergy Home Medications: Amlodipine Besylate [Norvasc 5 mg Tablet] 5 mg PO DAILY 06/23/19 Hydroxychloroquine Sulfate [Plaquenil 200 mg Tablet] 200 mg PO DAILY #30 tab 07/04/19 Clonidine HCl [Catapres 0.1 mg Tablet] 0.3 mg PO BID 05/05/20 Allergies/Adverse Reactions: iodine Allergy (Verified 05/05/20 13:35) seafood Allergy (Uncoded 05/05/20 13:35) Review of Systems Constitutional: ABSENT: chills, fever(s), headache(s), weight gain, weight loss Eyes: ABSENT: visual disturbances Ears: ABSENT: hearing changes Cardiovascular: PRESENT: edema Respiratory: ABSENT: cough, hemoptysis Gastrointestinal: ABSENT: abdominal pain, constipation, diarrhea, hematemesis, hematochezia, nausea, vomiting Genitourinary: ABSENT: dysuria, hematuria Musculoskeletal: ABSENT: joint swelling Integumentary: ABSENT: rash, wounds Neurological: ABSENT: abnormal gait, abnormal speech, confusion, dizziness, focal weakness, syncope Psychiatric: ABSENT: anxiety, depression, homidical ideation, suicidal ideation Endocrine: ABSENT: cold intolerance, heat intolerance, menstrual abnormalities, polydipsia, polyuria Hematologic/Lymphatic: ABSENT: easy bleeding, easy bruising, lymphadenopathy Physical Exam Vital Signs: Temp Pulse Resp BP Pulse Ox 97.7 F 104 H 19 180/124 H 100 06/11/20 16:31 06/11/20 16:31 06/11/20 16:31 06/11/20 16:31 06/11/20 16:31 Intake & Output 06/10/20 06/11/20 06/12/20 06:59 06:59 06:59 Weight 57.8 kg General appearance: PRESENT: thin Head exam: PRESENT: atraumatic, normocephalic Eye exam: PRESENT: PERRLA Neck exam: PRESENT: full ROM, JVD Respiratory exam: PRESENT: crackles Cardiovascular exam: PRESENT: RRR, +S1, +S2, systolic murmur Vascular exam: PRESENT: normal capillary refill GI/Abdominal exam: PRESENT: normal bowel sounds, soft Rectal exam: PRESENT: deferred Extremities exam: PRESENT: pedal edema Neurological exam: PRESENT: alert, CN II-XII grossly intact Psychiatric exam: PRESENT: appropriate affect, normal mood Results Laboratory Results: 06/11/20 14:20 06/11/20 14:20 06/11/20 06/11/20 06/11/20 14:20 14:20 14:20 WBC 9.9 RBC 2.46 L Hgb 7.5 L Hct 22.3 L MCV 91 MCH 30.5 MCHC 33.6 RDW 15.6 H Plt Count 303 Seg Neutrophils % 67.1 Sodium 137.8 Potassium 6.0 H* Chloride 99 Carbon Dioxide 23 Anion Gap 16 BUN 91 H Creatinine 13.66 H Est GFR ( Amer) 4 L Glucose 100 Calcium 9.4 Iron 33.9 L TIBC 296 % Saturation 11 Ferritin 732.00 H Total Bilirubin 0.5 AST 85 H Alkaline Phosphatase 127 H C-Reactive Protein 23.6 H Total Protein 6.3 Albumin 3.5 TSH 2.17 Free T4 1.25 06/11/20 14:20 NT-Pro-B Natriuret Pep [id number] H Impressions: Chest X-Ray 06/11/20 00:00 IMPRESSION: Bilateral pleural effusions with basilar airspace disease either atelectasis or edema. Mild cardiomegaly. No pneumothorax. Assessment & Plan - Diagnosis (1) Acute systolic heart failure Is this a current diagnosis for this admission?: Yes Plan: She has mild systolic heart failure, consult Dr. Marte, cardiology (2) Pulmonary hypertension Is this a current diagnosis for this admission?: Yes Plan: She has severe pulmonary hypertension, this could be secondary to severe mitral valve regurgitation/disease (3) Mitral valve regurgitation Qualifiers: Cardiac valve disease etiology: etiology unspecified Qualified Code(s): I34.0 - Nonrheumatic mitral (valve) insufficiency Is this a current diagnosis for this admission?: Yes Plan: She has severe mitral valve regurg, consult cardiology for guidance (4) ESRD (end stage renal disease) Is this a current diagnosis for this admission?: Yes Plan: She is on peritoneal dialysis, consult nephrology (5) Hyperkalemia Is this a current diagnosis for this admission?: Yes Plan: The potassium is 6, administer calcium gluconate 50% dextrose regular insulin Kayexalate (6) Systemic lupus Qualifiers: Systemic lupus erythematosus type: unspecified Systemic lupus erythematosus organ involvement: unspecified Qualified Code(s): M32.9 - Systemic lupus erythematosus, unspecified Is this a current diagnosis for this admission?: Yes Plan: Continue Plaquenil - Time Time Spent: Greater than 70 Minutes Medications reviewed and adjusted accordingly: Yes Anticipated Discharge Disposition: Home, Self Care Anticipated Discharge Timeframe: 7 days
[2020-06-11] MEDS: NORMAL SALINE 250 ML with FUROSEMIDE 250 MG IV PRN ×2 (22:29)
[2020-06-11] MEDS: HYDROXYCHLOROQUINE SULFATE 200 MG TABLET PO SCH (22:30)
[2020-06-11 22:47] LABS: ALBUMIN 2.7 g/dL (3.5-5.0); ALKALINE PHOSPHATASE 113 U/L (38-126); ANION GAP 12 (5-19); ASPARTATE AMINO TRANSFERASE 69 U/L (14-36); BILIRUBIN,DIRECT 0.3 mg/dL (0.0-0.4); BILIRUBIN,TOTAL 0.4 mg/dL (0.2-1.3); BLOOD UREA NITROGEN 94 mg/dL (7-20); CARBON DIOXIDE 24 mmol/L (22-30); CHLORIDE 99 mmol/L (98-107); GLUCOSE 107 mg/dL (75-110); POTASSIUM 5.1 mmol/L (3.6-5.0); TOTAL PROTEIN 5.2 g/dL (6.3-8.2)
--- NOTE | 2020-06-11 23:01 | PDOC CONSULTATION ---
Consultation Consult Date: 06/11/20 Provider Consulted: DARREL COLE Consult reason:: ESRD on PD History of Present Illness Admission Date/PCP: 06/11/20 11:29 MARYELLEN SHIRLEY MD History of Present Illness: CAROLS LEVINE is a 44 year old -[place] lady known to me with history of ESRD on maintenance peritoneal dialysis using cycler secondary to lupus nephritis, hypertension, anemia and fibromyalgia who was admitted directly from Dr. Shirley's office due to significant lower extremity swelling. Patient states that the swelling started about 1 and half weeks ago. She also complains of generalized muscle aches with with significant pain, inability to sleep, and increased anxiety. She also has some dry cough on and off and she reported that she was tested for Covid and was negative about 3 weeks ago at [facility]. She also has some pain on her right little finger with painful skin lesion. She has been having significant weight loss for the last couple of months but states that her appetite is now better. She gets a little nauseated every once in a while. She denies any fever nor diarrhea. She denies any shortness of breath no chest pains. She has been on a PD doing her exchanges using the cycler machine at night. She claims that she has been doing her treatments. Per our PD nurse at [facility], the patient has been having a lot of social issues including a in the family and her boyfriend leaving her. There was a concern that the patient may not be doing her treatments as she is supposed to although she claims that she does. She usually does 4 exchanges at night using 1.5/2.5% PD solutions. She is dry during the day. When she came in today she is also very hypertensive and she admits that she has not been taking her blood pressure medications for at least a couple of days because she ran out of her medications. Past Medical History Cardiac Medical History: Reports: Hypertension-primary Neurological Medical History: Reports: Migraine Renal/ Medical History: Reports: 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, Hyperphosphatemia Musculoskeltal Medical History: Reports: Arthritis, Fibromyalgia, Systemic Lupus Erythematosus Psychiatric Medical History: Reports: Depression Hematology Medical History: Reports Anemia of Chronic Kidney Disease Past Surgical History Past Surgical History: Reports: Dialysis Access Surgery PD, Tonsillectomy - childhood Social History Information Source: Patient, [facility] Records Smoking Status: Unknown if Ever Smoked Electronic Cigarette use?: No Frequency of Alcohol Use: Rare Hx Recreational Drug Use: No Drugs: None Hx Prescription Drug Abuse: No Family History Family History: Reviewed & Not Pertinent Parental Family History Reviewed: Yes Children Family History Reviewed: Yes Sibling(s) Family History Reviewed.: Yes Medication/Allergy Home Medications: Amlodipine Besylate [Norvasc 5 mg Tablet] 5 mg PO DAILY 06/23/19 Hydroxychloroquine Sulfate [Plaquenil 200 mg Tablet] 200 mg PO DAILY #30 tab 07/04/19 Clonidine HCl [Catapres 0.1 mg Tablet] 0.3 mg PO BID 05/05/20 Allergies/Adverse Reactions: iodine Allergy (Verified 05/05/20 13:35) seafood Allergy (Uncoded 05/05/20 13:35) Review of Systems All systems: reviewed and no additional remarkable complaints except as stated Review of Systems: Constitutional: ABSENT: chills, fatigue, fever(s), headache(s), weight gain, weight loss Eyes: ABSENT: visual disturbances Ears: ABSENT: hearing changes Cardiovascular: ABSENT: chest pain, dyspnea on exertion, orthropnea, palpitations; positive lower extremity edema Respiratory: ABSENT: Dyspnea, hemoptysis; positive cough Gastrointestinal: ABSENT: abdominal pain, constipation, diarrhea, hematemesis, hematochezia, vomiting; reports occasional nausea when in pain Genitourinary: ABSENT: dysuria, hematuria Musculoskeletal: ABSENT: joint swelling; admits generalized muscle aches Integumentary: ABSENT: rash, wounds; reports positive painful lesion on her small finger the right hand Neurological: ABSENT: abnormal gait, abnormal speech, confusion, dizziness, focal weakness, numbness, syncope Psychiatric: ABSENT: depression; admits increased anxiety Endocrine: ABSENT: cold intolerance, heat intolerance, polydipsia, polyuria Hematologic/Lymphatic: ABSENT: easy bleeding, easy bruising, lymphadenopathy Physical Exam Vital Signs: Temp Pulse Resp BP Pulse Ox 98 F 19 L 19 179/117 H 95 06/11/20 12:17 06/11/20 12:17 06/11/20 12:17 06/11/20 12:17 06/11/20 12:17 Intake & Output 06/10/20 06/11/20 06/12/20 06:59 06:59 06:59 Weight 57.8 kg Exam: General appearance: No acute distress, cooperative, well-developed, well- nourished Head exam: PRESENT: atraumatic, normocephalic Eye exam: PRESENT: Conjunctiva pale, EOMI, PERRLA. ABSENT: conjunctival injection, scleral icterus Mouth exam: PRESENT: moist, neck supple, tongue midline Neck exam: PRESENT: full ROM. ABSENT: carotid bruit, JVD, lymphadenopathy, thyromegaly Respiratory exam: PRESENT: Diminished to auscultation bilaterally. Bilateral crackles from mid to lower lung pinedo ABSENT: Rhonchi, stridor, wheezes Cardiovascular exam: PRESENT: RRR, +S1, +S2. Grade 2/6 systolic murmur Pulses: PRESENT: normal radial pulses, normal dorsalis pedis pulses GI/Abdominal exam: PRESENT: normal bowel sounds, soft. PD exit site appears to be good without any drainage ABSENT: guarding, mass, tenderness Rectal exam: Deferred Extremities exam: PRESENT: full ROM. Grade 2 bilateral lower extremity pitting edema ABSENT: calf tenderness Musculoskeletal: PRESENT: full ROM. ABSENT: deformity Neurological exam: PRESENT: alert, Awake, Oriented to person, Oriented to place, Oriented to time, reflexes normal, CN II-XII grossly intact. ABSENT: motor sensory deficit Psychiatric exam: PRESENT: appropriate affect, normal mood. ABSENT: homicidal ideation, suicidal ideation Skin exam: PRESENT: intact, dry, warm. On the patient's right upper is a small area of induration with tenderness ABSENT: rash Results Impressions: Chest X-Ray 06/11/20 00:00 IMPRESSION: Bilateral pleural effusions with basilar airspace disease either atelectasis or edema. Mild cardiomegaly. No pneumothorax. Assessment & Plan - Diagnosis (1) ESRD (end stage renal disease) Is this a current diagnosis for this admission?: Yes Plan: Patient on CCPD at home. There is a question regarding her compliance with her PD prescription. Since we do not have a cycler machine in the hospital we will convert her to CAPD. Her regimen would include 2 L fill volume, 4 exchanges to be done every 6 hours. For today I will have the first exchange using 4.25% solution followed by all 2.5% to maximize ultrafiltration to obvious clinical fluid overload. I will adjust accordingly depending on her response to treatment. We will do daily weights and daily exit site PD catheter care with application of gentamicin cream. Discussed this orders with her nurse this afternoon. (2) Acute systolic heart failure Is this a current diagnosis for this admission?: Yes Plan: Echocardiogram done today showed an LVEF of 50% mild global hypokinesia and moderate to severe tricuspid regurgitation with severe pulmonary hypertension. Will do ultrafiltration to peritoneal dialysis. (3) Hyperkalemia Is this a current diagnosis for this admission?: Yes Plan: Possible noncompliance with diet and CCPD regimen. Will start CAPD with here in the hospital. Follow low potassium diet. Repeat electrolytes tomorrow. (4) Pulmonary hypertension Is this a current diagnosis for this admission?: Yes Plan: Severe per echo. (5) Anemia in chronic kidney disease, on chronic dialysis Is this a current diagnosis for this admission?: Yes Plan: Associated with iron deficiency. We will give the patient Retacrit. 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 I will check her PTH and phosphorus. (7) Hypertension Is this a current diagnosis for this admission?: Yes Plan: Severe and uncontrolled on admission likely secondary to nonadherence to blood pressure medications as admitted by the patient. Resume home blood pressure medications. (8) Systemic lupus Qualifiers: Systemic lupus erythematosus type: unspecified Systemic lupus erythematosus organ involvement: unspecified Qualified Code(s): M32.9 - Systemic lupus erythematosus, unspecified Is this a current diagnosis for this admission?: Yes Plan: Generalized muscle aches could be attributed to this. Management per Dr. Shirley. (9) Non-compliance Is this a current diagnosis for this admission?: Yes - Notes Notes: Thank you very much for this consultation.
[2020-06-12] MEDS: CLONIDINE HCL 0.1 MG TABLET PO SCH ×3 (00:35→17:38)
[2020-06-12] MEDS: OXYCODONE-ACETAMINOPHEN 5-325 MG TABLET PO PRN ×4 (03:25→22:35)
[2020-06-12] MEDS ORDERED: EPOETIN ALFA-EPBX 2,000 UNIT, EPOETIN ALFA-EPBX 3,000 UNIT, EPOETIN ALFA-EPBX 20,000 UN... SUBCUT ONE ×8 (06:00→09:00)
[2020-06-12 06:02] LABS: ABSOLUTE BASOPHILS # (AUTO) 0.1 10^3/uL (0.0-0.2); ABSOLUTE EOSINOPHILS # (AUTO) 0.6 10^3/uL (0.0-0.6); ABSOLUTE LYMPHOCYTES (AUTO) 1.3 10^3/uL (0.5-4.7); ABSOLUTE NEUT (AUTO) 5.1 10^3/uL (1.7-8.2); BASOPHILS % (AUTO) 1.3 % (0-2); EOSINOPHILS % (AUTO) 7.1 % (0-6); HEMATOCRIT 18.8 % (36.0-47.0); LYMPHOCYTES % (AUTO) 16.1 % (13-45); MEAN CORPUSCULAR HEMOGLOBIN 30.4 pg (27.0-33.4); MEAN CORPUSCULAR HGB CONC 34.2 g/dL (32.0-36.0); MEAN CORPUSCULAR VOLUME 89 fl (80-97); MONOCYTES % (AUTO) 12.1 % (3-13); PLATELET COUNT 259 10^3/uL (150-450); RED BLOOD COUNT 2.12 10^6/uL (3.72-5.28); RED CELL DISTRIBUTION WIDTH 15.7 % (11.5-14.0); SEGMENTED NEUTROPHILS % (AUTO) 63.4 % (42-78); TOTAL CELLS COUNTED % (AUTO) 100 %
[2020-06-12 06:10] LABS: HEMOGLOBIN 6.4 g/dL (12.0-15.5)
[2020-06-12 06:16] LABS: ANION GAP 10 (5-19); BLOOD UREA NITROGEN 97 mg/dL (7-20); CALCIUM 8.6 mg/dL (8.4-10.2); CARBON DIOXIDE 25 mmol/L (22-30); CHLORIDE 99 mmol/L (98-107); GLUCOSE 142 mg/dL (75-110); PHOSPHORUS 9.2 mg/dL (2.5-4.5); POTASSIUM 5.2 mmol/L (3.6-5.0)
[2020-06-12] MEDS: AMLODIPINE BESYLATE 5 MG TABLET PO SCH ×2 (09:05→21:18)
[2020-06-12] MEDS: HYDROXYCHLOROQUINE SULFATE 200 MG TABLET PO SCH (09:05)
[2020-06-12] MEDS: NORMAL SALINE 250 ML with FUROSEMIDE 250 MG IV PRN ×2 (11:32)
[2020-06-12] MEDS: GENTAMICIN SULFATE 0.1% CREAM 15 GM TP SCH (11:43)
--- NOTE | 2020-06-12 13:24 | PDOC PROGRESS REPORT ---
Subjective Date:: 06/12/20 Subjective:: I am seeing the patient why she is dwelling PD fluid solution. Her CAPD started late last night because apparently, according to the nurse, she refused to start until she gets some pain medications. Unfortunately the CAPD regimen that was started last night was not being done correctly. I ordered for 2 L of fill volume but she was only getting 1500 mL which the patient admits because that is what she told the nurse. I did use a 4.25% solution on her first exchange last night but the drain volume was surprisingly only 1500 mL which I do not think is correct. When I talked to the patient today she said after they got out 1500 mL on the drain cycle they just stopped draining which is not the right thing to do. So today I talked to the patient in her nurse today, Yesi regarding the proper way to doing the CAPD. She is to have 2 L fill volume, and the need to drain all the fluid in her abdomen until it stops draining. I explained to the patient and her nurse the importance of draining the fluid out for ultrafiltration to relieve her fluid overload otherwise we're not doing anything. I also reeducated the patient regarding the reason for using different concentration of solution for better ultrafiltration. She understood. Yesi also understood the regimen at this point. Patient has made recorded 200 mL of urine output but she said she made more than that with a Lasix drip that Dr. Kinsey started her on. Her blood pressure is better with resuming her blood pressure medications. She admits that she has run out of her blood pressure medication since Tuesday prior to admission. I did ask her again regarding compliance with her CCPD regimen at home which she said she is doing it every night and has not been missing. Reason For Visit: CHF, ESRD ON PERITONEAL DIALYSIS, SLE Physical Exam Vital Signs: Temp Pulse Resp BP Pulse Ox 98.3 F 82 17 160/92 H 99 06/12/20 12:00 06/12/20 12:00 06/12/20 12:00 06/12/20 12:00 06/12/20 12:00 Intake & Output 06/11/20 06/12/20 06/13/20 06:59 06:59 06:59 Intake Total 1980 2606 Output Total 1500 1500 Balance 480 1106 Weight 64.4 kg Exam: General appearance: PRESENT: no acute distress, cooperative, well-developed, well-nourished Head exam: PRESENT: atraumatic, normocephalic Eye exam: PRESENT: conjunctiva pale, PERRLA. ABSENT: scleral icterus Neck exam: ABSENT: JVD Respiratory exam: PRESENT: Normal breath sounds. Positive mid to lower lung pinedo crackles more under right than on the left ABSENT: Rhonchi, unlabored, wheezes Cardiovascular exam: PRESENT: Regular rate rhythm -+S1, +S2. ABSENT: diastolic murmur, systolic murmur GI/Abdominal exam: PRESENT: normal bowel sounds, soft. Abdomen with PD fluid in. Good exit site. ABSENT: guarding, mass, tenderness Extremities exam: Grade 2 bilateral lower extremity pitting edema with shiny skin Neurological exam: PRESENT: alert, awake, oriented to person, place and time. Skin exam: PRESENT: dry, warm, Results Laboratory Results: 06/12/20 05:48 06/12/20 05:48 06/11/20 06/11/20 06/11/20 14:20 14:20 14:20 WBC 9.9 RBC 2.46 L Hgb 7.5 L Hct 22.3 L MCV 91 MCH 30.5 MCHC 33.6 RDW 15.6 H Plt Count 303 Seg Neutrophils % 67.1 Sodium 137.8 Potassium 6.0 H* Chloride 99 Carbon Dioxide 23 Anion Gap 16 BUN 91 H Creatinine 13.66 H Est GFR ( Amer) 4 L Glucose 100 Calcium 9.4 Phosphorus Magnesium Iron 33.9 L TIBC 296 % Saturation 11 Ferritin 732.00 H Total Bilirubin 0.5 AST 85 H Alkaline Phosphatase 127 H C-Reactive Protein 23.6 H Total Protein 6.3 Albumin 3.5 TSH 2.17 Free T4 1.25 PTH Intact 06/11/20 06/12/20 06/12/20 21:48 05:48 05:48 WBC 8.0 RBC 2.12 L Hgb 6.4 L Hct 18.8 L MCV 89 MCH 30.4 MCHC 34.2 RDW 15.7 H Plt Count 259 Seg Neutrophils % 63.4 Sodium 134.6 L 134.4 L Potassium 5.1 H 5.2 H Chloride 99 99 Carbon Dioxide 24 25 Anion Gap 12 10 BUN 94 H 97 H Creatinine 13.92 H 12.97 H Est GFR ( Amer) 4 L 4 L Glucose 107 142 H Calcium 9.0 8.6 Phosphorus 9.2 H Magnesium 2.6 H Iron TIBC % Saturation Ferritin Total Bilirubin 0.4 AST 69 H Alkaline Phosphatase 113 C-Reactive Protein Total Protein 5.2 L Albumin 2.7 L TSH Free T4 PTH Intact 06/12/20 05:48 WBC RBC Hgb Hct MCV MCH MCHC RDW Plt Count Seg Neutrophils % Sodium Potassium Chloride Carbon Dioxide Anion Gap BUN Creatinine Est GFR ( Amer) Glucose Calcium Phosphorus Magnesium Iron TIBC % Saturation Ferritin Total Bilirubin AST Alkaline Phosphatase C-Reactive Protein Total Protein Albumin TSH Free T4 PTH Intact 650.8 H 06/11/20 14:20 NT-Pro-B Natriuret Pep [id number] H Impressions: Chest X-Ray 06/11/20 00:00 IMPRESSION: Bilateral pleural effusions with basilar airspace disease either atelectasis or edema. Mild cardiomegaly. No pneumothorax. Assessment & Plan - Diagnosis (1) ESRD (end stage renal disease) Is this a current diagnosis for this admission?: Yes Plan: Patient on CCPD at home. There is a question regarding her compliance with her PD prescription. Since we do not have a cycler machine in the hospital we will convert her to CAPD. Her regimen would include 2 L fill volume, 4 exchanges to be done every 6 hours. I am changing the PD solution to alternating 4.25% and 2.5% to improve ultr afiltration 3 to fluid overload. As a stated above I reeducated the patient and her nurse today to do the peritoneal dialysis accurately. We will do daily weights and daily exit site PD catheter care with application of gentamicin cream. Discussed this orders with her nurse today. (2) Acute systolic heart failure Is this a current diagnosis for this admission?: Yes Plan: Echocardiogram done showed an LVEF of 50% mild global hypokinesia and moderate to severe tricuspid regurgitation with severe pulmonary hypertension. Will do ultrafiltration to peritoneal dialysis. I am not sure that Lasix drip is really cannot do much since the patient does not really make that much urine. (3) Hyperkalemia Is this a current diagnosis for this admission?: Yes Plan: Mild. No need of any Kayexalate. Continue CAPD. (4) Pulmonary hypertension Is this a current diagnosis for this admission?: Yes Plan: Severe per echo. (5) Anemia in chronic kidney disease, on chronic dialysis Is this a current diagnosis for this admission?: Yes Plan: Associated with iron deficiency. We will give the patient Retacrit. Her hemoglobin is lower today without any evidence of active bleeding. I think this is due to hemodilution since the patient has not been draining all her PD fluid since last night. Hold any blood transfusion today. 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 Her phosphorus is 9.2, calcium of 8.6 and PTH of 650.8. Start Renvela with meals. Hold calcitriol until phosphorus is slightly better. I doubt that the patient is taking her medications correctly at home. We will continue to encourage compliance. (7) Hyponatremia Is this a current diagnosis for this admission?: Yes Plan: Due to hypervolemic state. (8) Hypertension Is this a current diagnosis for this admission?: Yes Plan: Severe and uncontrolled on admission likely secondary to non-adherence to blood pressure medications as admitted by the patient. Resume home blood pressure medications. Ultrafiltration in relieving fluid overload with help the blood pressure control. (9) Systemic lupus Qualifiers: Systemic lupus erythematosus type: unspecified Systemic lupus erythematosus organ involvement: unspecified Qualified Code(s): M32.9 - Systemic lupus erythematosus, unspecified Is this a current diagnosis for this admission?: Yes Plan: Generalized muscle aches could be attributed to this. Management per Dr. Kinsey. (10) Non-compliance Is this a current diagnosis for this admission?: Yes - Time Time with patient: Greater than 35 minutes
--- NOTE | 2020-06-12 15:36 | PDOC PROGRESS REPORT ---
Subjective Date:: 06/12/20 Subjective:: Patient seen by the bedside, complain of muscle pains Reason For Visit: CHF, ESRD ON PERITONEAL DIALYSIS, SLE Physical Exam Vital Signs: Temp Pulse Resp BP Pulse Ox 98.3 F 82 17 160/92 H 99 06/12/20 12:00 06/12/20 12:00 06/12/20 12:00 06/12/20 12:00 06/12/20 12:00 Intake & Output 06/11/20 06/12/20 06/13/20 06:59 06:59 06:59 Intake Total 1979 260 Output Total 1500 1500 Balance 480 1106 Weight 64.4 kg General appearance: PRESENT: no acute distress Eye exam: PRESENT: PERRLA Respiratory exam: PRESENT: clear to auscultation coco Cardiovascular exam: PRESENT: +S1, +S2 GI/Abdominal exam: PRESENT: soft Neurological exam: PRESENT: alert Results Laboratory Results: 06/12/20 05:48 06/12/20 05:48 06/11/20 06/11/20 06/11/20 14:20 14:20 21:48 WBC RBC Hgb Hct MCV MCH MCHC RDW Plt Count Seg Neutrophils % Sodium 137.8 134.6 L Potassium 6.0 H* 5.1 H Chloride 99 99 Carbon Dioxide 23 24 Anion Gap 16 12 BUN 91 H 94 H Creatinine 13.66 H 13.92 H Est GFR ( Amer) 4 L 4 L Glucose 100 107 Calcium 9.4 9.0 Phosphorus Magnesium Iron 33.9 L TIBC 296 % Saturation 11 Ferritin 732.00 H Total Bilirubin 0.5 0.4 AST 85 H 69 H Alkaline Phosphatase 127 H 113 C-Reactive Protein 23.6 H Total Protein 6.3 5.2 L Albumin 3.5 2.7 L TSH 2.17 Free T4 1.25 PTH Intact 06/12/20 06/12/20 06/12/20 05:48 05:48 05:48 WBC 8.0 RBC 2.12 L Hgb 6.4 L Hct 18.8 L MCV 89 MCH 30.4 MCHC 34.2 RDW 15.7 H Plt Count 259 Seg Neutrophils % 63.4 Sodium 134.4 L Potassium 5.2 H Chloride 99 Carbon Dioxide 25 Anion Gap 10 BUN 97 H Creatinine 12.97 H Est GFR ( Amer) 4 L Glucose 142 H Calcium 8.6 Phosphorus 9.2 H Magnesium 2.6 H Iron TIBC % Saturation Ferritin Total Bilirubin AST Alkaline Phosphatase C-Reactive Protein Total Protein Albumin TSH Free T4 PTH Intact 650.8 H 06/11/20 14:20 NT-Pro-B Natriuret Pep [id number] H Impressions: Chest X-Ray 06/11/20 00:00 IMPRESSION: Bilateral pleural effusions with basilar airspace disease either atelectasis or edema. Mild cardiomegaly. No pneumothorax. Assessment & Plan - Diagnosis (1) Acute systolic heart failure Is this a current diagnosis for this admission?: Yes Plan: Consult cardiology for guidance (2) Pulmonary hypertension Is this a current diagnosis for this admission?: Yes Plan: Consult cardiology (3) Mitral valve regurgitation Qualifiers: Cardiac valve disease etiology: etiology unspecified Qualified Code(s): I34.0 - Nonrheumatic mitral (valve) insufficiency Is this a current diagnosis for this admission?: Yes (4) ESRD (end stage renal disease) Is this a current diagnosis for this admission?: Yes Plan: Management per nephrology (5) Hyperkalemia Is this a current diagnosis for this admission?: Yes Plan: Corrected (6) Systemic lupus Qualifiers: Systemic lupus erythematosus type: unspecified Systemic lupus erythematosus organ involvement: unspecified Qualified Code(s): M32.9 - Systemic lupus erythematosus, unspecified Is this a current diagnosis for this admission?: Yes Plan: Continue Plaquenil - Time Time Spent with patient: 25-34 minutes Level of Care: MEDICAL Medications reviewed and adjusted accordingly: Yes Anticipated discharge: Home Anticipated DC Timeframe: Other - Inpatient Certification Based on my medical assessment, after consideration of the patient's comorbidities, presenting symptoms, or acuity I expect that the services needed warrant INPATIENT care.: Yes I certify that my determination is in accordance with my understanding of Medicare's requirements for reasonable and necessary INPATIENT services [42 CFR 412.3e].: Yes
[2020-06-12] MEDS ORDERED: AMLODIPINE BESYLATE 5 MG TABLET PO SCH (17:00)
[2020-06-12] MEDS ORDERED: HYDROXYCHLOROQUINE SULFATE 200 MG TABLET PO SCH (17:00)
[2020-06-12] MEDS: SEVELAMER HCL 800 MG TABLET PO SCH (17:41)
[2020-06-12] MEDS: ONDANSETRON HCL INJ/PF 4 MG/2 ML SDV IV PRN (17:41)
--- NOTE | 2020-06-12 20:54 | PDOC CONSULTATION ---
Consultation-Blank Consultation: CARDIOLOGY CONSULTATION by Dr. Ana Kirkland. Patient seen on . Patient seen at 1 PM. 60 minutes spent as patient more than 50% of time spent in direct patient care. CONSULT REQUESTING PHYSICIAN: Dr. Kinsey. REASON FOR CONSULTATION: Patient with heart failure, severe eccentric mitral regurgitation, and. Severe pulmonary hypertension. HISTORY OF PRESENT ILLNESS: Patient is a 44-year-old Afro-Malagasy female with known history of systemic lupus erythematosus, with lupus nephritis, end-stage renal disease on peritoneal dialysis, hypertension, admitted with a few days history of PND orthopnea or leg edema. She denies any chest pain discomfort. There is no fever chills or rigors. There is no cough or sputum production. She has no prior history of coronary artery disease. There is no history of diabetes mellitus. She states she has been compliant with her diet. The patient was seen by Dr. Kinsey for this and admitted and started the patient on Lasix drip with some marginal improvement in the urine output of about 200 mL. There is no arrhythmias seen on the monitor. She denies any history of asthma or COPD. Past Medical History Cardiac Medical History: Reports: Hypertension-primary Neurological Medical History: Reports: Migraine Renal/ Medical History: Reports: 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, Hyperphosphatemia Musculoskeltal Medical History: Reports: Arthritis, Fibromyalgia, Systemic Lupus Erythematosus Psychiatric Medical History: Reports: Depression Hematology Medical History: Reports Anemia of Chronic Kidney Disease Past Surgical History Past Surgical History: Reports: Dialysis Access Surgery PD, Tonsillectomy - [facility] Social History Information Source: Patient, [facility] Records Smoking Status: Unknown if Ever Smoked Electronic Cigarette use?: No Frequency of Alcohol Use: Rare Hx Recreational Drug Use: No Drugs: None Hx Prescription Drug Abuse: No Family History Family History: Reviewed & Not Pertinent Parental Family History Reviewed: Yes Children Family History Reviewed: Yes Sibling(s) Family History Reviewed.: Yes Medication/Allergy Home Medications: Amlodipine Besylate [Norvasc 5 mg Tablet] 5 mg PO DAILY 06/23/19 Hydroxychloroquine Sulfate [Plaquenil 200 mg Tablet] 200 mg PO DAILY #30 tab 07/04/19 Clonidine HCl [Catapres 0.1 mg Tablet] 0.3 mg PO BID 05/05/20 Allergies/Adverse Reactions: iodine Allergy (Verified 05/05/20 13:35) seafood Allergy (Uncoded 05/05/20 13:35) RESUSCITATION STATUS: The patient is a full code. Her son is a surrogate healthcare decision maker. Current Medications Generic Name Dose Route Start Last Admin Trade Name Oscarq PRN Reason Stop Dose Admin Amlodipine Besylate 5 mg 06/11/20 17:00 06/12/20 09:05 Amlodipine Besylate 5 Mg Tablet PO 07/11/20 16:59 5 mg DAILY NAVIN Administration Clonidine 0.3 mg 06/11/20 17:00 06/12/20 17:38 Clonidine Hcl 0.1 Mg Tablet PO 07/11/20 16:59 0.3 mg BID NAVIN Administration Gentamicin Sulfate 1 applic 06/12/20 11:00 06/12/20 11:43 Gentamicin Sulfate 0.1% Cream 15 Gm TP 07/12/20 10:59 1 applic DAILY NAVIN Administration Hydroxychloroquine Sulfate 200 mg 06/11/20 22:00 06/12/20 09:05 Hydroxychloroquine Sulfate 200 Mg Tablet PO 06/15/20 21:59 200 mg DAILY NAVIN Administration Furosemide 250 mg/ Sodium 250 mls @ 20 mls/hr 06/11/20 21:00 06/12/20 11:32 Chloride IV 07/11/20 20:59 20 mg/hr CONTINUOUS PRN 20 mls/hr THIS MED IS NOT "PRN" Administration 20 MG/HR Ondansetron HCl 4 mg 06/12/20 11:57 06/12/20 17:41 Ondansetron Hcl Inj/Pf 4 Mg/2 Ml Sdv IV 07/12/20 11:56 4 mg Q4HP PRN Administration FOR NAUSEA/VOMITING Oxycodone/Acetaminophen 1 tab 06/11/20 18:09 06/12/20 17:49 Oxycodone-Acetaminophen 5-325 Mg Tablet PO 06/18/20 18:08 1 tab Q4HP PRN Administration FOR PAIN Sevelamer HCl 2,400 mg 06/12/20 17:00 06/12/20 17:41 Sevelamer Hcl 800 Mg Tablet PO 07/12/20 16:59 2,400 mg MEALS NAVIN Administration Discontinued Medications Generic Name Dose Route Start Last Admin Trade Name Oscarq PRN Reason Stop Dose Admin Amlodipine Besylate 5 mg 06/12/20 17:00 Amlodipine Besylate 5 Mg Tablet PO 07/12/20 16:59 DAILY NAVIN Calcium Gluconate 1,000 mg 06/11/20 17:40 06/11/20 18:42 Calcium Gluconate 1000 Mg/10 Ml Inj IV 06/11/20 17:41 1,000 mg NOW ONE Administration Dextrose 25 gm 06/11/20 17:41 06/11/20 18:53 Dextrose 50%-Water 25 Gm/50 Ml Disp.Syrin IV 06/11/20 17:42 25 gm NOW ONE Administration Hydroxychloroquine Sulfate 200 mg 06/12/20 17:00 Hydroxychloroquine Sulfate 200 Mg Tablet PO 06/16/20 16:59 DAILY NAVIN Hydroxychloroquine Sulfate 200 mg 06/11/20 17:00 06/11/20 18:58 Hydroxychloroquine Sulfate 200 Mg Tablet PO 06/15/20 16:59 Not Given DAILY NAVIN Epoetin Daniel-epbx 2,000 unit/ 4 mls @ 0 mls/hr 06/12/20 06:00 06/12/20 07:00 Epoetin Daniel-epbx 3,000 unit/ SUBCUT 06/12/20 06:01 Not Given Epoetin Daniel-epbx 20,000 unit/ NOW ONE Syringe As Directed Epoetin Daniel-epbx 2,000 unit/ 4 mls @ 0 mls/hr 06/12/20 09:00 06/12/20 09:05 Epoetin Daniel-epbx 3,000 unit/ SUBCUT 06/12/20 09:01 25,000 mls/hr Epoetin Daniel-epbx 20,000 unit/ NOW ONE Administration Syringe As Directed Insulin Human Regular 10 unit 06/11/20 17:41 06/11/20 18:42 Insulin Reg, Human 100 Unit/Ml 3 Ml Vial (Pyx) IV 06/11/20 17:42 10 unit NOW ONE Administration Sodium Polystyrene Sulfonate 30 gm 06/11/20 18:00 06/11/20 18:42 Sodium Polystyrene Sulfonate 15 Gm/60 Ml PO 06/12/20 17:59 30 gm Q6 NAVIN Administration Review of Systems All systems: reviewed and no additional remarkable complaints except as stated Review of Systems: Constitutional: ABSENT: chills, fatigue, fever(s), headache(s), weight gain, weight loss Eyes: ABSENT: visual disturbances Ears: ABSENT: hearing changes Cardiovascular: ABSENT: chest pain, dyspnea on exertion, orthropnea, palpitations; positive lower extremity edema Respiratory: ABSENT: Dyspnea, hemoptysis; positive cough Gastrointestinal: ABSENT: abdominal pain, constipation, diarrhea, hematemesis, hematochezia, vomiting; reports occasional nausea when in pain Genitourinary: ABSENT: dysuria, hematuria Musculoskeletal: ABSENT: joint swelling; admits generalized muscle aches Integumentary: ABSENT: rash, wounds; reports positive painful lesion on her small finger the right hand Neurological: ABSENT: abnormal gait, abnormal speech, confusion, dizziness, focal weakness, numbness, syncope Psychiatric: ABSENT: depression; admits increased anxiety Endocrine: ABSENT: cold intolerance, heat intolerance, polydipsia, polyuria Hematologic/Lymphatic: ABSENT: easy bleeding, easy bruising, lymphadenopathy. PHYSICAL EXAMINATION: The patient is well-built and well-nourished. At present in no acute distress. She still has some degree of orthopnea. Selected Entries 06/12/20 12:00 Temperature 98.3 F Temperature Oral Source Pulse Rate 82 Respiratory 17 Rate Blood Pressure 160/92 H [Left] Blood Pressure 114 Mean [Left] Blood Pressure Supine Position [Left] O2 Sat by Pulse 99 Oximetry Oxygen Delivery Room Air Method ( includes room air) HEAD: Is atraumatic normocephalic. EYES: Pupils are equal round regular reactive to light accommodation. Extraocular movements are normal. There is no conjunctival pallor. There is no scleral icterus. EARS: Tympanic membranes are intact. External auditory canals are clear. NOSE:" There is no deviated nasal septum. There is no inflammation of the nasal mucous membrane. MOUTH: Mucous membranes of mouth are moist. Tongue is moist. There is no ulcers. There is no bleeding from the gums. THROAT: There is no redness of the oropharynx. There is no exudates. SKIN: There is no skin rashes. There is no petechia or ecchymosis. There is no skin lesions. NECK: Is supple. There is JVD present. Carotids are equal there is no bruit. There is no lymphadenopathy. There is no goiter. There is no lymphadenopathy. There is no accessory muscles of respiration use. Trachea central. LUNGS: There is an absent area of breath sounds in the bases. Above this, there are a few bibasilar rales of CHF. HEART: S1-S2 is heard. There is no S3 gallop. There is no S4 gallop. There is systolic murmur left sternal border and the apex there is no rub. ABDOMEN: Soft. Nontender. There is a PD catheter in situ. Bowel sounds are well heard. There is no hepatosplenomegaly. Bowel sounds are well heard. EXTREMITIES: Femorals are diminished. Leg pulses well felt. There is 1+ to 2 - edema bilaterally. There is no DVT or cellulitis. There is no cyanosis or clubbing. There is no calf tenderness. STATIONARY FIREMAN: The patient is conscious awake alert oriented x3 with no focal deficits. PSYCHIATRIC: Patient judgment insight are intact and affect is normal. EKG:SINUS TACHYCARDIA [PLAA] . PROBABLE LEFT ATRIAL ABNORMALITY [NSTTI] * NONSPECIFIC ST-T CHANGES- INFERIOR LEADS ECHOCARDIOGRAM: There is mildly reduced LV ejection fraction. There is posteriorly directed severe mitral regurgitation. There is moderate to severe tricuspid regurgitation with severe pulmonary hypertension. Labs- Entire Visit 06/11/20 06/11/20 06/11/20 14:20 14:20 14:20 WBC 9.9 RBC 2.46 L Hgb 7.5 L Hct 22.3 L MCV 91 MCH 30.5 MCHC 33.6 RDW 15.6 H Plt Count 303 Lymph % (Auto) 18.4 [place] % (Auto) 9.2 Eos % (Auto) 4.6 Baso % (Auto) 0.7 Absolute Neuts (auto) 6.6 Absolute Lymphs (auto) 1.8 Absolute Monos (auto) 0.9 Absolute Eos (auto) 0.5 Absolute Basos (auto) 0.1 Seg Neutrophils % 67.1 Sodium 137.8 Potassium 6.0 H* Chloride 99 Carbon Dioxide 23 Anion Gap 16 BUN 91 H Creatinine 13.66 H Est GFR ( Amer) 4 L Est GFR (MDRD) Non-Af 3 L Glucose 100 Calcium 9.4 Phosphorus Magnesium Iron 33.9 L TIBC 296 % Saturation 11 Ferritin 732.00 H Total Bilirubin 0.5 Direct Bilirubin 0.5 H Neonat Total Bilirubin Not Reportable Neonat Direct Bilirubin Not Reportable Neonat Indirect Bili Not Reportable AST 85 H ALT 84 H Alkaline Phosphatase 127 H C-Reactive Protein 23.6 H NT-Pro-B Natriuret Pep [id number] H Total Protein 6.3 Albumin 3.5 TSH Free T4 PTH Intact 06/11/20 06/11/20 06/12/20 14:20 21:48 05:48 WBC 8.0 RBC 2.12 L Hgb 6.4 L Hct 18.8 L MCV 89 MCH 30.4 MCHC 34.2 RDW 15.7 H Plt Count 259 Lymph % (Auto) 16.1 [place] % (Auto) 12.1 Eos % (Auto) 7.1 H Baso % (Auto) 1.3 Absolute Neuts (auto) 5.1 Absolute Lymphs (auto) 1.3 Absolute Monos (auto) 1.0 Absolute Eos (auto) 0.6 Absolute Basos (auto) 0.1 Seg Neutrophils % 63.4 Sodium 134.6 L Potassium 5.1 H Chloride 99 Carbon Dioxide 24 Anion Gap 12 BUN 94 H Creatinine 13.92 H Est GFR ( Amer) 4 L Est GFR (MDRD) Non-Af 3 L Glucose 107 Calcium 9.0 Phosphorus Magnesium Iron TIBC % Saturation Ferritin Total Bilirubin 0.4 Direct Bilirubin 0.3 Neonat Total Bilirubin Not Reportable Neonat Direct Bilirubin Not Reportable Neonat Indirect Bili Not Reportable AST 69 H ALT 77 H Alkaline Phosphatase 113 C-Reactive Protein NT-Pro-B Natriuret Pep Total Protein 5.2 L Albumin 2.7 L TSH 2.17 Free T4 1.25 PTH Intact 06/12/20 06/12/20 05:48 05:48 WBC RBC Hgb Hct MCV MCH MCHC RDW Plt Count Lymph % (Auto) [place] % (Auto) Eos % (Auto) Baso % (Auto) Absolute Neuts (auto) Absolute Lymphs (auto) Absolute Monos (auto) Absolute Eos (auto) Absolute Basos (auto) Seg Neutrophils % Sodium 134.4 L Potassium 5.2 H Chloride 99 Carbon Dioxide 25 Anion Gap 10 BUN 97 H Creatinine 12.97 H Est GFR ( Amer) 4 L Est GFR (MDRD) Non-Af 3 L Glucose 142 H Calcium 8.6 Phosphorus 9.2 H Magnesium 2.6 H Iron TIBC % Saturation Ferritin Total Bilirubin Direct Bilirubin Neonat Total Bilirubin Neonat Direct Bilirubin Neonat Indirect Bili AST ALT Alkaline Phosphatase C-Reactive Protein NT-Pro-B Natriuret Pep Total Protein Albumin TSH Free T4 PTH Intact 650.8 H Chest X-Ray 06/11/20 00:00 IMPRESSION: Bilateral pleural effusions with basilar airspace disease either atelectasis or edema. Mild cardiomegaly. No pneumothorax. IMPRESSION/RECOMMENDATION: 1. Acute systolic heart failure. Continue peritoneal dialysis. In view of the patient's end-stage renal disease. No dialysis is the most effective way to pull out fluid. 2. Cardiomyopathy with mildly reduced LV ejection fraction. 3. Severe eccentric mitral regurgitation: We will start the patient on losartan as discussed with Dr. Magana. 4. Severe pulmonary hypertension: We will start the patient on losartan and increase as tolerated. We will also increase the patient's amlodipine to 5 mg p.o. twice daily. 5. Hypertension: Increase in amlodipine and hydralazine should get the blood pressure control. 6. End-stage renal disease on peritoneal dialysis: Nephrology on the case. Continue peritoneal dialysis. 7. Systemic lupus erythematosus with lupus nephritis. 8. Multiple CAD risk factors namely age, hypertension,. We will check the patient's lipid status. Medication reviewed medications adjusted. Medical decision making is of high complexity. 60 minutes spent as patient more than 50% of time spent in direct patient care.
[2020-06-12] MEDS: LOSARTAN POTASSIUM 25 MG TABLET PO SCH (21:18)
[2020-06-13] MEDS: OXYCODONE-ACETAMINOPHEN 5-325 MG TABLET PO PRN ×4 (07:03→21:40)
[2020-06-13] MEDS: NORMAL SALINE 250 ML with FUROSEMIDE 250 MG IV PRN ×2 (07:04)
[2020-06-13] MEDS: CLONIDINE HCL 0.1 MG TABLET PO SCH ×2 (09:36→17:47)
[2020-06-13] MEDS: AMLODIPINE BESYLATE 5 MG TABLET PO SCH ×2 (09:36→21:38)
[2020-06-13] MEDS: SEVELAMER HCL 800 MG TABLET PO SCH ×3 (09:36→17:47)
[2020-06-13] MEDS: LOSARTAN POTASSIUM 25 MG TABLET PO SCH ×2 (09:36→21:38)
[2020-06-13] MEDS: GENTAMICIN SULFATE 0.1% CREAM 15 GM TP SCH (09:36)
[2020-06-13] MEDS: ONDANSETRON HCL INJ/PF 4 MG/2 ML SDV IV PRN (09:55)
[2020-06-13 12:43] LABS: ABSOLUTE BASOPHILS # (AUTO) 0.1 10^3/uL (0.0-0.2); ABSOLUTE EOSINOPHILS # (AUTO) 0.5 10^3/uL (0.0-0.6); ABSOLUTE LYMPHOCYTES (AUTO) 1.1 10^3/uL (0.5-4.7); ABSOLUTE NEUT (AUTO) 6.8 10^3/uL (1.7-8.2); BASOPHILS % (AUTO) 0.7 % (0-2); EOSINOPHILS % (AUTO) 5.5 % (0-6); HEMATOCRIT 20.6 % (36.0-47.0); MEAN CORPUSCULAR HEMOGLOBIN 30.3 pg (27.0-33.4); MEAN CORPUSCULAR HGB CONC 33.9 g/dL (32.0-36.0); MEAN CORPUSCULAR VOLUME 89 fl (80-97); MONOCYTES % (AUTO) 10.7 % (3-13); PLATELET COUNT 288 10^3/uL (150-450); RED BLOOD COUNT 2.31 10^6/uL (3.72-5.28); RED CELL DISTRIBUTION WIDTH 15.9 % (11.5-14.0); SEGMENTED NEUTROPHILS % (AUTO) 71.1 % (42-78); TOTAL CELLS COUNTED % (AUTO) 100 %; WHITE BLOOD COUNT 9.5 10^3/uL (4.0-10.5)
[2020-06-13 12:58] LABS: ALBUMIN 2.8 g/dL (3.5-5.0); ALKALINE PHOSPHATASE 98 U/L (38-126); ANION GAP 11 (5-19); ASPARTATE AMINO TRANSFERASE 31 U/L (14-36); BILIRUBIN,DIRECT 0.4 mg/dL (0.0-0.4); BILIRUBIN,TOTAL 0.4 mg/dL (0.2-1.3); BLOOD UREA NITROGEN 83 mg/dL (7-20); CALCIUM 8.6 mg/dL (8.4-10.2); CARBON DIOXIDE 28 mmol/L (22-30); CHLORIDE 94 mmol/L (98-107); GLUCOSE 108 mg/dL (75-110); POTASSIUM 4.9 mmol/L (3.6-5.0); TOTAL PROTEIN 5.5 g/dL (6.3-8.2)
--- NOTE | 2020-06-13 13:48 | PDOC PROGRESS REPORT ---
Subjective Date:: 06/13/20 Subjective:: I have seen the patient is morning while she is filling her next PD fluid solution. Patient states that she is feeling better in terms of the swelling in her legs and the pain. She said she slept last night better than she did for the past week. She is not really passing much urine with the Lasix drip with recorded urine output of only 100 mL. For the past 2 exchanges on her CAPD we were able to get a net ultrafiltration of 1 L. So far no problems with CAPD at this point. Her blood pressure is improved and now within acceptable normal limits with her blood pressure medic ations. Reason For Visit: CHF, ESRD ON PERITONEAL DIALYSIS, SLE Physical Exam Vital Signs: Temp Pulse Resp BP Pulse Ox 97.9 F 85 20 110/77 94 06/13/20 10:00 06/13/20 09:00 06/13/20 07:26 06/13/20 09:00 06/13/20 07:26 Intake & Output 06/12/20 06/13/20 06/14/20 06:59 06:59 06:59 Intake Total 1980 9182 2000 Output Total 1500 8500 2000 Balance 480 682 0 Weight 64.4 kg 59.5 kg 63 kg Exam: General appearance: PRESENT: no acute distress, cooperative, well-developed, well-nourished Head exam: PRESENT: atraumatic, normocephalic Eye exam: PRESENT: conjunctiva pale, PERRLA. ABSENT: scleral icterus Neck exam: ABSENT: JVD Respiratory exam: PRESENT: Diminished breath sounds. Still with some crackles on the basis but seems to be improved ABSENT: crackles, rales, rhonchi, unlabored, wheezes Cardiovascular exam: PRESENT: Regular rate rhythm -+S1, +S2. ABSENT: diastolic murmur, systolic murmur GI/Abdominal exam: PRESENT: normal bowel sounds, soft. ABSENT: guarding, mass, tenderness Extremities exam: Grade 2 bilateral lower extremity pitting edema Neurological exam: PRESENT: alert, awake, oriented to person, place and time. Skin exam: PRESENT: dry, warm, Results Laboratory Results: 06/13/20 12:30 06/13/20 12:30 06/13/20 06/13/20 12:30 12:30 WBC 9.5 RBC 2.31 L Hgb 7.0 L Hct 20.6 L MCV 89 MCH 30.3 MCHC 33.9 RDW 15.9 H Plt Count 288 Seg Neutrophils % 71.1 Sodium 132.8 L Potassium 4.9 Chloride 94 L Carbon Dioxide 28 Anion Gap 11 BUN 83 H Creatinine 12.35 H Est GFR ( Amer) 4 L Glucose 108 Calcium 8.6 Total Bilirubin 0.4 AST 31 Alkaline Phosphatase 98 Total Protein 5.5 L Albumin 2.8 L 06/11/20 14:20 NT-Pro-B Natriuret Pep [id number] H Impressions: Chest X-Ray 06/11/20 00:00 IMPRESSION: Bilateral pleural effusions with basilar airspace disease either atelectasis or edema. Mild cardiomegaly. No pneumothorax. Assessment & Plan - Diagnosis (1) ESRD (end stage renal disease) Is this a current diagnosis for this admission?: Yes Plan: Patient on CCPD at home. There is a question regarding her compliance with her PD prescription. Since we do not have a cycler machine in the hospital we will convert her to CAPD. Her regimen would include 2 L fill volume, 4 exchanges to be done every 6 hours. I am changing the PD solution to alternating 4.25% and 2.5% to improve ultrafiltration due to fluid overload. We will continue the same regimen. We will do daily weights and daily exit site PD catheter care with application of gentamicin cream. Discussed this orders with her nurse today. (2) Acute systolic heart failure Is this a current diagnosis for this admission?: Yes Plan: Echocardiogram done showed an LVEF of 50% mild global hypokinesia and moderate to severe tricuspid regurgitation with severe pulmonary hypertension. Machinist Bench, Dr. Alvarez evaluated the patient. Losartan was added. Will do ultrafiltration to peritoneal dialysis. Discontinue Lasix drip. I will try Lasix 80 mg IV every 12 hours to see if this will be of any benefit. (3) Hyperkalemia Is this a current diagnosis for this admission?: Yes Plan: Resolved with CAPD. (4) Pulmonary hypertension Is this a current diagnosis for this admission?: Yes Plan: Severe per echo. (5) Anemia in chronic kidney disease, on chronic dialysis Is this a current diagnosis for this admission?: Yes Plan: Associated with iron deficiency. We will give the patient Retacrit 20,000 units every , last dose given yesterday 06/12/2020. No evidence of active bleeding. Part of her low hemoglobin is likely due to hemodilution. 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 Will monitor. Her phosphorus is 9.2, calcium of 8.6 and PTH of 650.8. Started Renvela with meals. Hold calcitriol until phosphorus is slightly better. I doubt that the patient is taking her medications correctly at home. We will continue to encourage compliance. (7) Hyponatremia Is this a current diagnosis for this admission?: Yes Plan: Due to hypervolemic state. (8) Hypertension Is this a current diagnosis for this admission?: Yes Plan: Severe and uncontrolled on admission likely secondary to non-adherence to blood pressure medications as admitted by the patient. Resumed home blood pressure medications. Ultrafiltration in relieving fluid overload with help the blood pressure control. Improved and controlled. (9) Systemic lupus Qualifiers: Systemic lupus erythematosus type: unspecified Systemic lupus erythematosus organ involvement: unspecified Qualified Code(s): M32.9 - Systemic lupus erythematosus, unspecified Is this a current diagnosis for this admission?: Yes Plan: Generalized muscle aches could be attributed to this. Management per Dr. Susanna bhatti. (10) Non-compliance Is this a current diagnosis for this admission?: Yes
--- NOTE | 2020-06-13 14:06 | Progress Note ---
Provider Note Provider Note: CARDIOLOGY PROGRESS NOTE by Dr. Ana Alvarez on 06/13/2020. SUBJECTIVE: The patient states that her leg edema is improved and she is pulled out more fluid with peritoneal dialysis. She denies any chest pain discomfort. There is no shortness of breath. There is no PND orthopnea. His leg edema is decreased. She complains of joint pains due to her lupus. There is no arrhythmias seen on the monitor. Physical EXAMINATION: Patient is well-built and well-nourished in no acute distress. Selected Entries 06/13/20 06/13/20 06/13/20 07:26 09:00 10:00 Temperature 97.9 F Pulse Rate 85 85 Respiratory 20 Rate Blood Pressure 102/79 110/77 Blood Pressure 86 Mean BP Location Right Arm BP Position Sitting O2 Sat by Pulse 94 Oximetry Oxygen Delivery Room Air Method HEAD: Is atraumatic normocephalic. EYES: Pupils are equal round regular r eactive to light accommodation. Extraocular movements are normal. There is no conjunctival pallor. There is no scleral icterus. EARS: Tympanic membranes are intact. External auditory canals are clear. NOSE:" There is no deviated nasal septum. There is no inflammation of the nasal mucous membrane. MOUTH: Mucous membranes of mouth are moist. Tongue is moist. There is no ulcers. There is n o bleeding from the gums. THROAT: There is no redness of the oropharynx. There is no exudates. SKIN: There is no skin rashes. There is no petechia or ecchymosis. There is no skin lesions. NECK: Is supple. There is JVD present. Carotids are equal there is no bruit. There is no lymphadenopathy. There is no goiter. There is no lymphadenopathy. There is no accessory muscles of respiration use. Trachea central. LUNGS: There is an absent area of breath sounds in the bases. Above this, there are a few bibasilar rales of CHF. HEART: S1-S2 is heard. There is no S3 gallop. There is no S4 gallop. There is systolic murmur left sternal border and the apex there is no rub. ABDOMEN: Soft. Nontender. There is a PD catheter in situ. Bowel sounds are well heard. There is no hepatosplenomegaly. Bowel sounds are well heard. EXTREMITIES: Femorals are diminished. Leg pulses well felt. There is 1+ to 2 - edema bilaterally. There is no DVT or cellulitis. There is no cyanosis or clubbing. There is no calf tenderness. VASCULAR MANAGER: The patient is conscious awake alert oriented x3 with no focal deficits. PSYCHIATRIC: Patient judgment insight are intact and affect is normal. Labs- All tests 24 hr 06/13/20 06/13/20 12:30 12:30 WBC 9.5 RBC 2.31 L Hgb 7.0 L Hct 20.6 L MCV 89 MCH 30.3 MCHC 33.9 RDW 15.9 H Plt Count 288 Lymph % (Auto) 12.0 L [place] % (Auto) 10.7 Eos % (Auto) 5.5 Baso % (Auto) 0.7 Absolute Neuts (auto) 6.8 Absolute Lymphs (auto) 1.1 Absolute Monos (auto) 1.0 Absolute Eos (auto) 0.5 Absolute Basos (auto) 0.1 Seg Neutrophils % 71.1 Sodium 132.8 L Potassium 4.9 Chloride 94 L Carbon Dioxide 28 Anion Gap 11 BUN 83 H Creatinine 12.35 H Est GFR ( Amer) 4 L Est GFR (MDRD) Non-Af 3 L Glucose 108 Calcium 8.6 Total Bilirubin 0.4 Direct Bilirubin 0.4 Neonat Total Bilirubin Not Reportable Neonat Direct Bilirubin Not Reportable Neonat Indirect Bili Not Reportable AST 31 ALT 56 H Alkaline Phosphatase 98 Total Protein 5.5 L Albumin 2.8 L Chest X-Ray 06/11/20 00:00 IMPRESSION: Bilateral pleural effusions with basilar airspace disease either atelectasis or edema. Mild cardiomegaly. No pneumothorax. IMPRESSION/RECOMMENDATION: 1. Acute systolic heart failure. Continue peritoneal dialysis. In view of the patient's end-stage renal disease. No dialysis is the most effective way to pull out fluid. 2. Cardiomyopathy with mildly reduced LV ejection fraction. 3. Severe eccentric mitral regurgitation: We will start the patient on losartan as discussed with Dr. Magana. 4. Severe pulmonary hypertension: We will start the patient on losartan and increase as tolerated. We will also increase the patient's amlodipine to 5 mg p.o. twice daily. 5. Hypertension: Increase in amlodipine and hydralazine should get the blood pressure control. 6. End-stage renal disease on peritoneal dialysis: Nephrology on the case. Continue peritoneal dialysis. 7. Systemic lupus erythematosus with lupus nephritis. 8. Multiple CAD risk factors namely age, hypertension,. We will check the patient's lipid status. Medication reviewed medications adjusted. Medical decision making is of high complexity. 60 minutes spent as patient more than 50% of time spent in direct patient care.
[2020-06-13] MEDS ORDERED: NORMAL SALINE 250 ML IV PRN ×2 (14:07)
--- NOTE | 2020-06-13 14:07 | PDOC PROGRESS REPORT ---
Subjective Date:: 06/13/20 Subjective:: Patient reported feeling better with her breathing. No chest pain. Remain on IV Furosemide. She did not demonstrate fluid restrictions. No nausea or vomiting. N fever or chills. Reason For Visit: CHF, ESRD ON PERITONEAL DIALYSIS, SLE Physical Exam Vital Signs: Temp Pulse Resp BP Pulse Ox 97.9 F 85 20 110/77 94 06/13/20 10:00 06/13/20 09:00 06/13/20 07:26 06/13/20 09:00 06/13/20 07:26 Intake & Output 06/12/20 06/13/20 06/14/20 06:59 06:59 06:59 Intake Total 1980 9182 2000 Output Total 1500 8500 2000 Balance 480 682 0 Weight 64.4 kg 59.5 kg 63 kg General appearance: PRESENT: no acute distress Head exam: PRESENT: atraumatic, normocephalic Eye exam: PRESENT: conjunctiva pale. ABSENT: scleral icterus Respiratory exam: PRESENT: clear to auscultation coco, decreased breath sounds - at lung bases Cardiovascular exam: PRESENT: RRR, +S1, +S2. ABSENT: diastolic murmur, rubs, systolic murmur Vascular exam: PRESENT: pallor Extremities exam: ABSENT: pedal edema Neurological exam: PRESENT: alert, awake, oriented to person, oriented to place, oriented to time, oriented to situation, CN II-XII grossly intact. ABSENT: motor sensory deficit Skin exam: PRESENT: dry, warm Results Laboratory Results: 06/13/20 12:30 06/13/20 12:30 06/13/20 06/13/20 12:30 12:30 WBC 9.5 RBC 2.31 L Hgb 7.0 L Hct 20.6 L MCV 89 MCH 30.3 MCHC 33.9 RDW 15.9 H Plt Count 288 Seg Neutrophils % 71.1 Sodium 132.8 L Potassium 4.9 Chloride 94 L Carbon Dioxide 28 Anion Gap 11 BUN 83 H Creatinine 12.35 H Est GFR ( Amer) 4 L Glucose 108 Calcium 8.6 Total Bilirubin 0.4 AST 31 Alkaline Phosphatase 98 Total Protein 5.5 L Albumin 2.8 L 06/11/20 14:20 NT-Pro-B Natriuret Pep [id number] H Impressions: Chest X-Ray 06/11/20 00:00 IMPRESSION: Bilateral pleural effusions with basilar airspace disease either atelectasis or edema. Mild cardiomegaly. No pneumothorax. Assessment & Plan - Diagnosis (1) Acute systolic heart failure Is this a current diagnosis for this admission?: Yes Plan: Maintain on IV Furosemide therapy. Limit to 1200 ml total daily fluid intake. Adjust as per measured urine output. (2) Mitral valve regurgitation Qualifiers: Cardiac valve disease etiology: etiology unspecified Qualified Code(s): I34.0 - Nonrheumatic mitral (valve) insufficiency Is this a current diagnosis for this admission?: Yes Plan: Continue current medication management. (3) Hypertension Qualifiers: Hypertension type: essential hypertension Qualified Code(s): I10 - Essential (primary) hypertension Is this a current diagnosis for this admission?: Yes Plan: Continue current medication management. (4) Pulmonary hypertension Is this a current diagnosis for this admission?: Yes Plan: Continue current medication management. (5) Anemia in chronic kidney disease, on chronic dialysis Is this a current diagnosis for this admission?: Yes Plan: Transfuse 2 units PRBC with post transfusion CBC. (6) ESRD (end stage renal disease) Is this a current diagnosis for this admission?: Yes Plan: Continue current medication management and PD support. (7) Gastroesophageal reflux Qualifiers: Esophagitis presence: esophagitis presence not specified Qualified Code(s): K21.9 - Gastro-esophageal reflux disease without esophagitis Is this a current diagnosis for this admission?: Yes Plan: Maintain on Famotidine 20 mg po qeod (8) Systemic lupus Qualifiers: Systemic lupus erythematosus type: unspecified Systemic lupus erythematosus organ involvement: unspecified Qualified Code(s): M32.9 - Systemic lupus erythematosus, unspecified Is this a current diagnosis for this admission?: Yes Plan: Continue current medication management. - Time Time Spent with patient: 25-34 minutes Level of Care: MEDICAL Medications reviewed and adjusted accordingly: Yes Anticipated discharge: Home with Homehealth Anticipated DC Timeframe: within 72 hours - Inpatient Certification Based on my medical assessment, after consideration of the patient's comorbidities, presenting symptoms, or acuity I expect that the services needed warrant INPATIENT care.: Yes I certify that my determination is in accordance with my understanding of Medicare's requirements for reasonable and necessary INPATIENT services [42 CFR 412.3e].: Yes Medical Necessity: Significant Comorbidiites Make Outpatient Treatment Too Risky, Need Close Monitoring Due to Risk of Patient Decompensation, Need For Continuous Telemetry Monitoring, Risk of Complication if Not Cared For in Hospital, Risk of Diagnosis Which Will Require Inpatient Eval/Care/Monitoring Post Hospital Care: D/C Book Agent Documentation - Plan Summary Plan Summary: Continue current medication management. Start on fluid restriction at 1200 ml/day.
[2020-06-13] MEDS: HYDROXYCHLOROQUINE SULFATE 200 MG TABLET PO SCH (14:14)
[2020-06-13] MEDS: FUROSEMIDE INJ/PF 100 MG/10 ML SDV IV SCH ×2 (14:14→21:39)
[2020-06-13] MEDS: FAMOTIDINE 20 MG TABLET PO SCH (17:48)
--- NOTE | 2020-06-13 17:52 | RADIOLOGY REPORT (SQ) ---
EXAM DESCRIPTION: KUB/ABDOMEN (SINGLE VIEW) IMAGES COMPLETED DATE/TIME: 06/13/2020 5:30 pm REASON FOR STUDY: PD COMPARISON: 05/05/2020 NUMBER OF VIEWS: One view. TECHNIQUE: Supine radiographic image of the abdomen acquired. LIMITATIONS: None. FINDINGS: BOWEL GAS PATTERN: There is a paucity of enteric gas. Gas and stool are seen within the c olon to the level of the rectum. CALCIFICATIONS: No suspicious calcifications. SOFT TISSUES: Obscuration of the visceral shadows suggests ascites. HARDWARE: A catheter overlies the left lower quadrant. BONES: No acute fracture. No worrisome bone lesions. OTHER: No other significant finding. IMPRESSION: Radiographic findings suggest ascites. Please note ultrasound is both more sensitive an d specific for the evaluation of intra-abdominal fluid. TECHNICAL DOCUMENTATION: JOB ID: [id number] 2010 [employer]- All Rights Reserved Reading location - IP/workstation name: [email or web address]
[2020-06-13] MEDS ORDERED: LACTULOSE SYRUP 20 GM/30 ML UDCUP PO ONE (19:15)
[2020-06-13] MEDS ORDERED: DOCUSATE SODIUM 100 MG CAPSULE PO ONE (20:00)
[2020-06-14] MEDS: OXYCODONE-ACETAMINOPHEN 5-325 MG TABLET PO PRN ×4 (05:40→23:48)
[2020-06-14 05:45] LABS: ABSOLUTE EOSINOPHILS # (AUTO) 0.4 10^3/uL (0.0-0.6); ABSOLUTE LYMPHOCYTES (AUTO) 1.2 10^3/uL (0.5-4.7); ABSOLUTE MONOCYTES (AUTO) 0.8 10^3/uL (0.1-1.4); ABSOLUTE NEUT (AUTO) 4.7 10^3/uL (1.7-8.2); BASOPHILS % (AUTO) 0.6 % (0-2); EOSINOPHILS % (AUTO) 5.8 % (0-6); HEMATOCRIT 19.7 % (36.0-47.0); LYMPHOCYTES % (AUTO) 17.2 % (13-45); MEAN CORPUSCULAR HEMOGLOBIN 29.9 pg (27.0-33.4); MEAN CORPUSCULAR HGB CONC 33.5 g/dL (32.0-36.0); MEAN CORPUSCULAR VOLUME 89 fl (80-97); MONOCYTES % (AUTO) 10.7 % (3-13); PLATELET COUNT 267 10^3/uL (150-450); RED BLOOD COUNT 2.21 10^6/uL (3.72-5.28); RED CELL DISTRIBUTION WIDTH 15.7 % (11.5-14.0); SEGMENTED NEUTROPHILS % (AUTO) 65.7 % (42-78); TOTAL CELLS COUNTED % (AUTO) 100 %; WHITE BLOOD COUNT 7.2 10^3/uL (4.0-10.5)
[2020-06-14 05:56] LABS: HEMOGLOBIN 6.6 g/dL (12.0-15.5)
[2020-06-14 06:00] LABS: ANION GAP 10 (5-19); BLOOD UREA NITROGEN 85 mg/dL (7-20); CALCIUM 8.6 mg/dL (8.4-10.2); CARBON DIOXIDE 26 mmol/L (22-30); CHLORIDE 95 mmol/L (98-107); GLUCOSE 150 mg/dL (75-110); PHOSPHORUS 8.5 mg/dL (2.5-4.5); POTASSIUM 4.5 mmol/L (3.6-5.0)
[2020-06-14] MEDS: SEVELAMER HCL 800 MG TABLET PO SCH ×3 (07:40→17:27)
[2020-06-14] MEDS: CLONIDINE HCL 0.1 MG TABLET PO SCH ×2 (09:37→17:27)
[2020-06-14] MEDS: HYDROXYCHLOROQUINE SULFATE 200 MG TABLET PO SCH (09:37)
[2020-06-14] MEDS: LOSARTAN POTASSIUM 25 MG TABLET PO SCH ×2 (09:38→22:51)
[2020-06-14] MEDS: AMLODIPINE BESYLATE 5 MG TABLET PO SCH ×2 (09:38→22:00)
[2020-06-14] MEDS: GENTAMICIN SULFATE 0.1% CREAM 15 GM TP SCH (09:38)
--- NOTE | 2020-06-14 12:11 | PDOC PROGRESS REPORT ---
Subjective Date:: 06/14/20 Subjective:: Patient had issue with constipation since last clinical evaluation that resolved with administration of lactulose and Colace. PD on hold due to reported abdominal pain related to her constipation. No fever or chills. No chest pain or difficulty with breathing. No nausea or vomiting. Persistently low hemoglobin justified with blood transfusion. Reason For Visit: CHF, ESRD ON PERITONEAL DIALYSIS, SLE Physical Exam Vital Signs: Temp Pulse Resp BP Pulse Ox 97.6 F 82 16 103/69 98 06/14/20 07:13 06/14/20 10:12 06/14/20 07:13 06/14/20 10:12 06/14/20 07:13 Intake & Output 06/13/20 06/14/20 06/15/20 06:59 06:59 06:59 Intake Total 9182 6228 2000 Output Total 8500 4500 2200 Balance 682 1728 -200 Weight 59.5 kg 62.4 kg 60.9 kg Physical Exam: General appearance: PRESENT: no acute distress Head exam: PRESENT: atraumatic, normocephalic Eye exam: PRESENT: conjunctiva pale. ABSENT: scleral icterus Respiratory exam: PRESENT: clear to auscultation coco, decreased breath sounds - at lung bases Cardiovascular exam: PRESENT: RRR, +S1, +S2. ABSENT: diastolic murmur, rubs, systolic murmur Extremities exam: ABSENT: pedal edema Neurological exam: PRESENT: alert, awake, oriented to person, oriented to place, oriented to time, oriented to situation, CN II-XII grossly intact. ABSENT: motor sensory deficit Skin exam: PRESENT: dry, warm Results Laboratory Results: 06/14/20 05:23 06/14/20 05:23 06/13/20 06/13/20 06/13/20 12:30 12:30 14:48 WBC 9.5 RBC 2.31 L Hgb 7.0 L Hct 20.6 L MCV 89 MCH 30.3 MCHC 33.9 RDW 15.9 H Plt Count 288 Seg Neutrophils % 71.1 Sodium 132.8 L Potassium 4.9 Chloride 94 L Carbon Dioxide 28 Anion Gap 11 BUN 83 H Creatinine 12.35 H Est GFR ( Amer) 4 L Glucose 108 Calcium 8.6 Phosphorus Total Bilirubin 0.4 AST 31 Alkaline Phosphatase 98 Total Protein 5.5 L Albumin 2.8 L Blood Type O POSITIVE Antibody Screen NEGATIVE 06/14/20 06/14/20 05:23 05:23 WBC 7.2 RBC 2.21 L Hgb 6.6 L Hct 19.7 L MCV 89 MCH 29.9 MCHC 33.5 RDW 15.7 H Plt Count 267 Seg Neutrophils % 65.7 Sodium 130.9 L Potassium 4.5 Chloride 95 L Carbon Dioxide 26 Anion Gap 10 BUN 85 H Creatinine 11.36 H Est GFR ( Amer) 4 L Glucose 150 H Calcium 8.6 Phosphorus 8.5 H Total Bilirubin AST Alkaline Phosphatase Total Protein Albumin Blood Type Antibody Screen 06/11/20 14:20 NT-Pro-B Natriuret Pep [id number] H Impressions: Chest X-Ray 06/11/20 00:00 IMPRESSION: Bilateral pleural effusions with basilar airspace disease either atelectasis or edema. Mild cardiomegaly. No pneumothorax. KUB X-Ray 06/13/20 00:00 IMPRESSION: Radiographic findings suggest ascites. Please note ultrasound is both more sensitive and specific for the evaluation of intra-abdominal fluid. Assessment & Plan - Diagnosis (1) Acute systolic heart failure Is this a current diagnosis for this admission?: Yes (2) Mitral valve regurgitation Qualifiers: Cardiac valve disease etiology: etiology unspecified Qualified Code(s): I34.0 - Nonrheumatic mitral (valve) insufficiency Is this a current diagnosis for this admission?: Yes (3) Hypertension Qualifiers: Hypertension type: essential hypertension Qualified Code(s): I10 - Essential (primary) hypertension Is this a current diagnosis for this admission?: Yes (4) Pulmonary hypertension Is this a current diagnosis for this admission?: Yes (5) Anemia in chronic kidney disease, on chronic dialysis Is this a current diagnosis for this admission?: Yes Plan: Schedule for 1 unit PRBC transfusion today. (6) ESRD (end stage renal disease) Is this a current diagnosis for this admission?: Yes (7) Gastroesophageal reflux Qualifiers: Esophagitis presence: esophagitis presence not specified Qualified Code(s): K21.9 - Gastro-esophageal reflux disease without esophagitis Is this a current diagnosis for this admission?: Yes (8) Systemic lupus Qualifiers: Systemic lupus erythematosus type: unspecified Systemic lupus erythematosus organ involvement: unspecified Qualified Code(s): M32.9 - Systemic lupus erythematosus, unspecified Is this a current diagnosis for this admission?: Yes (9) Constipation by delayed colonic transit Is this a current diagnosis for this admission?: Yes Plan: Start on Colace 100 mg po qhs. - Time Time Spent with patient: 25-34 minutes Level of Care: MEDICAL Medications reviewed and adjusted accordingly: Yes Anticipated discharge: Home with Homehealth Anticipated DC Timeframe: within 72 hours - Inpatient Certification Based on my medical assessment, after consideration of the patient's comorbidities, presenting symptoms, or acuity I expect that the services needed warrant INPATIENT care.: Yes I certify that my determination is in accordance with my understanding of Medicare's requirements for reasonable and necessary INPATIENT services [42 CFR 412.3e].: Yes Medical Necessity: Significant Comorbidiites Make Outpatient Treatment Too Risky, Need Close Monitoring Due to Risk of Patient Decompensation, Need For Continuous Telemetry Monitoring, Risk of Complication if Not Cared For in Hospital, Risk of Diagnosis Which Will Require Inpatient Eval/Care/Monitoring Post Hospital Care: D/C Yardage Control Clerk Documentation - Plan Summary Plan Summary: Continue all current medication management. Start on Colace 100mg po qhs. Follow up on post blood transfusion CBC.
--- NOTE | 2020-06-14 14:41 | Progress Note ---
Provider Note Provider Note: .CARDIOLOGY PROGRESS NOTE by Dr. Ana Alvarez on 06/14. SUBJECTIVE: The patient states that her leg edema is improved and she is pulled out more fluid with peritoneal dialysis. She denies any chest pain discomfort. There is no shortness of breath. There is no PND orthopnea. His leg edema is decreased. She complains of joint pains due to her lupus. There is no arrhythmias seen on the monitor. She states now her joint pains due to her lupus is well controlled with current analgesics. Physical EXAMINATION: Patient is well-built and well-nourished in no acute distress. Selected Entries 06/14/20 10:42 Temperature 98.2 F Temperature Oral Source Pulse Rate 80 Respiratory 16 Rate Blood Pressure 123/86 H Blood Pressure 98 Mean BP Location Right Arm BP Position Supine O2 Sat by Pulse 95 Oximetry Oxygen Delivery Room Air Method HEAD: Is atraumatic normocephalic. EYES: Pupils are equal round regular reactive to light accommodation. Extraocular movements are normal. There is no conjunctival pallor. There is no scleral icterus. EARS: Tympanic membranes are intact. External auditory canals are clear. NOSE:" There is no deviated nasal septum. There is no inflammation of the nasal mucous membrane. MOUTH: Mucous membranes of mouth are moist. Tongue is moist. There is no ulcers. There is no bleeding from the gums. THROAT: There is no redness of the oropharynx. There is no exudates. SKIN: There is no skin rashes. There is no petechia or ecchymosis. There is no skin lesions. NECK: Is supple. There is JVD present. Carotids are equal there is no bruit. There is no lymphadenopathy. There is no goiter. There is no lymphadenopathy. There is no accessory muscles of respiration use. Trachea central. LUNGS: There is an absent area of breath sounds in the bases. Above this, there are a few bibasilar rales of CHF. HEART: S1-S2 is heard. There is no S3 gallop. There is no S4 gallop. There is systolic murmur left sternal border and the apex there is no rub. ABDOMEN: Soft. Nontender. There is a PD catheter in situ. Bowel sounds are well heard. There is no hepatosplenomegaly. Bowel sounds are well heard. EXTREMITIES: Femorals are diminished. Leg pulses well felt. There is very mild edema bilaterally. There is no DVT or cellulitis. There is no cyanosis or clubbing. There is no calf tenderness. BRICK OR BLOCK MAKER: The patient is conscious awake alert oriented x3 with no focal deficits. PSYCHIATRIC: Patient judgment insight are intact and affect is normal. Labs- All tests 24 hr 06/13/20 06/13/20 06/14/20 14:48 15:49 05:23 WBC 7.2 RBC 2.21 L Hgb 6.6 L Hct 19.7 L MCV 89 MCH 29.9 MCHC 33.5 RDW 15.7 H Plt Count 267 Lymph % (Auto) 17.2 Ferry % (Auto) 10.7 Eos % (Auto) 5.8 Baso % (Auto) 0.6 Absolute Neuts (auto) 4.7 Absolute Lymphs (auto) 1.2 Absolute Monos (auto) 0.8 Absolute Eos (auto) 0.4 Absolute Basos (auto) 0.0 Seg Neutrophils % 65.7 Sodium Potassium Chloride Carbon Dioxide Anion Gap BUN Creatinine Est GFR ( Amer) Est GFR (MDRD) Non-Af Glucose Calcium Phosphorus Blood Type O POSITIVE Blood Type Confirm O POSITIVE Antibody Screen NEGATIVE Ab Screen Tube Method POSITIVE Prewarmed Antibody Srcn NEGATIVE Antibody Identification Cold Antibody Crossmatch See Detail 06/14/20 05:23 WBC RBC Hgb Hct MCV MCH MCHC RDW Plt Count Lymph % (Auto) Ferry % (Auto) Eos % (Auto) Baso % (Auto) Absolute Neuts (auto) Absolute Lymphs (auto) Absolute Monos (auto) Absolute Eos (auto) Absolute Basos (auto) Seg Neutrophils % Sodium 130.9 L Potassium 4.5 Chloride 95 L Carbon Dioxide 26 Anion Gap 10 BUN 85 H Creatinine 11.36 H Est GFR ( Amer) 4 L Est GFR (MDRD) Non-Af 4 L Glucose 150 H Calcium 8.6 Phosphorus 8.5 H Blood Type Blood Type Confirm Antibody Screen Ab Screen Tube Method Prewarmed Antibody Srcn Antibody Identification Crossmatch Labs- Entire Visit 06/11/20 06/11/20 06/11/20 14:20 14:20 14:20 WBC 9.9 RBC 2.46 L Hgb 7.5 L Hct 22.3 L MCV 91 MCH 30.5 MCHC 33.6 RDW 15.6 H Plt Count 303 Lymph % (Auto) 18.4 Ferry % (Auto) 9.2 Eos % (Auto) 4.6 Baso % (Auto) 0.7 Absolute Neuts (auto) 6.6 Absolute Lymphs (auto) 1.8 Absolute Monos (auto) 0.9 Absolute Eos (auto) 0.5 Absolute Basos (auto) 0.1 Seg Neutrophils % 67.1 Sodium 137.8 Potassium 6.0 H* Chloride 99 Carbon Dioxide 23 Anion Gap 16 BUN 91 H Creatinine 13.66 H Est GFR ( Amer) 4 L Est GFR (MDRD) Non-Af 3 L Glucose 100 Calcium 9.4 Phosphorus Magnesium Iron 33.9 L TIBC 296 % Saturation 11 Ferritin 732.00 H Total Bilirubin 0.5 Direct Bilirubin 0.5 H Neonat Total Bilirubin Not Reportable Neonat Direct Bilirubin Not Reportable Neonat Indirect Bili Not Reportable AST 85 H ALT 84 H Alkaline Phosphatase 127 H C-Reactive Protein 23.6 H NT-Pro-B Natriuret Pep [id number] H Total Protein 6.3 Albumin 3.5 TSH Free T4 PTH Intact Blood Type Blood Type Confirm Antibody Screen Ab Screen Tube Method Prewarmed Antibody Srcn Antibody Identification Crossmatch 06/11/20 06/11/20 06/12/20 14:20 21:48 05:48 WBC 8.0 RBC 2.12 L Hgb 6.4 L Hct 18.8 L MCV 89 MCH 30.4 MCHC 34.2 RDW 15.7 H Plt Count 259 Lymph % (Auto) 16.1 Ferry % (Auto) 12.1 Eos % (Auto) 7.1 H Baso % (Auto) 1.3 Absolute Neuts (auto) 5.1 Absolute Lymphs (auto) 1.3 Absolute Monos (auto) 1.0 Absolute Eos (auto) 0.6 Absolute Basos (auto) 0.1 Seg Neutrophils % 63.4 Sodium 134.6 L Potassium 5.1 H Chloride 99 Carbon Dioxide 24 Anion Gap 12 BUN 94 H Creatinine 13.92 H Est GFR ( Amer) 4 L Est GFR (MDRD) Non-Af 3 L Glucose 107 Calcium 9.0 Phosphorus Magnesium Iron TIBC % Saturation Ferritin Total Bilirubin 0.4 Direct Bilirubin 0.3 Neonat Total Bilirubin Not Reportable Neonat Direct Bilirubin Not Reportable Neonat Indirect Bili Not Reportable AST 69 H ALT 77 H Alkaline Phosphatase 113 C-Reactive Protein NT-Pro-B Natriuret Pep Total Protein 5.2 L Albumin 2.7 L TSH 2.17 Free T4 1.25 PTH Intact Blood Type Blood Type Confirm Antibody Screen Ab Screen Tube Method Prewarmed Antibody Srcn Antibody Identification Crossmatch 06/12/20 06/12/20 06/13/20 05:48 05:48 12:30 WBC 9.5 RBC 2.31 L Hgb 7.0 L Hct 20.6 L MCV 89 MCH 30.3 MCHC 33.9 RDW 15.9 H Plt Count 288 Lymph % (Auto) 12.0 L Ferry % (Auto) 10.7 Eos % (Auto) 5.5 Baso % (Auto) 0.7 Absolute Neuts (auto) 6.8 Absolute Lymphs (auto) 1.1 Absolute Monos (auto) 1.0 Absolute Eos (auto) 0.5 Absolute Basos (auto) 0.1 Seg Neutrophils % 71.1 Sodium 134.4 L Potassium 5.2 H Chloride 99 Carbon Dioxide 25 Anion Gap 10 BUN 97 H Creatinine 12.97 H Est GFR ( Amer) 4 L Est GFR (MDRD) Non-Af 3 L Glucose 142 H Calcium 8.6 Phosphorus 9.2 H Magnesium 2.6 H Iron TIBC % Saturation Ferritin Total Bilirubin Direct Bilirubin Neonat Total Bilirubin Neonat Direct Bilirubin Neonat Indirect Bili AST ALT Alkaline Phosphatase C-Reactive Protein NT-Pro-B Natriuret Pep Total Protein Albumin TSH Free T4 PTH Intact 650.8 H Blood Type Blood Type Confirm Antibody Screen Ab Screen Tube Method Prewarmed Antibody Srcn Antibody Identification Crossmatch 06/13/20 06/13/20 06/13/20 12:30 14:48 15:49 WBC RBC Hgb Hct MCV MCH MCHC RDW Plt Count Lymph % (Auto) Ferry % (Auto) Eos % (Auto) Baso % (Auto) Absolute Neuts (auto) Absolute Lymphs (auto) Absolute Monos (auto) Absolute Eos (auto) Absolute Basos (auto) Seg Neutrophils % Sodium 132.8 L Potassium 4.9 Chloride 94 L Carbon Dioxide 28 Anion Gap 11 BUN 83 H Creatinine 12.35 H Est GFR ( Amer) 4 L Est GFR (MDRD) Non-Af 3 L Glucose 108 Calcium 8.6 Phosphorus Magnesium Iron TIBC % Saturation Ferritin Total Bilirubin 0.4 Direct Bilirubin 0.4 Neonat Total Bilirubin Not Reportable Neonat Direct Bilirubin Not Reportable Neonat Indirect Bili Not Reportable AST 31 ALT 56 H Alkaline Phosphatase 98 C-Reactive Protein NT-Pro-B Natriuret Pep Total Protein 5.5 L Albumin 2.8 L TSH Free T4 PTH Intact Blood Type O POSITIVE Blood Type Confirm O POSITIVE Antibody Screen NEGATIVE Ab Screen Tube Method POSITIVE Prewarmed Antibody Srcn NEGATIVE Antibody Identification Cold Antibody Crossmatch See Detail 06/14/20 06/14/20 05:23 05:23 WBC 7.2 RBC 2.21 L Hgb 6.6 L Hct 19.7 L MCV 89 MCH 29.9 MCHC 33.5 RDW 15.7 H Plt Count 267 Lymph % (Auto) 17.2 Ferry % (Auto) 10.7 Eos % (Auto) 5.8 Baso % (Auto) 0.6 Absolute Neuts (auto) 4.7 Absolute Lymphs (auto) 1.2 Absolute Monos (auto) 0.8 Absolute Eos (auto) 0.4 Absolute Basos (auto) 0.0 Seg Neutrophils % 65.7 Sodium 130.9 L Potassium 4.5 Chloride 95 L Carbon Dioxide 26 Anion Gap 10 BUN 85 H Creatinine 11.36 H Est GFR ( Amer) 4 L Est GFR (MDRD) Non-Af 4 L Glucose 150 H Calcium 8.6 Phosphorus 8.5 H Magnesium Iron TIBC % Saturation Ferritin Total Bilirubin Direct Bilirubin Neonat Total Bilirubin Neonat Direct Bilirubin Neonat Indirect Bili AST ALT Alkaline Phosphatase C-Reactive Protein NT-Pro-B Natriuret Pep Total Protein Albumin TSH Free T4 PTH Intact Blood Type Blood Type Confirm Antibody Screen Ab Screen Tube Method Prewarmed Antibody Srcn Antibody Identification Crossmatch Chest X-Ray 06/11/20 00:00 IMPRESSION: Bilateral pleural effusions with basilar airspace disease either atelectasis or edema. Mild cardiomegaly. No pneumothorax. KUB X-Ray 06/13/20 00:00 IMPRESSION: Radiographic findings suggest ascites. Please note ultrasound is both more sensitive and specific for the evaluation of intra-abdominal fluid. IMPRESSION/RECOMMENDATION: 1. Acute systolic heart failure. Continue peritoneal dialysis. In view of the patient's end-stage renal disease. Note dialysis is the most effective way to pull out fluid. 2. Cardiomyopathy with mildly reduced LV ejection fraction. 3. Severe eccentric mitral regurgitation: Will continue losartan. 4. Severe pulmonary hypertension: We will continue the patient on losartan and increase as tolerated. We will also increase the patient's amlodipine to 5 mg p.o. twice daily. 5. Hypertension: Blood pressure is well controlled on current doses of amlodipine and hydralazine. 6. End-stage renal disease on peritoneal dialysis: Nephrology on the case. Continue peritoneal dialysis. 7. Systemic lupus erythematosus with lupus nephritis. 8. Multiple CAD risk factors namely age, hypertension,. We will check the patient's lipid status. Medication reviewed medications adjusted. Medical decision making is of moderate complexity. 40 minutes spent as patient more than 50% of time spent in direct patient care.
[2020-06-14] MEDS: FUROSEMIDE INJ/PF 100 MG/10 ML SDV IV SCH ×2 (17:27→22:00)
[2020-06-14] MEDS: ONDANSETRON HCL INJ/PF 4 MG/2 ML SDV IV PRN (17:27)
[2020-06-14 20:34] LABS: ABSOLUTE EOSINOPHILS # (AUTO) 0.4 10^3/uL (0.0-0.6); ABSOLUTE NEUT (AUTO) 7.1 10^3/uL (1.7-8.2); BASOPHILS % (AUTO) 0.4 % (0-2); HEMATOCRIT 26.5 % (36.0-47.0); LYMPHOCYTES % (AUTO) 10.6 % (13-45); MEAN CORPUSCULAR HEMOGLOBIN 30.7 pg (27.0-33.4); MEAN CORPUSCULAR HGB CONC 33.8 g/dL (32.0-36.0); MEAN CORPUSCULAR VOLUME 91 fl (80-97); MONOCYTES % (AUTO) 10.2 % (3-13); PLATELET COUNT 297 10^3/uL (150-450); RED BLOOD COUNT 2.92 10^6/uL (3.72-5.28); RED CELL DISTRIBUTION WIDTH 16.1 % (11.5-14.0); SEGMENTED NEUTROPHILS % (AUTO) 74.8 % (42-78); TOTAL CELLS COUNTED % (AUTO) 100 %; WHITE BLOOD COUNT 9.5 10^3/uL (4.0-10.5)
[2020-06-14] MEDS: DOCUSATE SODIUM 100 MG CAPSULE PO SCH (22:00)
[2020-06-15] MEDS: OXYCODONE-ACETAMINOPHEN 5-325 MG TABLET PO PRN ×3 (03:47→22:19)
[2020-06-15 04:54] LABS: ABSOLUTE EOSINOPHILS # (AUTO) 0.4 10^3/uL (0.0-0.6); ABSOLUTE LYMPHOCYTES (AUTO) 1.6 10^3/uL (0.5-4.7); ABSOLUTE MONOCYTES (AUTO) 1.3 10^3/uL (0.1-1.4); ABSOLUTE NEUT (AUTO) 8.2 10^3/uL (1.7-8.2); BASOPHILS % (AUTO) 0.4 % (0-2); EOSINOPHILS % (AUTO) 3.7 % (0-6); HEMATOCRIT 26.1 % (36.0-47.0); HEMOGLOBIN 8.8 g/dL (12.0-15.5); MEAN CORPUSCULAR HEMOGLOBIN 30.2 pg (27.0-33.4); MEAN CORPUSCULAR HGB CONC 33.7 g/dL (32.0-36.0); MEAN CORPUSCULAR VOLUME 90 fl (80-97); MONOCYTES % (AUTO) 10.8 % (3-13); PLATELET COUNT 307 10^3/uL (150-450); RED BLOOD COUNT 2.92 10^6/uL (3.72-5.28); SEGMENTED NEUTROPHILS % (AUTO) 71.1 % (42-78); TOTAL CELLS COUNTED % (AUTO) 100 %; WHITE BLOOD COUNT 11.6 10^3/uL (4.0-10.5)
[2020-06-15 05:08] LABS: ANION GAP 10 (5-19); BLOOD UREA NITROGEN 76 mg/dL (7-20); CALCIUM 9.1 mg/dL (8.4-10.2); CARBON DIOXIDE 26 mmol/L (22-30); CHLORIDE 96 mmol/L (98-107); GLUCOSE 72 mg/dL (75-110); POTASSIUM 4.5 mmol/L (3.6-5.0)
[2020-06-15] MEDS: SEVELAMER HCL 800 MG TABLET PO SCH ×3 (07:12→16:33)
--- NOTE | 2020-06-15 10:39 | PDOC PROGRESS REPORT ---
Subjective Date:: 06/15/20 Subjective:: Patient continue to experience constipation. No fever or chills. No chest pain or difficulty with breathing. No nausea or vomiting. Reason For Visit: CHF, ESRD ON PERITONEAL DIALYSIS, SLE Physical Exam Vital Signs: Temp Pulse Resp BP Pulse Ox 97.9 F 84 16 141/95 H 95 06/15/20 07:22 06/15/20 10:15 06/15/20 07:22 06/15/20 10:15 06/15/20 07:22 Intake & Output 06/14/20 06/15/20 06/16/20 06:59 06:59 06:59 Intake Total 6228 8735 Output Total 4500 9850 Balance 1728 -1115 Weight 62.4 kg 61.1 kg Physical Exam: General appearance: PRESENT: no acute distress Head exam: PRESENT: atraumatic, normocephalic Eye exam: PRESENT: conjunctiva pink. ABSENT: pallor, scleral icterus Respiratory exam: PRESENT: clear to auscultation coco, decreased breath sounds - at lung bases Cardiovascular exam: PRESENT: RRR, +S1, +S2. ABSENT: diastolic murmur, rubs, systolic murmur Extremities exam: ABSENT: pedal edema Neurological exam: PRESENT: alert, awake, oriented to person, oriented to place, oriented to time, oriented to situation, CN II-XII grossly intact. ABSENT: motor sensory deficit Skin exam: PRESENT: dry, warm Results Laboratory Results: 06/15/20 04:29 06/15/20 04:29 06/13/20 06/14/20 06/15/20 14:48 20:13 04:29 WBC 9.5 11.6 H RBC 2.92 L 2.92 L Hgb 9.0 L D 8.8 L Hct 26.5 L 26.1 L MCV 91 90 MCH 30.7 30.2 MCHC 33.8 33.7 RDW 16.1 H 16.0 H Plt Count 297 307 Seg Neutrophils % 74.8 71.1 Sodium Potassium Chloride Carbon Dioxide Anion Gap BUN Creatinine Est GFR ( Amer) Glucose Calcium Blood Type O POSITIVE Antibody Screen NEGATIVE 06/15/20 04:29 WBC RBC Hgb Hct MCV MCH MCHC RDW Plt Count Seg Neutrophils % Sodium 132.4 L Potassium 4.5 Chloride 96 L Carbon Dioxide 26 Anion Gap 10 BUN 76 H Creatinine 10.70 H Est GFR ( Amer) 5 L Glucose 72 L Calcium 9.1 Blood Type Antibody Screen 06/11/20 14:20 NT-Pro-B Natriuret Pep [id number] H Impressions: Chest X-Ray 06/11/20 00:00 IMPRESSION: Bilateral pleural effusions with basilar airspace disease either atelectasis or edema. Mild cardiomegaly. No pneumothorax. KUB X-Ray 06/13/20 00:00 IMPRESSION: Radiographic findings suggest ascites. Please note ultrasound is both more sensitive and specific for the evaluation of intra-abdominal fluid. Assessment & Plan - Diagnosis (1) Acute systolic heart failure Is this a current diagnosis for this admission?: Yes (2) Mitral valve regurgitation Qualifiers: Cardiac valve disease etiology: etiology unspecified Qualified Code(s): I34.0 - Nonrheumatic mitral (valve) insufficiency Is this a current diagnosis for this admission?: Yes (3) Hypertension Qualifiers: Hypertension type: essential hypertension Qualified Code(s): I10 - Essential (primary) hypertension Is this a current diagnosis for this admission?: Yes (4) Pulmonary hypertension Is this a current diagnosis for this admission?: Yes (5) Anemia in chronic kidney disease, on chronic dialysis Is this a current diagnosis for this admission?: Yes (6) ESRD (end stage renal disease) Is this a current diagnosis for this admission?: Yes (7) Gastroesophageal reflux Qualifiers: Esophagitis presence: esophagitis presence not specified Qualified Code(s): K21.9 - Gastro-esophageal reflux disease without esophagitis Is this a current diagnosis for this admission?: Yes (8) Systemic lupus Qualifiers: Systemic lupus erythematosus type: unspecified Systemic lupus erythematosus organ involvement: unspecified Qualified Code(s): M32.9 - Systemic lupus erythematosus, unspecified Is this a current diagnosis for this admission?: Yes (9) Constipation by delayed colonic transit Is this a current diagnosis for this admission?: Yes - Time Time Spent with patient: 25-34 minutes Level of Care: MEDICAL Medications reviewed and adjusted accordingly: Yes Anticipated discharge: Home with Homehealth Anticipated DC Timeframe: within 72 hours - Inpatient Certification Based on my medical assessment, after consideration of the patient's comorbidities, presenting symptoms, or acuity I expect that the services needed warrant INPATIENT care.: Yes I certify that my determination is in accordance with my understanding of Medicare's requirements for reasonable and necessary INPATIENT services [42 CFR 412.3e].: Yes Medical Necessity: Significant Comorbidiites Make Outpatient Treatment Too Risky, Need Close Monitoring Due to Risk of Patient Decompensation, Need For Continuous Telemetry Monitoring, Risk of Complication if Not Cared For in Hospital, Risk of Diagnosis Which Will Require Inpatient Eval/Care/Monitoring 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 Maintain on all other current medication management.
[2020-06-15] MEDS: CLONIDINE HCL 0.1 MG TABLET PO SCH ×2 (10:50→19:00)
[2020-06-15] MEDS: FUROSEMIDE INJ/PF 100 MG/10 ML SDV IV SCH ×2 (10:51→22:19)
[2020-06-15] MEDS: AMLODIPINE BESYLATE 5 MG TABLET PO SCH ×2 (10:51→22:19)
[2020-06-15] MEDS: LOSARTAN POTASSIUM 25 MG TABLET PO SCH ×2 (10:52→22:21)
[2020-06-15] MEDS: HYDROXYCHLOROQUINE SULFATE 200 MG TABLET PO SCH (10:52)
[2020-06-15] MEDS: FAMOTIDINE 20 MG TABLET PO SCH (10:52)
[2020-06-15] MEDS: GENTAMICIN SULFATE 0.1% CREAM 15 GM TP SCH (10:53)
[2020-06-15] MEDS: ONDANSETRON HCL INJ/PF 4 MG/2 ML SDV IV PRN ×3 (10:57→22:30)
[2020-06-15] MEDS ORDERED: LACTULOSE SYRUP 20 GM/30 ML UDCUP PO ONE (11:15)
[2020-06-15] MEDS ORDERED: BISACODYL 10 MG SUPP.RECT PR ONE (18:00)
--- NOTE | 2020-06-15 20:02 | Progress Note ---
Provider Note Provider Note: CARDIOLOGY PROGRESS NOTE by Dr. Ana Alvarez on 06/15/2020. Subjective: The Patient Denies Any Chest Pain Discomfort. And Her Leg Edema Is Much Improved. There Is No PND Orthopnea. There Is No Arrhythmias Seen on the Monitor. Physical EXAMINATION: The patient well-built and well-nourished in no acute dis tress. Selected Entries 06/15/20 15:54 Temperature 98.4 F Temperature Oral Source Pulse Rate 86 Respiratory 16 Rate Blood Pressure 117/85 Blood Pressure 95 Mean BP Location Left Arm BP Position Supine O2 Sat by Pulse 93 Oximetry Oxygen Delivery Room Air Method HEAD: Is atraumatic normocephalic. EYES: Pupils are equal round regular reactive to light accommodation. Extraocular movements are normal. There is no conjunctival pallor. There is no scleral icterus. EARS: Tympanic membranes are intact. External auditory canals are clear. NOSE:" There is no deviated nasal septum. There is no inflammation of the nasal mucous membrane. MOUTH: Mucous membranes of mouth are moist. Tongue is moist. There is no ulcers. There is no bleeding from the gums. THROAT: There is no redness of the oropharynx. There is no exudates. SKIN: There is no skin rashes. There is no petechia or ecchymosis. There is no skin lesions. NECK: Is supple. There is JVD present. Carotids are equal there is no bruit. There is no lymphadenopathy. There is no goiter. There is no lymphadenopathy. There is no accessory muscles of respiration use. Trachea central. LUNGS: There is an absent area of breath sounds in the bases. Above this, there are a few bibasilar rales of CHF. HEART: S1-S2 is heard. There is no S3 gallop. There is no S4 gallop. There is systolic murmur left sternal border and the apex there is no rub. ABDOMEN: Soft. Nontender. There is a PD catheter in situ. Bowel sounds are well heard. There is no hepatosplenomegaly. Bowel sounds are well heard. EXTREMITIES: Femorals are diminished. Leg pulses well felt. There is very mild edema bilaterally. There is no DVT or cellulitis. There is no cyanosis or clubbing. There is no calf tenderness. RADIOCHEMICAL TECHNICIAN: The patient is conscious awake alert oriented x3 with no focal deficits. PSYCHIATRIC: Patient judgment insight are intact and affect is normal. Labs- All tests 24 hr 06/14/20 06/15/20 06/15/20 20:13 04:29 04:29 WBC 9.5 11.6 H RBC 2.92 L 2.92 L Hgb 9.0 L D 8.8 L Hct 26.5 L 26.1 L MCV 91 90 MCH 30.7 30.2 MCHC 33.8 33.7 RDW 16.1 H 16.0 H Plt Count 297 307 Lymph % (Auto) 10.6 L 14.0 [place] % (Auto) 10.2 10.8 Eos % (Auto) 4.0 3.7 Baso % (Auto) 0.4 0.4 Absolute Neuts (auto) 7.1 8.2 Absolute Lymphs (auto) 1.0 1.6 Absolute Monos (auto) 1.0 1.3 Absolute Eos (auto) 0.4 0.4 Absolute Basos (auto) 0.0 0.0 Seg Neutrophils % 74.8 71.1 Sodium 132.4 L Potassium 4.5 Chloride 96 L Carbon Dioxide 26 Anion Gap 10 BUN 76 H Creatinine 10.70 H Est GFR ( Amer) 5 L Est GFR (MDRD) Non-Af 4 L Glucose 72 L Calcium 9.1 Chest X-Ray 06/11/20 00:00 IMPRESSION: Bilateral pleural effusions with basilar airspace disease either atelectasis or edema. Mild cardiomegaly. No pneumothorax. KUB X-Ray 06/13/20 00:00 IMPRESSION: Radiographic findings suggest ascites. Please note ultrasound is both more sensitive and specific for the evaluation of intra-abdominal fluid. IMPRESSION/RECOMMENDATION: 1. Acute systolic heart failure. Continue peritoneal dialysis. In view of the patient's end-stage renal disease. Note dialysis is the most effective way to pull out fluid. 2. Cardiomyopathy with mildly reduced LV ejection fraction. 3. Severe eccentric mitral regurgitation: Will continue losartan. 4. Severe pulmonary hypertension: We will continue the patient on losartan and increase as tolerated. We will also increase the patient's amlodipine to 5 mg p.o. twice daily. 5. Hypertension: Blood pressure is well controlled on current doses of amlodipine and hydralazine. 6. End-stage renal disease on peritoneal dialysis: Nephrology on the case. Continue peritoneal dialysis. 7. Systemic lupus erythematosus with lupus nephritis. 8. Multiple CAD risk factors namely age, hypertension,. We will check the patient's lipid status. Medication reviewed medications adjusted. Medical decision making is of moderate complexity. 40 minutes spent as patient more than 50% of time spent in direct patient care.
[2020-06-15] MEDS: DOCUSATE SODIUM 100 MG CAPSULE PO SCH (22:19)
[2020-06-16] MEDS: OXYCODONE-ACETAMINOPHEN 5-325 MG TABLET PO PRN ×4 (04:12→23:01)
[2020-06-16 05:23] LABS: ABSOLUTE BASOPHILS # (AUTO) 0.1 10^3/uL (0.0-0.2); ABSOLUTE EOSINOPHILS # (AUTO) 0.5 10^3/uL (0.0-0.6); ABSOLUTE LYMPHOCYTES (AUTO) 1.5 10^3/uL (0.5-4.7); ABSOLUTE MONOCYTES (AUTO) 1.1 10^3/uL (0.1-1.4); ABSOLUTE NEUT (AUTO) 5.7 10^3/uL (1.7-8.2); BASOPHILS % (AUTO) 0.8 % (0-2); EOSINOPHILS % (AUTO) 5.3 % (0-6); HEMATOCRIT 26.3 % (36.0-47.0); LYMPHOCYTES % (AUTO) 17.6 % (13-45); MEAN CORPUSCULAR HEMOGLOBIN 31.1 pg (27.0-33.4); MEAN CORPUSCULAR HGB CONC 34.1 g/dL (32.0-36.0); MEAN CORPUSCULAR VOLUME 91 fl (80-97); MONOCYTES % (AUTO) 12.3 % (3-13); PLATELET COUNT 333 10^3/uL (150-450); RED BLOOD COUNT 2.88 10^6/uL (3.72-5.28); RED CELL DISTRIBUTION WIDTH 16.1 % (11.5-14.0); TOTAL CELLS COUNTED % (AUTO) 100 %; WHITE BLOOD COUNT 8.8 10^3/uL (4.0-10.5)
[2020-06-16 05:47] LABS: ANION GAP 10 (5-19); BLOOD UREA NITROGEN 71 mg/dL (7-20); CALCIUM 9.2 mg/dL (8.4-10.2); CARBON DIOXIDE 28 mmol/L (22-30); CHLORIDE 96 mmol/L (98-107); GLUCOSE 78 mg/dL (75-110); POTASSIUM 4.6 mmol/L (3.6-5.0)
[2020-06-16] MEDS: SEVELAMER HCL 800 MG TABLET PO SCH ×3 (07:44→17:05)
[2020-06-16] MEDS: LOSARTAN POTASSIUM 25 MG TABLET PO SCH ×2 (09:58→22:13)
[2020-06-16] MEDS: CLONIDINE HCL 0.1 MG TABLET PO SCH ×2 (09:58→18:26)
[2020-06-16] MEDS: AMLODIPINE BESYLATE 5 MG TABLET PO SCH (09:58)
[2020-06-16] MEDS: FUROSEMIDE INJ/PF 100 MG/10 ML SDV IV SCH ×2 (10:00→22:13)
[2020-06-16] MEDS: ONDANSETRON HCL INJ/PF 4 MG/2 ML SDV IV PRN ×3 (10:00→23:01)
[2020-06-16] MEDS: HYDROXYCHLOROQUINE SULFATE 200 MG TABLET PO SCH (10:00)
[2020-06-16] MEDS: GENTAMICIN SULFATE 0.1% CREAM 15 GM TP SCH (10:16)
--- NOTE | 2020-06-16 12:42 | PDOC PROGRESS REPORT ---
Subjective Date:: 06/16/20 Reason For Visit: Patient seen today. Underlying background history of ESRD on peritoneal yousif lysis which was not been done properly by the patient, hypertension, SLE, possible COPD was admitted with history of an constellation of symptoms suggestive of acute on chronic congestive heart failure. She was not doing proper dialysis and not properly draining fluids. Currently she been put on 2 .5/4.25 regimens of PD fluid and she is getting good ultrafiltration and her edema and other symptoms are whole lot better. She denies any history of chest pain or shortness of breath. Echocardiogram shows biventricular failure. Physical Exam Vital Signs: Temp Pulse Resp BP Pulse Ox 97.8 F 80 16 116/82 91 L 06/16/20 07:11 06/16/20 07:11 06/16/20 07:11 06/16/20 07:11 06/16/20 07:11 Intake & Output 06/15/20 06/16/20 06/17/20 06:59 06:59 06:59 Intake Total 8735 9100 20 Output Total 9850 59900 Balance -1114 20 Weight 61.1 kg 61.1 kg 59.2 kg General appearance: PRESENT: no acute distress Respiratory exam: PRESENT: clear to auscultation coco, decreased breath sounds. ABSENT: crackles Cardiovascular exam: PRESENT: +S1, +S2 GI/Abdominal exam: PRESENT: distended - From PD fluid, normal bowel sounds, soft. ABSENT: organomegaly, tenderness Extremities exam: PRESENT: +1 edema Neurological exam: PRESENT: alert, awake, oriented to person, oriented to place Psychiatric exam: PRESENT: appropriate affect Results Laboratory Results: 06/16/20 04:35 06/16/20 04:35 06/16/20 06/16/20 04:35 04:35 WBC 8.8 RBC 2.88 L Hgb 9.0 L Hct 26.3 L MCV 91 MCH 31.1 MCHC 34.1 RDW 16.1 H Plt Count 333 Seg Neutrophils % 64.0 Sodium 133.8 L Potassium 4.6 Chloride 96 L Carbon Dioxide 28 Anion Gap 10 BUN 71 H Creatinine 11.07 H Est GFR ( Amer) 5 L Glucose 78 Calcium 9.2 06/11/20 14:20 NT-Pro-B Natriuret Pep [id number] H Impressions: Chest X-Ray 06/11/20 00:00 IMPRESSION: Bilateral pleural effusions with basilar airspace disease either atelectasis or edema. Mild cardiomegaly. No pneumothorax. KUB X-Ray 06/13/20 00:00 IMPRESSION: Radiographic findings suggest ascites. Please note ultrasound is both more sensitive and specific for the evaluation of intra-abdominal fluid. Assessment & Plan - Diagnosis (1) Biventricular CHF (congestive heart failure) Plan: Patient improving with properly directed PD regimens. Unfortunately she was noncompliant and not doing proper PD at home which led to culmination of her current decompensated heart failure. However pulmonary hypertension is concerning and whether it is primary or secondary needs to be determined. Cardiology on board. (2) Non-compliance Is this a current diagnosis for this admission?: Yes Plan: As mentioned earlier. Hopefully she has learned from this admission. (3) ESRD (end-stage renal disease) due to SLE Plan: Patient currently on peritoneal dialysis which has not been done properly. Went through the basics again with her and with the treating nurse Yesi. Currently she is on a 2.5/4.25 alternating regimen with good ultrafiltration. Continue on current guidelines. Patient's biventricular heart failure seems to be i mproving. (4) Hypertension Qualifiers: Hypertension type: essential hypertension Qualified Code(s): I10 - Essential (primary) hypertension Is this a current diagnosis for this admission?: Yes Plan: Her blood pressure seems to be dropping with the removal of fluid and therefore will make titrations in her antihypertensives. Avoid hypotension. (5) Systemic lupus Qualifiers: Systemic lupus erythematosus type: unspecified Systemic lupus erythematosus organ involvement: unspecified Qualified Code(s): M32.9 - Systemic lupus erythematosus, unspecified Is this a current diagnosis for this admission?: Yes Plan: Currently on Plaquenil with no active symptoms. (6) Anemia in chronic kidney disease, on chronic dialysis Is this a current diagnosis for this admission?: Yes Plan: Was given Retacrit last week and will continue on the same this week as well. Monitor. (7) Renal osteodystrophy Plan: Uncontrolled with background history of noncompliance. Will recheck a phosphorus.
--- NOTE | 2020-06-16 20:56 | PDOC PROGRESS REPORT ---
Subjective Date:: 06/16/20 Subjective:: Patient seen by the bedside, she is a lot better than on admission, she was seen by the green meat grader and also the strategic analyst Reason For Visit: CHF, ESRD ON PERITONEAL DIALYSIS, SLE Physical Exam Vital Signs: Temp Pulse Resp BP Pulse Ox 97.8 F 76 16 109/80 100 06/16/20 16:20 06/16/20 16:20 06/16/20 16:20 06/16/20 16:20 06/16/20 16:20 Intake & Output 06/15/20 06/16/20 06/17/20 06:59 06:59 06:59 Intake Total 8735 9100 4380 Output Total 9842 0643557 0363 Balance -6533 -9643 -071 Weight 61.1 kg 61.1 kg 55.3 kg General appearance: PRESENT: no acute distress Eye exam: PRESENT: PERRLA Respiratory exam: PRESENT: clear to auscultation coco Cardiovascular exam: PRESENT: +S1, +S2 GI/Abdominal exam: PRESENT: soft Neurological exam: PRESENT: alert Results Laboratory Results: 06/16/20 04:35 06/16/20 04:35 06/16/20 06/16/20 04:35 04:35 WBC 8.8 RBC 2.88 L Hgb 9.0 L Hct 26.3 L MCV 91 MCH 31.1 MCHC 34.1 RDW 16.1 H Plt Count 333 Seg Neutrophils % 64.0 Sodium 133.8 L Potassium 4.6 Chloride 96 L Carbon Dioxide 28 Anion Gap 10 BUN 71 H Creatinine 11.07 H Est GFR ( Amer) 5 L Glucose 78 Calcium 9.2 06/11/20 14:20 NT-Pro-B Natriuret Pep [id number] H Impressions: Chest X-Ray 06/11/20 00:00 IMPRESSION: Bilateral pleural effusions with basilar airspace disease either atelectasis or edema. Mild cardiomegaly. No pneumothorax. KUB X-Ray 06/13/20 00:00 IMPRESSION: Radiographic findings suggest ascites. Please note ultrasound is both more sensitive and specific for the evaluation of intra-abdominal fluid. Assessment & Plan - Diagnosis (1) Acute systolic heart failure Is this a current diagnosis for this admission?: Yes (2) Pulmonary hypertension Is this a current diagnosis for this admission?: Yes (3) Mitral valve regurgitation Qualifiers: Cardiac valve disease etiology: etiology unspecified Qualified Code(s): I34.0 - Nonrheumatic mitral (valve) insufficiency Is this a current diagnosis for this admission?: Yes (4) ESRD (end stage renal disease) Is this a current diagnosis for this admission?: Yes (5) Hyperkalemia Is this a current diagnosis for this admission?: Yes (6) Systemic lupus Qualifiers: Systemic lupus erythematosus type: unspecified Systemic lupus erythematosus organ involvement: unspecified Qualified Code(s): M32.9 - Systemic lupus er ythematosus, unspecified Is this a current diagnosis for this admission?: Yes - Time Time Spent with patient: 35 or more minutes Level of Care: MEDICAL Medications reviewed and adjusted accordingly: Yes Anticipated discharge: Home Anticipated DC Timeframe: Other - Plan Summary Plan Summary: Continue present line of treatment
[2020-06-16] MEDS: DOCUSATE SODIUM 100 MG CAPSULE PO SCH (22:13)
--- NOTE | 2020-06-16 22:41 | Progress Note ---
Provider Note Provider Note: CARDIOLOGY PROGRESS NOTE by Dr. Ana Alvarez on 06/16/2020. Subjective: The Patient Denies Any Chest Pain Discomfort. And Her Leg Edema Is Much Improved. There Is No PND Orthopnea. There Is No Arrhythmias Seen on the Monitor. The patient's pulmonary hypertension is secondary pulmonary hyperte nsion. The secondary to the patient's lupus and left heart failure and her renal failure causing volume expansion. Physical EXAMINATION: The patient well-built and well-nourished in no acute distress Physical EXAMINATION: The patient well-built and well-nourished in no acute distress. Selected Entries 06/16/20 16:20 Temperature 97.8 F Temperature Oral Source Pulse Rate 76 Respiratory 16 Rate Blood Pressure 109/80 Blood Pressure 89 Mean BP Location Left Arm BP Position Supine O2 Sat by Pulse 100 Oximetry Oxygen Delivery Room Air Method HEAD: Is atraumatic normocephalic. EYES: Pupils are equal round regular reactive to light accommodation. Extraocular movements are normal. There is no conjunctival pallor. There is no scleral icterus. EARS: Tympanic membranes are intact. External auditory canals are clear. NOSE:" There is no deviated nasal septum. There is no inflammation of the nasal mucous membrane. MOUTH: Mucous membranes of mouth are moist. Tongue is moist. There is no ulcers. There is no bleeding from the gums. THROAT: There is no redness of the oropharynx. There is no exudates. SKIN: There is no skin rashes. There is no petechia or ecchymosis. There is no skin lesions. NECK: Is supple. There is JVD present. Carotids are equal there is no bruit. There is no lymphadenopathy. There is no goiter. There is no lymphadenopathy. There is no accessory muscles of respiration use. Trachea central. LUNGS: There is an absent area of breath sounds in the bases. Above this, there are a few bibasilar rales of CHF. HEART: S1-S2 is heard. There is no S3 gallop. There is no S4 gallop. There is systolic murmur left sternal border and the apex there is no rub. ABDOMEN: Soft. Nontender. There is a PD catheter in situ. Bowel sounds are well heard. There is no hepatosplenomegaly. Bowel sounds are well heard. EXTREMITIES: Femorals are diminished. Leg pulses well felt. There is very mild edema bilaterally. There is no DVT or cellulitis. There is no cyanosis or clubbing. There is no calf tenderness. DIGITAL SOLUTION ARCHITECT: The patient is conscious awake alert oriented x3 with no focal deficits. PSYCHIATRIC: Patient judgment insight are intact and affect is normal. Labs- All tests 24 hr 06/13/20 06/16/20 06/16/20 14:48 04:35 04:35 WBC 8.8 RBC 2.88 L Hgb 9.0 L Hct 26.3 L MCV 91 MCH 31.1 MCHC 34.1 RDW 16.1 H Plt Count 333 Lymph % (Auto) 17.6 [place] % (Auto) 12.3 Eos % (Auto) 5.3 Baso % (Auto) 0.8 Absolute Neuts (auto) 5.7 Absolute Lymphs (auto) 1.5 Absolute Monos (auto) 1.1 Absolute Eos (auto) 0.5 Absolute Basos (auto) 0.1 Seg Neutrophils % 64.0 Sodium 133.8 L Potassium 4.6 Chloride 96 L Carbon Dioxide 28 Anion Gap 10 BUN 71 H Creatinine 11.07 H Est GFR ( Amer) 5 L Est GFR (MDRD) Non-Af 4 L Glucose 78 Calcium 9.2 Crossmatch See Detail Chest X-Ray 06/11/20 00:00 IMPRESSION: Bilateral pleural effusions with basilar airspace disease either atelectasis or edema. Mild cardiomegaly. No pneumothorax. KUB X-Ray 06/13/20 00:00 IMPRESSION: Radiographic findings suggest ascites. Please note ultrasound is both more sensitive and specific for the evaluation of intra-abdominal fluid. IMPRESSION/RECOMMENDATION: 1. Acute systolic heart failure. Continue peritoneal dialysis. In view of the patient's end-stage renal disease. Note dialysis is the most effective way to pull out fluid. 2. Cardiomyopathy with mildly reduced LV ejection fraction. 3. Severe eccentric mitral regurgitation: Will continue losartan. 4. Severe pulmonary hypertension: We will continue the patient on losartan and repeating. 5. Hypertension: Blood pressure is well controlled on current doses of amlodipine and hydralazine. 6. End-stage renal disease on peritoneal dialysis: Nephrology on the case. Continue peritoneal dialysis. 7. Systemic lupus erythematosus with lupus nephritis. 8. Multiple CAD risk factors namely age, hypertension,. We will check the patient's lipid status. Medication reviewed medications adjusted. Medical decision making is of moderate complexity. 40 minutes spent as patient more than 50% of time spent in direct patient care.
[2020-06-17] MEDS: OXYCODONE-ACETAMINOPHEN 5-325 MG TABLET PO PRN ×4 (04:31→22:10)
[2020-06-17] MEDS: ONDANSETRON HCL INJ/PF 4 MG/2 ML SDV IV PRN ×4 (04:31→22:11)
[2020-06-17] MEDS: FAMOTIDINE 20 MG TABLET PO SCH (09:18)
[2020-06-17] MEDS: SEVELAMER HCL 800 MG TABLET PO SCH ×3 (09:18→17:11)
[2020-06-17] MEDS: LOSARTAN POTASSIUM 25 MG TABLET PO SCH ×2 (09:19→22:10)
[2020-06-17] MEDS: FUROSEMIDE INJ/PF 100 MG/10 ML SDV IV SCH ×2 (09:19→22:11)
[2020-06-17] MEDS: HYDROXYCHLOROQUINE SULFATE 200 MG TABLET PO SCH (09:19)
[2020-06-17] MEDS: CLONIDINE HCL 0.1 MG TABLET PO SCH ×2 (09:20→17:11)
[2020-06-17] MEDS: GENTAMICIN SULFATE 0.1% CREAM 15 GM TP SCH (09:24)
--- NOTE | 2020-06-17 21:28 | PDOC PROGRESS REPORT ---
Subjective Date:: 06/17/20 Subjective:: Patient seen by the bedside continues to improve Reason For Visit: CHF, ESRD ON PERITONEAL DIALYSIS, SLE Physical Exam Vital Signs: Temp Pulse Resp BP Pulse Ox 98.4 F 93 16 143/97 H 99 06/17/20 20:17 06/17/20 20:17 06/17/20 20:17 06/17/20 20:17 06/17/20 20:17 Intake & Output 06/16/20 06/17/20 06/18/20 06:59 06:59 06:59 Intake Total 9100 8490 4946 Output Total 70266 8300 5000 Balance -2075 190 -54 Weight 61.1 kg 57.4 kg 53.6 kg General appearance: PRESENT: no acute distress Eye exam: PRESENT: PERRLA Respiratory exam: PRESENT: clear to auscultation coco Cardiovascular exam: PRESENT: +S1, +S2 GI/Abdominal exam: PRESENT: soft Results Laboratory Results: 06/16/20 04:35 06/16/20 04:35 06/17/20 04:50 Phosphorus 6.9 H 06/11/20 14:20 NT-Pro-B Natriuret Pep [id number] H Impressions: Chest X-Ray 06/11/20 00:00 IMPRESSION: Bilateral pleural effusions with basilar airspace disease either atelectasis or edema. Mild cardiomegaly. No pneumothorax. KUB X-Ray 06/13/20 00:00 IMPRESSION: Radiographic findings suggest ascites. Please note ultrasound is both more sensitive and specific for the evaluation of intra-abdominal fluid. Assessment & Plan - Diagnosis (1) Acute systolic heart failure Is this a current diagnosis for this admission?: Yes Plan: Continue present treatment (2) Pulmonary hypertension Is this a current diagnosis for this admission?: Yes (3) Mitral valve regurgitation Qualifiers: Cardiac valve disease etiology: etiology unspecified Qualified Code(s): I34.0 - Nonrheumatic mitral (valve) insufficiency Is this a current diagnosis for this admission?: Yes Plan: Seen by cardiology (4) ESRD (end stage renal disease) Is this a current diagnosis for this admission?: Yes (5) Hyperkalemia Is this a current diagnosis for this admission?: Yes (6) Systemic lupus Qualifiers: Systemic lupus erythematosus type: unspecified Systemic lupus erythematosus organ involvement: unspecified Qualified Code(s): M32.9 - Systemic lupus erythematosus, unspecified Is this a current diagnosis for this admission?: Yes - Time Time Spent with patient: 15-24 minutes Level of Care: MEDICAL Medications reviewed and adjusted accordingly: Yes Anticipated discharge: Home
[2020-06-17] MEDS ORDERED: AMLODIPINE BESYLATE 5 MG TABLET PO SCH (22:00)
[2020-06-17] MEDS: DOCUSATE SODIUM 100 MG CAPSULE PO SCH (22:10)
--- NOTE | 2020-06-17 23:27 | Progress Note ---
Provider Note Provider Note: CARDIOLOGY PROGRESS NOTE by Dr. Ana Alvarez on 06/17/2020. Subjective: The Patient Denies Any Chest Pain Discomfort. And Her Leg Edema Is Much Improved. There Is No PND Orthopnea. There Is No Arrhythmias Seen on the Monitor. The patient's pulmonary hypertension is secondary pulmonary hyper tension. The secondary to the patient's lupus and left heart failure and her renal failure causing volume expansion. Physical EXAMINATION: The patient well-built and well-nourished in no acute distress Physical EXAMINATION: The patient well-built and well-nourished in no acute distress. Selected Entries 06/17/20 15:17 Temperature 98.0 F Temperature Oral Source Pulse Rate 92 Respiratory 12 Rate Blood Pressure 142/98 H Blood Pressure 112 Mean BP Location Right Arm BP Position Sitting O2 Sat by Pulse 100 Oximetry Oxygen Delivery Room Air Method HEAD: Is atraumatic normocephalic. EYES: Pupils are equal round regular reactive to light accommodation. Extraocular movements are normal. There is no conjunctival pallor. There is no scleral icterus. EARS: Tympanic membranes are intact. External auditory canals are clear. NOSE:" There is no deviated nasal septum. There is no inflammation of the nasal mucous membrane. MOUTH: Mucous membranes of mouth are moist. Tongue is moist. There is no ulcers. There is no bleeding from the gums. THROAT: There is no redness of the oropharynx. There is no exudates. SKIN: There is no skin rashes. There is no petechia or ecchymosis. There is no skin lesions. NECK: Is supple. There is JVD present. Carotids are equal there is no bruit. There is no lymphadenopathy. There is no goiter. There is no lymphadenopathy. There is no accessory muscles of respiration use. Trachea central. LUNGS: There is an absent area of breath sounds in the bases. Above this, there are a few bibasilar rales of CHF. HEART: S1-S2 is heard. There is no S3 gallop. There is no S4 gallop. There is systolic murmur left sternal border and the apex there is no rub. ABDOMEN: Soft. Nontender. There is a PD catheter in situ. Bowel sounds are well heard. There is no hepatosplenomegaly. Bowel sounds are well heard. EXTREMITIES: Femorals are diminished. Leg pulses well felt. There is trace edema bilaterally. There is no DVT or cellulitis. There is no cyanosis or clubbing. There is no calf tenderness. 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 PSYCHIATRIC: Patient judgment insight are intact and affect is normal. Labs- All tests 24 hr 06/17/20 04:50 Phosphorus 6.9 H Chest X-Ray 06/11/20 00:00 IMPRESSION: Bilateral pleural effusions with basilar airspace disease either atelectasis or edema. Mild cardiomegaly. No pneumothorax. KUB X-Ray 06/13/20 00:00 IMPRESSION: Radiographic findings suggest ascites. Please note ultrasound is both more sensitive and specific for the evaluation of intra-abdominal fluid. IMPRESSION/RECOMMENDATION: 1. Acute systolic heart failure. Continue peritoneal dialysis. In view of the patient's end-stage renal disease. Note dialysis is the most effective way to pull out fluid. 2. Cardiomyopathy with mildly reduced LV ejection fraction. 3. Severe eccentric mitral regurgitation: Will continue losartan. 4. Severe pulmonary hypertension: We will continue the patient on losartan and repeating. 5. Hypertension: Blood pressure is well controlled on current doses of amlodipine and hydralazine. 6. End-stage renal disease on peritoneal dialysis: Nephrology on the case. Con tinue peritoneal dialysis. 7. Systemic lupus erythematosus with lupus nephritis. 8. Multiple CAD risk factors namely age, hypertension,. We will check the patient's lipid status. Medications reviewed. Medical regimen management plan discussed with Dr. Kinsey. Medical decision making is of moderate complexity. 40 minutes spent as patient more than 50% of time spent direct patient care. Will follow
[2020-06-18] MEDS: OXYCODONE-ACETAMINOPHEN 5-325 MG TABLET PO PRN ×4 (04:38→22:47)
[2020-06-18] MEDS: ONDANSETRON HCL INJ/PF 4 MG/2 ML SDV IV PRN ×3 (04:38→22:26)
[2020-06-18 05:37] LABS: CHOLESTEROL 195.52 mg/dL (0-200); TRIGLYCERIDES 97 mg/dL (<150)
[2020-06-18 05:48] LABS: DIRECT LDL 64 mg/dL (<100)
[2020-06-18 05:49] LABS: VLDL CHOLESTEROL 19.4 mg/dL (10-31)
[2020-06-18] MEDS: FUROSEMIDE INJ/PF 100 MG/10 ML SDV IV SCH ×2 (09:12→22:26)
[2020-06-18] MEDS: SEVELAMER HCL 800 MG TABLET PO SCH ×3 (09:13→19:17)
[2020-06-18] MEDS: CLONIDINE HCL 0.1 MG TABLET PO SCH ×3 (09:14→19:17)
[2020-06-18] MEDS: HYDROXYCHLOROQUINE SULFATE 200 MG TABLET PO SCH (09:14)
[2020-06-18] MEDS: GENTAMICIN SULFATE 0.1% CREAM 15 GM TP SCH (10:21)
--- NOTE | 2020-06-18 19:59 | Progress Note ---
Provider Note Provider Note: CARDIOLOGY PROGRESS NOTE by Dr. Ana Alvarez on 06/18/2020. Subjective: The Patient Denies Any Chest Pain Discomfort. And Her Leg Edema Is Much Improved. There Is No PND Orthopnea. There Is No Arrhythmias Seen on the Monitor. The patient's pulmonary hypertension is secondary pulmonary hypert ension. The secondary to the patient's lupus and left heart failure and her renal failure causing volume expansion. Physical EXAMINATION: The patient well-built and well-nourished in no acute distress Selected Entries 06/18/20 10:49 Temperature 97.8 F Temperature Oral Source Pulse Rate 87 Respiratory 16 Rate Blood Pressure 128/90 H Blood Pressure 102 Mean BP Location Left Arm BP Position Sitting O2 Sat by Pulse 98 Oximetry Oxygen Delivery Room Air Method HEAD: Is atraumatic normocephalic. EYES: Pupils are equal round regular r eactive to light accommodation. Extraocular movements are normal. There is no conjunctival pallor. There is no scleral icterus. EARS: Tympanic membranes are intact. External auditory canals are clear. NOSE:" There is no deviated nasal septum. There is no inflammation of the nasal mucous membrane. MOUTH: Mucous membranes of mouth are moist. Tongue is moist. There is no ulcers. There is n o bleeding from the gums. THROAT: There is no redness of the oropharynx. There is no exudates. SKIN: There is no skin rashes. There is no petechia or ecchymosis. There is no skin lesions. NECK: Is supple. There is JVD present. Carotids are equal there is no bruit. There is no lymphadenopathy. There is no goiter. There is no lymphadenopathy. There is no accessory muscles of respiration use. Trachea central. LUNGS: There is an absent area of breath sounds in the bases. Above this, there are a few bibasilar rales of CHF. HEART: S1-S2 is heard. There is no S3 gallop. There is no S4 gallop. There is systolic murmur left sternal border and the apex there is no rub. ABDOMEN: Soft. Nontender. There is a PD catheter in situ. Bowel sounds are well heard. There is no hepatosplenomegaly. Bowel sounds are well heard. EXTREMITIES: Femorals are diminished. Leg pulses well felt. There is trace edema bilaterally. There is no DVT or cellulitis. There is no cyanosis or clubbing. There is no calf tenderness. 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 PSYCHIATRIC: Patient judgment insight are intact and affect is normal. Labs- All tests 24 hr 06/18/20 04:36 Triglycerides 97 Cholesterol 195.52 LDL Cholesterol Direct 64 VLDL Cholesterol 19.4 HDL Cholesterol 72 Chest X-Ray 06/11/20 00:00 IMPRESSION: Bilateral pleural effusions with basilar airspace disease either atelectasis or edema. Mild cardiomegaly. No pneumothorax. KUB X-Ray 06/13/20 00:00 IMPRESSION: Radiographic findings suggest ascites. Please note ultrasound is both more sensitive and specific for the evaluation of intra-abdominal fluid. IMPRESSION/RECOMMENDATION: 1. Acute systolic heart failure. Continue peritoneal dialysis. In view of the patient's end-stage renal disease. Note dialysis is the most effective way to pull out fluid. This is resolved. 2. Cardiomyopathy with mildly reduced LV ejection fraction. 3. Severe eccentric mitral regurgitation: Will continue losartan. 4. Severe pulmonary hypertension: We will continue the patient on losartan and repeating. 5. Hypertension: Blood pressure is well controlled on current doses of amlodipine and hydralazine. 6. End-stage renal disease on peritoneal dialysis: Nephrology on the case. Continue peritoneal dialysis. 7. Systemic lupus erythematosus with lupus nephritis. 8. Multiple CAD risk factors namely age, and hypertension. 9. Excellent HDL, LDL and triglyceride levels. Medications reviewed. Medical regimen management plan discussed with Dr. Kinsey. Medical decision making is of moderate complexity. 40 minutes spent as patient more than 50% time spent in direct patient care. Will follow patient in the office. We will sign off.
--- NOTE | 2020-06-18 20:58 | PDOC PROGRESS REPORT ---
Subjective Date:: 06/18/20 Subjective:: Patient seen by the bedside continues to improve Reason For Visit: CHF, ESRD ON PERITONEAL DIALYSIS, SLE Physical Exam Vital Signs: Temp Pulse Resp BP Pulse Ox 97.7 F 83 16 130/90 H 93 06/18/20 14:45 06/18/20 15:11 06/18/20 14:45 06/18/20 15:11 06/18/20 14:45 Intake & Output 06/17/20 06/18/20 06/19/20 06:59 06:59 06:59 Intake Total 8490 9146 4150 Output Total 8300 37041 5675 Balance 893 -6331 -7965 Weight 57.4 kg 56 kg 55.3 kg General appearance: PRESENT: no acute distress Eye exam: PRESENT: PERRLA Respiratory exam: PRESENT: clear to auscultation coco Cardiovascular exam: PRESENT: +S1, +S2 Neurological exam: PRESENT: alert Results Laboratory Results: 06/16/20 04:35 06/16/20 04:35 06/18/20 04:36 Triglycerides 97 Cholesterol 195.52 LDL Cholesterol Direct 64 VLDL Cholesterol 19.4 HDL Cholesterol 72 06/11/20 14:20 NT-Pro-B Natriuret Pep [id number] H Impressions: Chest X-Ray 06/11/20 00:00 IMPRESSION: Bilateral pleural effusions with basilar airspace disease either atelectasis or edema. Mild cardiomegaly. No pneumothorax. KUB X-Ray 06/13/20 00:00 IMPRESSION: Radiographic findings suggest ascites. Please note ultrasound is both more sensitive and specific for the evaluation of intra-abdominal fluid. Assessment & Plan - Diagnosis (1) Acute systolic heart failure Is this a current diagnosis for this admission?: Yes Plan: Continue present treatment (2) Pulmonary hypertension Is this a current diagnosis for this admission?: Yes (3) Mitral valve regurgitation Qualifiers: Cardiac valve disease etiology: etiology unspecified Qualified Code(s): I34.0 - Nonrheumatic mitral (valve) insufficiency Is this a current diagnosis for this admission?: Yes Plan: Seen by cardiology (4) ESRD (end stage renal disease) Is this a current diagnosis for this admission?: Yes Plan: Management per nephrology (5) Hyperkalemia Is this a current diagnosis for this admission?: Yes (6) Systemic lupus Qualifiers: Systemic lupus erythematosus type: unspecified Systemic lupus erythematosus organ involvement: unspecified Qualified Code(s): M32.9 - Systemic lupus erythematosus, unspecified Is this a current diagnosis for this admission?: Yes - Time Time Spent with patient: 15-24 minutes Level of Care: MEDICAL Medications reviewed and adjusted accordingly: Yes Anticipated discharge: Home Anticipated DC Timeframe: within 48 hours
[2020-06-18] MEDS: DOCUSATE SODIUM 100 MG CAPSULE PO SCH (22:26)
[2020-06-18] MEDS: LOSARTAN POTASSIUM 25 MG TABLET PO SCH (22:26)
[2020-06-19] MEDS: ONDANSETRON HCL INJ/PF 4 MG/2 ML SDV IV PRN (04:43)
[2020-06-19] MEDS: OXYCODONE-ACETAMINOPHEN 5-325 MG TABLET PO PRN ×3 (04:43→22:54)
[2020-06-19 05:56] LABS: ANION GAP 9 (5-19); BLOOD UREA NITROGEN 53 mg/dL (7-20); CALCIUM 9.2 mg/dL (8.4-10.2); CARBON DIOXIDE 30 mmol/L (22-30); CHLORIDE 93 mmol/L (98-107); CHOLESTEROL 185.04 mg/dL (0-200); GLUCOSE 81 mg/dL (75-110); POTASSIUM 4.6 mmol/L (3.6-5.0); TRIGLYCERIDES 96 mg/dL (<150)
[2020-06-19 06:07] LABS: DIRECT LDL 63 mg/dL (<100)
[2020-06-19] MEDS: SEVELAMER HCL 800 MG TABLET PO SCH ×3 (09:13→16:30)
[2020-06-19] MEDS: CLONIDINE HCL 0.1 MG TABLET PO SCH ×2 (09:14→19:09)
[2020-06-19] MEDS: FUROSEMIDE INJ/PF 100 MG/10 ML SDV IV SCH ×2 (09:15→22:52)
[2020-06-19] MEDS: HYDROXYCHLOROQUINE SULFATE 200 MG TABLET PO SCH (09:15)
[2020-06-19] MEDS: FAMOTIDINE 20 MG TABLET PO SCH (09:15)
--- NOTE | 2020-06-19 10:51 | PDOC PROGRESS REPORT ---
Subjective Date:: 06/19/20 Reason For Visit: Patient was seen today. She is feeling a whole lot better each day. Did she denies any chest pain or shortness of breath. Good appetite. No nausea vomiting, fever or chills. Labs and medications were reviewed. Her edema is a whole lot improved. Discussions were done with the treating nurse as well. Physical Exam Vital Signs: Temp Pulse Resp BP Pulse Ox 97.8 F 89 16 136/91 H 97 06/19/20 07:13 06/19/20 07:13 06/19/20 07:13 06/19/20 07:13 06/19/20 07:13 Intake & Output 06/18/20 06/19/20 06/20/20 06:59 06:59 06:59 Intake Total 9146 8370 Output Total 35181 77115 Balance -1806 -5583 Weight 56 kg 55.6 kg General appearance: PRESENT: no acute distress Respiratory exam: PRESENT: clear to auscultation coco, decreased breath sounds. ABSENT: crackles Cardiovascular exam: PRESENT: +S1, +S2 GI/Abdominal exam: PRESENT: distended - From PD fluid, normal bowel sounds, soft. ABSENT: organomegaly, tenderness Extremities exam: PRESENT: pedal edema Neurological exam: PRESENT: alert, awake, oriented to person, oriented to place Psychiatric exam: PRESENT: appropriate affect Results Laboratory Results: 06/16/20 04:35 06/19/20 04:41 06/19/20 04:41 Sodium 132.0 L Potassium 4.6 Chloride 93 L Carbon Dioxide 30 Anion Gap 9 BUN 53 H Creatinine 10.35 H Est GFR ( Amer) 5 L Glucose 81 Calcium 9.2 Triglycerides 96 Cholesterol 185.04 LDL Cholesterol Direct 63 VLDL Cholesterol 19.0 HDL Cholesterol 67 06/11/20 14:20 NT-Pro-B Natriuret Pep [id number] H Impressions: Chest X-Ray 06/11/20 00:00 IMPRESSION: Bilateral pleural effusions with basilar airspace disease either atelectasis or edema. Mild cardiomegaly. No pneumothorax. KUB X-Ray 06/13/20 00:00 IMPRESSION: Radiographic findings suggest ascites. Please note ultrasound is both more sensitive and specific for the evaluation of intra-abdominal fluid. Assessment & Plan - Diagnosis (1) Biventricular CHF (congestive heart failure) Plan: Patient improving with properly directed PD regimens. Unfortunately she was noncompliant and not doing proper PD at home which led to culmination of her current decompensated heart failure. However pulmonary hypertension is concerning and whether it is primary or secondary needs to be determined. Cardiology on board. (2) Non-compliance Is this a current diagnosis for this admission?: Yes Plan: As mentioned earlier. Hopefully she has learned from this admission. (3) ESRD (end-stage renal disease) due to SLE Plan: Patient currently on peritoneal dialysis which has not been done properly. Went through the basics again with her. Currently she is on a 2.5/4.25 alternating regimen with good ultrafiltration. Continue on current guidelines. Patient's biventricular heart failure seems to be improving.From a renal standpoint she can be discharged home anytime now. She needs to be using a 4.25% bag on a daily basis for the next 3 to 5 days. I have discussed the case with Kenzie our PD nurse at [facility] who is going to be contacting her on using 4.25% back with the help of a cycler. She will be closely followed by us at [facility] including by Kenzie next week. (4) Hypertension Qualifiers: Hypertension type: essential hypertension Qualified Code(s): I10 - Essential (primary) hypertension Is this a current diagnosis for this admission?: Yes Plan: Controlled. Would continue current medications and not what she came in with. Advised the need for proper peritoneal dialysis and ultrafiltration. (5) Systemic lupus Qualifiers: Systemic lupus erythematosus type: unspecified Systemic lupus erythematosus organ involvement: unspecified Qualified Code(s): M32.9 - Systemic lupus erythematosus, unspecified Is this a current diagnosis for this admission?: Yes Plan: Currently on Plaquenil with no active symptoms. (6) Anemia in chronic kidney disease, on chronic dialysis Is this a current diagnosis for this admission?: Yes Plan: Was given Retacrit last week and will continue on the same this week as well. Monitor. (7) Renal osteodystrophy Plan: Uncontrolled with background history of noncompliance. Improving phosphorus.
[2020-06-19] MEDS ORDERED: EPOETIN ALFA-EPBX 10,000 UNIT/ML VIAL (RENAL) SUBCUT SCH (13:38)
[2020-06-19] MEDS: GENTAMICIN SULFATE 0.1% CREAM 15 GM TP SCH (13:49)
--- NOTE | 2020-06-19 17:18 | PDOC PROGRESS REPORT ---
Subjective Date:: 06/19/20 Subjective:: Patient is improved, she complain of constipation, she will be given enema, hope fully discharge home tomorrow Reason For Visit: CHF, ESRD ON PERITONEAL DIALYSIS, SLE Physical Exam Vital Signs: Temp Pulse Resp BP Pulse Ox 97.8 F 86 16 116/80 97 06/19/20 11:30 06/19/20 15:37 06/19/20 11:30 06/19/20 15:37 06/19/20 11:30 Intake & Output 06/18/20 06/19/20 06/20/20 06:59 06:59 06:59 Intake Total 9146 8370 4000 Output Total 34321 31696 Balance -2417 -8237 4000 Weight 56 kg 55.6 kg 49.8 kg General appearance: PRESENT: no acute distress Eye exam: PRESENT: PERRLA Respiratory exam: PRESENT: clear to auscultation coco Cardiovascular exam: PRESENT: +S1, +S2 GI/Abdominal exam: PRESENT: soft Results Laboratory Results: 06/16/20 04:35 06/19/20 04:41 06/19/20 04:41 Sodium 132.0 L Potassium 4.6 Chloride 93 L Carbon Dioxide 30 Anion Gap 9 BUN 53 H Creatinine 10.35 H Est GFR ( Amer) 5 L Glucose 81 Calcium 9.2 Triglycerides 96 Cholesterol 185.04 LDL Cholesterol Direct 63 VLDL Cholesterol 19.0 HDL Cholesterol 67 06/11/20 14:20 NT-Pro-B Natriuret Pep [id number] H Impressions: Chest X-Ray 06/11/20 00:00 IMPRESSION: Bilateral pleural effusions with basilar airspace disease either atelectasis or edema. Mild cardiomegaly. No pneumothorax. KUB X-Ray 06/13/20 00:00 IMPRESSION: Radiographic findings suggest ascites. Please note ultrasound is both more sensitive and specific for the evaluation of intra-abdominal fluid. Assessment & Plan - Diagnosis (1) Acute systolic heart failure Is this a current diagnosis for this admission?: Yes Plan: Continue present treatment (2) Pulmonary hypertension Is this a current diagnosis for this admission?: Yes (3) Mitral valve regurgitation Qualifiers: Cardiac valve disease etiology: etiology unspecified Qualified Code(s): I34.0 - Nonrheumatic mitral (valve) insufficiency Is this a current diagnosis for this admission?: Yes Plan: Seen by cardiology (4) ESRD (end stage renal disease) Is this a current diagnosis for this admission?: Yes (5) Hyperkalemia Is this a current diagnosis for this admission?: Yes (6) Systemic lupus Qualifiers: Systemic lupus erythematosus type: unspecified Systemic lupus erythematosus organ involvement: unspecified Qualified Code(s): M32.9 - Systemic lupus erythematosus, unspecified Is this a current diagnosis for this admission?: Yes - Time Time Spent with patient: 15-24 minutes Level of Care: IMCU Medications reviewed and adjusted accordingly: Yes Anticipated discharge: Home
[2020-06-19] MEDS: DOCUSATE SODIUM 100 MG CAPSULE PO SCH (22:53)
[2020-06-19] MEDS: LOSARTAN POTASSIUM 25 MG TABLET PO SCH (22:53)
[2020-06-20] MEDS: FUROSEMIDE INJ/PF 100 MG/10 ML SDV IV SCH (10:09)
[2020-06-20] MEDS: SEVELAMER HCL 800 MG TABLET PO SCH ×2 (10:09→12:00)
[2020-06-20] MEDS: HYDROXYCHLOROQUINE SULFATE 200 MG TABLET PO SCH (10:11)
[2020-06-20] MEDS: GENTAMICIN SULFATE 0.1% CREAM 15 GM TP SCH (10:11)
[2020-06-20] MEDS: OXYCODONE-ACETAMINOPHEN 5-325 MG TABLET PO PRN (10:12)
[2020-06-20] MEDS ORDERED: CLONIDINE HCL 0.1 MG TABLET PO SCH (10:30)
[2020-06-20 15:55] VITALS: BP 125/79
--- NOTE | 2020-06-20 16:00 | PDOC PROGRESS REPORT ---
Subjective Date:: 06/20/20 Reason For Visit: Patient seen today. She is feeling a whole lot better from yesterday when she had some problems in draining secondary to constipation. It has been relieved with enemas and she has had couple of good bowel movements and along with the relief of difficulty with drainage. She denies any chest pain or shortness of breath. Eager to go home. Labs and medications were reviewed. Physical Exam Vital Signs: Temp Pulse Resp BP Pulse Ox 97.7 F 75 16 125/79 90 L 06/20/20 15:51 06/20/20 15:51 06/20/20 15:51 06/20/20 15:51 06/20/20 15:51 Intake & Output 06/19/20 06/20/20 06/21/20 06:59 06:59 06:59 Intake Total 8370 6410 2120 Output Total 14325 5600 1800 Balance -2605 810 320 Weight 55.6 kg 50.2 kg 49.8 kg General appearance: PRESENT: no acute distress Respiratory exam: PRESENT: clear to auscultation coco, decreased breath sounds. ABSENT: crackles Cardiovascular exam: PRESENT: +S1, +S2 GI/Abdominal exam: PRESENT: distended - From PD fluid, normal bowel sounds, sof t. ABSENT: organomegaly, tenderness Extremities exam: PRESENT: pedal edema Neurological exam: PRESENT: alert, awake, oriented to person, oriented to place Results Laboratory Results: 06/16/20 04:35 06/19/20 04:41 06/11/20 14:20 NT-Pro-B Natriuret Pep [id number] H Impressions: Chest X-Ray 06/11/20 00:00 IMPRESSION: Bilateral pleural effusions with basilar airspace disease either atelectasis or edema. Mild cardiomegaly. No pneumothorax. KUB X-Ray 06/13/20 00:00 IMPRESSION: Radiographic findings suggest ascites. Please note ultrasound is both more sensitive and specific for the evaluation of intra-abdominal fluid. Assessment & Plan - Diagnosis (1) Biventricular CHF (congestive heart failure) Plan: Patient improving with properly directed PD regimens. Unfortunately she was noncompliant and not doing proper PD at home which led to culmination of her current decompensated heart failure. However pulmonary hypertension is concerning and whether it is primary or secondary needs to be determined. Cardiology on board. (2) Non-compliance Is this a current diagnosis for this admission?: Yes Plan: As mentioned earlier. Hopefully she has learned from this admission. (3) ESRD (end-stage renal disease) due to SLE Plan: Patient currently on peritoneal dialysis which has not been done properly.Had some difficulty with drainage yesterday which has been relieved after treatment of her constipation. I have discussed the case with Kenzie our PD nurse at [facility] who has contacted her on using 4.25% back with the help of a cycler. She will be closely followed by us at [facility] including by Kenzie next week. (4) Hypertension Qualifiers: Hypertension type: essential hypertension Qualified Code(s): I10 - Essential (primary) hypertension Is this a current diagnosis for this admission?: Yes Plan: Controlled. I am going to cut back her clonidine to 0.1 mg twice daily. (5) Systemic lupus Qualifiers: Systemic lupus erythematosus type: unspecified Systemic lupus erythematosus organ involvement: unspecified Qualified Code(s): M32.9 - Systemic lupus erythematosus, unspecified Is this a current diagnosis for this admission?: Yes Plan: Currently on Plaquenil with no active symptoms. (6) Anemia in chronic kidney disease, on chronic dialysis Is this a current diagnosis for this admission?: Yes Plan: Was given Retacrit last week and will continue on the same this week as well. Monitor. (7) Renal osteodystrophy Plan: Uncontrolled with background history of noncompliance. Improving phosphorus.
--- NOTE | 2020-06-20 19:41 | PDOC DISCHARGE SUMMARY ---
Impression - Admit/DC Date/PCP Admission Date/Primary Care Provider: 06/11/20 11:29 MARYELLEN SHIRLEY MD Discharge Date: 06/20/20 - Discharge Diagnosis (1) Acute systolic heart failure Is this a current diagnosis for this admission?: Yes (2) Pulmonary hypertension Is this a current diagnosis for this admission?: Yes (3) Mitral valve regurgitation Is this a current diagnosis for this admission?: Yes (4) ESRD (end stage renal disease) Is this a current diagnosis for this admission?: Yes (5) Hyperkalemia Is this a current diagnosis for this admission?: Yes (6) Systemic lupus Is this a current diagnosis for this admission?: Yes (7) ESRD (end stage renal disease) Is this a current diagnosis for this admission?: Yes (8) Renal osteodystrophy Is this a current diagnosis for this admission?: Yes (9) Non-compliance Is this a current diagnosis for this admission?: Yes - Additional Information Discharge Diet: Cardiac, Other (Comments) Discharge Activity: Activity As Tolerated, Balance Activity w/Rest, Weigh Daily Referrals: MARYELLEN SHIRLEY MD [Primary Care Provider] - Prescriptions: Losartan Potassium [Cozaar 25 mg Tablet] 25 mg PO QHS #90 tablet Sevelamer HCl [Renagel 800 mg Tablet] 2,400 mg PO MEALS #90 tablet Home Medications: Amlodipine Besylate [Norvasc 5 mg Tablet] 5 mg PO DAILY 06/23/19 Hydroxychloroquine Sulfate [Plaquenil 200 mg Tablet] 200 mg PO DAILY #30 tab 07/04/19 Clonidine HCl [Catapres 0.1 mg Tablet] 0.3 mg PO BID 05/05/20 Clonidine HCl [Catapres 0.1 mg Tablet] 0.1 mg PO Q12 tablet 06/20/20 Docusate Sodium [Colace 100 mg Capsule] 100 mg PO QHS capsule 06/20/20 Epoetin Daniel-Epbx [Retacrit 10,000 Unit/ml Vial (Renal)] 20,000 unit SUBCUT TH vial 06/20/20 Famotidine [Pepcid 20 mg Tablet] 20 mg PO Q2DAYS tablet 06/20/20 Losartan Potassium [Cozaar 25 mg Tablet] 25 mg PO QHS #90 tablet 06/20/20 Sevelamer HCl [Renagel 800 mg Tablet] 2,400 mg PO MEALS #90 tablet 06/20/20 History of Present Illiness History of Present Illness: CARLOS LEVINE is a 44 year old female, She has a history of systemic lupus erythematosus complicated with end-stage renal disease on peritoneal dialysis, she came to the office today for evaluation of bilateral lower extremity edema. In the office she has huge swelling affecting both legs ,on examination in the office there was engorgement of the neck veins, I felt patient needed to be admitted for management,She was admitted directly from the office to the hospital.Transthoracic echocardiogram was done, it demonstrated moderate concentric left ventricular hypertrophy, the estimated ejection fraction of left ventricle is 50% moderate dilatation of the right ventricle right atrium left atrium is severe pulmonary hypertension, severe mitral valve regurgitation Hospital Course Hospital Course: Patient was admitted to the hospital for the management of mild acute systolic heart failure, end-stage renal disease on peritoneal dialysis, anasarca.A transthoracic echocardiogram was done demonstrated mild impaired systolic function the ejection fraction was 50%,, she was also found to have severe pulmonary hypertension. She is on peritoneal dialysis due to end-stage renal disease, she apparently has been poorly managing her PD at home and that this partly the reason why she was volume overloaded. Consultation was requested from nephrology, the dialysis was comanage very good result.She also has constipation, this was treated with enema with good result .She has severe mitral valve regurgitation, she was seen in consultation by Dr. Marte cardiology Physical Exam Vital Signs: Temp Pulse Resp BP Pulse Ox 97.7 F 75 16 125/79 90 L 06/20/20 15:51 06/20/20 15:51 06/20/20 15:51 06/20/20 15:51 06/20/20 15:51 Intake & Output 06/19/20 06/20/20 06/21/20 06:59 06:59 06:59 Intake Total 8370 6410 2120 Output Total 67573 5600 1800 Balance -2605 810 320 Weight 55.6 kg 50.2 kg 49.8 kg Results Laboratory Results: WBC 8.8 10^3/uL (4.0-10.5) 06/16/20 04:35 RBC 2.88 10^6/uL (3.72-5.28) L 06/16/20 04:35 Hgb 9.0 g/dL (12.0-15.5) L 06/16/20 04:35 Hct 26.3 % (36.0-47.0) L 06/16/20 04:35 MCV 91 fl (80-97) 06/16/20 04:35 MCH 31.1 pg (27.0-33.4) 06/16/20 04:35 MCHC 34.1 g/dL (32.0-36.0) 06/16/20 04:35 RDW 16.1 % (11.5-14.0) H 06/16/20 04:35 Plt Count 333 10^3/uL (150-450) 06/16/20 04:35 Lymph % (Auto) 17.6 % (13-45) 06/16/20 04:35 [place] % (Auto) 12.3 % (3-13) 06/16/20 04:35 Eos % (Auto) 5.3 % (0-6) 06/16/20 04:35 Baso % (Auto) 0.8 % (0-2) 06/16/20 04:35 Absolute Neuts (auto) 5.7 10^3/uL (1.7-8.2) 06/16/20 04:35 Absolute Lymphs (auto) 1.5 10^3/uL (0.5-4.7) 06/16/20 04:35 Absolute Monos (auto) 1.1 10^3/uL (0.1-1.4) 06/16/20 04:35 Absolute Eos (auto) 0.5 10^3/uL (0.0-0.6) 06/16/20 04:35 Absolute Basos (auto) 0.1 10^3/uL (0.0-0.2) 06/16/20 04:35 Seg Neutrophils % 64.0 % (42-78) 06/16/20 04:35 Sodium 132.0 mmol/L (137-145) L 06/19/20 04:41 Potassium 4.6 mmol/L (3.6-5.0) 06/19/20 04:41 Chloride 93 mmol/L (98-107) L 06/19/20 04:41 Carbon Dioxide 30 mmol/L (22-30) 06/19/20 04:41 Anion Gap 9 (5-19) 06/19/20 04:41 BUN 53 mg/dL (7-20) H 06/19/20 04:41 Creatinine 10.35 mg/dL (0.52-1.25) H 06/19/20 04:41 Est GFR ( Amer) 5 (>60) L 06/19/20 04:41 Est GFR (MDRD) Non-Af 4 (>60) L 06/19/20 04:41 Glucose 81 mg/dL (75-110) 06/19/20 04:41 Calcium 9.2 mg/dL (8.4-10.2) 06/19/20 04:41 Phosphorus 6.9 mg/dL (2.5-4.5) H 06/17/20 04:50 Magnesium 2.6 mg/dL (1.6-2.3) H 06/12/20 05:48 Iron 33.9 ug/dL (37-170) L 06/11/20 14:20 TIBC 296 ug/dL (250-450) 06/11/20 14:20 % Saturation 11 % 06/11/20 14:20 Ferritin 732.00 ng/mL (6.2-137.0) H 06/11/20 14:20 Total Bilirubin 0.4 mg/dL (0.2-1.3) 06/13/20 12:30 Direct Bilirubin 0.4 mg/dL (0.0-0.4) 06/13/20 12:30 Neonat Total Bilirubin Not Reportable 06/13/20 12:30 Neonat Direct Bilirubin Not Reportable 06/13/20 12:30 Neonat Indirect Bili Not Reportable 06/13/20 12:30 AST 31 U/L (14-36) 06/13/20 12:30 ALT 56 U/L (<35) H 06/13/20 12:30 Alkaline Phosphatase 98 U/L (38-126) 06/13/20 12:30 C-Reactive Protein 23.6 mg/L (<10.0) H 06/11/20 14:20 NT-Pro-B Natriuret Pep 803741 pg/mL (<125) H 06/11/20 14:20 Total Protein 5.5 g/dL (6.3-8.2) L 06/13/20 12:30 Albumin 2.8 g/dL (3.5-5.0) L 06/13/20 12:30 Triglycerides 96 mg/dL (<150) 06/19/20 04:41 Cholesterol 185.04 mg/dL (0-200) 06/19/20 04:41 LDL Cholesterol Direct 63 mg/dL (<100) 06/19/20 04:41 VLDL Cholesterol 19.0 mg/dL (10-31) 06/19/20 04:41 HDL Cholesterol 67 mg/dL (>40) 06/19/20 04:41 TSH 2.17 uIU/mL (0.47-4.68) 06/11/20 14:20 Free T4 1.25 ng/dL (0.78-2.19) 06/11/20 14:20 PTH Intact 650.8 pg/mL (10.0-65.0) H 06/12/20 05:48 Blood Type O POSITIVE 06/13/20 14:48 Blood Type Confirm O POSITIVE 06/13/20 15:49 Antibody Screen NEGATIVE 06/13/20 14:48 Ab Screen Tube Method POSITIVE 06/13/20 14:48 Prewarmed Antibody Srcn NEGATIVE 06/13/20 14:48 Antibody Identification Cold Antibody 06/13/20 14:48 Crossmatch See Detail 06/13/20 14:48 06/11/20 14:20 NT-Pro-B Natriuret Pep [id number] H Impressions: Chest X-Ray 06/11/20 00:00 IMPRESSION: Bilateral pleural effusions with basilar airspace disease either atelectasis or edema. Mild cardiomegaly. No pneumothorax. KUB X-Ray 06/13/20 00:00 IMPRESSION: Radiographic findings suggest ascites. Please note ultrasound is both more sensitive and specific for the evaluation of intra-abdominal fluid. Stroke Is this a Stroke Patient?: No Acute Heart Failure Is this a Heart Failure Patient?: No
== END 2020-06-20 16:24 | disposition home or self-care (01) | DRG 291 ==
LOC: 4N 11:29
PROVIDERS: ADMIT Internal Medicine; ATTEND Internal Medicine
PROC: B24BZZ4 Ultrasonography of Heart with Aorta, Transesophageal (ICD-10-PCS; 2020-06-11)
PROC: 30233N1 Transfusion of Nonautologous Red Blood Cells into Peripheral Vein, Percutaneous Approach (ICD-10-PCS; principal; 2020-06-14)
DX: I13.2 Hypertensive heart and chronic kidney disease with heart failure and with stage 5 chronic kidney disease, or end stage renal disease (principal); I50.21 Acute systolic (congestive) heart failure; N18.6 End stage renal disease; E87.1 Hypo-osmolality and hyponatremia; I27.20 Pulmonary hypertension, unspecified; E87.5 Hyperkalemia; N25.0 Renal osteodystrophy; E83.39 Other disorders of phosphorus metabolism; M32.14 Glomerular disease in systemic lupus erythematosus; D63.1 Anemia in chronic kidney disease; F32.9 Major depressive disorder, single episode, unspecified; I42.9 Cardiomyopathy, unspecified; E83.9 Disorder of mineral metabolism, unspecified; K21.9 Gastro-esophageal reflux disease without esophagitis; K59.01 Slow transit constipation; I34.0 Nonrheumatic mitral (valve) insufficiency; Z91.19 Patient's noncompliance with other medical treatment and regimen; Z79.899 Other long term (current) drug therapy; Z91.013 Allergy to seafood; Z91.11 Patient's noncompliance with dietary regimen; Z99.2 Dependence on renal dialysis; Z91.138 Patient's unintentional underdosing of medication regimen for other reason
CPT/HCPCS: 36415; 36430; 71045; 74018; 80048; 80053; 80061; 80076; 82728; 83540; 83550; 83735; 83880; 83970; 84100; 84439; 84443; 85025; 86140; 86850; 86870; 86900; 86901; 86920; 86922; 87070; 90945; 90947; 93005; 93010; 93306; J0610; J1815; J1940; J2405; J3490; J7050; P9016; Q5105; Q5106